=== PATIENT | male | born 1975 | race African-American/Black ===

== ENCOUNTER 2024-06-27 22:11 | Inpatient (IN) | payer BC, SELFPAY ==
[2024-06-27] VITALS (7 sets, daily range): BP systolic 120–149; BP diastolic 65–95; BMI 20.5
[2024-06-27 18:37] LABS: Hematocrit 29.4 % (39.0-52.0); Hemoglobin 10.2 g/dL (13.0-18.0); Mean Corp Hgb Conc. 34.7 g/dL (33.0-37.0); Mean Corpuscular Hgb 29.5 pg (27.0-31.0); Mean Platelet Volume 9.2 fL (7.4-10.4); Platelet Count 135 10^3/uL (130-400); Red Blood Cell Count 3.46 10^6/uL (4.70-6.10); Red Cell Dist. Width 15.1 % (11.5-14.5)
[2024-06-27 18:40] LABS: ALT (SGPT) 27 U/L (0-50); AST (SGOT) 38 U/L (17-59); Albumin 4.1 g/dl (3.5-5.0); Alkaline Phosphatase 80 U/L (38-126); Blood Urea Nitrogen 58 mg/dl (9-20); Calcium 12.5 mg/dl (8.4-10.2); Carbon Dioxide 20 mmol/L (22-30); Chloride 107 mmol/L (98-107); Glucose 118 mg/dl (70-99); Lipase 56 U/L (23-300); Potassium 4.4 mmol/L (3.5-5.1); Sodium 137 mmol/L (135-145); Total Bilirubin 0.8 mg/dl (0.2-1.3); Total Protein 6.6 g/dl (6.3-8.2)
[2024-06-27 18:44] LABS: Troponin I 0.017 ng/ml
[2024-06-27 19:02] LABS: % Basophils 1.1 % (0-2); % Eosinophils 2.7 % (0-6); % Lymphocytes 25.9 % (20.5-51.1); % Monocytes 14.2 % (1.7-9.3); % Neutrophils 47.1 % (42.2-75.2); Absolute Basophils 0.2 10^3/uL (0-0.2); Absolute Eosinophils 0.6 10^3/uL (0-0.7); Absolute Immature Granulocytes 1.9 10^3/uL (0-0.05); Absolute Lymphocytes 5.3 10^3/uL (1.2-3.4); Absolute Monocytes 2.9 10^3/uL (0.1-0.6); Absolute Neutrophils 9.6 10^3/uL (1.4-6.5); Nucleated Red Blood Cells % 0 % (-)
--- NOTE | 2024-06-27 19:08 | ED.GENMED ---
History of Present Illness
General
Chief Complaint: Abdominal Pain
Time Seen by Provider: 06/27/24 18:52
History of Present Illness
History of Present Illness:
49-year-old male with past medical history of opiate use disorder on Suboxone presents to the emergency department for evaluation of right-sided chest discomfort and difficulty breathing, he also notes general fatigue and poor appetite. He was seen
at [facility] 17 days ago and had labs at which time his white blood cell count was noted to be 13,000 and his serum creatinine was slightly elevated at 1.3, he had a negative troponin and unremarkable chest x-ray and was thus
discharged. He states he has been taking naproxen as well as aspirin for pain relief since that time. Denies any night sweats but he reportedly has been noted to be dyspneic while sleeping. No weight loss or leg swelling. Denies any
[id number] supplement use. He does admit to nicotine vaping, states that over the past week use of nicotine patches has made him profoundly nauseated and lethargic
Review of Systems
Review of Systems
Allergies reviewed?: Yes
All Other Systems: ROS reviewed and negative except as documented in HPI and ROS
Phy Exam
Physical Exam
Physical Exam:
GEN: Well appearing, NAD, WDWN
HEENT: Oral mucosa moist, no scleral icterus
Cardiac: Regular rate and rhythm, no murmur
Lung: No respiratory distress, no tachypnea, diminished right breath sounds otherwise lungs clear
MSK: No gross deformity or injuries, no lower extremity edema
Skin: Good color, no pallor or jaundice, no rashes
Neuro: AO x3, moves all extremities freely
Psych: Calm, cooperative
Course
Orders/Labs/Results
Orders:
Orders
06/27/24 18:10
EKG [Electrocardiogram (*1)] Urgent
Reason for Study: Chest Pain
EKG- Treatment ONCE
06/27/24 18:12
Acetaminophen Urgent
Comment: ADD ON
Alcohol Urgent
Complete Blood Count/With Diff Urgent
Comprehensive Metabolic Panel Urgent
Creatine Phosphokinase Urgent
Comment: ADD ON
Lipase Urgent
Magnesium Urgent
Comment: ADD ON
Phosphorus Urgent
Comment: ADD ON
Salicylate Urgent
Comment: ADD ON
Troponin I Urgent
06/27/24 19:06
Add On- LAB Urgent
Tests Added?: salicylate, acetaminophen, alcohol, CPK, magnesium, phosphorus
06/27/24 19:07
Lactated Ringers [Lr] 1,000 ml IV BOLUS
06/27/24 19:08
CT Chest/abd/pel Wo Iv Cont Urgent
Comment:
Reason For Exam: chest pain, leukocytosis, renal failure
Bladder Scan- Treatment ONCE
06/27/24 19:21
Lactic Acid Q4H
Comment: CANCEL 2nd LACTIC ACID IF 1st LACTIC ACID IS LESS THAN 2
Venous Blood Gas Urgent
%Oxygen/Room Air: 100
Blood Culture Q30M
OCTAVIO Source: Blood/Venous
Specimen Description:
06/27/24 19:31
Blood Culture Q30M
OCTAVIO Source: Blood/Venous
Specimen Description:
06/27/24 20:55
Cefepime HCl [Maxipime] 2,000 mg IV NOW STA
06/27/24 21:27
Admit/Transfer Patient As Directed
Co-Sign Provider:
Level of Care: Inpatient admission
Assign to:: Telemetry
Physician / Group: Alejandro
Diagnosis: FRANCA, Pleural Effusion
Reason for Telemetry: Arrhythmia
Date to Stop Telemetry: 06/30/24
Time to Stop Telemetry: 11:00
Reason for Hospitalization: FRANCA, Pleural Effusion
Expected length of stay greater than two midnights?: Yes
ELOS- Estimated Length of Stay in days: 3
I certify the patient meets the requirements for IP care: Yes
PRN Pain Medication Management As Directed
May give lesser potent ordered pain med per pt: Yes
preference::
Protocol:: Medication orders for pain may be administered in a
manner that supports deferring to patient preference
when the pt is:
- Requesting an ordered lesser potent pain medication.
Least to most potent pain medications are defined
as: acetaminophen < NSAID < tramadol < opioids
(morphine, oxycodone, hydromorphone).
- Requesting a lesser dose of the same medication IF
ORDERED.
- Requesting a less intrusive route of administration
if both routes are prescribed by the provider (PO <
IV).
06/27/24 21:29
Code Status As Directed
Resuscitation Status: Full Code
06/27/24 21:30
Urinalysis Reflex To Culture Urgent
Date Specimen was Collected: 06/27/24
Time Specimen was Collected: 21:36
06/27/24 21:35
Eosinophils- Body Fluid (Inc. Urine) [Body Fluid for Eosinophils] Routine
Fluid Source: Urine
Date Specimen was Collected: 06/27/24
Time Specimen was Collected: 21:36
Urine Drug Abuse Screen Urgent
Date Specimen was Collected: 06/27/24
Time Specimen was Collected: 21:36
Urine Protein/Creat Ratio (Random) [Protein/Creat Ratio (Random)] Urgent
Date Specimen was Collected: 06/27/24
Time Specimen was Collected: 21:36
06/27/24 21:36
COVID-19 Antigen Urgent
Source: Nasal Swab
Influenza A+B Rapid Molecular Urgent
OCTAVIO Source: Nasal Swab
Specimen Description:
06/30/24 11:00
DC Protocol for Telemetry ONCE
Abnormal Lab Results
06/27/24 06/27/24
18:12 19:21
WBC 20.5 H 10^3/uL
(4.8-10.8)
RBC 3.46 L 10^6/uL
(4.70-6.10)
Hgb 10.2 L g/dL
(13.0-18.0)
Hct 29.4 L %
(39.0-52.0)
RDW 15.1 H %
(11.5-14.5)
Abs Immat Gran (auto) 1.9 H 10^3/uL
(0-0.05)
Absolute Neuts (auto) 9.6 H 10^3/uL
(1.4-6.5)
Absolute Lymphs (auto) 5.3 H 10^3/uL
(1.2-3.4)
Absolute Monos (auto) 2.9 H 10^3/uL
(0.1-0.6)
Immature Gran % 9.0 H %
(0-0.5)
Monocytes % 14.2 H %
(1.7-9.3)
VBG pCO2 34 L mmHg
(35-48)
VBG HCO3 19.2 L mmol/L
(22-27)
Carbon Dioxide 20 L mmol/L
(22-30)
BUN 58 H mg/dl
(9-20)
Creatinine 8.9 H* mg/dL
(0.7-1.3)
Glucose 118 H mg/dl
(70-99)
Calcium 12.5 H mg/dl
(8.4-10.2)
Phosphorus 6.7 H mg/dl
(2.5-4.5)
Creatine Kinase 564 H U/L
(55-170)
Salicylates < 1.0 L mg/dl
(2.0-20.0)
Acetaminophen < 10 L ug/ml
(10-30)
06/27/24 18:12
06/27/24 18:12
Vital Signs
Initial and Last Documented VS:
Initial Vital Signs
Temp Pulse Resp BP Pulse Ox
98.6 F 75 18 131/95 100
06/27/24 18:06 06/27/24 18:06 06/27/24 18:06 06/27/24 18:06 06/27/24 18:06
Last Documented Vital Signs
Temp Pulse Resp BP Pulse Ox
98.6 F 77 19 141/75 99
06/27/24 18:06 06/27/24 21:00 06/27/24 20:30 06/27/24 21:00 06/27/24 21:00
MDM/Problems Addressed
MDM/Problems Addressed:
At this time the patient's cause of renal failure is not immediately clear however I would suspect a combination of poor p.o. intake coupled with excess NSAID use. He began using NSAIDs shortly after developing the right-sided chest pain, which is
most likely due to the developing right pleural effusion. Etiology of the effusion is not clear at this time either. Started on crystalloid fluid infusion and will admit to the hospitalist service, given severe leukocytosis although no obvious
source of infection is identified and the patient has no fever, broad-spectrum IV antibiotics initiated in the emergency department. He has a normal venous pH and normal potassium thus there is no urgent need for dialysis
*Critical Care Note
Total Time (30-74mins, 75-104mins- exclusive of procedures): 45 minutes
comment:
Critical care time: 45-minute
Critical care time was exclusive of: Separately billable procedures, treating other patients, and teaching time
Critical care was necessary to treat or prevent imminent or life-threatening deterioration of the following conditions: Acute renal failure
Critical care time spent personally by me on the following activities:
[x] Review of old charts
[x] Obtaining history from patient or surrogate
[x] Ordering and review of the laboratory studies
[x] Ordering and review of radiographic studies
[x] Ordering and performing treatments and interventions
[x] Patient patient's response to treatment
[x] Development of treatment plan with patient or surrogate
ED Attending Note
-
Portions of this chart may have been created with voice recognition software.� Occasional wrong word or��sound alike� substitutions may have occurred due to the inherent limitations of voice recognition software.
Discharge Plan
Departure
Patient Disposition: Admit
Date of Disposition: 06/27/24
Time of Disposition: 20:59
Admit to: IMU
Presentation/result/management discussed w/ accepting MD/DO: Hospitalist
Discharge Problem:
Acute renal failure, Pleural effusion on right
Prescriptions:
No Action
naproxen sodium [Aleve] 220 mg Tablet
440 mg PO BIDPRN PRN (Reason: mild pain)
buprenorphine-naloxone 8-2 mg Film
1 film BUCCAL TID
Referrals:
NONE,* [Family Provider] -
Interventions
Interventions:
*Risk Screen - Suicide Last Done: 06/27/24 18:06
*General Assessment Last Done: 06/27/24 18:06
*Neglect/Abuse Screening Last Done: 06/27/24 18:06
*ED- Fall Risk Assessment Last Done: 06/27/24 18:06
*ED COVID-19 Vaccine History Last Done: 06/27/24 18:06
Discharge Date and Time
Print Language: SETSWANA
[2024-06-27 19:20] LABS: Acetaminophen < 10 ug/ml (10-30); Alcohol None Detected; Creatine Phosphokinase 564 U/L (55-170); Phosphorus 6.7 mg/dl (2.5-4.5); Salicylate < 1.0 mg/dl (2.0-20.0)
[2024-06-27 19:26] LABS: Venous Blood Gas B.E. -5.5 mmol/L (-4 to +4); Venous Blood Gas HCO3 19.2 mmol/L (22-27); Venous Blood Gas O2 Sat % 78.2 %; Venous Blood Gas pCO2 34 mmHg (35-48); Venous Blood Gas pH 7.36 (7.32-7.43); Venous Blood Gas pO2 49 mmHg (30-50)
[2024-06-27] MEDS: LR 1000 IV (19:26)
[2024-06-27 19:43] LABS: White Blood Cell Count 20.5 10^3/uL (4.8-10.8)
--- NOTE | 2024-06-27 21:36 | HPS.HSE ---
Family Physician
-
Family Physician: * NONE
Chief Complaint
-
N/V, Chest Pain
History of Present Illness
Patient is a 49y M with PMH significant for prior opioid use disorder who presents to ED complaining of right-sided chest pain, cough, dyspnea, abdominal pain and N/V. Patient states that his symptoms started about one month ago with hacking,
non-productive cough. He developed pain in the R chest that was associated with cough and worse with deep breathing, coughing, laughing, etc. Patient notes that he has had dry mouth, loss of voice and poor appetite. He presented to [place] ED
two weeks ago with similar complaints. Evaluation there revealed R effusion, normal troponin, etc and patient was discharged. He states that his symptoms have worsened since that time.
Patient presents to the ED this evening for further evaluation. He is having N/V of bilious, non-bloody emesis here in the ED.
Patient denies any black or bloody stools. No gross evidence of blood loss.
No personal or family history of hemoglobinopathies, sickle, etc.
Patient states that he has been taking Aleve / Advil for his chest discomfort - but tells me he has only taken 'a couple of doses a week'.
Patient states that he has been urinating normally with no change in frequency, volume, color, etc.
No recent travel. No known sick contacts. No regular medications other than Suboxone.
Medical History
Past Medical History
Past Medical History: Reports Other
Additional Past Medical History:
Opioid Use Disorder
Past Surgical History: Reports Other
Additional Past Surgical History:
Sinus Surgery
Social History
Tobacco: Vaping (Current every day vape use.)
Alcohol: None
Drug: Other (Prior history of Percocet / Xanax use - last use 3 years ago. No h/o IVDA. Has medical marijuana card.)
Family History
Family History: Not pertinent
Allergies / Home Medications
Allergies reflects when Allergies were last updated in [facility].
Home Medications with original date entered in [facility]
Allergy/Medication List:
Allergies
Allergy/AdvReac Type Severity Reaction Status Date / Time
No Known Allergies Allergy Verified 06/27/24 19:10
Home Medications
buprenorphine 8 mg-naloxone 2 mg sublingual film 1 film buccal TID 06/27/24
naproxen sodium 220 mg tablet (Aleve) 440 mg PO BIDPRN PRN mild pain 06/27/24
Review of Systems
-
History Source: Patient
A 12 point ROS was completed and negative except as noted: Yes
Constitutional: Reports Fatigue; Denies Fever or Chills
EENT: Reports Sore Throat and Other (Weak voice.)
Respiratory: Reports Cough and Trouble Breathing; Denies Hemoptysis
Cardiac: Reports Chest Pain; Denies Diaphoresis, Palpitations or Syncope
Abdomen/GI: Reports Abdominal Pain, Nausea, Vomiting and Anorexia; Denies Diarrhea, Constipated, Bloody Stools or Black Stools
: Reports Flank Pain; Denies Dysuria or Frequency
Musculoskeletal: Denies Joint Pain or Edema
Neurological: Denies Dizzy or Headache
Psych: Denies Depression or Anxiety
Physical Exam
Vital Signs
Vital Signs
Temp Pulse Resp BP Pulse Ox
98.6 F 77 19 141/75 99
06/27/24 18:06 06/27/24 21:00 06/27/24 20:30 06/27/24 21:00 06/27/24 21:00
Physical Exam
General: Other (Thin 49y M in mild distress due to pain / nausea.)
HEENT: Other (Dry MM. Neck supple.)
Respiratory: Other (Decreased BS at the R base. Diminished effort due to pain. No W/R/R.)
Cardiac: S1/S2 and Regular Rhythm; No Murmur
GI: Soft, Non Distended, Normal Bowel Sounds and Other (Pos diffuse, mild tenderness.)
Musculoskeletal: No Clubbing, No Cyanosis and No Edema
Neuro: AO x 3
Laboratory Results
-
06/27/24 18:12
06/27/24 18:12
Laboratory Results
Lactic Acid 1.0 mmol/L (0.7-2.0) 06/27/24 19:21
Total Bilirubin 0.8 mg/dl (0.2-1.3) 06/27/24 18:12
AST 38 U/L (17-59) 06/27/24 18:12
ALT 27 U/L (0-50) 06/27/24 18:12
Alkaline Phosphatase 80 U/L (38-126) 06/27/24 18:12
Troponin I 0.017 ng/ml 06/27/24 18:12
Lipase 56 U/L (23-300) 06/27/24 18:12
Impression/Plan
-
A/P: Patient is a 49y M with PMH significant for opioid use disorder who presents to ED complaining of chest pain, abdominal pain and N/V.
FRANCA
- Admit for further evaluation and treatment.
- Patient with SCr = 8.9 and reportedly 1.3 at [facility] 2 weeks ago.
- Patient denies any issues with urinary retention, decreased urination, etc.
- Cough that started one month ago with associated pleuritic pain / effusion (see below).
- Recent decrease in PO intake accompanied by N/V, NSAID use, etc.
- IVF resuscitation overnight.
- Bladder scan protocol and straight cath / Rae if needed.
- Nephrology evaluation for additional recommendations.
- Follow for improvement in labs / lytes and adjust IVFs as needed.
- Avoid further NSAIDs or other nephrotoxic agents.
Pleuritic Pain
Right Pleural Effusion
Cough x 1 Month
- CT chest with moderate R pleural effusion.
- No noted infiltrate / pneumonia.
- IR eval for diagnostic / therapeutic thoracentesis in the AM.
- Supportive care / pain control.
- Avoid NSAIDs given renal injury.
- Patient declining COVID / flu testing - not likely to be contagious with either given duration of cough / symptoms.
Normocytic Anemia
- Unknown acuity. Obtain prior records from [place] for review / comparison.
- No obvious / noted blood loss.
- Heme test stools. Check iron studies, etc.
- Follow H&H for any changes and monitor for any obvious blood loss.
Hypercalcemia
- Ca = 12.5 with normal albumin.
- Suspect significant component of hypovolemia.
- Follow for improvement with IVFs overnight.
- Consider dose of Pamidronate, etc if persistent hypercalcemia despite fluids.
- Check iPTH, etc.
Leukocytosis
- Likely stress response due to acute illness, anemia, etc.
- Afebrile and without evidence of focal infection at this time.
- Observe off of further abx for now.
- Follow for improvement with IVFs, etc. Follow-up culture data.
Opioid Use Disorder
- Stable. Last use 3 years ago per patient. Maintained on Suboxone.
- No history of IVDA.
- Unable to use NSAIDs for acute pain control due to FRANCA, etc.
- Cautious use of opioids for pain.
DVT Prophylaxis: SCDs
Code Status: Full
[2024-06-27 21:50] LABS: Urine Albumin 3+ (Neg - Trace); Urine Bilirubin Negative (Negative); Urine Character Clear (Clear); Urine Color Yellow; Urine Glucose Negative (Negative); Urine Ketone Negative (Negative); Urine Leukocyte 1+ (Negative); Urine Nitrite Negative (Negative); Urine Occult Blood 4+ (Negative); Urine Urobilinogen Negative (Neg - 1+)
--- NOTE | 2024-06-27 21:56 | EDRN ---
the pt is adamantly refusing flu and covid swab ordered by admitting. admitting hospitalist Dr Allen was notified of above. Per ER Dr Allen, the pt can not be placed in a semi-private room until both flu and covid are ruled out. ER board certified music therapist was
notified of above. Per ER board certified music therapist, the pt will likely be held in ER overnight due to no inpatient private rooms available.
[2024-06-27 21:59] LABS: Amphetamines Negative (Negative); Barbiturates Negative (Negative); Benzodiazepines Negative (Negative); Buprenorphine Negative (Negative); Cocaine Negative (Negative); Marijuana Positive (Negative); Methadone Negative (Negative); Methamphetamines Negative (Negative); Opiates Negative (Negative); Phencyclidine Negative (Negative); Tricyclic Antidepressants Negative (Negative)
[2024-06-27 22:09] LABS: Protein/creatinine Ratio 2.7; Urine Protein 193 mg/dl
[2024-06-27 22:14] LABS: Urine Bacteria Few (Negative)
[2024-06-27 22:31] LABS: Body Fluid for Eosinophils No Eosinophils seen
[2024-06-27] MEDS: MAXIPIME 2000 MG IV (22:37)
[2024-06-27] MEDS: ZOFRAN 4 MG IV (23:08)
[2024-06-28] VITALS (11 sets, daily range): BP systolic 64–158; BP diastolic 57–100; BMI 18.8
[2024-06-28 00:48] LABS: COVID-19 Antigen Negative (Negative)
[2024-06-28 00:49] LABS: Erythrocyte Sed Rate 37 mm/hour (0-20)
--- NOTE | 2024-06-28 01:00 | PTCARENOTE ---
pt aaox3, no c/o pain at this time. pt 97% on room air, lungs diminish R base > L. pt has poor effort. Pt is refused skin assessment. stating he is tired, and doesn't want to be bother. pt stated that he had no skin breakdown or open areas. pt
refused nsg to go over plan of care. stating the docs told him in the emergency. pt vapes daily and uses medical marijuana.
pt denies any pain or discomfort at this time. pt is oriented to room w/ call frank in reach.
[2024-06-28 01:01] LABS: Troponin I 0.032 ng/ml
[2024-06-28] MEDS: NSS 1000 IV ×4 (01:07→21:39)
[2024-06-28] MEDS: COMPAZINE 5 MG IV (03:38)
[2024-06-28] MEDS: DILAUDID 0.5 MG IV ×2 (03:40→14:30)
[2024-06-28 04:38] LABS: Folate 4.6 ng/ml (2.76-20); Vitamin B12 311 pg/ml (239-931)
[2024-06-28 05:45] LABS: Hematocrit 29.3 % (39.0-52.0); Hemoglobin 10.1 g/dL (13.0-18.0); Mean Corp Hgb Conc. 34.5 g/dL (33.0-37.0); Mean Corpuscular Hgb 29.3 pg (27.0-31.0); Mean Corpuscular Volume 84.9 fL (80.0-94.0); Mean Platelet Volume 10.1 fL (7.4-10.4); Platelet Count 148 10^3/uL (130-400); Red Blood Cell Count 3.45 10^6/uL (4.70-6.10); Red Cell Dist. Width 15.2 % (11.5-14.5)
[2024-06-28 06:00] LABS: Troponin I 0.026 ng/ml
[2024-06-28 06:25] LABS: Blood Urea Nitrogen 59 mg/dl (9-20); Calcium 12.3 mg/dl (8.4-10.2); Carbon Dioxide 21 mmol/L (22-30); Chloride 109 mmol/L (98-107); Estimated Creatinine Clearance 10 ml/min; Glucose 103 mg/dl (70-99); Potassium 4.8 mmol/L (3.5-5.1); Sodium 140 mmol/L (135-145)
--- NOTE | 2024-06-28 07:44 | PTCARENOTE ---
Assumed care of patient, went into patients room to assess and administer Subutex. Patient refused Subutex, states Subutex and nicotine patches make his 'stomach upset and cause him to dry heave'. Pt is calm, oriented, laying in bed comfortably
ordering clear liquid breakfast, per order. He is toileting himself with IVF to the bathroom. He denies pain, nausea/vomiting at this time. Awaiting IRAD and nephro consults.
[2024-06-28 07:48] LABS: Calcium 12.5 mg/dl (8.4-10.2); Iron 115 ug/dl (49-181); LDH 877 U/L (120-246); Total Protein 5.9 g/dl (6.3-8.2)
[2024-06-28 07:57] LABS: Percent Saturation 44 % (20-50); Total Iron Binding Capacity 257 ug/dl (261-462)
[2024-06-28 10:58] LABS: Troponin I 0.022 ng/ml
[2024-06-28 11:28] LABS: Body Fluid pH 7.36
[2024-06-28 11:34] LABS: TSH Reflex To Free T4 1.38 uIU/ml (0.47-4.68)
[2024-06-28 11:34] LABS: Body Fluid Mononuclear 76.4 %; Body Fluid Polymorphonuclear 23.6 %; Body Fluid WBC 2385 /CUMM
[2024-06-28 11:45] LABS: Body Fluid LDH 981 U/L; Body Fluid Protein 4.7 g/dl; Body Fluid Second Tech BP
[2024-06-28 11:51] LABS: Anti Streptolysin Negative (Negative)
[2024-06-28 12:10] LABS: Urine Calcium 7.1 mg/dl
[2024-06-28 12:12] LABS: Protein/creatinine Ratio 2.5; Urine Protein 190 mg/dl
[2024-06-28] MEDS: CALCIMAR/CALCITONIN 400 UNITS/ 2 ML 290 UNITS IM ×2 (12:28→21:44)
--- NOTE | 2024-06-28 12:43 | W.PN.HOSP.TC ---
Today's Communication/Plan
-
IVF, Calcitonin
Renal consulted
SPEP
F/u Pleural Fluid, Lights Criteria, Cyto
Assessment / Plan
Assessment / Plan
Physical Exam
General: Other (Thin 49y M in mild distress due to pain / nausea.)
HEENT: Other (Dry MM. Neck supple.)
Respiratory: Other (Decreased BS at the R base. Diminished effort due to pain. No W/R/R.)
Cardiac: S1/S2 and Regular Rhythm; No Murmur
GI: Soft, Non Distended, Normal Bowel Sounds and Other (Pos diffuse, mild tenderness.)
Musculoskeletal: No Clubbing, No Cyanosis and No Edema
Neuro: AO x 3
A/P: Patient is a 49y M with PMH significant for opioid use disorder who presents to ED complaining of chest pain, abdominal pain and N/V.
FRANCA
- Patient with SCr = 8.9 and reportedly 1.3 at [facility] 2 weeks ago.
- possibly 2/2 to dec PO intake and NSAID use although risk remains of MM
- IVF
-SPEP, Urine Pr/creatine
- Renal consulted
- Avoid further NSAIDs or other nephrotoxic agents.
Pleuritic Pain
Right Pleural Effusion
Cough x 1 Month
- CT chest with moderate R pleural effusion.
- No noted infiltrate / pneumonia.
- IR eval for diagnostic / therapeutic thoracentesis 1050 bloody effusion
- F/u Lights Criteria, Cyto
- Supportive care / pain control.
- Avoid NSAIDs given renal injury.
- Patient declining COVID / flu testing - not likely to be contagious with either given duration of cough / symptoms.
Normocytic Anemia
- Unknown acuity. Obtain prior records from [place] for review / comparison.
- No obvious / noted blood loss.
- Elev Ferritin, LDH
- Follow H&H for any changes and monitor for any obvious blood loss.
Hypercalcemia
- Ca = 12.5 with normal albumin.
- Suspect significant component of hypovolemia
- IVF, Calcitonin
-iPTH low
Leukocytosis
- Likely stress response due to acute illness, anemia, etc.
- Afebrile and without evidence of focal infection at this time.
- Observe off of further abx for now.
- Follow for improvement with IVFs, etc. Follow-up culture data.
Opioid Use Disorder
- Stable. Last use 3 years ago per patient. Maintained on Suboxone.
- No history of IVDA.
- Unable to use NSAIDs for acute pain control due to FRANCA, etc.
- Cautious use of opioids for pain.
DVT Prophylaxis: HSQ
Code Status: Full
Total time spent on today's encounter was 50 minutes which included time spent in counseling the patient/family regarding diagnosis and treatment plan as listed above, goals of care, and symptom management. Case was discussed with nursing staff,
specialists, and care coordinators/case management. All labs and imaging personally reviewed by me. Remainder the time spent in detailed review of previous records, lab data, imaging, and other medical provider documentation.
Anticipated Discharge: > 48 hours
Subjective/Interval History
-
Date of Service: June 28, 2024
no acute events overnight
Objective Data
-
Labs:
Laboratory Results
06/28/24 06/28/24
00:15 05:25
WBC 18.0 H
Hgb 10.1 L
Hct 29.3 L
Plt Count 148
Sodium 140
Potassium 4.8
Chloride 109 H
Carbon Dioxide 21 L
BUN 59 H
Creatinine 8.9 H*
Glucose 103 H
Calcium 12.5 H 12.3 H
Vital Signs:
Vital Signs
Temp Pulse Resp BP Pulse Ox
98.7 F 63 17 141/69 99
06/28/24 10:40 06/28/24 11:15 06/28/24 11:15 06/28/24 11:15 06/28/24 10:40
I&O
06/27/24 06/28/24 06/29/24
06:59 06:59 06:59
Intake Total 900 / 900
Output Total 400 / 400 500 / 500
Balance 500 / 500 -500 / -500
Review of Systems
-
History Source: Patient
All other systems: Not reviewed unless documented
Data Reviewed
-
Diagnostic Radiology: Report Reviewed by me
CT Scan: Report Reviewed by me
Labs: Labs Reviewed by me
--- NOTE | 2024-06-28 13:40 | W.CON.NEPH ---
Consultation
-
Date/Time Consultation Requested: June 27, 2024 at 11 PM
Date/Time Consultation Performed: June 28, 2024 at 1 PM
Requesting Provider: Dr. Mccartney
Performing Provider: Dr. Toro
Reason for Consultation: Acute kidney injury
Medical History
-
Chief Complaint: Acute kidney injury
History of Present Illness:
49y M with PMH significant for prior opioid use disorder who presents to ED complaining of right-sided chest pain, cough, dyspnea, abdominal pain and N/V. Patient states that his symptoms started about one month ago with hacking, non-productive
cough. He developed pain in the R chest that was associated with cough and worse with deep breathing, coughing, laughing, etc.
He presented to [place] ED two weeks ago with similar complaints. Evaluation there revealed R effusion, normal troponin, etc and patient was discharged. He states that his symptoms have worsened since that time.
Patient presents to the ED this evening for further evaluation.
Patient states that he has been taking Aleve / Advil for his chest discomfort -only a few times per week.
It was difficult to get history from the patient is very upset and was putting the covers over his head.
Since admission he had a thoracentesis with drained 1 L of bloody fluid.
He has no difficulty with urinating and no hematuria
Past Medical History
Chronic pain
Social History
Marijuana and vapes
Family History
No renal disease
Allergies / Home Medications
Allergy/AdvReac Type Severity Reaction Status Date / Time
No Known Allergies Allergy Verified 06/27/24 19:10
�Medication �Instructions �Recorded �Confirmed �Type
buprenorphine 8 mg-naloxone 2 mg 1 film buccal TID MAINTENANCE 06/27/24 06/27/24 History
sublingual film
naproxen sodium 220 mg tablet 440 mg PO BIDPRN PRN mild pain 06/27/24 06/27/24 History
(Aleve)
Review of Systems
-
weakness and fatigue
All other systems: Negative unless noted
Physical Exam
Vital Signs
Vital Signs
Temp Pulse Resp BP Pulse Ox
98.7 F 63 17 141/69 99
06/28/24 10:40 06/28/24 11:15 06/28/24 11:15 06/28/24 11:15 06/28/24 10:40
Lab Results
WBC 18.0 10^3/uL (4.8-10.8) H 06/28/24 05:25
RBC 3.45 10^6/uL (4.70-6.10) L 06/28/24 05:25
Hgb 10.1 g/dL (13.0-18.0) L 06/28/24 05:25
Hct 29.3 % (39.0-52.0) L 06/28/24 05:25
Plt Count 148 10^3/uL (130-400) 06/28/24 05:25
Sodium 140 mmol/L (135-145) 06/28/24 05:25
Potassium 4.8 mmol/L (3.5-5.1) 06/28/24 05:25
Chloride 109 mmol/L (98-107) H 06/28/24 05:25
Carbon Dioxide 21 mmol/L (22-30) L 06/28/24 05:25
BUN 59 mg/dl (9-20) H 06/28/24 05:25
Creatinine 8.9 mg/dL (0.7-1.3) H* 06/28/24 05:25
eGFR 6.70 06/28/24 05:25
Glucose 103 mg/dl (70-99) H 06/28/24 05:25
Calcium 12.3 mg/dl (8.4-10.2) H 06/28/24 05:25
Phosphorus 6.7 mg/dl (2.5-4.5) H 06/27/24 18:12
Albumin 4.1 g/dl (3.5-5.0) 06/27/24 18:12
Physical Exam
General no acute distress
HEENT no cephalic atraumatic extraocular muscle intact no scleral icterus no JVD neck supple
lungs clear to auscultation bilateral
heart regular S1-S2 positive
abdomen soft nontender positive bowel sounds
extremities no edema pulses present bilateral
Neurologically nonfocal alert and oriented x 3
Skin no lesions no abrasions no petechiae
Psych normal affect no bizarre behavior
Data Reviewed
-
Radiology: Image Personally Visualized and interpreted
Labs: Labs Reviewed by me, Discussed with Nurse and Discussed with Patient
Assessment/Plan
-
Impression.
Acute kidney injury. Creatinine 6.9 on admission. 1.3 two weeks ago
Pleural effusion status post thoracentesis 1 L.
Prior opiate use disorder on Suboxone.
Anemia.
Hypercalcemia.
Plan.
Rule out GN with hematuria and proteinuria with a protein creatinine ratio of 2.5.
Urinalysis 4+ blood with 3-6 RBC/HPF, 11-15 RBC, 3+ albumin.
Hypercalcemia need to rule out paraproteinemia such as multiple myeloma though rare at this age.
No obstructive renal pathology on CAT scan.
Serological workup ordered.
Pulse dosed steroids 1 g daily x 3
Continue IV fluids.
No acute need for dialysis from a volume or electrolyte standpoint at this time.
Will likely need a kidney biopsy.
Total Time Spent with Patient (in minutes): 32
--- NOTE | 2024-06-28 14:10 | PTCARENOTE ---
Called report to receiving [facility] RN. Pt still denies pain and shortness of breath. He is voiding in the bathroom. Urine samples sent to lab per order. Pt went down for thoracentesis earlier, per [id number] report, 1050ml of bloody fluid was
drained from lung. Pt also saw nephrology. See MAR/flowsheets for further care details.
--- NOTE | 2024-06-28 14:11 | W.PN.NEPH.PH ---
Today's Communication / Plan
-
Renal biopsy Tuesday
Assessment/Plan
-
Impression.
Acute kidney injury. Creatinine 6.9 on admission. 1.3 two weeks ago
Pleural effusion status post thoracentesis 1 L.
Prior opiate use disorder on Suboxone.
Anemia.
Hypercalcemia.
Plan.
Rule out GN with hematuria and proteinuria with a protein creatinine ratio of 2.5.
Urinalysis 4+ blood with 3-6 RBC/HPF, 11-15 RBC, 3+ albumin.
No obstructive renal pathology on CAT scan.
Negative serological workup
SPEP monoclonal spike/pending ratio TAMELA
Oncology consult
Will likely proceed with a kidney biopsy on Tuesday as discussed with the patient
-
-
Date of Service: June 28, 2024
CC / HPI / ROS
-
Chief Complaint:
Shortness of breath
History of Present Illness:
Presents with shortness of breath pleural effusion status postthoracentesis with acute kidney injury creatinine greater than 7
Review of Systems:.
No chest pain or shortness of breath
Labs
-
Labs:
WBC 18.0 10^3/uL (4.8-10.8) H 06/28/24 05:25
RBC 3.45 10^6/uL (4.70-6.10) L 06/28/24 05:25
Hgb 10.1 g/dL (13.0-18.0) L 06/28/24 05:25
Hct 29.3 % (39.0-52.0) L 06/28/24 05:25
Plt Count 148 10^3/uL (130-400) 06/28/24 05:25
Sodium 140 mmol/L (135-145) 06/28/24 05:25
Potassium 4.8 mmol/L (3.5-5.1) 06/28/24 05:25
Chloride 109 mmol/L (98-107) H 06/28/24 05:25
Carbon Dioxide 21 mmol/L (22-30) L 06/28/24 05:25
BUN 59 mg/dl (9-20) H 06/28/24 05:25
Creatinine 8.9 mg/dL (0.7-1.3) H* 06/28/24 05:25
eGFR 6.70 06/28/24 05:25
Glucose 103 mg/dl (70-99) H 06/28/24 05:25
Calcium 12.3 mg/dl (8.4-10.2) H 06/28/24 05:25
Phosphorus 6.7 mg/dl (2.5-4.5) H 06/27/24 18:12
Albumin 4.1 g/dl (3.5-5.0) 06/27/24 18:12
Physical Exam
-
Vital Signs:
Vital Signs
Temp Pulse Resp BP Pulse Ox
98.7 F 63 17 141/69 99
06/28/24 10:40 06/28/24 11:15 06/28/24 11:15 06/28/24 11:15 06/28/24 10:40
Cardiovascular:: Regular rate and rhythm
Respiratory:: Bilateral: CTA
Lung Excursion:: Normal
Abdomen:: Nontender and Soft
Bowel Sounds:: Normal
Extremity Edema:: None: Bilateral:
Rae Catheter: No
[2024-06-28] MEDS: SOLU-MEDROL 258 MG IV (14:26)
[2024-06-28] MEDS: ZOFRAN 4 MG IV (14:33)
[2024-06-28 14:42] LABS: Complement C3 128 mg/dl (88-165)
[2024-06-28] MEDS: HEPARIN SC (17:11)
--- NOTE | 2024-06-28 17:11 | PTCARENOTE ---
Pt received from [facility]. [facility]ed to bed from [facility] into [facility]. VSS, BP elevated. Pt denies pain or nausea but given emesis bag incase of nausea at his request. Pt resting in bed and appears frustrated at staff, stating 'do I even have a choice?'
when asked about medications/assessment. This RN informed pt they can have autonomy in their care. Pt allowed an assessment, but refusing scheduled medications: subutex and heparin. made aware. Will continue to monitor.
[2024-06-28] MEDS: SINEQUAN 50 MG PO (21:38)
[2024-06-28] MEDS: MELATONIN 5 MG PO (21:38)
[2024-06-29] MEDS: HEPARIN SC ×3 (01:20→23:49)
[2024-06-29] MEDS: ZOFRAN 4 MG IV ×2 (02:25→12:11)
[2024-06-29] MEDS: NSS 1000 IV ×2 (02:26→16:57)
[2024-06-29 03:19] VITALS: BP 140/79
[2024-06-29] MEDS: COMPAZINE 5 MG IV (06:27)
[2024-06-29 07:04] LABS: Hematocrit 29.6 % (39.0-52.0); Hemoglobin 10.5 g/dL (13.0-18.0); Mean Corp Hgb Conc. 35.5 g/dL (33.0-37.0); Mean Corpuscular Hgb 29.3 pg (27.0-31.0); Mean Corpuscular Volume 82.7 fL (80.0-94.0); Mean Platelet Volume 9.8 fL (7.4-10.4); Platelet Count 145 10^3/uL (130-400); Red Blood Cell Count 3.58 10^6/uL (4.70-6.10); Red Cell Dist. Width 14.6 % (11.5-14.5); White Blood Cell Count 20.9 10^3/uL (4.8-10.8)
[2024-06-29 07:26] VITALS: BP 139/65
[2024-06-29] MEDS: CALCIMAR/CALCITONIN 400 UNITS/ 2 ML 290 UNITS IM (09:50)
[2024-06-29] MEDS: HEPARIN 5000 UNITS SC (09:52)
[2024-06-29 10:07] LABS: ALT (SGPT) 23 U/L (0-50); AST (SGOT) 35 U/L (17-59); Albumin 3.7 g/dl (3.5-5.0); Alkaline Phosphatase 64 U/L (38-126); Blood Urea Nitrogen 63 mg/dl (9-20); Calcium 10.8 mg/dl (8.4-10.2); Carbon Dioxide 15 mmol/L (22-30); Chloride 111 mmol/L (98-107); Estimated Creatinine Clearance 11 ml/min; Glucose 122 mg/dl (70-99); Potassium 4.8 mmol/L (3.5-5.1); Sodium 142 mmol/L (135-145); Total Bilirubin 0.6 mg/dl (0.2-1.3); Total Protein 5.8 g/dl (6.3-8.2); eGFR 7.08
[2024-06-29 11:01] VITALS: BP 123/63
--- NOTE | 2024-06-29 11:23 | W.PN.NEPH.PH ---
Today's Communication / Plan
-
Patient will undergo renal biopsy on Tuesday
No acute dialysis requirement at this time
Follow labs over weekend
Obtain INR
Assessment/Plan
-
Impression.
Acute kidney injury. Creatinine 6.9 on admission. 1.3 two weeks ago
Pleural effusion status post thoracentesis 1 L.
Prior opiate use disorder on Suboxone.
Anemia.
Hypercalcemia.
Plan.
creatinine unchanged at 8.5 but remains nonoliguric
no acute HD, will have renal biopsy on Tuesday
check INR/PT in am
follow bmp
Rule out GN with hematuria and proteinuria with a protein creatinine ratio of 2.5.
Urinalysis 4+ blood with 3-6 RBC/HPF, 11-15 RBC, 3+ albumin.
Hypercalcemia need to rule out paraproteinemia such as multiple myeloma though rare at this age.
No obstructive renal pathology on CAT scan.
Serological workup ordered.
Pulse dosed steroids 1 g daily x 3
No acute need for dialysis from a volume or electrolyte standpoint at this time.
-
-
Date of Service: June 29, 2024
CC / HPI / ROS
-
Chief Complaint:
Acute kidney
History of Present Illness:
Creatinine unchanged today 8.5
Hemodynamically stable
Currently on pulse steroid
Review of Systems:
Nonoliguric
No reported chest pain or shortness of breath
Labs
-
Labs:
WBC 20.9 10^3/uL (4.8-10.8) H 06/29/24 06:56
RBC 3.58 10^6/uL (4.70-6.10) L 06/29/24 06:56
Hgb 10.5 g/dL (13.0-18.0) L 06/29/24 06:56
Hct 29.6 % (39.0-52.0) L 06/29/24 06:56
Plt Count 145 10^3/uL (130-400) 06/29/24 06:56
Sodium 142 mmol/L (135-145) 06/29/24 09:25
Potassium 4.8 mmol/L (3.5-5.1) 06/29/24 09:25
Chloride 111 mmol/L (98-107) H 06/29/24 09:25
Carbon Dioxide 15 mmol/L (22-30) L 06/29/24 09:25
BUN 63 mg/dl (9-20) H 06/29/24 09:25
Creatinine 8.5 mg/dL (0.7-1.3) H* 06/29/24 09:25
eGFR 7.08 06/29/24 09:25
Glucose 122 mg/dl (70-99) H 06/29/24 09:25
Calcium 10.8 mg/dl (8.4-10.2) H 06/29/24 09:25
Phosphorus 6.7 mg/dl (2.5-4.5) H 06/27/24 18:12
Albumin 3.7 g/dl (3.5-5.0) 06/29/24 09:25
Physical Exam
-
Vital Signs:
Vital Signs
Temp Pulse Resp BP Pulse Ox
98.2 F 84 17 123/63 99
06/29/24 11:01 06/29/24 11:01 06/29/24 11:01 06/29/24 11:01 06/29/24 11:01
Cardiovascular:: Regular rate and rhythm
Respiratory:: Bilateral: CTA
Lung Excursion:: Normal
Abdomen:: Nontender and Soft
Bowel Sounds:: Normal
Extremity Edema:: None: Bilateral:
Rae Catheter: No
--- NOTE | 2024-06-29 13:03 | W.PN.HOSP.TC ---
Today's Communication/Plan
-
iv steroids
hiv, hep panel
ivf, monitor urine outpt
f/u renal consult
Renal bx tuesday
Assessment / Plan
Assessment / Plan
Physical Exam
General: Other (Thin 49y M in mild distress due to pain / nausea.)
HEENT: Other (Dry MM. Neck supple.)
Respiratory: Other (Decreased BS at the R base. Diminished effort due to pain. No W/R/R.)
Cardiac: S1/S2 and Regular Rhythm; No Murmur
GI: Soft, Non Distended, Normal Bowel Sounds and Other (Pos diffuse, mild tenderness.)
Musculoskeletal: No Clubbing, No Cyanosis and No Edema
Neuro: AO x 3
A/P: Patient is a 49y M with PMH significant for opioid use disorder who presents to ED complaining of chest pain, abdominal pain and N/V.
FRANCA
- Patient with SCr = 8.9 and reportedly 1.3 at [facility] 2 weeks ago.
- possibly 2/2 to dec PO intake and NSAID use although risk remains of MM
- IVF
-SPEP, Urine Pr/creatine
- Renal consulted
- Avoid further NSAIDs or other nephrotoxic agents.
-Will need renal Bx
-F/u HIV, Hep panel
-IV steroids
Pleuritic Pain
Right Pleural Effusion
Cough x 1 Month
- CT chest with moderate R pleural effusion.
- No noted infiltrate / pneumonia.
- IR eval for diagnostic / therapeutic thoracentesis 1050 bloody effusion
- Pleural fluid - exudative
- F/u Cultures, Cyto
- Supportive care / pain control.
- Avoid NSAIDs given renal injury.
- Patient declining COVID / flu testing - not likely to be contagious with either given duration of cough / symptoms.
Normocytic Anemia
- Unknown acuity. Obtain prior records from [place] for review / comparison.
- No obvious / noted blood loss.
- Elev Ferritin, LDH
- Follow H&H for any changes and monitor for any obvious blood loss.
Hypercalcemia
- Ca = 12.5 with normal albumin.
- Suspect significant component of hypovolemia
- IVF, Calcitonin
-iPTH low
Leukocytosis
- Likely stress response due to acute illness, anemia, etc.
- Afebrile and without evidence of focal infection at this time.
- Observe off of further abx for now.
- Follow for improvement with IVFs, etc. Follow-up culture data.
Opioid Use Disorder
- Stable. Last use 3 years ago per patient. Maintained on Suboxone.
- No history of IVDA.
- Unable to use NSAIDs for acute pain control due to FRANCA, etc.
- Cautious use of opioids for pain.
DVT Prophylaxis: HSQ
Code Status: Full
Total time spent on today's encounter was 51 minutes which included time spent in counseling the patient/family regarding diagnosis and treatment plan as listed above, goals of care, and symptom management. Case was discussed with nursing staff,
specialists, and care coordinators/case management. All labs and imaging personally reviewed by me. Remainder the time spent in detailed review of previous records, lab data, imaging, and other medical provider documentation.
Anticipated Discharge: > 48 hours
Subjective/Interval History
-
Date of Service: June 29, 2024
no acute events, urinating well
Objective Data
-
Labs:
Laboratory Results
06/29/24 06/29/24
06:56 09:25
WBC 20.9 H
Hgb 10.5 L
Hct 29.6 L
Plt Count 145
Sodium Cancelled 142
Potassium Cancelled 4.8
Chloride Cancelled 111 H
Carbon Dioxide Cancelled 15 L
BUN Cancelled 63 H
Creatinine Cancelled 8.5 H*
Glucose Cancelled 122 H
Calcium Cancelled 10.8 H
Total Bilirubin Cancelled 0.6
AST Cancelled 35
ALT Cancelled 23
Alkaline Phosphatase Cancelled 64
Vital Signs:
Vital Signs
Temp Pulse Resp BP Pulse Ox
98.2 F 84 17 123/63 99
06/29/24 11:01 06/29/24 11:01 06/29/24 11:01 06/29/24 11:01 06/29/24 11:01
I&O
06/28/24 06/29/24 06/30/24
06:59 06:59 06:59
Intake Total 900 / 900 1290 / 1290
Output Total 400 / 400 1900 / 1900
Balance 500 / 500 -610 / -610
Review of Systems
-
History Source: Patient
All other systems: Not reviewed unless documented
Data Reviewed
-
Diagnostic Radiology: Report Reviewed by me
CT Scan: Report Reviewed by me
Labs: Labs Reviewed by me
--- NOTE | 2024-06-29 13:34 | PN.CDI ---
CDI
- -
CDI:
Physician Documentation Request
Admit Date: 06/27/24 22:11
Dear Doctor Briana,
Please review the following and provide your response in the progress notes.
Clinical Indicators:
Height: 6 ft 5 in
Weight: 158 lb 3.2oz
BMI: 18.5
If possible, please provide an associated diagnosis related to the abnormal BMI, such as:
BMI < or = to 19
Underweight
Cachectic
- Other
Use of terms such as suspected, likely, concern for, or probable (associated with a specific diagnosis that is being evaluated, monitored, or treated as if it exists) are acceptable and can be coded in the inpatient setting, when documented at the
time of discharge.
Thank you,
Dolly Cabral RN
CDI Specialist
[facility] [employer]
Please use your independent medical judgment in providing your response.
[2024-06-29] MEDS: SOLU-MEDROL 258 MG IV (13:40)
[2024-06-29 14:57] VITALS: BP 131/67
--- NOTE | 2024-06-29 15:28 | CM ---
Patient was on phone and could not talk so call was placed to patient's aunt Olinda. She stated that patient lives with his mother in a single multi story home with two steps. He has been independent with all ADLs, personal care, dressing and
bathing. 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 Patient has no DME. He has not had VN. He has never been to a SNF.
Patient has a prescription plan and uses, [facility] [id number] [id number] in [place] for his medications.
He does not have a PCP listed.
Plan: Case management will continue to follow and assist with discharge planning. Home when stable.
[2024-06-29 15:39] LABS: Hepatitis B Surface Antigen Negative (Negative)
[2024-06-29 15:56] LABS: Hepatitis A Antibody, Total Positive (Negative); Hepatitis B Surface Antibody Negative; Hepatitis C Antibody Negative (Negative)
[2024-06-29] MEDS: NSS IV (16:57)
[2024-06-29 18:34] LABS: HIV Combo Negative (Negative)
[2024-06-29 19:39] VITALS: BP 129/69
[2024-06-29] MEDS: MELATONIN 5 MG PO (21:19)
[2024-06-29] MEDS: SINEQUAN 50 MG PO (21:19)
[2024-06-29 22:53] LABS: Vitamin D 1,25 Dihydroxy <5.0 pg/mL (19.9-79.3)
[2024-06-29 23:19] VITALS: BP 136/72
[2024-06-30] MEDS: NSS 1000 IV (02:51)
[2024-06-30 03:35] VITALS: BP 137/63
[2024-06-30 06:00] VITALS: BMI 19.1
[2024-06-30 06:31] LABS: Hematocrit 26.3 % (39.0-52.0); Hemoglobin 9.6 g/dL (13.0-18.0); Mean Corp Hgb Conc. 36.5 g/dL (33.0-37.0); Mean Corpuscular Hgb 30.8 pg (27.0-31.0); Mean Corpuscular Volume 84.3 fL (80.0-94.0); Mean Platelet Volume 11.4 fL (7.4-10.4); Platelet Count 154 10^3/uL (130-400); Red Blood Cell Count 3.12 10^6/uL (4.70-6.10); Red Cell Dist. Width 14.6 % (11.5-14.5); White Blood Cell Count 16.8 10^3/uL (4.8-10.8)
[2024-06-30 06:47] LABS: INR 1.28; PT 16.3 Sec (11.4-14.6)
[2024-06-30 07:05] VITALS: BP 118/60
[2024-06-30 07:20] LABS: ALT (SGPT) 21 U/L (0-50); AST (SGOT) 35 U/L (17-59); Albumin 3.3 g/dl (3.5-5.0); Alkaline Phosphatase 61 U/L (38-126); Blood Urea Nitrogen 80 mg/dl (9-20); Calcium 9.6 mg/dl (8.4-10.2); Carbon Dioxide 13 mmol/L (22-30); Chloride 110 mmol/L (98-107); Estimated Creatinine Clearance 12 ml/min; Glucose 134 mg/dl (70-99); Potassium 4.8 mmol/L (3.5-5.1); Sodium 138 mmol/L (135-145); Total Bilirubin 0.5 mg/dl (0.2-1.3); Total Protein 5.4 g/dl (6.3-8.2); eGFR 8.09
[2024-06-30] MEDS: HEPARIN 5000 UNITS SC (08:30)
--- NOTE | 2024-06-30 10:26 | W.PN.NEPH.PH ---
Today's Communication / Plan
-
Changed IV fluids to alkaline
Follow BMP
Assessment/Plan
-
Impression.
Acute kidney injury. Creatinine 6.9 on admission. 1.3 two weeks ago
Pleural effusion status post thoracentesis 1 L.
Prior opiate use disorder on Suboxone.
Anemia.
Hypercalcemia.
Plan.
creatinine unchanged at 7.6but remains nonoliguric
no acute HD, will have renal biopsy on Tuesday, unless creatinine continues to rapidly improve
Metabolic acidosis and azotemia continue to exacerbate
Metabolic acidosis may also be a function of isotonic saline administration in addition to CKD
follow bmp
Rule out GN with hematuria and proteinuria with a protein creatinine ratio of 2.5.
Urinalysis 4+ blood with 3-6 RBC/HPF, 11-15 RBC, 3+ albumin.
Hypercalcemia need to rule out paraproteinemia such as multiple myeloma though rare at this age., Calcium levels now corrected
No obstructive renal pathology on CAT scan.
Serological workup ordered.
Hepatitis and antistreptolysin antibodies negative HIV negative
Pulse dosed steroids 1 g daily x 3 were given
No acute need for dialysis from a volume or electrolyte standpoint at this time.
Patiently remains a clinically high risk with persistent renal failure with worsening metabolic acidosis requiring alkaline IV fluids
-
-
Date of Service: June 30, 2024
CC / HPI / ROS
-
Chief Complaint:
Acute kidney
History of Present Illness:
Creatinine improved to 7.6 (may be dilutional from IVFs)
Metabolic acidosis exacerbated
Azotemia worsening
Hemodynamically stable
Status post pulse steroids
Review of Systems:
Nonoliguric
No reported chest pain or shortness of breath
Labs
-
Labs:
WBC 16.8 10^3/uL (4.8-10.8) H 06/30/24 06:03
RBC 3.12 10^6/uL (4.70-6.10) L 06/30/24 06:03
Hgb 9.6 g/dL (13.0-18.0) L 06/30/24 06:03
Hct 26.3 % (39.0-52.0) L 06/30/24 06:03
Plt Count 154 10^3/uL (130-400) 06/30/24 06:03
Sodium 138 mmol/L (135-145) 06/30/24 06:03
Potassium 4.8 mmol/L (3.5-5.1) 06/30/24 06:03
Chloride 110 mmol/L (98-107) H 06/30/24 06:03
Carbon Dioxide 13 mmol/L (22-30) L* 06/30/24 06:03
BUN 80 mg/dl (9-20) H 06/30/24 06:03
Creatinine 7.6 mg/dL (0.7-1.3) H* 06/30/24 06:03
eGFR 8.09 06/30/24 06:03
Glucose 134 mg/dl (70-99) H 06/30/24 06:03
Calcium 9.6 mg/dl (8.4-10.2) 06/30/24 06:03
Phosphorus 6.7 mg/dl (2.5-4.5) H 06/27/24 18:12
Albumin 3.3 g/dl (3.5-5.0) L 06/30/24 06:03
Physical Exam
-
Vital Signs:
Vital Signs
Temp Pulse Resp BP Pulse Ox
98.9 F 65 18 118/60 98
06/30/24 07:05 06/30/24 07:05 06/30/24 07:05 06/30/24 07:05 06/30/24 07:05
Cardiovascular:: Regular rate and rhythm
Respiratory:: Bilateral: CTA
Lung Excursion:: Normal
Abdomen:: Nontender and Soft
Bowel Sounds:: Normal
Extremity Edema:: None: Bilateral:
Rae Catheter: No
[2024-06-30] MEDS: SODIUM BICARBONATE 1150 MEQ IV ×2 (11:00→21:48)
[2024-06-30 11:01] VITALS: BP 115/64
--- NOTE | 2024-06-30 12:03 | W.PN.HOSP.TC ---
Today's Communication/Plan
-
bicarb solution
monitor urine outpt
follow scr/bun
renal bx tentatively Tuesday
Assessment / Plan
Assessment / Plan
Physical Exam
General: Other (Thin 49y M in mild distress due to pain / nausea.)
HEENT: Other (Dry MM. Neck supple.)
Respiratory: Other (Decreased BS at the R base. Diminished effort due to pain. No W/R/R.)
Cardiac: S1/S2 and Regular Rhythm; No Murmur
GI: Soft, Non Distended, Normal Bowel Sounds and Other (Pos diffuse, mild tenderness.)
Musculoskeletal: No Clubbing, No Cyanosis and No Edema
Neuro: AO x 3
A/P: Patient is a 49y M with PMH significant for opioid use disorder who presents to ED complaining of chest pain, abdominal pain and N/V.
FRANCA
- Patient with SCr = 8.9 and reportedly 1.3 at [facility] 2 weeks ago.
- possibly 2/2 to dec PO intake and NSAID use although risk remains of MM
- IVF
-SPEP, Urine Pr/creatine
- Renal consulted
- Avoid further NSAIDs or other nephrotoxic agents.
-Will need renal Bx
-F/u HIV, Hep panel
-IV steroids
#Anion Gap Metabolic Acodisis
-possibly 2/2 to franca/ckd
-bicarb solution
Pleuritic Pain
Right Pleural Effusion
Cough x 1 Month
- CT chest with moderate R pleural effusion.
- No noted infiltrate / pneumonia.
- IR eval for diagnostic / therapeutic thoracentesis 1050 bloody effusion
- Pleural fluid - exudative
- F/u Cultures, Cyto
- Supportive care / pain control.
- Avoid NSAIDs given renal injury.
- Patient declining COVID / flu testing - not likely to be contagious with either given duration of cough / symptoms.
Normocytic Anemia
- Unknown acuity. Obtain prior records from [place] for review / comparison.
- No obvious / noted blood loss.
- Elev Ferritin, LDH
- Follow H&H for any changes and monitor for any obvious blood loss.
Hypercalcemia
- Ca = 12.5 with normal albumin.
- Suspect significant component of hypovolemia
- IVF, s/p Calcitonin
-iPTH low
Leukocytosis
- Likely stress response due to acute illness, anemia, etc.
- Afebrile and without evidence of focal infection at this time.
- Observe off of further abx for now.
- Follow for improvement with IVFs, etc. Follow-up culture data.
Opioid Use Disorder
- Stable. Last use 3 years ago per patient. Maintained on Suboxone.
- No history of IVDA.
- Unable to use NSAIDs for acute pain control due to FRANCA, etc.
- Cautious use of opioids for pain.
DVT Prophylaxis: HSQ
Code Status: Full
Total time spent on today's encounter was 513 minutes which included time spent in counseling the patient/family regarding diagnosis and treatment plan as listed above, goals of care, and symptom management. Case was discussed with nursing staff,
specialists, and care coordinators/case management. All labs and imaging personally reviewed by me. Remainder the time spent in detailed review of previous records, lab data, imaging, and other medical provider documentation.
Anticipated Discharge: > 48 hours
Subjective/Interval History
-
Date of Service: June 30, 2024
no acute events
Objective Data
-
Labs:
Laboratory Results
06/30/24
06:03
WBC 16.8 H
Hgb 9.6 L
Hct 26.3 L
Plt Count 154
PT 16.3 H
INR 1.28
Sodium 138
Potassium 4.8
Chloride 110 H
Carbon Dioxide 13 L*
BUN 80 H
Creatinine 7.6 H*
Glucose 134 H
Calcium 9.6
Total Bilirubin 0.5
AST 35
ALT 21
Alkaline Phosphatase 61
Vital Signs:
Vital Signs
Temp Pulse Resp BP Pulse Ox
98.7 F 63 18 115/64 99
06/30/24 11:01 06/30/24 11:01 06/30/24 11:01 06/30/24 11:01 06/30/24 11:01
I&O
06/29/24 06/30/24 07/01/24
06:59 06:59 06:59
Intake Total 1290 / 1290 2770 / 2770
Output Total 1900 / 1900 1600 / 1600
Balance -610 / -610 1170 / 1170
Review of Systems
-
History Source: Patient
All other systems: Not reviewed unless documented
Data Reviewed
-
Diagnostic Radiology: Report Reviewed by me
CT Scan: Report Reviewed by me
Labs: Labs Reviewed by me
[2024-06-30 15:05] VITALS: BP 124/56
[2024-06-30] MEDS: HEPARIN SC ×2 (17:40→23:45)
[2024-06-30] MEDS: NSS IV (19:02)
[2024-06-30 19:09] VITALS: BP 137/74
[2024-06-30] MEDS: MELATONIN 5 MG PO (21:46)
[2024-06-30] MEDS: SINEQUAN 50 MG PO (21:47)
[2024-06-30 23:35] VITALS: BP 120/55
[2024-07-01 01:32] LABS: Glomerular Base Membrane Ab 1 AU/mL (0-19); Myeloperoxidase Antibody 0 AU/mL (0-19); Serine Protease-3, IgG 3 AU/mL (0-19)
[2024-07-01 02:52] LABS: ANA, IgG Reflex to HEp-2 None Detected (None Detected)
[2024-07-01 06:00] VITALS: BMI 18.9
[2024-07-01 07:00] VITALS: BP 120/60
[2024-07-01] MEDS: HEPARIN SC ×2 (08:03→16:27)
[2024-07-01 08:29] LABS: Hematocrit 25.4 % (39.0-52.0); Hemoglobin 9.1 g/dL (13.0-18.0); Mean Corp Hgb Conc. 35.8 g/dL (33.0-37.0); Mean Corpuscular Hgb 29.6 pg (27.0-31.0); Mean Corpuscular Volume 82.7 fL (80.0-94.0); Mean Platelet Volume 9.9 fL (7.4-10.4); Platelet Count 129 10^3/uL (130-400); Red Blood Cell Count 3.07 10^6/uL (4.70-6.10); Red Cell Dist. Width 14.4 % (11.5-14.5); White Blood Cell Count 10.3 10^3/uL (4.8-10.8)
[2024-07-01 08:39] LABS: ALT (SGPT) 26 U/L (0-50); AST (SGOT) 31 U/L (17-59); Alkaline Phosphatase 57 U/L (38-126); Blood Urea Nitrogen 87 mg/dl (9-20); Calcium 9.1 mg/dl (8.4-10.2); Carbon Dioxide 22 mmol/L (22-30); Chloride 108 mmol/L (98-107); Estimated Creatinine Clearance 13 ml/min; Glucose 94 mg/dl (70-99); Sodium 138 mmol/L (135-145); Total Bilirubin 0.5 mg/dl (0.2-1.3); eGFR 9.09
[2024-07-01] MEDS: SODIUM BICARBONATE 1150 MEQ IV (10:13)
--- NOTE | 2024-07-01 10:22 | W.PN.NEPH.PH ---
Today's Communication / Plan
-
Holding off renal biopsy
Continue to follow BMP and repeat urine studies
Follow-up anemia workup (spep and upep pending)
Can discontinue IV fluids once current bag completed
Assessment/Plan
-
Impression.
Acute kidney injury. Creatinine 6.9 on admission. 1.3 two weeks ago
Right Pleural effusion status post thoracentesis 1 L.
Prior opiate use disorder on Suboxone.
Anemia.
Hypercalcemia.
Plan.
creatinine unchanged now improving to 6.9 and remains grossly nonoliguric
no acute HD, I will also hold off on renal biopsy tomorrow as his kidney function numbers continue to improve
I will recheck a BMP and urine studies tomorrow
Of note patient was taking anti-inflammatories for pleural chest pain prior to admission
Metabolic acidosis may also be a function of isotonic saline administration in addition to CKD, 1 more bag of IV fluids then DC
Differential of acute kidney injury could include postinfectious ATN or NSAID induced injury
follow bmp
Anemia: Noted for no evidence of hemolytic pattern, but exacerbated, would heme check stool, iron studies are without deficiency
Patient still with significant anorexia and has not moved bowels in over a week
Will out GN with hematuria and proteinuria with a protein creatinine ratio of 2.5.
Urinalysis 4+ blood with 3-6 RBC/HPF, 11-15 RBC, 3+ albumin.
Hypercalcemia need to rule out paraproteinemia such as multiple myeloma though rare at this age., Calcium levels now corrected
No obstructive renal pathology on CAT scan.
Serological workup ordered and negative
Hepatitis and antistreptolysin antibodies negative HIV negative
Pulse dosed steroids 1 g daily x 3 were given: Which may explain azotemia
No acute need for dialysis from a volume or electrolyte standpoint at this time.
Patiently remains a clinically high risk with persistent renal failure with worsening metabolic acidosis requiring alkaline IV fluids
-
-
Date of Service: July 01, 2024
CC / HPI / ROS
-
Chief Complaint:
Acute kidney
History of Present Illness:
Creatinine improved to 6.9(may be dilutional from IVFs)
Metabolic acidosis exacerbated
Azotemia worsening
Hemodynamically stable
Status post pulse steroids
Review of Systems:
Nonoliguric
No reported chest pain or shortness of breath
Significant anorexia and has not moved bowels since early last week
Labs
-
Labs:
WBC 10.3 10^3/uL (4.8-10.8) 07/01/24 08:09
RBC 3.07 10^6/uL (4.70-6.10) L 07/01/24 08:09
Hgb 9.1 g/dL (13.0-18.0) L 07/01/24 08:09
Hct 25.4 % (39.0-52.0) L 07/01/24 08:09
Plt Count 129 10^3/uL (130-400) L 07/01/24 08:09
Sodium 138 mmol/L (135-145) 07/01/24 08:09
Potassium 4.0 mmol/L (3.5-5.1) 07/01/24 08:09
Chloride 108 mmol/L (98-107) H 07/01/24 08:09
Carbon Dioxide 22 mmol/L (22-30) 07/01/24 08:09
BUN 87 mg/dl (9-20) H 07/01/24 08:09
Creatinine 6.9 mg/dL (0.7-1.3) H* 07/01/24 08:09
eGFR 9.09 07/01/24 08:09
Glucose 94 mg/dl (70-99) 07/01/24 08:09
Calcium 9.1 mg/dl (8.4-10.2) 07/01/24 08:09
Phosphorus 6.7 mg/dl (2.5-4.5) H 06/27/24 18:12
Albumin 3.0 g/dl (3.5-5.0) L 07/01/24 08:09
Physical Exam
-
Vital Signs:
Vital Signs
Temp Pulse Resp BP Pulse Ox
98.7 F 66 17 120/60 99
07/01/24 07:00 07/01/24 07:00 07/01/24 07:00 07/01/24 07:00 07/01/24 07:00
Cardiovascular:: Regular rate and rhythm
Respiratory:: Bilateral: CTA
Lung Excursion:: Normal
Abdomen:: Nontender and Soft
Bowel Sounds:: Normal
Extremity Edema:: None: Bilateral:
Rae Catheter: No
[2024-07-01 10:52] LABS: Urine Albumin 2+ (Neg - Trace); Urine Bilirubin Negative (Negative); Urine Character Clear (Clear); Urine Color Yellow; Urine Glucose Negative (Negative); Urine Ketone Negative (Negative); Urine Leukocyte 1+ (Negative); Urine Nitrite Negative (Negative); Urine Occult Blood 2+ (Negative); Urine Specific Gravity 1.005 (<1.030); Urine Urobilinogen Negative (Neg - 1+)
--- NOTE | 2024-07-01 12:24 | W.PN.HOSP.TC ---
Addendum entered and electronically signed by Jaret Warren MD 07/01/24 14:50:
Underweight
Original Note:
Today's Communication/Plan
-
complete fluid bolus
monitor bmp
held renal bx
Assessment / Plan
Assessment / Plan
Physical Exam
General: Other (Thin 49y M in mild distress due to pain / nausea.)
HEENT: Other (Dry MM. Neck supple.)
Respiratory: Other (Decreased BS at the R base. Diminished effort due to pain. No W/R/R.)
Cardiac: S1/S2 and Regular Rhythm; No Murmur
GI: Soft, Non Distended, Normal Bowel Sounds and Other (Pos diffuse, mild tenderness.)
Musculoskeletal: No Clubbing, No Cyanosis and No Edema
Neuro: AO x 3
A/P: Patient is a 49y M with PMH significant for opioid use disorder who presents to ED complaining of chest pain, abdominal pain and N/V.
FRANCA
- Patient with SCr = 8.9 and reportedly 1.3 at [facility] 2 weeks ago.
- possibly 2/2 to dec PO intake and NSAID use although risk remains of MM/paraproteinemia disease
� Nonoliguric
- IVF
-SPEP, UPEP follow-up
- Renal consulted
- Avoid further NSAIDs or other nephrotoxic agents.
-Will hold on renal biopsy as improving
-F/u HIV negative; hepatitis A antibody positive, follow-up IgM
-IV steroids
#Anion Gap Metabolic Acidosis
-possibly 2/2 to franca/ckd along with isotonic saline
-bicarb solution, can discontinue after order/bag and
Pleuritic Pain
Right Pleural Effusion
Cough x 1 Month
- CT chest with moderate R pleural effusion.
- No noted infiltrate / pneumonia.
- IR eval for diagnostic / therapeutic thoracentesis 1050 bloody effusion
- Pleural fluid - exudative
- F/u Cultures, Cyto
- Supportive care / pain control.
- Avoid NSAIDs given renal injury.
- Patient declining COVID / flu testing - not likely to be contagious with either given duration of cough / symptoms.
Normocytic Anemia
- Unknown acuity. Obtain prior records from [place] for review / comparison.
- No obvious / noted blood loss.
- Elev Ferritin, LDH
- Follow H&H for any changes and monitor for any obvious blood loss.
Hypercalcemia, resolved
- Ca = 12.5 with normal albumin.
- Suspect significant component of hypovolemia
- IVF, s/p Calcitonin
-iPTH low
Leukocytosis
- Likely stress response due to acute illness, anemia, etc.
- Afebrile and without evidence of focal infection at this time.
- Observe off of further abx for now.
- Follow for improvement with IVFs, etc. Follow-up culture data.
Opioid Use Disorder
- Stable. Last use 3 years ago per patient. Maintained on Suboxone.
- No history of IVDA.
- Unable to use NSAIDs for acute pain control due to FRANCA, etc.
- Cautious use of opioids for pain.
DVT Prophylaxis: HSQ
Code Status: Full
Total time spent on today's encounter was 52 minutes which included time spent in counseling the patient/family regarding diagnosis and treatment plan as listed above, goals of care, and symptom management. Case was discussed with nursing staff,
specialists, and care coordinators/case management. All labs and imaging personally reviewed by me. Remainder the time spent in detailed review of previous records, lab data, imaging, and other medical provider documentation.
Anticipated Discharge: > 48 hours
Subjective/Interval History
-
Date of Service: July 01, 2024
No acute events overnight
Objective Data
-
Labs:
Laboratory Results
07/01/24
08:09
WBC 10.3
Hgb 9.1 L
Hct 25.4 L
Plt Count 129 L
Sodium 138
Potassium 4.0
Chloride 108 H
Carbon Dioxide 22
BUN 87 H
Creatinine 6.9 H*
Glucose 94
Calcium 9.1
Total Bilirubin 0.5
AST 31
ALT 26
Alkaline Phosphatase 57
Vital Signs:
Vital Signs
Temp Pulse Resp BP Pulse Ox
98.7 F 66 17 120/60 99
07/01/24 07:00 07/01/24 07:00 07/01/24 07:00 07/01/24 07:00 07/01/24 07:00
I&O
06/30/24 07/01/24 07/02/24
06:59 06:59 06:59
Intake Total 2770 / 2770 1560 / 1560 480 / 480
Output Total 1600 / 1600 600 / 600 2200 / 2200
Balance 1170 / 1170 960 / 960 -1720 / -1720
Review of Systems
-
History Source: Patient
All other systems: Not reviewed unless documented
Data Reviewed
-
Diagnostic Radiology: Report Reviewed by me
CT Scan: Report Reviewed by me
Labs: Labs Reviewed by me
[2024-07-01 12:44] LABS: Urine Bacteria Few (Negative); Urine Red Blood Cell 0-2 /HPF (0-2)
[2024-07-01 15:00] VITALS: BP 143/66
[2024-07-01] MEDS: MELATONIN 5 MG PO (21:30)
[2024-07-01 23:05] VITALS: BP 126/61
[2024-07-02] MEDS: HEPARIN SC ×4 (00:01→23:00)
[2024-07-02 06:00] VITALS: BMI 18.7
[2024-07-02 07:20] VITALS: BP 121/62
[2024-07-02 08:55] LABS: Hematocrit 28.5 % (39.0-52.0); Hemoglobin 10.1 g/dL (13.0-18.0); Mean Corp Hgb Conc. 35.4 g/dL (33.0-37.0); Mean Corpuscular Hgb 29.8 pg (27.0-31.0); Mean Corpuscular Volume 84.1 fL (80.0-94.0); Mean Platelet Volume 9.6 fL (7.4-10.4); Platelet Count 135 10^3/uL (130-400); Red Blood Cell Count 3.39 10^6/uL (4.70-6.10); Red Cell Dist. Width 14.1 % (11.5-14.5); White Blood Cell Count 10.3 10^3/uL (4.8-10.8)
[2024-07-02 09:27] LABS: ALT (SGPT) 29 U/L (0-50); AST (SGOT) 30 U/L (17-59); Albumin 3.4 g/dl (3.5-5.0); Alkaline Phosphatase 59 U/L (38-126); Blood Urea Nitrogen 79 mg/dl (9-20); Calcium 9.2 mg/dl (8.4-10.2); Carbon Dioxide 25 mmol/L (22-30); Chloride 104 mmol/L (98-107); Estimated Creatinine Clearance 14 ml/min; Glucose 172 mg/dl (70-99); Potassium 3.5 mmol/L (3.5-5.1); Sodium 138 mmol/L (135-145); Total Bilirubin 0.6 mg/dl (0.2-1.3); Total Protein 5.4 g/dl (6.3-8.2); eGFR 9.95
[2024-07-02] MEDS: D5/0.45%NACL 1000 IV ×2 (10:30→21:35)
[2024-07-02 10:31] VITALS: BMI 18.7
--- NOTE | 2024-07-02 11:08 | W.PN.HOSP.TC ---
Today's Communication/Plan
-
continue IVF
follow renal fxn
will request pulm input regarding the pleural effusion
Assessment / Plan
Assessment / Plan
A/P: Patient is a 49y M with PMH significant for opioid use disorder who presents to ED complaining of chest pain, abdominal pain and N/V.
FRANCA
- Patient with SCr = 8.9-->7.6-->6.9-->6.4 and reportedly 1.3 at [facility] 2 weeks ago.
- possibly 2/2 to dec PO intake and NSAID use although risk remains of MM/paraproteinemia disease
� Nonoliguric
- continue IVF, though with normalization of CO2, will stop supplemental bicarb
-SPEP, UPEP follow-up
- Renal consulted
- Avoid further NSAIDs or other nephrotoxic agents.
-Will hold on renal biopsy as improving
-F/u HIV negative; hepatitis A antibody positive, follow-up IgM
MethylPrednisolone given and since stopped
WBC 20.5-->18.0-->20.9-->16.8-->10.3-->10.3k
#Anion Gap Metabolic Acidosis
-possibly 2/2 to franca/ckd along with isotonic saline
Pleuritic Pain
Right Pleural Effusion
Cough x 1 Month
- CT chest: 1. Moderate right pleural effusion with associated compressive atelectasis. No other significant abnormality identified in the chest, abdomen or pelvis, within the limits of unenhanced CT, as described above.
- No noted infiltrate / pneumonia.
- IR eval for diagnostic / therapeutic thoracentesis 1050 bloody effusion
- Pleural fluid - exudative
- F/u Cultures, Cyto: Few mesothelial cells with mixed inflammation
- Supportive care / pain control.
- Avoid NSAIDs given renal injury.
- Patient declining COVID / flu testing - not likely to be contagious with either given duration of cough / symptoms.
will request Pulm input, order incentive spirometry
Normocytic Anemia
- Unknown acuity. Obtain prior records from [place] for review / comparison.
- No obvious / noted blood loss.
- Elev Ferritin, LDH
- Follow H&H for any changes and monitor for any obvious blood loss.
Hypercalcemia, resolved
- Ca = 12.5-->9.2
- Suspect significant component of hypovolemia
- IVF, s/p Calcitonin
-iPTH low
Leukocytosis
- Likely stress response due to acute illness, anemia, etc.
- Afebrile and without evidence of focal infection at this time.
- Observe off of further abx for now.
- Follow for improvement with IVFs, etc. Follow-up culture data.
Opioid Use Disorder
- Stable. Last use 3 years ago per patient. Maintained on Suboxone.
- No history of IVDA.
- Unable to use NSAIDs for acute pain control due to FRANCA, etc.
- Cautious use of opioids for pain.
DVT Prophylaxis: HSQ
Code Status: Full
Anticipated Discharge: 24 - 48 hours
Subjective/Interval History
-
Date of Service: July 02, 2024
Awake, alert, still with cough
Objective Data
-
Labs:
Laboratory Results
07/02/24
08:41
WBC 10.3
Hgb 10.1 L
Hct 28.5 L
Plt Count 135
Sodium 138
Potassium 3.5
Chloride 104
Carbon Dioxide 25
BUN 79 H
Creatinine 6.4 H*
Glucose 172 H
Calcium 9.2
Total Bilirubin 0.6
AST 30
ALT 29
Alkaline Phosphatase 59
Vital Signs:
Vital Signs
Temp Pulse Resp BP Pulse Ox
99.2 F 67 16 121/62 98
07/02/24 07:20 07/02/24 07:20 07/02/24 07:20 07/02/24 07:20 07/02/24 07:20
I&O
07/01/24 07/02/24 07/03/24
06:59 06:59 06:59
Intake Total 1560 / 1560 2100 / 2100
Output Total 600 / 600 4900 / 4900
Balance 960 / 960 -2800 / -2800
Review of Systems
-
History Source: Patient and Coordinated Provider
Constitutional: Denies Fever
EENT: Reports No Symptoms Reported
Respiratory: Reports Cough
Cardiac: Reports No Symptoms
Abdomen/GI: Reports No Symptoms
Genitourinary: Reports No Symptoms
Musculoskeletal: Reports No Symptoms
Physical Exam
-
General: Well Developed, Well Nourished, No Apparent Distress and Other (thin)
HEENT: Normocephalic, Atraumatic and Moist Mucous Membranes
Respiratory: Rhonchi (wet rhonchi Rt base)
Cardiac: Regular Rhythm and S1/S2
GI: Soft, Nontender and Nondistended
Musculoskeletal: No Clubbing, No Cyanosis and No Edema
Neuro: Awake, Alert and Oriented
--- NOTE | 2024-07-02 12:40 | CON.PUL ---
Consultation
Consultation Request
Date/Time Consultation Requested: 07/02/2024
Date/Time Consultation Performed: 07/02/2024
Requesting Provider: Otf Bernal
Performing Provider: Sandra Osorio
Reason for Consultation: Pleural effusion
Medical History
-
Chief Complaint: Chest pain, shortness of breath
History of Present Illness:
Patient is a 49y M with PMH significant for prior opioid use disorder who presented to ED complaining of right-sided chest pain, cough, dyspnea, abdominal pain and N/V. Patient reportedly developed symptoms about a month ago. He was seen in
[place] emergency room and was noted to have pleural effusion, records not available for my review currently. Patient's symptoms continued to get worse and presented to [place] emergency room. Her workup included chest x-ray which showed
right-sided pleural effusion along with acute kidney injury.
Acute kidney injury was of unclear etiology and patient has received 3 days of 1 g IV Solu-Medrol in view of proteinuria, hematuria and concern for immune mediated renal injury. Patient's renal failure is nonoliguric and is currently followed by
nephrology service.
Patient had an IR guided right-sided thoracentesis performed and the fluid is noted to be exudative. Pulmonary consultation was requested for further recommendations.
Past Medical History
Past Medical History: Reports Other
Opioid Use Disorder
Past Surgical History: Reports Other
Additional Past Surgical History:
Sinus Surgery
Social History
Tobacco: Vaping (Current every day vape use.), Patient vague about duration of smoking etc,
Alcohol: None
Drug: Other (Prior history of Percocet / Xanax use - last use 3 years ago. No h/o IVDA. Has medical marijuana card.)
Family History
Family History: Not pertinent
Allergies / Home Medications
Allergies
Allergy/AdvReac Type Severity Reaction Status Date / Time
No Known Allergies Allergy Verified 06/27/24 19:10
Home Medications
�Medication �Instructions �Recorded �Confirmed �Last Taken �Type
buprenorphine 8 mg-naloxone 2 mg 1 film buccal TID MAINTENANCE 06/27/24 06/27/24 Unknown History
sublingual film
naproxen sodium 220 mg tablet 440 mg PO BIDPRN PRN mild pain 06/27/24 06/27/24 Unknown History
(Aleve)
doxepin 50 mg PO HS sleep 06/28/24 06/28/24 Unknown History
Review of Systems
-
Hematologic/Lymphatic: Other (All 14 systems reviewed and negative except as stated above in the history of present illness.)
Vitals / Labs / Diagnostic Testing
Vital Signs
Temp Pulse Resp BP Pulse Ox
99.2 F 67 16 121/62 98
07/02/24 07:20 07/02/24 07:20 07/02/24 07:20 07/02/24 07:20 07/02/24 07:20
Lab Data
07/02/24 08:41
07/02/24 08:41
Microbiology
06/27/24 19:31 Blood/Venous Blood Culture - Preliminary
No Growth in 4 days- Final report to follow
06/27/24 19:21 Blood/Venous Blood Culture - Preliminary
No Growth in 4 days- Final report to follow
06/28/24 11:01 Pleural Fluid Body Fluid Culture - Final
No Growth After 72 Hours
06/28/24 11:01 Pleural Fluid Gram Stain - Final
06/27/24 21:41 Urine Urine Culture - Final
No Significant Growth
Diagnostic Testing:
Physical Exam
-
HEENT: Normocephalic
Cardiovascular: Regular Rhythm
Respiratory: Clear and Non-Labored Respirations
GI: Soft and Non Distended
Skin: Warm and Dry
General: Comfortable
Assessment
-
#1. Right sided pleural effusion, exudative. ?Etiology. CT Chest negative for any parenchymal abnormality. Pleural fluid exudative with some eosinophils noted. Connective tissue disease work up negative so far. No growth on cultures, cytology
negative for malignancy. MYRNA, Anti GBM Ab negative, ANCA negative. No reported h/o trauma or chest procedures prior to thoracentesis.
-Considering recent respiratory symptoms and cough with dyspnea, this could be para-pneumonic effusion. No obvious pneumonia currently noted on imaging
-Check Rheumatoid factor
-Follow-up chest x-ray two-view today to see if patient is developing any recombination
-If reaccumulation noted, patient will need thoracentesis again with cytology and also check triglycerides as well as cholesterol level in the pleural fluid
-Exudative pleural effusion with eosinophils, primary differential diagnosis include infection, malignancy and drug-induced effusions. Asbestos exposure and Paragonimiasis are other rare etiologies.
-If workup stays negative and patient develops reaccumulation, will need medical thoracoscopy with pleural biopsy
Pulmonary service will continue to follow.
Data:
Pleural fluid cytology: Negative for malignancy. few mesothelial cells, mixed inflammation with eosinophils noted
Blood, pleural fluid cultures negative. Influenza screen negative
MYRNA, ANCA, GBM Ab, negative. Compliment level normal.
Pleural fluid LDH 981, Protein 4.7, WBC 2385 with 76% Mononuclear cells. pH 7.36.
VBG 7.36, 34
INR 1.28
WBC count on admission 20.5 with 47% Neutrophils, 25% Lymphocytes, 14% Monocytes and 2.7% Eosinophils
CT Chest/Abdomen/Pelvis: 1. Moderate right pleural effusion with associated compressive atelectasis. No other significant abnormality identified in the chest, abdomen or pelvis, within the limits of unenhanced CT, as described above.
ECHO 06/2024: Normal LV size and function without regional wall motion abnormalities.
LVEF is 60-65% by visual estimation.
No LVH. Normal diastolic function.
Normal right ventricular size and function.
No significant valvular disease.
Insufficient TR for estimation of PASP.
No prior study available for comparison.
Total time spent on this consultation/encounter _60___ minutes which includes review of history, physical exam, medications, laboratory data, personal review of imaging, extensive review of outpatient records, discussion with care team and
respiratory therapy.
--- NOTE | 2024-07-02 13:48 | CM ---
Patient seen at bedside
pulm consult
continues with IVF
PLAN: Home, no anticipated needs.
family to transport
[2024-07-02 14:50] VITALS: BP 132/63
--- NOTE | 2024-07-02 17:12 | W.PN.NEPH.PH ---
Today's Communication / Plan
-
follow labs
wean off IVF
Assessment/Plan
-
Impression.
Acute kidney injury. Creatinine 6.9 on admission. 1.3 two weeks ago
Right Pleural effusion status post thoracentesis 1 L.
Prior opiate use disorder on Suboxone.
Anemia.
Hypercalcemia.
Plan.
creatinine improving to 6.4 and remains grossly nonoliguric
hard to r/o GN with hematuria and proteinuria with a protein creatinine ratio of 2.5.
Urinalysis 4+ blood with 3-6 RBC/HPF, 11-15 RBC, 3+ albumin.
Hypercalcemia need to rule out paraproteinemia such as multiple myeloma though rare at this age., Calcium levels now corrected
No obstructive renal pathology on CAT scan.
Serological workup ordered and negative
Hepatitis and antistreptolysin antibodies negative HIV negative
Pulse dosed steroids 1 g daily x 3 were given: Which may explain azotemia-improving now
no acute HD, hold off on renal biopsy for now, repeat UA 2+alb, mild microhematuria
Of note patient was taking anti-inflammatories for pleural chest pain prior to admission
improving met acidosis
Differential of acute kidney injury could include postinfectious ATN or NSAID induced injury
h/h improving, iron studies are without deficiency
Patient still with significant anorexia and has not moved bowels in over a week
pending paraprotein w/u
Bp stable
labs in am
-
-
Date of Service: July 02, 2024
CC / HPI / ROS
-
Chief Complaint:
Acute kidney
History of Present Illness:
Creatinine improved to 6.4
Metabolic acidosis improved
Azotemia better
Hemodynamically stable
Status post pulse steroids
Review of Systems:
Nonoliguric
No reported chest pain or shortness of breath
Significant anorexia and constipation
Labs
-
Labs:
WBC 10.3 10^3/uL (4.8-10.8) 07/02/24 08:41
RBC 3.39 10^6/uL (4.70-6.10) L 07/02/24 08:41
Hgb 10.1 g/dL (13.0-18.0) L 07/02/24 08:41
Hct 28.5 % (39.0-52.0) L 07/02/24 08:41
Plt Count 135 10^3/uL (130-400) 07/02/24 08:41
Sodium 138 mmol/L (135-145) 07/02/24 08:41
Potassium 3.5 mmol/L (3.5-5.1) 07/02/24 08:41
Chloride 104 mmol/L (98-107) 07/02/24 08:41
Carbon Dioxide 25 mmol/L (22-30) 07/02/24 08:41
BUN 79 mg/dl (9-20) H 07/02/24 08:41
Creatinine 6.4 mg/dL (0.7-1.3) H* 07/02/24 08:41
eGFR 9.95 07/02/24 08:41
Glucose 172 mg/dl (70-99) H 07/02/24 08:41
Calcium 9.2 mg/dl (8.4-10.2) 07/02/24 08:41
Phosphorus 6.7 mg/dl (2.5-4.5) H 06/27/24 18:12
Albumin 3.4 g/dl (3.5-5.0) L 07/02/24 08:41
Physical Exam
-
Vital Signs:
Vital Signs
Temp Pulse Resp BP Pulse Ox
98.8 F 66 16 132/63 98
07/02/24 14:50 07/02/24 14:50 07/02/24 14:50 07/02/24 14:50 07/02/24 14:50
Cardiovascular:: Regular rate and rhythm
Respiratory:: Bilateral: CTA
Lung Excursion:: Normal
Abdomen:: Nontender and Soft
Bowel Sounds:: Normal
Extremity Edema:: None: Bilateral:
Rae Catheter: No
[2024-07-02] MEDS: MELATONIN PO (20:56)
--- NOTE | 2024-07-02 21:00 | PTCARENOTE ---
Patient refusing Melatonin, states he had nightmares last night from medication. Patient requesting Doxepin 50mg, states he takes at home PRN. MIGUEL Cortés notified of request. Per MIGUEL Doxepin can be nephro toxic and shpuld be avoided. Explained
this to patient who verbalized a good understanding. Will continue to monitor.
[2024-07-02 23:23] VITALS: BP 126/65
[2024-07-03 06:00] VITALS: BMI 18.8
[2024-07-03 07:30] VITALS: BP 144/75
--- NOTE | 2024-07-03 08:31 | W.PN.PUL3 ---
Today's Communication / Plan
-
-f/u CXR in AM to evaluate if enlarging pleural effusion
Assessment
-
Patient is a 49y M with PMH significant for prior opioid use disorder who presented to ED complaining of right-sided chest pain, cough, dyspnea, abdominal pain and N/V. Patient reportedly developed symptoms about a month ago. He was seen in
[place] emergency room and was noted to have pleural effusion, records not available for my review currently. Patient's symptoms continued to get worse and presented to [place] emergency room. Her workup included chest x-ray which showed
right-sided pleural effusion along with acute kidney injury.
Acute kidney injury was of unclear etiology and patient has received 3 days of 1 g IV Solu-Medrol in view of proteinuria, hematuria and concern for immune mediated renal injury. Patient's renal failure is nonoliguric and is currently followed by
nephrology service.
Patient had an IR guided right-sided thoracentesis performed and the fluid is noted to be exudative. Pulmonary consultation was requested for further recommendations.
#1. Right sided pleural effusion, exudative. ?Etiology. CT Chest negative for any parenchymal abnormality. Pleural fluid exudative with some eosinophils noted. Connective tissue disease work up negative so far. No growth on cultures, cytology
negative for malignancy. MYRNA, Anti GBM Ab negative, ANCA negative and RA factor negative. No reported h/o trauma or chest procedures prior to thoracentesis.
-Considering recent respiratory symptoms and cough with dyspnea, this could be para-pneumonic effusion. No obvious pneumonia currently noted on imaging
-Follow-up chest x-ray shows small effusion, increased from last imaging
-If continued re-accumulation noted, patient will need repeat thoracentesis with cytology, along with Triglycerides and Cholesterol. Will also get CT chest after thoracentesis to evaluate for any parenchymal or pleural based lesion.
-Exudative pleural effusion with eosinophils, primary differential diagnosis include infection, malignancy and drug-induced effusions. Asbestos exposure and Paragonimiasis are other rare etiologies.
-If workup stays negative and patient develops reaccumulation, will need medical thoracoscopy with pleural biopsy
Pulmonary service will continue to follow.
Data:
Pleural fluid cytology: Negative for malignancy. few mesothelial cells, mixed inflammation with eosinophils noted
Blood, pleural fluid cultures negative. Influenza screen negative
MYRNA, ANCA, GBM Ab, negative. Compliment level normal.
Pleural fluid LDH 981, Protein 4.7, WBC 2385 with 76% Mononuclear cells. pH 7.36.
VBG 7.36, 34
INR 1.28
WBC count on admission 20.5 with 47% Neutrophils, 25% Lymphocytes, 14% Monocytes and 2.7% Eosinophils
CT Chest/Abdomen/Pelvis: 1. Moderate right pleural effusion with associated compressive atelectasis. No other significant abnormality identified in the chest, abdomen or pelvis, within the limits of unenhanced CT, as described above.
ECHO 06/2024: Normal LV size and function without regional wall motion abnormalities.
LVEF is 60-65% by visual estimation.
No LVH. Normal diastolic function.
Normal right ventricular size and function.
No significant valvular disease.
Insufficient TR for estimation of PASP.
No prior study available for comparison.
Total time spent on this consultation/encounter _38___ minutes which includes review of history, physical exam, medications, laboratory data, personal review of imaging, extensive review of outpatient records, discussion with care team and
respiratory therapy.
Subjective Data
-
Date of Service:
Date of Service: July 03, 2024
Subjective:
Comfortably sitting in bed, in no acute distress.
Review of Systems
Genitourinary: Other (All 14 systems reviewed and negative except as stated above in the history of present illness.)
Objective Data
Data Reviewed
Vital Signs / I&O / Oxygen:
Vital Signs
Temp Pulse Resp BP Pulse Ox
97.8 F 64 16 144/75 99
07/02/24 23:23 07/03/24 07:30 07/03/24 07:30 07/03/24 07:30 07/03/24 07:30
Intake and Output
03/31/25 04/01/25 04/02/25
06:59 06:59 06:59
Intake Total 2099 / 2099 1680 / 1680
Output Total 4900 / 4900 500 / 500
Balance -2800 / -2800 1180 / 1180
SaO2 99
Physical Exam
General: Comfortable
HEENT: Normocephalic
Cardiovascular: S1-S2 and Regular Rhythm
Respiratory: Clear and Non-Labored Respirations
GI: Soft and Non Distended
Neurology: Awake and Alert
Skin: Warm
Labs/Micro/Reports
Microbiology
06/27/24 19:31 Blood/Venous Blood Culture - Final
No Growth - Final Report
06/27/24 19:21 Blood/Venous Blood Culture - Final
No Growth - Final Report
06/28/24 11:01 Pleural Fluid Body Fluid Culture - Final
No Growth After 72 Hours
06/28/24 11:01 Pleural Fluid Gram Stain - Final
[2024-07-03 08:58] LABS: Hematocrit 26.9 % (39.0-52.0); Hemoglobin 9.3 g/dL (13.0-18.0); Mean Corp Hgb Conc. 34.6 g/dL (33.0-37.0); Mean Corpuscular Hgb 29.3 pg (27.0-31.0); Mean Corpuscular Volume 84.9 fL (80.0-94.0); Mean Platelet Volume 10.7 fL (7.4-10.4); Platelet Count 146 10^3/uL (130-400); Red Blood Cell Count 3.17 10^6/uL (4.70-6.10); Red Cell Dist. Width 14.1 % (11.5-14.5); White Blood Cell Count 10.5 10^3/uL (4.8-10.8)
[2024-07-03 09:09] LABS: NT-proBNP 968 pg/ml
[2024-07-03 09:17] LABS: Protein/creatinine Ratio 1.6; Urine Protein 100 mg/dl
[2024-07-03 09:55] LABS: ALT (SGPT) 26 U/L (0-50); AST (SGOT) 25 U/L (17-59); Albumin 3.7 g/dl (3.5-5.0); Alkaline Phosphatase 57 U/L (38-126); Blood Urea Nitrogen 63 mg/dl (9-20); Carbon Dioxide 21 mmol/L (22-30); Chloride 104 mmol/L (98-107); Estimated Creatinine Clearance 15 ml/min; Glucose 157 mg/dl (70-99); Potassium 3.1 mmol/L (3.5-5.1); Sodium 137 mmol/L (135-145); Total Bilirubin 0.6 mg/dl (0.2-1.3); Total Protein 5.6 g/dl (6.3-8.2); eGFR 10.97
[2024-07-03] MEDS: HEPARIN SC ×3 (10:29→22:01)
[2024-07-03 11:54] LABS: Rheumatoid Agglutinin Less Than 10 IU (<10 IU)
[2024-07-03] MEDS: D5/0.45%NACL 1000 IV (12:16)
--- NOTE | 2024-07-03 12:32 | W.PN.HOSP.TC ---
Today's Communication/Plan
-
continue IVF
K supplement
Assessment / Plan
Assessment / Plan
A/P: Patient is a 49y M with PMH significant for opioid use disorder who presents to ED complaining of chest pain, abdominal pain and N/V.
FRANCA
- Patient with SCr = 8.9-->7.6-->6.9-->6.4-->5.9 and reportedly 1.3 at [facility] 2 weeks ago.
- possibly 2/2 to dec PO intake and NSAID use although risk remains of MM/paraproteinemia disease
� Nonoliguric
- continue IVF, though with normalization of CO2, will stop supplemental bicarb
-SPEP, UPEP follow-up
Rheum factor neg
- Renal consulted
- Avoid further NSAIDs or other nephrotoxic agents.
-Will hold on renal biopsy as improving
-F/u HIV negative; hepatitis A antibody positive, follow-up IgM
MethylPrednisolone given and since stopped
WBC 20.5-->18.0-->20.9-->16.8-->10.3-->10.3--10.5k
#Anion Gap Metabolic Acidosis
-possibly 2/2 to franca/ckd along with isotonic saline
Pleuritic Pain
Right Pleural Effusion
Cough x 1 Month
- CT chest: 1. Moderate right pleural effusion with associated compressive atelectasis. No other significant abnormality identified in the chest, abdomen or pelvis, within the limits of unenhanced CT, as described above.
- No noted infiltrate / pneumonia.
- IR eval for diagnostic / therapeutic thoracentesis 1050 bloody effusion
- Pleural fluid - exudative
- F/u Cultures, Cyto: Few mesothelial cells with mixed inflammation
- Supportive care / pain control.
- Avoid NSAIDs given renal injury.
- Patient declining COVID / flu testing - not likely to be contagious with either given duration of cough / symptoms.
appreciate Pulm input, ordered incentive spirometry. Certainly improved today.
Pulm raises the consideration that pleural effusion related to NSAID's
Normocytic Anemia
- Unknown acuity. Obtain prior records from [place] for review / comparison.
- No obvious / noted blood loss.
- Elev Ferritin, LDH
- Follow H&H for any changes and monitor for any obvious blood loss.
Hypercalcemia, resolved
- Ca = 12.5-->9.2
- Suspect significant component of hypovolemia
- IVF, s/p Calcitonin
-iPTH low
Hypokalemia
most likely due to improving renal fxn, will supplement
Leukocytosis
- Likely stress response due to acute illness, anemia, etc. improved
- Afebrile and without evidence of focal infection at this time.
- Observe off of further abx for now.
- Follow for improvement with IVFs, etc. Follow-up culture data.
Opioid Use Disorder
- Stable. Last use 3 years ago per patient. Maintained on Suboxone.
- No history of IVDA.
- Unable to use NSAIDs for acute pain control due to FRANCA, etc.
- Cautious use of opioids for pain.
DVT Prophylaxis: HSQ
Code Status: Full
Anticipated Discharge: > 48 hours
Subjective/Interval History
-
Date of Service: July 03, 2024
believes he is breathing better
Objective Data
-
Labs:
Laboratory Results
07/03/24
08:32
WBC 10.5
Hgb 9.3 L
Hct 26.9 L
Plt Count 146
Sodium 137
Potassium 3.1 L
Chloride 104
Carbon Dioxide 21 L
BUN 63 H
Creatinine 5.9 H*
Glucose 157 H
Calcium 9.0
Total Bilirubin 0.6
AST 25
ALT 26
Alkaline Phosphatase 57
Vital Signs:
Vital Signs
Temp Pulse Resp BP Pulse Ox
97.8 F 64 16 144/75 99
07/02/24 23:23 07/03/24 07:30 07/03/24 07:30 07/03/24 07:30 07/03/24 07:30
I&O
07/02/24 07/03/24 07/04/24
06:59 06:59 06:59
Intake Total 2100 / 2100 1680 / 1680
Output Total 4900 / 4900 500 / 500
Balance -2800 / -2800 1180 / 1180
Review of Systems
-
History Source: Patient and Coordinated Provider
Constitutional: Denies Fever
EENT: Reports No Symptoms Reported
Respiratory: Reports Cough (has decreased)
Cardiac: Reports No Symptoms
Abdomen/GI: Reports No Symptoms
Genitourinary: Reports No Symptoms
Musculoskeletal: Reports No Symptoms
Physical Exam
-
General: Well Developed, Well Nourished, No Apparent Distress and Other (thin)
HEENT: Normocephalic, Atraumatic and Moist Mucous Membranes
Respiratory: Rhonchi (wet rhonchi Rt base markedly diminished, overall clearer today)
Cardiac: Regular Rhythm and S1/S2
GI: Soft, Nontender and Nondistended
Musculoskeletal: No Clubbing, No Cyanosis and No Edema
Neuro: Awake, Alert and Oriented
[2024-07-03] MEDS: KCL 20 MEQ PO ×2 (13:26→20:27)
[2024-07-03] MEDS: D5/0.45%NSS with KCL 20 MEQ 1000 IV (13:27)
[2024-07-03 15:18] LABS: Hepatitis B Core Ab, Total Negative (Negative)
--- NOTE | 2024-07-03 15:30 | CM ---
Patient seen at bedside.
CXR ordered for tomorrow
PLAN: Home, no needs anticipated
[2024-07-03 16:00] VITALS: BP 124/65
--- NOTE | 2024-07-03 16:18 | W.PN.NEPH.PH ---
Today's Communication / Plan
-
cont IVF, replace k
labs in am
Assessment/Plan
-
Impression.
Acute kidney injury. Creatinine 6.9 on admission. 1.3 two weeks ago
Right Pleural effusion status post thoracentesis 1 L.
Prior opiate use disorder on Suboxone.
Anemia.
Hypercalcemia.
Plan.
creatinine improving to 5.9 and remains grossly nonoliguric
hard to r/o GN with hematuria and proteinuria with a protein creatinine ratio of 2.5.
Urinalysis 4+ blood with 3-6 RBC/HPF, 11-15 RBC, 3+ albumin.
Hypercalcemia need to rule out paraproteinemia such as multiple myeloma though rare at this age., Calcium levels now corrected
No obstructive renal pathology on CAT scan.
Serological workup negative, pending paraprotein w/u
Hepatitis and antistreptolysin antibodies negative HIV negative
Pulse dosed steroids 1 g daily x 3 were given: Which may explain azotemia-improving now
no acute HD, hold off on renal biopsy for now, repeat UA 2+alb, mild microhematuria
Of note patient was taking anti-inflammatories for pleural chest pain prior to admission
monitor met acidosis
replace k, cont IVF still
Differential of acute kidney injury could include postinfectious ATN or NSAID induced injury
h/h improving, iron studies are without deficiency
Bp stable
labs in am
-
-
Date of Service: July 03, 2024
CC / HPI / ROS
-
Chief Complaint:
Acute kidney
History of Present Illness:
Creatinine improved to 5.9
Metabolic acidosis bicarb at 21
Azotemia better
Hemodynamically stable
Status post pulse steroids
Review of Systems:
Nonoliguric
No reported chest pain or shortness of breath
had BM, appetite is good
Labs
-
Labs:
WBC 10.5 10^3/uL (4.8-10.8) 07/03/24 08:32
RBC 3.17 10^6/uL (4.70-6.10) L 07/03/24 08:32
Hgb 9.3 g/dL (13.0-18.0) L 07/03/24 08:32
Hct 26.9 % (39.0-52.0) L 07/03/24 08:32
Plt Count 146 10^3/uL (130-400) 07/03/24 08:32
Sodium 137 mmol/L (135-145) 07/03/24 08:32
Potassium 3.1 mmol/L (3.5-5.1) L 07/03/24 08:32
Chloride 104 mmol/L (98-107) 07/03/24 08:32
Carbon Dioxide 21 mmol/L (22-30) L 07/03/24 08:32
BUN 63 mg/dl (9-20) H 07/03/24 08:32
Creatinine 5.9 mg/dL (0.7-1.3) H* 07/03/24 08:32
eGFR 10.97 07/03/24 08:32
Glucose 157 mg/dl (70-99) H 07/03/24 08:32
Calcium 9.0 mg/dl (8.4-10.2) 07/03/24 08:32
Phosphorus 6.7 mg/dl (2.5-4.5) H 06/27/24 18:12
Pva-X-Golsvkuqxdk Pept 968 pg/ml 07/03/24 08:32
Albumin 3.7 g/dl (3.5-5.0) 07/03/24 08:32
Physical Exam
-
Vital Signs:
Vital Signs
Temp Pulse Resp BP Pulse Ox
97.8 F 64 16 144/75 99
07/02/24 23:23 07/03/24 07:30 07/03/24 07:30 07/03/24 07:30 07/03/24 07:30
Cardiovascular:: Regular rate and rhythm
Respiratory:: Bilateral: CTA
Lung Excursion:: Normal
Abdomen:: Nontender and Soft
Bowel Sounds:: Normal
Extremity Edema:: None: Bilateral:
Rae Catheter: No
[2024-07-03 18:13] LABS: Hepatitis A IgM Antibody Negative (Negative)
[2024-07-03] MEDS: MELATONIN PO (20:06)
[2024-07-03 23:09] LABS: Albumin 3.38 g/dL (3.75-5.01); Alpha 1 Globulin 0.39 g/dL (0.19-0.46); Alpha 2 Globulin 0.97 g/dL (0.48-1.05); Monoclonal Protein 0.25 g/dL (<=0.00); SPEP IFE Reflex IFE Done
[2024-07-03 23:17] VITALS: BP 123/60
[2024-07-04] MEDS: D5/0.45%NSS with KCL 20 MEQ 1000 IV ×2 (01:47→16:56)
[2024-07-04 06:00] VITALS: BMI 18.8
[2024-07-04 06:58] LABS: IgA 33 mg/dL (68-408); IgG 435 mg/dL (768-1632); IgM <10 mg/dL (35-263)
[2024-07-04 08:32] VITALS: BP 128/68
[2024-07-04] MEDS: KCL 20 MEQ PO (08:32)
[2024-07-04 08:35] LABS: Hematocrit 26.3 % (39.0-52.0); Hemoglobin 9.2 g/dL (13.0-18.0); Mean Corpuscular Hgb 29.4 pg (27.0-31.0); Mean Platelet Volume 9.7 fL (7.4-10.4); Platelet Count 137 10^3/uL (130-400); Red Blood Cell Count 3.13 10^6/uL (4.70-6.10); White Blood Cell Count 12.5 10^3/uL (4.8-10.8)
[2024-07-04] MEDS: HEPARIN SC ×3 (08:36→20:27)
[2024-07-04 09:26] LABS: Blood Urea Nitrogen 58 mg/dl (9-20); Calcium 9.6 mg/dl (8.4-10.2); Carbon Dioxide 23 mmol/L (22-30); Chloride 108 mmol/L (98-107); Estimated Creatinine Clearance 16 ml/min; Glucose 96 mg/dl (70-99); Potassium 4.4 mmol/L (3.5-5.1); Sodium 141 mmol/L (135-145); eGFR 11.43
--- NOTE | 2024-07-04 11:06 | W.PN.NEPH.PH ---
Today's Communication / Plan
-
Obtain urine kappa lambda ratio
bmp
Assessment/Plan
-
Impression.
Acute kidney injury. Creatinine 6.9 on admission. 1.3 two weeks ago
Right Pleural effusion status post thoracentesis 1 L.
Prior opiate use disorder on Suboxone.
Anemia.
Hypercalcemia.
Plan.
creatinine slowly improving to 5.7 and remains grossly nonoliguric
hard to r/o GN with hematuria and proteinuria with a protein creatinine ratio of 2.5., repeat now 1.6
Urinalysis 4+ blood with 3-6 RBC/HPF, 11-15 RBC, 3+ albumin.
Hypercalcemia need to rule out paraproteinemia such as multiple myeloma though rare at this age., Calcium levels now corrected
No obstructive renal pathology on CAT scan.
Serological workup negative, but paraprotein w/u: notes monoclonal spike in gamma region: will obtain urine kappa lambda ratio,
Hepatitis and antistreptolysin antibodies negative HIV negative
Pulse dosed steroids 1 g daily x 3 were given
no acute HD, hold off on renal biopsy for now, repeat UA 2+alb, mild microhematuria
Of note patient was taking anti-inflammatories for pleural chest pain prior to admission
monitor met acidosis
Differential of acute kidney injury could include postinfectious ATN or NSAID induced injury....
h/h improving, iron studies are without deficiency
Bp stable
labs in am
-
-
Date of Service: July 04, 2024
CC / HPI / ROS
-
Chief Complaint:
Acute kidney
History of Present Illness:
Creatinine improved to 5.7
Metabolic acidosis bicarb at 23
Azotemia better
anemia persists
Hemodynamically stable
Status post pulse steroids
Review of Systems:
Nonoliguric
No reported chest pain or shortness of breath
had BM, appetite is good
Labs
-
Labs:
WBC 12.5 10^3/uL (4.8-10.8) H 07/04/24 07:58
RBC 3.13 10^6/uL (4.70-6.10) L 07/04/24 07:58
Hgb 9.2 g/dL (13.0-18.0) L 07/04/24 07:58
Hct 26.3 % (39.0-52.0) L 07/04/24 07:58
Plt Count 137 10^3/uL (130-400) 07/04/24 07:58
Sodium 141 mmol/L (135-145) 07/04/24 07:58
Potassium 4.4 mmol/L (3.5-5.1) D 07/04/24 07:58
Chloride 108 mmol/L (98-107) H 07/04/24 07:58
Carbon Dioxide 23 mmol/L (22-30) 07/04/24 07:58
BUN 58 mg/dl (9-20) H 07/04/24 07:58
Creatinine 5.7 mg/dL (0.7-1.3) H* 07/04/24 07:58
eGFR 11.43 07/04/24 07:58
Glucose 96 mg/dl (70-99) 07/04/24 07:58
Calcium 9.6 mg/dl (8.4-10.2) 07/04/24 07:58
Phosphorus 6.7 mg/dl (2.5-4.5) H 06/27/24 18:12
Uhf-M-Lhzbyvuafas Pept 968 pg/ml 07/03/24 08:32
Albumin 3.7 g/dl (3.5-5.0) 07/03/24 08:32
Physical Exam
-
Vital Signs:
Vital Signs
Temp Pulse Resp BP Pulse Ox
98.7 F 71 20 128/68 98
07/04/24 08:32 07/04/24 08:32 07/04/24 08:32 07/04/24 08:32 07/04/24 08:32
Cardiovascular:: Regular rate and rhythm
Respiratory:: Bilateral: CTA
Lung Excursion:: Normal
Abdomen:: Nontender and Soft
Bowel Sounds:: Normal
Extremity Edema:: None: Bilateral:
Rae Catheter: No
--- NOTE | 2024-07-04 11:49 | CM ---
Patient seen at bedside.
CXR today
PLAN: Home, no needs anticipated
[2024-07-04 12:03] LABS: Absolute Neutrophils -Man Diff 6.7 10^3/uL (1.4-6.5); Atypical Lymphocytes 1 %; Band Neutrophils 4 % (0-3); Eosinophils 3 % (0-6); Lymphocytes 24 % (20-51); Monocytes 12 % (2-9); Segmented Neutrophils 50 % (42-75)
[2024-07-04 12:04] LABS: Metamyelocytes 5 % (-); Myelocytes 1 % (-); Platelets Checked Yes
[2024-07-04 12:05] LABS: Normal RBC Morphology Yes; Total Cells Counted 100
--- NOTE | 2024-07-04 12:08 | W.PN.HOSP.TC ---
Today's Communication/Plan
-
will continue IVF for now
await further input from renal and pulm
follow labs
Assessment / Plan
Assessment / Plan
A/P: Patient is a 49y M with PMH significant for opioid use disorder who presents to ED complaining of chest pain, abdominal pain and N/V.
FRANCA
- Patient with SCr = 8.9-->7.6-->6.9-->6.4-->5.9-->5.7 and reportedly 1.3 at [facility] 2 weeks ago.
- possibly 2/2 to dec PO intake and NSAID use although risk remains of MM/paraproteinemia disease
Quant Aragon, Lambda pending
� Nonoliguric
- continue IVF, though with normalization of CO2, will stop supplemental bicarb
-SPEP, UPEP follow-up
Rheum factor neg
- Renal consulted
- Avoid further NSAIDs or other nephrotoxic agents.
-Will hold on renal biopsy as improving
-F/u HIV negative; hepatitis A antibody positive, follow-up IgM
MethylPrednisolone given and since stopped
WBC 20.5-->18.0-->20.9-->16.8-->10.3-->10.3--10.5-->12.5k
#Anion Gap Metabolic Acidosis
-resolved
Pleuritic Pain
Right Pleural Effusion
Cough x 1 Month
- CT chest: 1. Moderate right pleural effusion with associated compressive atelectasis. No other significant abnormality identified in the chest, abdomen or pelvis, within the limits of unenhanced CT, as described above.
- No noted infiltrate / pneumonia.
- IR eval for diagnostic / therapeutic thoracentesis 1050 bloody effusion
- Pleural fluid - exudative
- F/u Cultures, Cyto: Few mesothelial cells with mixed inflammation
- Supportive care / pain control.
- Avoid NSAIDs given renal injury.
- Patient declining COVID / flu testing - not likely to be contagious with either given duration of cough / symptoms.
appreciate Pulm input, ordered incentive spirometry. Certainly improved today.
Pulm raises the consideration that pleural effusion related to NSAID's
CXR done today by my reading appears that Rt sided effusion demonstrating some increase compared to prior, await formal reading
Will discuss with pulm
Normocytic Anemia
- Unknown acuity. Obtain prior records from [place] for review / comparison.
- No obvious / noted blood loss.
- Elev Ferritin, LDH
- Follow H&H for any changes and monitor for any obvious blood loss.
Hypercalcemia, resolved
- Ca = 12.5-->9.2
- Suspect significant component of hypovolemia
- IVF, s/p Calcitonin
-iPTH low
Hypokalemia
most likely due to improving renal fxn, will supplement
Better 3.1-->4.4
Leukocytosis
- Likely stress response due to acute illness, anemia, etc. improved
- Afebrile and without evidence of focal infection at this time.
- Observe off of further abx for now.
- Follow for improvement with IVFs, etc. Follow-up culture data.
Opioid Use Disorder
- Stable. Last use 3 years ago per patient. Maintained on Suboxone.
- No history of IVDA.
- Unable to use NSAIDs for acute pain control due to FRANCA, etc.
- Cautious use of opioids for pain.
DVT Prophylaxis: HSQ
Code Status: Full
Anticipated Discharge: > 48 hours
Subjective/Interval History
-
Date of Service: July 04, 2024
Does have some pleuritic chest pain
Objective Data
-
Labs:
Laboratory Results
07/04/24
07:58
WBC 12.5 H
Hgb 9.2 L
Hct 26.3 L
Plt Count 137
Sodium 141
Potassium 4.4 D
Chloride 108 H
Carbon Dioxide 23
BUN 58 H
Creatinine 5.7 H*
Glucose 96
Calcium 9.6
Vital Signs:
Vital Signs
Temp Pulse Resp BP Pulse Ox
98.7 F 71 20 128/68 98
07/04/24 08:32 07/04/24 08:32 07/04/24 08:32 07/04/24 08:32 07/04/24 08:32
I&O
07/03/24 07/04/24 07/05/24
06:59 06:59 06:59
Intake Total 1680 / 1680 900 / 900
Output Total 500 / 500 2200 / 2200
Balance 1180 / 1180 -1300 / -1300
Review of Systems
-
History Source: Patient and Coordinated Provider
Constitutional: Denies Fever
EENT: Reports No Symptoms Reported
Respiratory: Reports Cough (has decreased)
Cardiac: Reports No Symptoms
Abdomen/GI: Reports No Symptoms
Genitourinary: Reports No Symptoms
Musculoskeletal: Reports No Symptoms
Physical Exam
-
General: Well Developed, Well Nourished, No Apparent Distress and Other (thin)
HEENT: Normocephalic, Atraumatic and Moist Mucous Membranes
Respiratory: Rhonchi (wet rhonchi Rt base markedly diminished, overall clearer today)
Cardiac: Regular Rhythm and S1/S2
GI: Soft, Nontender and Nondistended
Musculoskeletal: No Clubbing, No Cyanosis and No Edema
Neuro: Awake, Alert and Oriented
--- NOTE | 2024-07-04 14:08 | W.PN.PUL3 ---
Today's Communication / Plan
-
-F/u CXR in 48-72 hrs
-Pulmonary service will follow after next CXR
-Outpatient follow up with Pulmonary service. Patient wants to follow up in [facility], with [facility] or [facility].
Assessment
-
Patient is a 49y M with PMH significant for prior opioid use disorder who presented to ED complaining of right-sided chest pain, cough, dyspnea, abdominal pain and N/V. Patient reportedly developed symptoms about a month ago. He was seen in
[place] emergency room and was noted to have pleural effusion, records not available for my review currently. Patient's symptoms continued to get worse and presented to [place] emergency room. Her workup included chest x-ray which showed
right-sided pleural effusion along with acute kidney injury.
Acute kidney injury was of unclear etiology and patient has received 3 days of 1 g IV Solu-Medrol in view of proteinuria, hematuria and concern for immune mediated renal injury. Patient's renal failure is nonoliguric and is currently followed by
nephrology service.
Patient had an IR guided right-sided thoracentesis performed and the fluid is noted to be exudative. Pulmonary consultation was requested for further recommendations.
#1. Right sided pleural effusion, exudative. ?Etiology. CT Chest negative for any parenchymal abnormality. Pleural fluid exudative with some eosinophils noted. Connective tissue disease work up negative so far. No growth on cultures, cytology
negative for malignancy. MYRNA, Anti GBM Ab negative, ANCA negative and RA factor negative. No reported h/o trauma or chest procedures prior to thoracentesis.
-Considering recent respiratory symptoms and cough with dyspnea, this could be para-pneumonic effusion. No obvious pneumonia currently noted on imaging
-Follow-up chest x-ray 07/02 showed small effusion which is unchanged on CXR 07/04. Continues to be asymptomatic
-f/u CXR in 48-72 hrs, or earlier if any respiratory symptoms
-Exudative pleural effusion with eosinophils, primary differential diagnosis include infection, malignancy and drug-induced effusions. Asbestos exposure and Paragonimiasis are other rare etiologies.
-If workup stays negative and patient develops reaccumulation, will need medical thoracoscopy with pleural biopsy
Pulmonary service will follow in 48-72 hrs after next CXR.
Data:
Pleural fluid cytology: Negative for malignancy. few mesothelial cells, mixed inflammation with eosinophils noted
Blood, pleural fluid cultures negative. Influenza screen negative
MYRNA, ANCA, GBM Ab, negative. Compliment level normal.
Pleural fluid LDH 981, Protein 4.7, WBC 2385 with 76% Mononuclear cells. pH 7.36.
VBG 7.36, 34
INR 1.28
WBC count on admission 20.5 with 47% Neutrophils, 25% Lymphocytes, 14% Monocytes and 2.7% Eosinophils
CT Chest/Abdomen/Pelvis: 1. Moderate right pleural effusion with associated compressive atelectasis. No other significant abnormality identified in the chest, abdomen or pelvis, within the limits of unenhanced CT, as described above.
ECHO 06/2024: Normal LV size and function without regional wall motion abnormalities.
LVEF is 60-65% by visual estimation.
No LVH. Normal diastolic function.
Normal right ventricular size and function.
No significant valvular disease.
Insufficient TR for estimation of PASP.
No prior study available for comparison.
Total time spent on this consultation/encounter _32___ minutes which includes review of history, physical exam, medications, laboratory data, personal review of imaging, extensive review of outpatient records, discussion with care team and
respiratory therapy.
Subjective Data
-
Date of Service:
Date of Service: July 04, 2024
Subjective:
No new respiratory symptoms. Comfortably breathing on room air
Review of Systems
Genitourinary: Other (No new symptoms reported )
Objective Data
Data Reviewed
Vital Signs / I&O / Oxygen:
Vital Signs
Temp Pulse Resp BP Pulse Ox
98.7 F 71 20 128/68 98
07/04/24 08:32 07/04/24 08:32 07/04/24 08:32 07/04/24 08:32 07/04/24 08:32
Intake and Output
07/03/24 07/04/24 07/05/24
06:59 06:59 06:59
Intake Total 1680 / 1680 900 / 900
Output Total 500 / 500 2200 / 2200
Balance 1180 / 1180 -1300 / -1300
SaO2 98
Physical Exam
General: Comfortable
HEENT: Normocephalic
Cardiovascular: S1-S2 and Regular Rhythm
Respiratory: Clear and Non-Labored Respirations
GI: Soft and Non Distended
Neurology: Awake and Alert
Skin: Warm
Labs/Micro/Reports
Lab Data
07/04/24 07:58
07/04/24 07:58
Microbiology
06/27/24 19:31 Blood/Venous Blood Culture - Final
No Growth - Final Report
06/27/24 19:21 Blood/Venous Blood Culture - Final
No Growth - Final Report
[2024-07-04 14:52] VITALS: BP 127/61
[2024-07-04] MEDS: MELATONIN PO (19:58)
[2024-07-04 23:00] VITALS: BP 103/55
[2024-07-05] MEDS: D5/0.45%NSS with KCL 20 MEQ 1000 IV ×2 (01:48→16:02)
[2024-07-05 05:59] VITALS: BMI 18.8
--- NOTE | 2024-07-05 07:01 | PTCARENOTE ---
Patient reported that they did not void urine or have any bowels fro 7pm tp 7am because they were sleeping.
[2024-07-05 07:15] LABS: Blood Urea Nitrogen 50 mg/dl (9-20); Calcium 9.8 mg/dl (8.4-10.2); Carbon Dioxide 22 mmol/L (22-30); Chloride 109 mmol/L (98-107); Estimated Creatinine Clearance 16 ml/min; Glucose 100 mg/dl (70-99); Potassium 4.8 mmol/L (3.5-5.1); Sodium 140 mmol/L (135-145); eGFR 11.19
[2024-07-05 07:18] LABS: Hematocrit 26.8 % (39.0-52.0); Hemoglobin 9.2 g/dL (13.0-18.0); Mean Corp Hgb Conc. 34.3 g/dL (33.0-37.0); Mean Corpuscular Hgb 29.6 pg (27.0-31.0); Mean Corpuscular Volume 86.2 fL (80.0-94.0); Mean Platelet Volume 10.8 fL (7.4-10.4); Platelet Count 164 10^3/uL (130-400); Red Blood Cell Count 3.11 10^6/uL (4.70-6.10); Red Cell Dist. Width 14.4 % (11.5-14.5); White Blood Cell Count 16.9 10^3/uL (4.8-10.8)
[2024-07-05 07:25] VITALS: BP 135/60
[2024-07-05] MEDS: KCL 20 MEQ PO (07:25)
[2024-07-05] MEDS: HEPARIN SC ×3 (07:25→21:53)
[2024-07-05 07:48] VITALS: BP 135/60
--- NOTE | 2024-07-05 08:30 | W.PN.HOSP.TC ---
Today's Communication/Plan
-
Blood cx
follow labs
continue IVF
await input from nephro/pulm
Assessment / Plan
Assessment / Plan
A/P: Patient is a 49y M with PMH significant for opioid use disorder who presents to ED complaining of chest pain, abdominal pain and N/V.
FRANCA
- Patient with SCr = 8.9-->7.6-->6.9-->6.4-->5.9-->5.7-->5.8 and reportedly 1.3 at [facility] 2 weeks ago.
- possibly 2/2 to dec PO intake and NSAID use although risk remains of MM/paraproteinemia disease
Quant [place], Lambda pending
� Nonoliguric
- continue IVF, though with normalization of CO2, will stop supplemental bicarb
-SPEP, UPEP follow-up
Rheum factor neg
- Renal consulted
- Avoid further NSAIDs or other nephrotoxic agents.
-As per nephro, plan is to hold on renal biopsy
-F/u HIV negative; hepatitis A antibody positive, follow-up IgM
MethylPrednisolone given and since stopped
WBC 20.5-->18.0-->20.9-->16.8-->10.3-->10.3--10.5-->12.5-->16.9k
unclear etiology as to why WBC is rising. Call placed and discussed with larisa Car who will reevaluate. Will order blood cx now
Echo from 06/28: Normal LV size and function without regional wall motion abnormalities.
LVEF is 60-65% by visual estimation.
No LVH. Normal diastolic function.
Normal right ventricular size and function.
No significant valvular disease.
Insufficient TR for estimation of PASP.
No prior study available for comparison.
#Anion Gap Metabolic Acidosis
-resolved
Pleuritic Pain
Right Pleural Effusion
Cough x 1 Month
- CT chest: 1. Moderate right pleural effusion with associated compressive atelectasis. No other significant abnormality identified in the chest, abdomen or pelvis, within the limits of unenhanced CT, as described above.
- No noted infiltrate / pneumonia.
- IR eval for diagnostic / therapeutic thoracentesis 1050 bloody effusion
- Pleural fluid - exudative
- F/u Cultures, Cyto: Few mesothelial cells with mixed inflammation
- Supportive care / pain control.
- Avoid NSAIDs given renal injury.
- Patient declining COVID / flu testing - not likely to be contagious with either given duration of cough / symptoms.
appreciate Pulm input, ordered incentive spirometry. Certainly improved today.
Pulm raises the consideration that pleural effusion related to NSAID's
CXR done today by my reading appears that Rt sided effusion demonstrating some increase compared to prior, though formal reading says: Small right pleural effusion. Stable
Will discuss with pulm
Normocytic Anemia
- Unknown acuity. Obtain prior records from [place] for review / comparison.
- No obvious / noted blood loss.
- Elev Ferritin, LDH
- Follow H&H for any changes and monitor for any obvious blood loss.
Hypercalcemia, resolved
- Ca = 12.5-->9.2
- Suspect significant component of hypovolemia
- IVF, s/p Calcitonin
-iPTH low
Hypokalemia
most likely due to improving renal fxn, will dc supplement
Better 3.1-->4.4-->4.8
Leukocytosis
- Likely stress response due to acute illness, anemia, etc. improved
- Afebrile and without evidence of focal infection at this time.
- Observe off of further abx for now.
- Follow for improvement with IVFs, etc. Follow-up culture data Blood cx on admission were negative, with rising WBC, will repeat.
Opioid Use Disorder
- Stable. Last use 3 years ago per patient. Maintained on Suboxone.
- No history of IVDA.
- Unable to use NSAIDs for acute pain control due to FRANCA, etc.
- Cautious use of opioids for pain.
DVT Prophylaxis: HSQ
Code Status: Full
Anticipated Discharge: > 48 hours
Subjective/Interval History
-
Date of Service: July 05, 2024
c/o feeling cold
Objective Data
-
Labs:
Laboratory Results
07/05/24
06:17
WBC 16.9 H
Hgb 9.2 L
Hct 26.8 L
Plt Count 164
Sodium 140
Potassium 4.8
Chloride 109 H
Carbon Dioxide 22
BUN 50 H
Creatinine 5.8 H*
Glucose 100 H
Calcium 9.8
Vital Signs:
Vital Signs
Temp Pulse Resp BP Pulse Ox
98.7 F 70 16 135/60 99
07/05/24 07:25 07/05/24 07:25 07/05/24 07:25 07/05/24 07:25 07/05/24 07:25
I&O
07/04/24 07/05/24 07/06/24
06:59 06:59 06:59
Intake Total 900 / 900 2125 / 2125 240 / 240
Output Total 2200 / 2200 1500 / 1500
Balance -1300 / -1300 625 / 625 240 / 240
Review of Systems
-
History Source: Patient and Coordinated Provider
Constitutional: Denies Fever
EENT: Reports No Symptoms Reported
Respiratory: Reports Cough (has decreased)
Cardiac: Reports No Symptoms
Abdomen/GI: Reports No Symptoms
Genitourinary: Reports No Symptoms
Musculoskeletal: Reports No Symptoms
Physical Exam
-
General: Well Developed, Well Nourished, No Apparent Distress and Other (thin)
HEENT: Normocephalic, Atraumatic and Moist Mucous Membranes
Respiratory: Rales (right basilar rales)
Cardiac: Regular Rhythm and S1/S2; Negative Murmur or Rub
GI: Soft, Nontender and Nondistended
Musculoskeletal: No Clubbing, No Cyanosis and No Edema
[2024-07-05 09:43] LABS: Absolute Neutrophils -Man Diff 10.3 10^3/uL (1.4-6.5); Atypical Lymphocytes 1 %; Band Neutrophils 8 % (0-3); Eosinophils 2 % (0-6); Lymphocytes 22 % (20-51); Metamyelocytes 4 % (-); Monocytes 8 % (2-9); Myelocytes 2 % (-); Segmented Neutrophils 53 % (42-75)
[2024-07-05 09:44] LABS: Normal RBC Morphology No; Platelets Checked Yes
[2024-07-05 09:45] LABS: Hypochromasia Slight; Ovalocytes Slight; Total Cells Counted 100
--- NOTE | 2024-07-05 12:12 | W.PN.PUL3 ---
Today's Communication / Plan
-
-f/u CT Chest without contrast
-Consider renal biopsy
Assessment
-
Patient is a 49y M with PMH significant for prior opioid use disorder who presented to ED complaining of right-sided chest pain, cough, dyspnea, abdominal pain and N/V. Patient reportedly developed symptoms about a month ago. He was seen in
[place] emergency room and was noted to have pleural effusion, records not available for my review currently. Patient's symptoms continued to get worse and presented to [place] emergency room. Her workup included chest x-ray which showed
right-sided pleural effusion along with acute kidney injury.
Acute kidney injury was of unclear etiology and patient has received 3 days of 1 g IV Solu-Medrol in view of proteinuria, hematuria and concern for immune mediated renal injury. Patient's renal failure is nonoliguric and is currently followed by
nephrology service.
Patient had an IR guided right-sided thoracentesis performed and the fluid is noted to be exudative. Pulmonary consultation was requested for further recommendations.
#1. Right sided pleural effusion, exudative. ?Etiology. CT Chest negative for any parenchymal abnormality. Pleural fluid exudative with some eosinophils noted. Connective tissue disease work up negative so far. No growth on cultures, cytology
negative for malignancy. MYRNA, Anti GBM Ab negative, ANCA negative and RA factor negative. No reported h/o trauma or chest procedures prior to thoracentesis.
-Considering recent respiratory symptoms and cough with dyspnea, this could be para-pneumonic effusion. No obvious pneumonia currently noted on imaging
-Follow-up chest x-ray 07/02 showed small effusion which is unchanged on CXR 07/04. Continues to be asymptomatic
-WBC rising today. CT non contrast to evaluate further.
-Exudative pleural effusion with eosinophils, primary differential diagnosis include infection, malignancy and drug-induced effusions. Asbestos exposure and Paragonimiasis are other rare etiologies.
-If workup stays negative and patient develops reaccumulation, will need medical thoracoscopy with pleural biopsy. Will get flow cytometry too if repeat thoracentsis needed
-Currently being worked up for Myeloma
-Uremia persisting. Discussed with Nephrology team. Anticipate renal biopsy in case there is a unifying diagnosis explaining both FRANCA and Pleural effusion.
Data:
Pleural fluid cytology: Negative for malignancy. few mesothelial cells, mixed inflammation with eosinophils noted
Blood, pleural fluid cultures negative. Influenza screen negative
MYRNA, ANCA, GBM Ab, negative. Compliment level normal.
Pleural fluid LDH 981, Protein 4.7, WBC 2385 with 76% Mononuclear cells. pH 7.36.
VBG 7.36, 34
INR 1.28
WBC count on admission 20.5 with 47% Neutrophils, 25% Lymphocytes, 14% Monocytes and 2.7% Eosinophils
CT Chest/Abdomen/Pelvis: 1. Moderate right pleural effusion with associated compressive atelectasis. No other significant abnormality identified in the chest, abdomen or pelvis, within the limits of unenhanced CT, as described above.
ECHO 06/2024: Normal LV size and function without regional wall motion abnormalities.
LVEF is 60-65% by visual estimation.
No LVH. Normal diastolic function.
Normal right ventricular size and function.
No significant valvular disease.
Insufficient TR for estimation of PASP.
No prior study available for comparison.
Total time spent on this consultation/encounter _32___ minutes which includes review of history, physical exam, medications, laboratory data, personal review of imaging, extensive review of outpatient records, discussion with care team and
respiratory therapy.
Subjective Data
-
Date of Service:
Date of Service: July 05, 2024
Subjective:
Patient comfortably sitting in chair, no new symptoms.
Review of Systems
Genitourinary: Other (All 14 systems reviewed and negative except as stated above in the history of present illness.)
Objective Data
Data Reviewed
Vital Signs / I&O / Oxygen:
Vital Signs
Temp Pulse Resp BP Pulse Ox
98.7 F 70 16 135/60 99
07/05/24 07:25 07/05/24 07:25 07/05/24 07:25 07/05/24 07:25 07/05/24 07:25
Intake and Output
07/04/24 07/05/24 07/06/24
06:59 06:59 06:59
Intake Total 900 / 900 2125 / 2125 240 / 240
Output Total 2200 / 2200 1500 / 1500
Balance -1300 / -1300 625 / 625 240 / 240
SaO2 99
Physical Exam
General: Comfortable
HEENT: Normocephalic
Cardiovascular: S1-S2 and Regular Rhythm
Respiratory: Clear and Non-Labored Respirations
GI: Soft and Non Distended
Neurology: Awake and Alert
Skin: Warm
Labs/Micro/Reports
Lab Data
07/05/24 06:17
07/05/24 06:17
Microbiology
06/27/24 19:31 Blood/Venous Blood Culture - Final
No Growth - Final Report
06/27/24 19:21 Blood/Venous Blood Culture - Final
No Growth - Final Report
--- NOTE | 2024-07-05 13:22 | CM ---
Patient seen at bedside.
Requested information on Advanced Directives
Information explained & given to patient
PLAN: home, no needs anticipated
--- NOTE | 2024-07-05 13:49 | W.PN.NEPH.PH ---
Today's Communication / Plan
-
Follow BMP
No more IV fluid
Pending serum free light chains evaluation for dysproteinemia process
Would consult hematology tomorrow for assistance with abnormal protein electrophoresis
Assessment/Plan
-
Impression.
Acute kidney injury. Creatinine 6.9 on admission. 1.3 two weeks ago
Right Pleural effusion status post thoracentesis 1 L.
Prior opiate use disorder on Suboxone.
Anemia.
Hypercalcemia.
Plan.
creatinine unfortunately rising to 5.8 but remains grossly nonoliguric
hard to r/o GN with hematuria and proteinuria with a protein creatinine ratio of 2.5., repeat now 1.6
Urinalysis 4+ blood with 3-6 RBC/HPF, 11-15 RBC, 3+ albumin.
Hypercalcemia needed to rule out paraproteinemia such as multiple myeloma
Serological workup negative, but paraprotein w/u: notes monoclonal spike in gamma region: will obtain urine kappa lambda ratio, likely will need to consult hematology for assistance
Hepatitis and antistreptolysin antibodies negative HIV negative
Pulse dosed steroids 1 g daily x 3 were given
no acute HD, repeat UA 2+alb, mild microhematuria
Of note patient was taking anti-inflammatories for pleural chest pain prior to admission
monitor met acidosis
Differential of acute kidney injury could include postinfectious ATN or NSAID induced injury.... vs dysproteinemic process
h/h improving, iron studies are without deficiency
Bp stable
labs in am
We will likely have to pursue biopsy on Tuesday
Discussed case with patient's cousin Fatoumata as requested by patient today
-
-
Date of Service: July 05, 2024
CC / HPI / ROS
-
Chief Complaint:
Acute kidney
History of Present Illness:
Creatinine back up to 2.8
Azotemia better
anemia persists
Hemodynamically stable
Status post pulse steroids
Review of Systems:
Nonoliguric
No reported chest pain or shortness of breath
had BM, appetite is good
Labs
-
Labs:
WBC 16.9 10^3/uL (4.8-10.8) H 07/05/24 06:17
RBC 3.11 10^6/uL (4.70-6.10) L 07/05/24 06:17
Hgb 9.2 g/dL (13.0-18.0) L 07/05/24 06:17
Hct 26.8 % (39.0-52.0) L 07/05/24 06:17
Plt Count 164 10^3/uL (130-400) 07/05/24 06:17
Sodium 140 mmol/L (135-145) 07/05/24 06:17
Potassium 4.8 mmol/L (3.5-5.1) 07/05/24 06:17
Chloride 109 mmol/L (98-107) H 07/05/24 06:17
Carbon Dioxide 22 mmol/L (22-30) 07/05/24 06:17
BUN 50 mg/dl (9-20) H 07/05/24 06:17
Creatinine 5.8 mg/dL (0.7-1.3) H* 07/05/24 06:17
eGFR 11.19 07/05/24 06:17
Glucose 100 mg/dl (70-99) H 07/05/24 06:17
Calcium 9.8 mg/dl (8.4-10.2) 07/05/24 06:17
Phosphorus 6.7 mg/dl (2.5-4.5) H 06/27/24 18:12
Flb-T-Wcugkpzufnb Pept 968 pg/ml 07/03/24 08:32
Albumin 3.7 g/dl (3.5-5.0) 07/03/24 08:32
Physical Exam
-
Vital Signs:
Vital Signs
Temp Pulse Resp BP Pulse Ox
98.7 F 70 16 135/60 99
07/05/24 07:25 07/05/24 07:25 07/05/24 07:25 07/05/24 07:25 07/05/24 07:25
Cardiovascular:: Regular rate and rhythm
Respiratory:: Bilateral: CTA
Lung Excursion:: Normal
Abdomen:: Nontender and Soft
Bowel Sounds:: Normal
Extremity Edema:: None: Bilateral:
Rae Catheter: No
[2024-07-05 15:10] VITALS: BP 131/76
[2024-07-05 19:16] LABS: Urine Albumin 3+ (Neg - Trace); Urine Bilirubin Negative (Negative); Urine Character Clear (Clear); Urine Color Yellow; Urine Glucose Negative (Negative); Urine Ketone Negative (Negative); Urine Leukocyte 1+ (Negative); Urine Nitrite Negative (Negative); Urine Occult Blood 3+ (Negative); Urine Specific Gravity 1.005 (<1.030); Urine Urobilinogen Negative (Neg - 1+)
[2024-07-05 19:27] LABS: Urine Squamous Cell 0-2 /LPF (Few)
[2024-07-05 19:28] LABS: Urine Bacteria Few (Negative); Urine Red Blood Cell 0-2 /HPF (0-2); Urine White Cell 16-20 /HPF (0-5)
[2024-07-05] MEDS: MELATONIN PO (21:08)
[2024-07-05 23:19] VITALS: BP 145/61
[2024-07-06 06:26] LABS: Hematocrit 25.7 % (39.0-52.0); Hemoglobin 8.9 g/dL (13.0-18.0); Mean Corp Hgb Conc. 34.6 g/dL (33.0-37.0); Mean Corpuscular Hgb 30.1 pg (27.0-31.0); Mean Corpuscular Volume 86.8 fL (80.0-94.0); Mean Platelet Volume 10.1 fL (7.4-10.4); Platelet Count 146 10^3/uL (130-400); Red Blood Cell Count 2.96 10^6/uL (4.70-6.10); Red Cell Dist. Width 14.4 % (11.5-14.5); White Blood Cell Count 20.2 10^3/uL (4.8-10.8)
[2024-07-06 06:30] VITALS: BMI 18.9
[2024-07-06 06:41] LABS: ALT (SGPT) 23 U/L (0-50); AST (SGOT) 29 U/L (17-59); Albumin 3.5 g/dl (3.5-5.0); Alkaline Phosphatase 69 U/L (38-126); Blood Urea Nitrogen 48 mg/dl (9-20); Calcium 10.3 mg/dl (8.4-10.2); Carbon Dioxide 23 mmol/L (22-30); Chloride 109 mmol/L (98-107); Estimated Creatinine Clearance 15 ml/min; Glucose 92 mg/dl (70-99); Potassium 5.2 mmol/L (3.5-5.1); Sodium 140 mmol/L (135-145); Total Bilirubin 0.6 mg/dl (0.2-1.3); Total Protein 5.8 g/dl (6.3-8.2); eGFR 10.33
[2024-07-06 07:49] VITALS: BP 143/78
[2024-07-06 08:18] LABS: Erythrocyte Sed Rate 46 mm/hour (0-20)
[2024-07-06] MEDS: HEPARIN SC ×2 (08:39→16:05)
[2024-07-06] MEDS: KCL PO (08:39)
[2024-07-06 09:16] LABS: Absolute Neutrophils -Man Diff 11.5 10^3/uL (1.4-6.5); Anisocytosis 1+; Band Neutrophils 10 % (0-3); Eosinophils 5 % (0-6); Lymphocytes 14 % (20-51); Metamyelocytes 6 % (-); Monocytes 10 % (2-9); Myelocytes 1 % (-); Normal RBC Morphology No; Plasmacytoid Lymphocytes 7 %; Platelets Checked Yes; Segmented Neutrophils 47 % (42-75)
[2024-07-06 09:17] LABS: Acanthocytes FEW; Hypochromasia 1+; Ovalocytes 1+; Polychromasia Slight; Schistocytes RARE; Total Cells Counted 100
--- NOTE | 2024-07-06 14:02 | W.PN.HOSP.TC ---
Today's Communication/Plan
-
Heme consult
await further input from consultants
Assessment / Plan
Assessment / Plan
A/P: Patient is a 49y M with PMH significant for opioid use disorder who presents to ED complaining of chest pain, abdominal pain and N/V.
FRANCA
- Patient with SCr = 8.9-->7.6-->6.9-->6.4-->5.9-->5.7-->5.8-->6.2 and reportedly 1.3 at [facility] 2 weeks ago.
- possibly 2/2 to dec PO intake and NSAID use although risk remains of MM/paraproteinemia disease
SPEP with monoclonal spike in the gamma region
as per nephro, will consult Heme, call placed and discussed with Dr. Horton
Quant [place], Lambda pending
� Nonoliguric
- stopped IVF as per nephro
-SPEP, UPEP follow-up
Rheum factor neg
- Renal consulted
- Avoid further NSAIDs or other nephrotoxic agents.
-As per nephro, plan is to hold on renal biopsy
-F/u HIV negative; hepatitis A antibody positive, follow-up IgM
MethylPrednisolone given and since stopped
WBC 20.5-->18.0-->20.9-->16.8-->10.3-->10.3--10.5-->12.5-->16.9-->20.2k
unclear etiology as to why WBC is rising. Call placed and discussed with larisa Car who will reevaluate. ordered blood cx NGTD
Procalcitonin ordered, await input from Heme
Echo from 06/28: Normal LV size and function without regional wall motion abnormalities.
LVEF is 60-65% by visual estimation.
No LVH. Normal diastolic function.
Normal right ventricular size and function.
No significant valvular disease.
Insufficient TR for estimation of PASP.
No prior study available for comparison.
#Anion Gap Metabolic Acidosis
-resolved
Pleuritic Pain
Right Pleural Effusion
Cough x 1 Month
- CT chest: 1. Moderate right pleural effusion with associated compressive atelectasis. No other significant abnormality identified in the chest, abdomen or pelvis, within the limits of unenhanced CT, as described above.
- No noted infiltrate / pneumonia.
- IR eval for diagnostic / therapeutic thoracentesis 1050 bloody effusion
- Pleural fluid - exudative
- F/u Cultures, Cyto: Few mesothelial cells with mixed inflammation
- Supportive care / pain control.
- Avoid NSAIDs given renal injury.
- Patient declining COVID / flu testing - not likely to be contagious with either given duration of cough / symptoms.
appreciate Pulm input, ordered incentive spirometry. Certainly improved today.
Pulm raises the consideration that pleural effusion related to NSAID's
CXR Small right pleural effusion. Stable
Will discuss with pulm
Normocytic Anemia
- Unknown acuity. Obtain prior records from [place] for review / comparison.
- No obvious / noted blood loss.
- Elev Ferritin, LDH
- Follow H&H for any changes and monitor for any obvious blood loss.
Hypercalcemia, resolved
- Ca = 12.5-->9.2
- Suspect significant component of hypovolemia
- IVF, s/p Calcitonin
-iPTH low
Hypokalemia
Better 3.1-->4.4-->4.8-->5.2
KCL stopped
Leukocytosis
- Likely stress response due to acute illness, anemia, etc. improved
- Afebrile and without evidence of focal infection at this time.
- Observe off of further abx for now.
- Follow for improvement with IVFs, etc. Follow-up culture data Blood cx on admission were negative, with rising WBC, will repeat.
Opioid Use Disorder
- Stable. Last use 3 years ago per patient. Maintained on Suboxone.
- No history of IVDA.
- Unable to use NSAIDs for acute pain control due to FRANCA, etc.
- Cautious use of opioids for pain.
DVT Prophylaxis: HSQ
Code Status: Full
Anticipated Discharge: > 48 hours
Subjective/Interval History
-
Date of Service: July 06, 2024
remains weak
Objective Data
-
Labs:
Laboratory Results
07/06/24
06:03
WBC 20.2 H
Hgb 8.9 L
Hct 25.7 L
Plt Count 146
Sodium 140
Potassium 5.2 H
Chloride 109 H
Carbon Dioxide 23
BUN 48 H
Creatinine 6.2 H*
Glucose 92
Calcium 10.3 H
Total Bilirubin 0.6
AST 29
ALT 23
Alkaline Phosphatase 69
Vital Signs:
Vital Signs
Temp Pulse Resp BP Pulse Ox
99.0 F 69 17 143/78 100
07/06/24 07:49 07/06/24 07:49 07/06/24 07:49 07/06/24 07:49 07/06/24 07:49
I&O
07/05/24 07/06/24 07/07/24
06:59 06:59 06:59
Intake Total 2125 / 2125 960 / 960
Output Total 1500 / 1500 425 / 425
Balance 625 / 625 535 / 535
Review of Systems
-
History Source: Patient and Coordinated Provider
Constitutional: Denies Fever
EENT: Reports No Symptoms Reported
Respiratory: Reports Cough (has decreased)
Cardiac: Reports No Symptoms
Abdomen/GI: Reports No Symptoms
Genitourinary: Reports No Symptoms
Musculoskeletal: Reports No Symptoms
Physical Exam
-
General: Well Developed, Well Nourished, No Apparent Distress and Other (thin)
HEENT: Normocephalic, Atraumatic and Moist Mucous Membranes
Respiratory: Rales (right basilar rales ~same)
Cardiac: Regular Rhythm and S1/S2; Negative Murmur or Rub
GI: Soft, Nontender and Nondistended
Musculoskeletal: No Clubbing, No Cyanosis and No Edema
[2024-07-06 15:00] VITALS: BP 129/68
[2024-07-06 15:14] LABS: Procalcitonin 0.22 ng/ml (0.0-0.25)
--- NOTE | 2024-07-06 15:14 | W.PN.PUL3 ---
Today's Communication / Plan
-
-Check Procalcitonin
-Monitor off antibiotics for now
Assessment
-
Patient is a 49y M with PMH significant for prior opioid use disorder who presented to ED complaining of right-sided chest pain, cough, dyspnea, abdominal pain and N/V. Patient reportedly developed symptoms about a month ago. He was seen in
[place] emergency room and was noted to have pleural effusion, records not available for my review currently. Patient's symptoms continued to get worse and presented to [place] emergency room. Her workup included chest x-ray which showed
right-sided pleural effusion along with acute kidney injury.
Acute kidney injury was of unclear etiology and patient has received 3 days of 1 g IV Solu-Medrol in view of proteinuria, hematuria and concern for immune mediated renal injury. Patient's renal failure is nonoliguric and is currently followed by
nephrology service.
Patient had an IR guided right-sided thoracentesis performed and the fluid is noted to be exudative. Pulmonary consultation was requested for further recommendations.
#1. Right sided pleural effusion, exudative. ?Etiology. CT Chest negative for any parenchymal abnormality. Pleural fluid exudative with some eosinophils noted. Connective tissue disease work up negative so far. No growth on cultures, cytology
negative for malignancy. MYRNA, Anti GBM Ab negative, ANCA negative and RA factor negative. No reported h/o trauma or chest procedures prior to thoracentesis.
-Considering recent respiratory symptoms and cough with dyspnea, this could be para-pneumonic effusion. No obvious pneumonia currently noted on imaging
-Follow-up chest x-ray 07/02 showed small effusion which is unchanged on CXR 07/04. Continues to be asymptomatic
-CT Chest 07/06, small pleural effusion with compressive Atelectasis vs ?consolidation. No cough, fever or phlegm production. Check PCT.
-Exudative pleural effusion with eosinophils, primary differential diagnosis include infection, malignancy and drug-induced effusions. Asbestos exposure and Paragonimiasis are other rare etiologies.
-If workup stays negative and patient develops reaccumulation, will need medical thoracoscopy with pleural biopsy. Will get flow cytometry too if repeat thoracentesis needed
-Currently being worked up for Myeloma
-Uremia persisting. Discussed with Nephrology team on 07/05. Anticipate renal biopsy in case there is a unifying diagnosis explaining both FRANCA and Pleural effusion.
Data:
Pleural fluid cytology: Negative for malignancy. few mesothelial cells, mixed inflammation with eosinophils noted
Blood, pleural fluid cultures negative. Influenza screen negative
MYRNA, ANCA, GBM Ab, negative. Compliment level normal.
Pleural fluid LDH 981, Protein 4.7, WBC 2385 with 76% Mononuclear cells. pH 7.36.
VBG 7.36, 34
INR 1.28
WBC count on admission 20.5 with 47% Neutrophils, 25% Lymphocytes, 14% Monocytes and 2.7% Eosinophils
CT Chest/Abdomen/Pelvis: 1. Moderate right pleural effusion with associated compressive atelectasis. No other significant abnormality identified in the chest, abdomen or pelvis, within the limits of unenhanced CT, as described above.
ECHO 06/2024: Normal LV size and function without regional wall motion abnormalities.
LVEF is 60-65% by visual estimation.
No LVH. Normal diastolic function.
Normal right ventricular size and function.
No significant valvular disease.
Insufficient TR for estimation of PASP.
No prior study available for comparison.
Total time spent on this consultation/encounter _31__ minutes which includes review of history, physical exam, medications, laboratory data, personal review of imaging, extensive review of outpatient records, discussion with care team and
respiratory therapy.
Subjective Data
-
Date of Service:
Date of Service: July 06, 2024
Subjective:
Patient without any respiratory complaints.
Review of Systems
Genitourinary: Other (No new symptoms reported )
Objective Data
Data Reviewed
Vital Signs / I&O / Oxygen:
Vital Signs
Temp Pulse Resp BP Pulse Ox
98.7 F 80 16 129/68 96
07/06/24 15:00 07/06/24 15:00 07/06/24 15:00 07/06/24 15:00 07/06/24 15:00
Intake and Output
07/05/24 07/06/24 07/07/24
06:59 06:59 06:59
Intake Total 2125 / 2125 960 / 960
Output Total 1500 / 1500 425 / 425
Balance 625 / 625 535 / 535
SaO2 96
Physical Exam
General: Comfortable
HEENT: Normocephalic
Respiratory: Non-Labored Respirations
Neurology: Awake and Alert
Labs/Micro/Reports
Lab Data
07/06/24 06:03
07/06/24 06:03
Microbiology
07/05/24 10:40 Blood/Venous Blood Culture - Preliminary
No Growth in 24 hours- Final report to follow
07/05/24 09:06 Blood/Venous Blood Culture - Preliminary
No Growth in 24 hours- Final report to follow
[2024-07-06] MEDS: MELATONIN PO (21:14)
[2024-07-06 23:39] VITALS: BP 115/69
[2024-07-07] MEDS: HEPARIN SC ×4 (00:01→23:03)
[2024-07-07 00:11] LABS: Erythropoietin (EPO) 10 mU/mL (4-27)
[2024-07-07 05:30] LABS: Free Kappa Light Chains,Quant 8281.11 mg/L (3.30-19.40); Free Lambda Light Chains,Quant 6.36 mg/L (5.71-26.30); Kappa/Lambda Fr Light Ratio 1302.06 (0.26-1.65)
[2024-07-07 06:54] VITALS: BMI 18.4
[2024-07-07 07:42] VITALS: BP 155/78
[2024-07-07 08:41] LABS: % Basophils 0.8 % (0-2); % Eosinophils 1.4 % (0-6); % Immature Granulocytes 16.5 % (0-0.5); % Lymphocytes 24.2 % (20.5-51.1); % Monocytes 8.6 % (1.7-9.3); % Neutrophils 48.5 % (42.2-75.2); Absolute Basophils 0.2 10^3/uL (0-0.2); Absolute Eosinophils 0.3 10^3/uL (0-0.7); Absolute Immature Granulocytes 3.9 10^3/uL (0-0.05); Absolute Lymphocytes 5.7 10^3/uL (1.2-3.4); Absolute Neutrophils 11.3 10^3/uL (1.4-6.5); Hemoglobin 9.3 g/dL (13.0-18.0); Mean Corp Hgb Conc. 33.2 g/dL (33.0-37.0); Mean Corpuscular Hgb 29.2 pg (27.0-31.0); Mean Corpuscular Volume 88.1 fL (80.0-94.0); Mean Platelet Volume 10.6 fL (7.4-10.4); Nucleated Red Blood Cells % 0.1 % (-); Platelet Count 174 10^3/uL (130-400); Red Blood Cell Count 3.18 10^6/uL (4.70-6.10); Red Cell Dist. Width 14.7 % (11.5-14.5); White Blood Cell Count 23.4 10^3/uL (4.8-10.8)
[2024-07-07 08:55] LABS: Blood Urea Nitrogen 50 mg/dl (9-20); Calcium 10.9 mg/dl (8.4-10.2); Carbon Dioxide 24 mmol/L (22-30); Chloride 107 mmol/L (98-107); Estimated Creatinine Clearance 14 ml/min; Glucose 83 mg/dl (70-99); Potassium 4.9 mmol/L (3.5-5.1); Sodium 141 mmol/L (135-145); eGFR 9.76
[2024-07-07 10:07] LABS: Absolute Neutrophils -Man Diff 12.4 10^3/uL (1.4-6.5); Band Neutrophils 8 % (0-3); Eosinophils 1 % (0-6); Lymphocytes 18 % (20-51); Metamyelocytes 7 % (-); Monocytes 10 % (2-9); Myelocytes 5 % (-); Segmented Neutrophils 45 % (42-75)
[2024-07-07 10:08] LABS: Plasmacytoid Lymphocytes 5 %
[2024-07-07 10:09] LABS: Atypical Lymphocytes 1 %
[2024-07-07 10:16] LABS: Normal RBC Morphology No; Platelets Checked Yes
[2024-07-07 10:17] LABS: Anisocytosis 1+; Ovalocytes 1+
[2024-07-07 10:18] LABS: Microcytosis 1+; Total Cells Counted 100
--- NOTE | 2024-07-07 10:45 | W.PN.HOSP.TC ---
Today's Communication/Plan
-
Heme consult pending
continue to follow renal fxn
Assessment / Plan
Assessment / Plan
A/P: Patient is a 49y M with PMH significant for opioid use disorder who presents to ED complaining of chest pain, abdominal pain and N/V.
FRANCA
- Patient with SCr = 8.9-->7.6-->6.9-->6.4-->5.9-->5.7-->5.8-->6.2-->6.5 and reportedly 1.3 at [facility] 2 weeks ago.
- possibly 2/2 to dec PO intake and NSAID use although risk remains of MM/paraproteinemia disease
Free [place] LC Quant 8281.11 (3.3-19.4)
SPEP with monoclonal spike in the gamma region
as per nephro, will consult Heme, call placed and discussed with Dr. Horton 07/06. Await input
� Nonoliguric
- stopped IVF as per nephro
Rheum factor neg
- Renal consulted
- Avoid further NSAIDs or other nephrotoxic agents.
-As per nephro, plan is to hold on renal biopsy
-F/u HIV negative; hepatitis A antibody positive, follow-up IgM
MethylPrednisolone given and since stopped
WBC 20.5-->18.0-->20.9-->16.8-->10.3-->10.3--10.5-->12.5-->16.9-->20.2-->23.4k
unclear etiology as to why WBC is rising. Call placed and discussed with larisa Car who will reevaluate. ordered blood cx NGTD
Procalcitonin 0.22 (o.o-0.25)
Echo from 06/28: Normal LV size and function without regional wall motion abnormalities.
LVEF is 60-65% by visual estimation.
No LVH. Normal diastolic function.
Normal right ventricular size and function.
No significant valvular disease.
Insufficient TR for estimation of PASP.
No prior study available for comparison.
#Anion Gap Metabolic Acidosis
-resolved
Pleuritic Pain
Right Pleural Effusion
Cough x 1 Month
-07/06 CT chest: Small right pleural effusion with adjacent airspace consolidation within the posterior right lower lobe, presumably atelectasis. Pneumonia is also a consideration.
- No noted infiltrate / pneumonia.
- IR eval for diagnostic / therapeutic thoracentesis 1050 bloody effusion
- Pleural fluid - exudative
- F/u Cultures, Cyto: Few mesothelial cells with mixed inflammation. Neg for malig cells
- Supportive care / pain control.
- Avoid NSAIDs given renal injury.
- Patient declining COVID / flu testing - not likely to be contagious with either given duration of cough / symptoms.
appreciate Pulm input, ordered incentive spirometry. Certainly improved today.
Pulm raises the consideration that pleural effusion related to NSAID's
Normocytic Anemia
- Unknown acuity. Obtain prior records from [place] for review / comparison.
- No obvious / noted blood loss.
- Elev Ferritin, LDH
- Follow H&H for any changes and monitor for any obvious blood loss.
Hypercalcemia, resolved
- Ca = 12.5-->9.2
- Suspect significant component of hypovolemia
- IVF, s/p Calcitonin
-iPTH low
Hypokalemia
resolved 3.1-->4.4-->4.8-->5.2-->4.9
KCL stopped
Leukocytosis
- Likely stress response due to acute illness, anemia, etc. improved
- Afebrile and without evidence of focal infection at this time.
- Observe off of further abx for now.
- Follow for improvement with IVFs, etc. Follow-up culture data Blood cx on admission were negative, with rising WBC, will repeat.
Opioid Use Disorder
- Stable. Last use 3 years ago per patient. Maintained on Suboxone.
- No history of IVDA.
- Unable to use NSAIDs for acute pain control due to FRANCA, etc.
- Cautious use of opioids for pain.
DVT Prophylaxis: HSQ
Code Status: Full
Anticipated Discharge: > 48 hours
Subjective/Interval History
-
Date of Service: July 07, 2024
Awake, alert
Objective Data
-
Labs:
Laboratory Results
07/07/24
07:53
WBC 23.4 H
Hgb 9.3 L
Hct 28.0 L
Plt Count 174
Sodium 141
Potassium 4.9
Chloride 107
Carbon Dioxide 24
BUN 50 H
Creatinine 6.5 H*
Glucose 83
Calcium 10.9 H
Vital Signs:
Vital Signs
Temp Pulse Resp BP Pulse Ox
98.4 F 75 17 155/78 99
07/07/24 07:42 07/07/24 07:42 07/07/24 07:42 07/07/24 07:42 07/07/24 07:42
I&O
07/06/24 07/07/24 07/08/24
06:59 06:59 06:59
Intake Total 960 / 960 1800 / 1800
Output Total 425 / 425 1900 / 1900
Balance 535 / 535 -100 / -100
Review of Systems
-
History Source: Patient and Coordinated Provider
Constitutional: Denies Fever
EENT: Reports No Symptoms Reported
Respiratory: Reports Cough (has decreased)
Cardiac: Reports No Symptoms
Abdomen/GI: Reports No Symptoms
Genitourinary: Reports No Symptoms
Musculoskeletal: Reports No Symptoms
Physical Exam
-
General: Well Developed, Well Nourished, No Apparent Distress and Other (thin)
HEENT: Normocephalic, Atraumatic and Moist Mucous Membranes
Respiratory: Rales (right basilar rales ~same)
Cardiac: Regular Rhythm and S1/S2; Negative Murmur or Rub
GI: Soft, Nontender and Nondistended
Musculoskeletal: No Clubbing, No Cyanosis and No Edema
--- NOTE | 2024-07-07 11:24 | CON.ONC ---
Impression
Impression
M protein and abnormal K/L ratio
Renal failure likely multifactorial
Low-level hypercalcemia
Hemorrhagic pleural effusion without plasma cells
Hypogammaglobulinemia
Plan
Plan
Low level M protein and abnormal K/L ratio renal failure requires additional evaluation for myeloma
Perform inpatient skeletal survey
Agree with renal biopsy as scheduled
Will need outpatient bone marrow biopsy
Levels of kappa/lambda light chain ratio and M protein not at levels typically associated with AR from myeloma as a single cause
Peak levels of light chains are difficult to interpret with renal failure although kappa light chain of 8000 is quite elevated
Will follow
Patient History
History of Present Illness
49y M with PMH significant for prior opioid use disorder who presents to ED complaining of right-sided chest pain, cough, dyspnea, abdominal pain and N/V. Patient states that his symptoms started about one month ago with hacking, non-productive
cough. He developed pain in the R chest that was associated with cough and worse with deep breathing, coughing, laughing, etc. he had a right thoracentesis of hemorrhagic fluid during hospitalization. He has been treated for presumed pneumonia.
We have been consulted to evaluate the possibility of monoclonal protein and abnormal K/L light chain ratio concerning for plasma cell dyscrasia contributing to ongoing chronic renal failure.
Patient Medication
�Medication �Instructions �Recorded �Confirmed �Last Taken �Type
buprenorphine 8 mg-naloxone 2 mg 1 film buccal TID MAINTENANCE 06/27/24 06/27/24 Unknown History
sublingual film
naproxen sodium 220 mg tablet 440 mg PO BIDPRN PRN mild pain 06/27/24 06/27/24 Unknown History
(Aleve)
doxepin 50 mg PO HS sleep 06/28/24 06/28/24 Unknown History
Active Medications
Generic Name Dose Route Start Last Admin
Trade Name Freq PRN Reason Stop Dose Admin
Acetaminophen 650 mg 06/27/24 22:39
Acetaminophen 325 Mg Tablet PO 07/25/24 22:38
Q4HPRN PRN
Mild Pain / Temp > 101
Heparin Sodium 5,000 units 06/28/24 16:00 07/07/24 10:02
Heparin 5,000 Units/Ml 1 Ml Vial SC 07/26/24 15:59 Not Given
Q8 DAGMAR
Hydromorphone HCl 0.5 mg 06/27/24 22:39 06/28/24 14:30
Hydromorphone 0.5 Mg/0.5 Ml Syringe IV 07/11/24 22:38 0.5 mg
Q4HPRN PRN Administration
Severe Pain
Melatonin 5 mg 06/28/24 22:00 07/06/24 21:14
Melatonin 5 Mg Tablet PO 07/26/24 21:59 Not Given
HS DAGMAR
Ondansetron HCl 4 mg 06/27/24 22:39 06/29/24 12:11
Ondansetron 4 Mg/2 Ml Vial IV 07/25/24 22:38 4 mg
Q6HPRN PRN Administration
nausea and vomiting
Prochlorperazine Edisylate 5 mg 06/28/24 01:11 06/29/24 06:27
Prochlorperazine 10 Mg/2 Ml Vial IV 07/26/24 01:10 5 mg
Q6HPRN PRN Administration
Nausea
Sodium Chloride 0 flush 06/27/24 23:00
Sodium Chloride 0.9% (Flush) Syringe IV 07/25/24 22:59
PER PROTOCOL DAGMAR
Review of Systems
-
12 point review of systems fails elicit other complaints.
Physical Exam
-
Physical Exam
General: Comfortable
HEENT: Normocephalic
Respiratory: Non-Labored Respirations
Neurology: Awake and Alert
Labs
Lab Results
WBC 23.4 10^3/uL (4.8-10.8) H 07/07/24 07:53
RBC 3.18 10^6/uL (4.70-6.10) L 07/07/24 07:53
Hgb 9.3 g/dL (13.0-18.0) L 07/07/24 07:53
Hct 28.0 % (39.0-52.0) L 07/07/24 07:53
MCV 88.1 fL (80.0-94.0) 07/07/24 07:53
MCH 29.2 pg (27.0-31.0) 07/07/24 07:53
MCHC 33.2 g/dL (33.0-37.0) 07/07/24 07:53
RDW 14.7 % (11.5-14.5) H 07/07/24 07:53
Plt Count 174 10^3/uL (130-400) 07/07/24 07:53
MPV 10.6 fL (7.4-10.4) H 07/07/24 07:53
Abs Immat Gran (auto) 3.9 10^3/uL (0-0.05) H 07/07/24 07:53
Absolute Neuts (auto) 11.3 10^3/uL (1.4-6.5) H 07/07/24 07:53
Absolute Lymphs (auto) 5.7 10^3/uL (1.2-3.4) H 07/07/24 07:53
Absolute Monos (auto) 2.0 10^3/uL (0.1-0.6) H 07/07/24 07:53
Absolute Eos (auto) 0.3 10^3/uL (0-0.7) 07/07/24 07:53
Absolute Basos (auto) 0.2 10^3/uL (0-0.2) 07/07/24 07:53
Immature Gran % 16.5 % (0-0.5) H 07/07/24 07:53
Neutrophils % 48.5 % (42.2-75.2) 07/07/24 07:53
Lymphocytes % 24.2 % (20.5-51.1) 07/07/24 07:53
Monocytes % 8.6 % (1.7-9.3) 07/07/24 07:53
Eosinophils % 1.4 % (0-6) 07/07/24 07:53
Basophils % 0.8 % (0-2) 07/07/24 07:53
Creatinine 6.5 mg/dL (0.7-1.3) H* 07/07/24 07:53
Vital Signs
Vital Signs
Temp Pulse Resp BP Pulse Ox
98.4 F 75 17 155/78 99
07/07/24 07:42 07/07/24 07:42 07/07/24 07:42 07/07/24 07:42 07/07/24 07:42
--- NOTE | 2024-07-07 13:49 | W.PN.NEPH.PH ---
Today's Communication / Plan
-
Biopsy Tuesday
Assessment/Plan
-
Impression.
Acute kidney injury. Creatinine 6.9 on admission. 1.3 two weeks ago
Pleural effusion status post thoracentesis 1 L.
Prior opiate use disorder on Suboxone.
Anemia.
Hypercalcemia.
Plan.
Rule out GN with hematuria and proteinuria with a protein creatinine ratio of 2.5.
Urinalysis 4+ blood with 3-6 RBC/HPF, 11-15 RBC, 3+ albumin.
No obstructive renal pathology on CAT scan.
Negative serological workup
SPEP monoclonal spike/pending ratio TAMELA
Oncology consult noted
Biopsy Tuesday
I had a long discussion with the patient and his aunt about the plan.
Question is whether he will be stable enough for discharge without dialysis.
Continue to monitor
-
-
Date of Service: July 07, 2024
CC / HPI / ROS
-
Chief Complaint:
Shortness of breath
History of Present Illness:
Presents with shortness of breath pleural effusion status postthoracentesis with acute kidney injury creatinine greater than 7
Review of Systems:.
No chest pain or shortness of breath
Labs
-
Labs:
WBC 23.4 10^3/uL (4.8-10.8) H 07/07/24 07:53
RBC 3.18 10^6/uL (4.70-6.10) L 07/07/24 07:53
Hgb 9.3 g/dL (13.0-18.0) L 07/07/24 07:53
Hct 28.0 % (39.0-52.0) L 07/07/24 07:53
Plt Count 174 10^3/uL (130-400) 07/07/24 07:53
Sodium 141 mmol/L (135-145) 07/07/24 07:53
Potassium 4.9 mmol/L (3.5-5.1) 07/07/24 07:53
Chloride 107 mmol/L (98-107) 07/07/24 07:53
Carbon Dioxide 24 mmol/L (22-30) 07/07/24 07:53
BUN 50 mg/dl (9-20) H 07/07/24 07:53
Creatinine 6.5 mg/dL (0.7-1.3) H* 07/07/24 07:53
eGFR 9.76 07/07/24 07:53
Glucose 83 mg/dl (70-99) 07/07/24 07:53
Calcium 10.9 mg/dl (8.4-10.2) H 07/07/24 07:53
Phosphorus 6.7 mg/dl (2.5-4.5) H 06/27/24 18:12
Hlc-N-Jcxxgcmtwkm Pept 968 pg/ml 07/03/24 08:32
Albumin 3.5 g/dl (3.5-5.0) 07/06/24 06:03
Physical Exam
-
Vital Signs:
Vital Signs
Temp Pulse Resp BP Pulse Ox
98.4 F 75 17 155/78 99
07/07/24 07:42 07/07/24 07:42 07/07/24 07:42 07/07/24 07:42 07/07/24 07:42
Cardiovascular:: Regular rate and rhythm
Respiratory:: Bilateral: CTA
Lung Excursion:: Normal
Abdomen:: Nontender and Soft
Bowel Sounds:: Normal
Extremity Edema:: None: Bilateral:
Rae Catheter: No
[2024-07-07 15:25] VITALS: BP 139/70
[2024-07-07] MEDS: MELATONIN PO (21:44)
[2024-07-08] MEDS: HEPARIN SC ×3 (07:25→23:33)
[2024-07-08 07:40] VITALS: BP 137/75
[2024-07-08 08:23] LABS: Hematocrit 25.8 % (39.0-52.0); Hemoglobin 8.7 g/dL (13.0-18.0); Mean Corp Hgb Conc. 33.7 g/dL (33.0-37.0); Mean Corpuscular Hgb 29.4 pg (27.0-31.0); Mean Corpuscular Volume 87.2 fL (80.0-94.0); Mean Platelet Volume 9.5 fL (7.4-10.4); Platelet Count 153 10^3/uL (130-400); Red Blood Cell Count 2.96 10^6/uL (4.70-6.10); Red Cell Dist. Width 14.7 % (11.5-14.5); White Blood Cell Count 22.5 10^3/uL (4.8-10.8)
[2024-07-08 08:29] LABS: Blood Urea Nitrogen 51 mg/dl (9-20); Calcium 11.1 mg/dl (8.4-10.2); Carbon Dioxide 23 mmol/L (22-30); Chloride 108 mmol/L (98-107); Estimated Creatinine Clearance 13 ml/min; Glucose 94 mg/dl (70-99); Potassium 5.3 mmol/L (3.5-5.1); Sodium 141 mmol/L (135-145); eGFR 9.09
[2024-07-08 09:51] VITALS: BMI 18.1
--- NOTE | 2024-07-08 12:02 | W.PN.NEPH.PH ---
Today's Communication / Plan
-
Renal biopsy Tuesday
Assessment/Plan
-
Impression.
Acute kidney injury. Creatinine 6.9 on admission. 1.3 two weeks ago
Pleural effusion status post thoracentesis 1 L.
Prior opiate use disorder on Suboxone.
Anemia.
Hypercalcemia.
Plan.
Rule out GN with hematuria and proteinuria with a protein creatinine ratio of 2.5.
Urinalysis 4+ blood with 3-6 RBC/HPF, 11-15 RBC, 3+ albumin.
No obstructive renal pathology on CAT scan.
Negative serological workup
SPEP monoclonal spike/pending ratio TAMELA
Oncology consult noted
Biopsy Tuesday
I had a long discussion with the patient and his aunt about the plan.
Question is whether he will be stable enough for discharge without dialysis.
At this time there is no need for dialysis from an electrolyte, volume or uremic standpoint.
IR consult placed for biopsy
Skeletal survey
Bone marrow biopsy planned for outpatient per oncology note
-
-
Date of Service: July 08, 2024
CC / HPI / ROS
-
Chief Complaint:
Shortness of breath
History of Present Illness:
Presents with shortness of breath pleural effusion status postthoracentesis with acute kidney injury creatinine greater than 7
Review of Systems:.
No chest pain or shortness of breath
Labs
-
Labs:
WBC 22.5 10^3/uL (4.8-10.8) H 07/08/24 07:50
RBC 2.96 10^6/uL (4.70-6.10) L 07/08/24 07:50
Hgb 8.7 g/dL (13.0-18.0) L 07/08/24 07:50
Hct 25.8 % (39.0-52.0) L 07/08/24 07:50
Plt Count 153 10^3/uL (130-400) 07/08/24 07:50
Sodium 141 mmol/L (135-145) 07/08/24 07:50
Potassium 5.3 mmol/L (3.5-5.1) H 07/08/24 07:50
Chloride 108 mmol/L (98-107) H 07/08/24 07:50
Carbon Dioxide 23 mmol/L (22-30) 07/08/24 07:50
BUN 51 mg/dl (9-20) H 07/08/24 07:50
Creatinine 6.9 mg/dL (0.7-1.3) H* 07/08/24 07:50
eGFR 9.09 07/08/24 07:50
Glucose 94 mg/dl (70-99) 07/08/24 07:50
Calcium 11.1 mg/dl (8.4-10.2) H 07/08/24 07:50
Phosphorus 6.7 mg/dl (2.5-4.5) H 06/27/24 18:12
Hum-O-Ibwkrxjwmhm Pept 968 pg/ml 07/03/24 08:32
Albumin 3.5 g/dl (3.5-5.0) 07/06/24 06:03
Physical Exam
-
Vital Signs:
Vital Signs
Temp Pulse Resp BP Pulse Ox
98.5 F 73 14 137/75 100
07/08/24 07:40 07/08/24 07:40 07/08/24 07:40 07/08/24 07:40 07/08/24 07:40
Cardiovascular:: Regular rate and rhythm
Respiratory:: Bilateral: CTA
Lung Excursion:: Normal
Abdomen:: Nontender and Soft
Bowel Sounds:: Normal
Extremity Edema:: None: Bilateral:
Rae Catheter: No
--- NOTE | 2024-07-08 13:17 | W.PN.HOSP.TC ---
Today's Communication/Plan
-
further hematologic work up as per Dr. Jackson group
ID consult regarding resistant bacteria
Assessment / Plan
Assessment / Plan
A/P: Patient is a 49y M with PMH significant for opioid use disorder who presents to ED complaining of chest pain, abdominal pain and N/V.
FRANCA
- Patient with SCr = 8.9-->7.6-->6.9-->6.4-->5.9-->5.7-->5.8-->6.2-->6.5-->6.9 and reportedly 1.3 at [facility] 2 weeks ago.
- possibly 2/2 to dec PO intake and NSAID use although risk remains of MM/paraproteinemia disease
Free [place] LC Quant 8281.11 (3.3-19.4)
SPEP with monoclonal spike in the gamma region
as per nephro, will consult Heme, call placed and discussed with Dr. Jackson 07/08.
� Nonoliguric
- stopped IVF as per nephro
Rheum factor neg
- Renal consulted
- Avoid further NSAIDs or other nephrotoxic agents.
-As per nephro, plan is to hold on renal biopsy
-F/u HIV negative; hepatitis A antibody positive, follow-up IgM
MethylPrednisolone given and since stopped
WBC 20.5-->18.0-->20.9-->16.8-->10.3-->10.3--10.5-->12.5-->16.9-->20.2-->23.4-->22.5k
unclear etiology as to why WBC is rising. ordered blood cx NGTD
UA cx Staph heamolyticus
multiple drug resistances. Will consult ID
Procalcitonin 0.22 (o.o-0.25)
Echo from 06/28: Normal LV size and function without regional wall motion abnormalities.
LVEF is 60-65% by visual estimation.
No LVH. Normal diastolic function.
Normal right ventricular size and function.
No significant valvular disease.
Insufficient TR for estimation of PASP.
No prior study available for comparison.
#Anion Gap Metabolic Acidosis
-resolved
Pleuritic Pain
Right Pleural Effusion
Cough x 1 Month
-07/06 CT chest: Small right pleural effusion with adjacent airspace consolidation within the posterior right lower lobe, presumably atelectasis. Pneumonia is also a consideration.
- No noted infiltrate / pneumonia.
- IR eval for diagnostic / therapeutic thoracentesis 1050 bloody effusion
- Pleural fluid - exudative
- F/u Cultures, Cyto: Few mesothelial cells with mixed inflammation. Neg for malig cells
- Supportive care / pain control.
- Avoid NSAIDs given renal injury.
- Patient declining COVID / flu testing - not likely to be contagious with either given duration of cough / symptoms.
appreciate Pulm input, ordered incentive spirometry. Certainly improved today.
Pulm raises the consideration that pleural effusion related to NSAID's
Normocytic Anemia
- Unknown acuity. Obtain prior records from [facility] for review / comparison.
- No obvious / noted blood loss.
- Elev Ferritin, LDH
- Follow H&H for any changes and monitor for any obvious blood loss.
Hypercalcemia, resolved
- Ca = 12.5-->9.2
- Suspect significant component of hypovolemia
- IVF, s/p Calcitonin
-iPTH low
Hypokalemia
resolved 3.1-->4.4-->4.8-->5.2-->4.9
KCL stopped
Leukocytosis
- Likely stress response due to acute illness, anemia, etc. improved
- Afebrile and without evidence of focal infection at this time.
- Observe off of further abx for now.
- Follow for improvement with IVFs, etc. Follow-up culture data Blood cx on admission were negative, with rising WBC, will repeat.
Opioid Use Disorder
- Stable. Last use 3 years ago per patient. Maintained on Suboxone.
- No history of IVDA.
- Unable to use NSAIDs for acute pain control due to FRANCA, etc.
- Cautious use of opioids for pain.
DVT Prophylaxis: HSQ
Code Status: Full
Anticipated Discharge: > 48 hours
Subjective/Interval History
-
Date of Service: July 08, 2024
no new complaints
Objective Data
-
Labs:
Laboratory Results
07/08/24
07:50
WBC 22.5 H
Hgb 8.7 L
Hct 25.8 L
Plt Count 153
Sodium 141
Potassium 5.3 H
Chloride 108 H
Carbon Dioxide 23
BUN 51 H
Creatinine 6.9 H*
Glucose 94
Calcium 11.1 H
Vital Signs:
Vital Signs
Temp Pulse Resp BP Pulse Ox
98.5 F 73 14 137/75 100
07/08/24 07:40 07/08/24 07:40 07/08/24 07:40 07/08/24 07:40 07/08/24 07:40
I&O
07/07/24 07/08/24 07/09/24
06:59 06:59 06:59
Intake Total 1800 / 1800 1200 / 1200
Output Total 1900 / 1900 1300 / 1300
Balance -100 / -100 -100 / -100
Review of Systems
-
History Source: Patient and Coordinated Provider
Constitutional: Denies Fever
EENT: Reports No Symptoms Reported
Respiratory: Reports Cough (has decreased)
Cardiac: Reports No Symptoms
Abdomen/GI: Reports No Symptoms
Genitourinary: Reports No Symptoms
Musculoskeletal: Reports No Symptoms
Physical Exam
-
General: Well Developed, Well Nourished, No Apparent Distress and Other (thin)
HEENT: Normocephalic, Atraumatic and Moist Mucous Membranes
Respiratory: Rales (right basilar rales ~same)
Cardiac: Regular Rhythm and S1/S2; Negative Murmur or Rub
GI: Soft, Nontender and Nondistended
Musculoskeletal: No Clubbing, No Cyanosis and No Edema
[2024-07-08 16:01] VITALS: BP 141/75
[2024-07-08] MEDS: SINEQUAN 10 MG PO (21:53)
[2024-07-08 23:00] VITALS: BP 132/78
[2024-07-09] VITALS (14 sets, daily range): BP systolic 76–157; BP diastolic 61–79; BMI 18.0
[2024-07-09] MEDS: HEPARIN SC ×3 (07:31→23:09)
--- NOTE | 2024-07-09 09:58 | W.PN.PUL3 ---
Today's Communication / Plan
-
-Pulmonary team will sign off, please call as needed
-Continue work up for Myeloma
Assessment
-
Patient is a 49y M with PMH significant for prior opioid use disorder who presented to ED complaining of right-sided chest pain, cough, dyspnea, abdominal pain and N/V. Patient reportedly developed symptoms about a month ago. He was seen in
[place] emergency room and was noted to have pleural effusion, records not available for my review currently. Patient's symptoms continued to get worse and presented to [place] emergency room. Her workup included chest x-ray which showed
right-sided pleural effusion along with acute kidney injury.
Acute kidney injury was of unclear etiology and patient has received 3 days of 1 g IV Solu-Medrol in view of proteinuria, hematuria and concern for immune mediated renal injury. Patient's renal failure is nonoliguric and is currently followed by
nephrology service.
Patient had an IR guided right-sided thoracentesis performed and the fluid is noted to be exudative. Pulmonary consultation was requested for further recommendations.
#1. Right sided pleural effusion, exudative. ?Etiology. CT Chest negative for any parenchymal abnormality. Pleural fluid exudative with some eosinophils noted. Connective tissue disease work up negative so far. No growth on cultures, cytology
negative for malignancy. MYRNA, Anti GBM Ab negative, ANCA negative and RA factor negative. No reported h/o trauma or chest procedures prior to thoracentesis.
-Considering recent respiratory symptoms and cough with dyspnea, this could be para-pneumonic effusion. No obvious pneumonia currently noted on imaging
-Follow-up chest x-ray 07/02 showed small effusion which is unchanged on CXR 07/04. Continues to be asymptomatic. Skeletal survey images reviewed from 07/08, no effusion noted.
-Exudative pleural effusion with eosinophils, primary differential diagnosis include infection, malignancy and drug-induced effusions. Asbestos exposure and Paragonimiasis are other rare etiologies.
-If workup stays negative and patient develops reaccumulation, will need medical thoracoscopy with pleural biopsy. Will get flow cytometry too if repeat thoracentesis needed
-Currently being worked up for Myeloma. Myeloma related effusions are rare but certainly possible
--Schedule for Renal biopsy
Data:
Pleural fluid cytology: Negative for malignancy. few mesothelial cells, mixed inflammation with eosinophils noted
Blood, pleural fluid cultures negative. Influenza screen negative
MYRNA, ANCA, GBM Ab, negative. Compliment level normal.
Pleural fluid LDH 981, Protein 4.7, WBC 2385 with 76% Mononuclear cells. pH 7.36.
VBG 7.36, 34
INR 1.28
WBC count on admission 20.5 with 47% Neutrophils, 25% Lymphocytes, 14% Monocytes and 2.7% Eosinophils
CT Chest/Abdomen/Pelvis: 1. Moderate right pleural effusion with associated compressive atelectasis. No other significant abnormality identified in the chest, abdomen or pelvis, within the limits of unenhanced CT, as described above.
ECHO 06/2024: Normal LV size and function without regional wall motion abnormalities.
LVEF is 60-65% by visual estimation.
No LVH. Normal diastolic function.
Normal right ventricular size and function.
No significant valvular disease.
Insufficient TR for estimation of PASP.
No prior study available for comparison.
Total time spent on this consultation/encounter _31__ minutes which includes review of history, physical exam, medications, laboratory data, personal review of imaging, extensive review of outpatient records, discussion with care team and
respiratory therapy.
Subjective Data
-
Date of Service:
Date of Service: July 09, 2024
Subjective:
Lying flat in bed, no orthopnea, on room air.
Review of Systems
Genitourinary: Other (No new symptoms. )
Objective Data
Data Reviewed
Vital Signs / I&O / Oxygen:
Vital Signs
Temp Pulse Resp BP Pulse Ox
98.7 F 78 17 152/71 100
07/09/24 07:46 07/09/24 07:46 07/09/24 07:46 07/09/24 07:46 07/09/24 07:46
Intake and Output
07/08/24 07/09/24 07/10/24
06:59 06:59 06:59
Intake Total 1200 / 1200 1440 / 1440
Output Total 1300 / 1300 800 / 800
Balance -100 / -100 640 / 640
SaO2 100
Physical Exam
General: Comfortable
HEENT: Normocephalic
Cardiovascular: S1-S2 and Regular Rhythm
Respiratory: Clear and Non-Labored Respirations
GI: Soft and Non Distended
Neurology: Awake and Alert
Skin: Warm
Labs/Micro/Reports
Microbiology
07/05/24 09:06 Blood/Venous Blood Culture - Preliminary
No Growth in 4 days- Final report to follow
07/05/24 19:09 Urine Urine Culture - Final
Staphylococcus haemolyticus
07/05/24 10:40 Blood/Venous Blood Culture - Preliminary
No Growth in 72 hours- Final report to follow
--- NOTE | 2024-07-09 11:17 | CON.ID ---
Consultation
-
Date/Time Consultation Requested: 07/08/24 13:26
Date/Time Consultation Performed: 07/08/24 11:18
Requesting Provider: Dr Mendez
Performing Provider: Dr Lee
Reason for Consultation: UA cx Staph heamolyticus multiple drug resistances. Will consult ID
Chief Complaint / Past History
Chief Complaint
N/V, Chest Pain
History of Present Illness
Mr Martin is a 49 year old male with prior history of opioid use disorder nw on suboxone who presented here 06/27 (13 days ago) for right-sided chest pain, cough, dyspnea, abdominal pain and nausea wtih vomiting. Symptoms first began about 1 month
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 Prior evaluation at [facility] showed R effusion, he was discharged He progressed to vomiting bilious, nonbloody emesis. No black or tarry stools. Taking a few doses of week of aleve/advil.
Since arrival here he has been afebrile, bp stable, WBC on arrival 20.5 normalized HD 5, relapsed starting 07/04 in the setting of steroid use and has trended up to 22.5, hgb 8.7, plt 153, when assessed he has had a L shift, cr on arrival 8.9 today
6.9, 07/06 procalcitonin 0.22 normal, LFTs generally WNL, 07/05 UA 16-20 wbc, few squamous cells, 06/27 UDS wnl, free kappa LC 8000, 07/08 skeletal survey: tiny lytic lesions throughout the bilateral humeri, suspicious for tiny foci of multiple myeloma,
07/06 CT chest w/o IV contrast: Small right pleural effusion with adjacent airspace consolidation within the posterior right lower lobe, presumably atelectasis. Pneumonia is also a consideration. urine culture with just 25 K s haemolyticus, blood
cultures x2 no growth at 4 days, 06/28 pleural fluid NG at 72 hours, 1 L of bloody fluid with some eosinphils was drainage , effusion was exudative, path without malignant cells. Patient had a dose of cefepime 06/27 it was not continued.
Methylprednisolone given 06/28-06/30. Patient is for renal biopsy tuesday. HIV screen negative. Bone marrow biopsy planned for outpatient. Currently reports no fevers, chills, headache, sinus tenderness, sore throat, nausea, vomiting, diarrhea,
dysuria, new rashes, new joint pains, ulcers/drips of the penis. Prior nausea/vomiting have resolved.
Past History
Additional Past Medical History:
as per hpi
Additional Past Surgical History:
Sinus Surgery
Allergy History:
No Known Allergies Allergy (Verified 06/27/24 19:10)
Medications Reviewed: Yes
Social History
Tobacco: Vaping
Alcohol: None
Drug: Other (Prior history of Percocet / Xanax use - last use 3 years ago. No h/o IVDA. Has medical marijuana card.)
Family History
Family History: Not Pertinent
Review of Systems
Review of Systems
General: Negative Fever or Chills
All systems: All other systems were reviewed and were negative
Vital Signs
Temp Pulse Resp BP Pulse Ox
98.7 F 78 17 152/71 100
07/09/24 07:46 07/09/24 07:46 07/09/24 07:46 07/09/24 07:46 07/09/24 07:46
Physical Exam
Physical Exam
Constitutional: No Acute Distress and Cachetic
Cardiovascular: Regular Rate and S1/S2; Negative Murmur or Rub
Pulmonary: Clear and Symmetric; Negative Wheezes, Rales or Rhonchi
Gastrointestinal: Soft, Non Tender, Non Distended and Normal Bowel Sounds
Skin: Warm and Dry; Negative Rash or Jaundice
Lab / Diagnostic Study Results
Abs Immat Gran (auto) 3.9 10^3/uL (0-0.05) H 07/07/24 07:53
Absolute Neuts (auto) 11.3 10^3/uL (1.4-6.5) H 07/07/24 07:53
Absolute Lymphs (auto) 5.7 10^3/uL (1.2-3.4) H 07/07/24 07:53
Absolute Monos (auto) 2.0 10^3/uL (0.1-0.6) H 07/07/24 07:53
Absolute Basos (auto) 0.2 10^3/uL (0-0.2) 07/07/24 07:53
Total Counted 100 07/07/24 07:53
Immature Gran % 16.5 % (0-0.5) H 07/07/24 07:53
Neutrophils % 48.5 % (42.2-75.2) 07/07/24 07:53
Lymphocytes % 24.2 % (20.5-51.1) 07/07/24 07:53
Monocytes % 8.6 % (1.7-9.3) 07/07/24 07:53
Eosinophils % 1.4 % (0-6) 07/07/24 07:53
Basophils % 0.8 % (0-2) 07/07/24 07:53
Abs Neuts (Manual) 12.4 10^3/uL (1.4-6.5) H 07/07/24 07:53
Segmented Neutrophils 45 % (42-75) 07/07/24 07:53
Band Neutrophils 8 % (0-3) H 07/07/24 07:53
Lymphocytes (Manual) 18 % (20-51) L 07/07/24 07:53
Eosinophils (Manual) 1 % (0-6) 07/07/24 07:53
ESR 46 mm/hour (0-20) H 07/06/24 06:03
PT 16.3 Sec (11.4-14.6) H 06/30/24 06:03
INR 1.28 06/30/24 06:03
Lactic Acid Cancelled 06/27/24 23:15
C-Reactive Protein 6.10 mg/L (0.0-10.00) 07/06/24 06:03
Procalcitonin 0.22 ng/ml (0.0-0.25) 07/06/24 13:54
Urine WBC 11-15 /HPF (0-5) A 07/01/24 10:44
Ur Squamous Epith Cells 0-2 /LPF (Few) 07/05/24 19:09
Laboratory Tests
06/27/24 06/28/24
21:41 11:01
Fluid pH 7.36
Fluid WBC 2385
Fluid Eosinophils No eosinophils seen
Fluid Mononuclear Cell 76.4
Fl Polymorphonucl Cell 23.6
Fluid Total Protein 4.7
Fluid LDH 981
Microbiology Results
Micro:
07/05/24 10:40 Blood Culture - Preliminary
Blood/Venous No Growth in 4 days- Final report to follow
07/05/24 09:06 Blood Culture - Preliminary
Blood/Venous No Growth in 4 days- Final report to follow
07/05/24 19:09 Urine Culture - Final
Urine Staphylococcus haemolyticus
06/27/24 19:31 Blood Culture - Final
Blood/Venous No Growth - Final Report
06/27/24 19:21 Blood Culture - Final
Blood/Venous No Growth - Final Report
06/28/24 11:01 Body Fluid Culture - Final
Pleural Fluid No Growth After 72 Hours
Gram Stain - Final
06/27/24 21:41 Urine Culture - Final
Urine No Significant Growth
06/27/24 23:14 Influenza Types A & B (ALEK) - Final
Nasal Swab Negative for Influenza A & B, NAAT
Negative results must be combined with clinical observations
and patient history.
Nucleic Acid Amplification test (NAAT)performed on the
[employer] platform.
Assessment / Plan
Leukocytosis
Multiple Myeloma
FRANCA - ongoing
Cachexia
H/o opioid use disorder in remission
- steroids stopped 06/30 - pattern of leukocytosis suggests chronic leukocytosis that was actually improved with the steroids and then relapsed
- differential reviewed, not suggestive of infection at this time
- urine culture with just 25 K s haemolyticus; not consistent with a UTI - no antibiotics indicated
- blood cultures x2 no growth to date
- kidney biopsy and bone marrow biopsy are planned
- ID ROS nonrevealing
- no indication for empiric antibiotics or further ID workup at this time
- follow up with oncology
--- NOTE | 2024-07-09 11:48 | W.PN.NEPH.PH ---
Today's Communication / Plan
-
renal bx
Assessment/Plan
-
Impression.
Acute kidney injury. Creatinine 6.9 on admission. 1.3 two weeks ago
Pleural effusion status post thoracentesis 1 L.
Prior opiate use disorder on Suboxone.
Anemia.
Hypercalcemia.
humeral lytic lesions
Plan.
most likely LC MM
OP BMBx
he lives close to [facility]
follow BMP
renal Bx today
dc planning based on Cr trend and whether he will need HD
d/w patient at length
follow Calcium. no Aredia needed currently
high risk situation
-
-
Date of Service: July 09, 2024
CC / HPI / ROS
-
Chief Complaint:
Shortness of breath
History of Present Illness:
Presents with shortness of breath pleural effusion status postthoracentesis with acute kidney injury creatinine greater than 7
Hgb lower 8.7
FRANCA/Cr up to 6.9 but overall stable
K 5.3
BP stable
Review of Systems:.
No chest pain or shortness of breath
thirtsy and hungry
Labs
-
Labs:
eGFR 9.09 07/08/24 07:50
Phosphorus 6.7 mg/dl (2.5-4.5) H 06/27/24 18:12
Skf-Z-Tygniuhbdzv Pept 968 pg/ml 07/03/24 08:32
Albumin 3.5 g/dl (3.5-5.0) 07/06/24 06:03
Physical Exam
-
Vital Signs:
Vital Signs
Temp Pulse Resp BP Pulse Ox
98.7 F 78 17 152/71 100
07/09/24 07:46 07/09/24 07:46 07/09/24 07:46 07/09/24 07:46 07/09/24 07:46
Cardiovascular:: Regular rate and rhythm
Respiratory:: Bilateral: CTA
Lung Excursion:: Normal
Abdomen:: Nontender and Soft
Bowel Sounds:: Normal
Extremity Edema:: None: Bilateral:
--- NOTE | 2024-07-09 12:04 | W.PN.ONC ---
Today's Communication / Plan
-
He tells me that after his kidney biopsy today, he will be undergoing a bone marrow biopsy tomorrow. If so, that we will complete his workup. We will see if we can get him seen at the [facility] within the next 1 week. He might
even benefit from inpatient chemotherapy once the bone marrow is done. It is essential that systemic therapy begins as quickly as possible in an attempt to preserve renal function.
Impression
Impression
M protein and abnormal K/L ratio; high index of suspicion for multiple myeloma
Renal failure likely multifactorial
Low-level hypercalcemia
Hemorrhagic pleural effusion without plasma cells
Hypogammaglobulinemia
Plan
Plan
Low level M protein and abnormal K/L ratio renal failure requires additional evaluation for myeloma
Perform inpatient skeletal survey
Agree with renal biopsy as scheduled
Will need outpatient bone marrow biopsy
Levels of kappa/lambda light chain ratio and M protein not at levels typically associated with AR from myeloma as a single cause
Peak levels of light chains are difficult to interpret with renal failure although kappa light chain of 8000 is quite elevated
Will follow
Subjective/Objective
Subjective/Objective
He says he is feeling reasonably well. He denies any pain. He seems to be upset with most questions I asked, as well as most explanations that I try to give.
Vital Signs:
Vital Signs
Temp Pulse Resp BP Pulse Ox
98.7 F 78 17 152/71 100
07/09/24 07:46 07/09/24 07:46 07/09/24 07:46 07/09/24 07:46 07/09/24 07:46
Lab Results:
Laboratory Data
WBC 22.5 10^3/uL (4.8-10.8) H 07/08/24 07:50
Hgb 8.7 g/dL (13.0-18.0) L 07/08/24 07:50
Plt Count 153 10^3/uL (130-400) 07/08/24 07:50
PT 16.3 Sec (11.4-14.6) H 06/30/24 06:03
INR 1.28 06/30/24 06:03
eGFR 9.09 07/08/24 07:50
--- NOTE | 2024-07-09 12:24 | CM ---
Patient seen at bedside
states awaiting renal biopsy today
PLAN: home when medically stable, no needs anticipated
[2024-07-09 12:34] LABS: Hemoglobin 8.9 g/dL (13.0-18.0); Mean Corp Hgb Conc. 34.2 g/dL (33.0-37.0); Mean Corpuscular Hgb 29.5 pg (27.0-31.0); Mean Corpuscular Volume 86.1 fL (80.0-94.0); Mean Platelet Volume 9.1 fL (7.4-10.4); Platelet Count 150 10^3/uL (130-400); Red Blood Cell Count 3.02 10^6/uL (4.70-6.10); Red Cell Dist. Width 14.7 % (11.5-14.5); White Blood Cell Count 18.5 10^3/uL (4.8-10.8)
[2024-07-09 13:16] LABS: Blood Urea Nitrogen 49 mg/dl (9-20); Calcium 11.9 mg/dl (8.4-10.2); Carbon Dioxide 20 mmol/L (22-30); Chloride 108 mmol/L (98-107); Estimated Creatinine Clearance 12 ml/min; Glucose 97 mg/dl (70-99); Potassium 4.9 mmol/L (3.5-5.1); Sodium 140 mmol/L (135-145); eGFR 8.78
[2024-07-09 13:27] LABS: Absolute Neutrophils -Man Diff 12.8 10^3/uL (1.4-6.5); Band Neutrophils 14 % (0-3); Segmented Neutrophils 43 % (42-75)
[2024-07-09 13:28] LABS: Atypical Lymphocytes 9 %; Lymphocytes 17 % (20-51); Metamyelocytes 5 % (-); Monocytes 8 % (2-9); Myelocytes 4 % (-); Nucleated Red Blood Cells 10 (-); Platelets Checked Yes
[2024-07-09 13:30] LABS: Normal RBC Morphology Yes; Total Cells Counted 100
--- NOTE | 2024-07-09 14:06 | W.PN.HOSP.TC ---
Today's Communication/Plan
-
renal bx
renal and onc recs
Assessment / Plan
Assessment / Plan
A/P: Patient is a 49y M with PMH significant for opioid use disorder who presents to ED complaining of chest pain, abdominal pain and N/V.
FRANCA
- reportedly 1.3 at [facility] 2 weeks ago.
- possibly 2/2 to dec PO intake and NSAID use although risk remains of MM/paraproteinemia disease
- Free Hodges LC Quant 8281.11 (3.3-19.4)
-SPEP with monoclonal spike in the gamma region
-Heme and Renal involved
-Renal bx today
-Bone marrow bx as per onc
� Nonoliguric
- stopped IVF as per nephro
-S/p pulse dosed steroids
#Leukocytosis
- chronic leukocytosis that was actually improved with the steroids and then relapsed
-monitor
-Bone marrow bx
-Blood cultures neg
#UA cx Staph haemolyticus
-asymptomatic bacteruria
- 25k CDU - not an infection
#Anion Gap Metabolic Acidosis
-resolved
Pleuritic Pain
Right Pleural Effusion
Cough x 1 Month
-4/4 CT chest: Small right pleural effusion with adjacent airspace consolidation within the posterior right lower lobe, presumably atelectasis. Pneumonia is also a consideration.
- No noted infiltrate / pneumonia.
- IR eval for diagnostic / therapeutic thoracentesis 1050 bloody effusion
- Pleural fluid - exudative
- suspect 2/2 to systemic issue going on, neg for malignant cells
Normocytic Anemia
- Unknown acuity. Obtain prior records from [place] for review / comparison.
- No obvious / noted blood loss.
- Elev Ferritin, LDH
- Follow H&H for any changes and monitor for any obvious blood loss.
-bone marrow bx
Hypercalcemia, resolved
- Ca = 12.5-->9.2
- Suspect significant component of hypovolemia
- IVF, s/p Calcitonin
-iPTH low
Hypokalemia
-monitor and replete
Opioid Use Disorder
- Stable. Last use 3 years ago per patient. Maintained on Suboxone.
- No history of IVDA.
- Unable to use NSAIDs for acute pain control due to FRANCA, etc.
- Cautious use of opioids for pain.
DVT Prophylaxis: HSQ
Code Status: Full
Total time spent on today's encounter was 50 minutes which included time spent in counseling the patient/family regarding diagnosis and treatment plan as listed above, goals of care, and symptom management. Case was discussed with nursing staff,
specialists, and care coordinators/case management. All labs and imaging personally reviewed by me. Remainder the time spent in detailed review of previous records, lab data, imaging, and other medical provider documentation.
Anticipated Discharge: > 48 hours
Subjective/Interval History
-
Date of Service: July 09, 2024
Objective Data
-
Labs:
Laboratory Results
07/09/24
12:11
WBC 18.5 H
Hgb 8.9 L
Hct 26.0 L
Plt Count 150
Sodium 140
Potassium 4.9
Chloride 108 H
Carbon Dioxide 20 L
BUN 49 H
Creatinine 7.1 H*
Glucose 97
Calcium 11.9 H
Vital Signs:
Vital Signs
Temp Pulse Resp BP Pulse Ox
98.3 F 76 16 146/67 100
07/09/24 12:41 07/09/24 13:03 07/09/24 13:03 07/09/24 13:03 07/09/24 13:03
I&O
07/08/24 07/09/24 07/10/24
06:59 06:59 06:59
Intake Total 1200 / 1200 1440 / 1440
Output Total 1300 / 1300 800 / 800
Balance -100 / -100 640 / 640
Review of Systems
-
History Source: Patient and Coordinated Provider
Constitutional: Denies Fever
EENT: Reports No Symptoms Reported
Respiratory: Reports Cough (has decreased)
Cardiac: Reports No Symptoms
Abdomen/GI: Reports No Symptoms
Genitourinary: Reports No Symptoms
Musculoskeletal: Reports No Symptoms
Data Reviewed
-
Diagnostic Radiology: Report Reviewed by me
CT Scan: Report Reviewed by me
Labs: Labs Reviewed by me
--- NOTE | 2024-07-09 18:01 | PTCARENOTE ---
patient underwent renal biopsy. Status post biopsy, patient returned to floor. All site checks with vital signs done, VSS, no hematoma or bleeding at puncture site. No complaints of pain. HOB kept below 30 degrees. H&H obtained at 1800.
[2024-07-09 18:16] LABS: Hematocrit 26.1 % (39.0-52.0); Hemoglobin 8.8 g/dL (13.0-18.0)
--- NOTE | 2024-07-09 18:29 | PTCARENOTE ---
H&H drawn at 1800 resulted and results reported to Dr. Drew as ordered.
[2024-07-09] MEDS: SINEQUAN 10 MG PO (22:18)
--- NOTE | 2024-07-09 22:54 | PTCARENOTE ---
PCT notified this RN that a vape was found on the patient's bedside table. This RN talked to patient about hospital being a nicotine-free campus. Patient verbalized understanding and gave this RN the vaping device to be kept in a locked drawer.
Device is in a bag with a patient label on it in the 'Patient locked narcotic drawer.' Care ongoing.
--- NOTE | 2024-07-10 03:24 | PTCARENOTE ---
Patient refusing 3 am vital signs check stating, 'I just want to be left alone right now. I don't need to be woken up for this. You can do it later.' Plan of care ongoing.
[2024-07-10] MEDS: HEPARIN SC ×3 (06:49→23:02)
[2024-07-10 07:26] VITALS: BP 136/73
[2024-07-10 08:47] LABS: Hematocrit 25.8 % (39.0-52.0); Hemoglobin 8.7 g/dL (13.0-18.0); Mean Corp Hgb Conc. 33.7 g/dL (33.0-37.0); Mean Corpuscular Hgb 28.8 pg (27.0-31.0); Mean Corpuscular Volume 85.4 fL (80.0-94.0); Mean Platelet Volume 9.5 fL (7.4-10.4); Platelet Count 155 10^3/uL (130-400); Red Blood Cell Count 3.02 10^6/uL (4.70-6.10); Red Cell Dist. Width 14.7 % (11.5-14.5); White Blood Cell Count 17.4 10^3/uL (4.8-10.8)
[2024-07-10 08:59] LABS: Blood Urea Nitrogen 50 mg/dl (9-20); Calcium 11.7 mg/dl (8.4-10.2); Carbon Dioxide 20 mmol/L (22-30); Chloride 107 mmol/L (98-107); Estimated Creatinine Clearance 11 ml/min; Glucose 92 mg/dl (70-99); Potassium 5.2 mmol/L (3.5-5.1); Sodium 137 mmol/L (135-145); Uric Acid 12.4 mg/dl (3.5-8.5); eGFR 7.97
--- NOTE | 2024-07-10 09:13 | W.PN.ONC ---
Today's Communication / Plan
-
Discussed suspected myeloma
Agreeable to bone marrow biopsy, prefers to wait until tomorrow. IR order entered, okay'd by [employer]AG WILLOW OPERATOR
IgE and IgD pending, though suspect pure light chain myeloma
Will start pulse dexamethasone in light of worsening renal function
Monitor CMP, mag, phos, uric acid
Will need to start systemic myeloma therapy expeditiously. He lives near [facility], will work on f/u when nearing d/c
Impression
Impression
M protein and abnormal K/L ratio; high index of suspicion for light chain multiple myeloma
Renal failure likely multifactorial
Low-level hypercalcemia, hyperuricemia
Bone lesions on skel survey
Hemorrhagic pleural effusion without plasma cells
Hypogammaglobulinemia
Plan
Plan
Discussed suspected myeloma
Agreeable to bone marrow biopsy, prefers to wait until tomorrow. IR order entered, okay'd by RAG WILLOW OPERATOR
IgE and IgD pending, though suspect pure light chain myeloma
Will start pulse dexamethasone in light of worsening renal function
Monitor CMP, mag, phos, uric acid
Will need to start systemic myeloma therapy expeditiously. He lives near [facility], will work on f/u when nearing d/c
Subjective/Objective
Subjective/Objective
no complaints, kidney biopsy yesterday went okay
Vital Signs:
Vital Signs
Temp Pulse Resp BP Pulse Ox
99.9 F 84 16 136/73 99
07/10/24 07:26 07/10/24 07:26 07/10/24 07:26 07/10/24 07:26 07/10/24 07:26
Lab Results:
Laboratory Data
WBC 17.4 10^3/uL (4.8-10.8) H 07/10/24 07:58
Hgb 8.7 g/dL (13.0-18.0) L 07/10/24 07:58
Plt Count 155 10^3/uL (130-400) 07/10/24 07:58
PT 16.3 Sec (11.4-14.6) H 06/30/24 06:03
INR 1.28 06/30/24 06:03
eGFR 7.97 07/10/24 07:58
Orders
Orders
Orders From Last 24 Hours
07/10/24 07:44
Add On- LAB Routine
07/10/24 09:11
Consult Interventional Radiology [IRAD CONSULT] Urgent
07/10/24 10:00
Dexamethasone [Decadron] 40 mg PO DAILY
--- NOTE | 2024-07-10 10:03 | W.PN.NEPH.PH ---
Today's Communication / Plan
-
follow BMP
Assessment/Plan
-
Impression.
Acute kidney injury. Creatinine 6.9 on admission. 1.3 two weeks ago
Pleural effusion status post thoracentesis 1 L.
Prior opiate use disorder on Suboxone.
Anemia.
Hypercalcemia.
humeral lytic lesions
Plan.
most likely LC MM
for BMBx
he lives close to [facility]
follow BMP
await renal bx
to start chemotx inpatient
will likely need dialysis. however, there is some hope that with treatment he could recover enough function to avoid dialysis
allopurinol
high risk situation
-
-
Date of Service: July 10, 2024
CC / HPI / ROS
-
Chief Complaint:
Shortness of breath
History of Present Illness:
Presents with shortness of breath pleural effusion status postthoracentesis with acute kidney injury creatinine greater than 7
Hgb stable 8.7
FRANCA/Cr up to 7.7
K 5.2 stable
BP stable
uric acid 12.4
Review of Systems:.
No chest pain or shortness of breath
thirsty and hungry
Labs
-
Labs:
WBC 17.4 10^3/uL (4.8-10.8) H 07/10/24 07:58
RBC 3.02 10^6/uL (4.70-6.10) L 07/10/24 07:58
Hgb 8.7 g/dL (13.0-18.0) L 07/10/24 07:58
Hct 25.8 % (39.0-52.0) L 07/10/24 07:58
Plt Count 155 10^3/uL (130-400) 07/10/24 07:58
Sodium 137 mmol/L (135-145) 07/10/24 07:58
Potassium 5.2 mmol/L (3.5-5.1) H 07/10/24 07:58
Chloride 107 mmol/L (98-107) 07/10/24 07:58
Carbon Dioxide 20 mmol/L (22-30) L 07/10/24 07:58
BUN 50 mg/dl (9-20) H 07/10/24 07:58
Creatinine 7.7 mg/dL (0.7-1.3) H* 07/10/24 07:58
eGFR 7.97 07/10/24 07:58
Glucose 92 mg/dl (70-99) 07/10/24 07:58
Calcium 11.7 mg/dl (8.4-10.2) H 07/10/24 07:58
Phosphorus 6.7 mg/dl (2.5-4.5) H 06/27/24 18:12
Fus-P-Iiuyhnczkbp Pept 968 pg/ml 07/03/24 08:32
Albumin 3.5 g/dl (3.5-5.0) 07/06/24 06:03
Physical Exam
-
Vital Signs:
Vital Signs
Temp Pulse Resp BP Pulse Ox
99.9 F 84 16 136/73 99
07/10/24 07:26 07/10/24 07:26 07/10/24 07:26 07/10/24 07:26 07/10/24 07:26
Cardiovascular:: Regular rate and rhythm
Respiratory:: Bilateral: CTA
Lung Excursion:: Normal
Abdomen:: Nontender and Soft
Bowel Sounds:: Normal
Extremity Edema:: None: Bilateral:
[2024-07-10] MEDS: DECADRON 40 MG PO (10:38)
[2024-07-10] MEDS: ZYLOPRIM 100 MG PO (10:38)
[2024-07-10] MEDS: NSS 1000 IV ×2 (10:39→21:19)
[2024-07-10 10:54] VITALS: BP 126/72
--- NOTE | 2024-07-10 11:33 | W.PN.ID1 ---
Date of Service
Date of Service: July 10, 2024
Today's Communication
- ID service will no longer actively follow this patient please recall for further questions, follow up with oncology
Assessment / Plan
Leukocytosis
Multiple Myeloma
FRANCA - ongoing
Cachexia
H/o opioid use disorder in remission
- steroids stopped 06/30 - pattern of leukocytosis suggests chronic leukocytosis that was actually improved with the steroids and then relapsed
- differential reviewed, not suggestive of infection at this time
- urine culture with just 25 K s haemolyticus; not consistent with a UTI - no antibiotics indicated
- blood cultures x2 no growth to date
- on steroids per oncology
- kidney biopsy and bone marrow biopsy are planned
- ID ROS nonrevealing
- no indication for empiric antibiotics or further ID workup at this time
- ID service will no longer actively follow this patient please recall for further questions, follow up with oncology
Chief Complaint
-: Leukocytosis
Subjective / Review of Systems
remains afebrile
bp stable
improving leukocytosis
Vital Signs / Physical Exam
Vital Signs
Vital Signs
Temp Pulse Resp BP Pulse Ox
99.6 F 84 16 126/72 100
07/10/24 10:54 07/10/24 10:54 07/10/24 10:54 07/10/24 10:54 07/10/24 10:54
Physical Exam
Constitutional: No Acute Distress
Cardiovascular: Regular Rate
Pulmonary: Symmetric and Non Labored
Gastrointestinal: Non Distended
Skin: Dry; Negative Rash or Jaundice
Neurological: Negative Awake
Objective Data
Lab Data
Lab Results
07/10/24 07:58
07/10/24 07:58
ESR 46 mm/hour (0-20) H 07/06/24 06:03
PT 16.3 Sec (11.4-14.6) H 06/30/24 06:03
INR 1.28 06/30/24 06:03
Estimated Creat Clear 11 ml/min 07/10/24 07:58
Lactic Acid Cancelled 06/27/24 23:15
Total Bilirubin 0.6 mg/dl (0.2-1.3) 07/06/24 06:03
AST 29 U/L (17-59) 07/06/24 06:03
ALT 23 U/L (0-50) 07/06/24 06:03
Alkaline Phosphatase 69 U/L (38-126) 07/06/24 06:03
C-Reactive Protein 6.10 mg/L (0.0-10.00) 07/06/24 06:03
Most recent labs reviewed.
Micro Results:
07/05/24 10:40 Blood Culture - Final
Blood/Venous No Growth - Final Report
07/05/24 09:06 Blood Culture - Final
Blood/Venous No Growth - Final Report
07/05/24 19:09 Urine Culture - Final
Urine Staphylococcus haemolyticus
06/27/24 19:31 Blood Culture - Final
Blood/Venous No Growth - Final Report
06/27/24 19:21 Blood Culture - Final
Blood/Venous No Growth - Final Report
06/28/24 11:01 Body Fluid Culture - Final
Pleural Fluid No Growth After 72 Hours
Gram Stain - Final
06/27/24 21:41 Urine Culture - Final
Urine No Significant Growth
06/27/24 23:14 Influenza Types A & B (ALEK) - Final
Nasal Swab Negative for Influenza A & B, NAAT
Negative results must be combined with clinical observations
and patient history.
Nucleic Acid Amplification test (NAAT)performed on the
[employer] platform.
--- NOTE | 2024-07-10 12:52 | CM ---
Patient seen at bedside
--- NOTE | 2024-07-10 12:54 | CM ---
Patient seen at bedside
per onc note -pt agreeable bone marrow bx
PLAN: home, no currrent needs
--- NOTE | 2024-07-10 13:07 | W.PN.HOSP.TC ---
Today's Communication/Plan
-
Bone marrow bx tomorrow
pulse dose steroids
f/u renal bx results
will need judicious initiation of chemotherapy for probable MM
Assessment / Plan
Assessment / Plan
A/P: Patient is a 49y M with PMH significant for opioid use disorder who presents to ED complaining of chest pain, abdominal pain and N/V.
FRANCA
- reportedly 1.3 at [facility] 2 weeks ago.
- possibly 2/2 to dec PO intake and NSAID use although risk remains of MM/paraproteinemia disease
-Skeletal survey with lytic lesions
- Free [place] LC Quant 8281.11 (3.3-19.4)
-SPEP with monoclonal spike in the gamma region
-Heme and Renal involved
-Renal bx / - f/u path
-Bone marrow bx - tentatively Tomorrow
� Nonoliguric
- stopped IVF as per nephro
-S/p pulse dosed steroids; restart pulse dose steroids again due to rising Scr
#Leukocytosis
- chronic leukocytosis that was actually improved with the steroids and then relapsed
-monitor
-Bone marrow bx f/u
-Blood cultures neg
#UA cx Staph haemolyticus
-asymptomatic bacteruria
- 25k CDU - not an infection
#Anion Gap Metabolic Acidosis
-resolved
Pleuritic Pain
Right Pleural Effusion, Hemorrhagic pleural effusion without plasma cells
Cough x 1 Month
-/ CT chest: Small right pleural effusion with adjacent airspace consolidation within the posterior right lower lobe, presumably atelectasis. Pneumonia is also a consideration.
- No noted infiltrate / pneumonia.
- IR eval for diagnostic / therapeutic thoracentesis 1050 bloody effusion
- Pleural fluid - exudative
- suspect 2/2 to systemic issue going on, neg for malignant cells
Normocytic Anemia
- Unknown acuity.
-prob due to above
- No obvious / noted blood loss.
- Elev Ferritin, LDH
- Follow H&H for any changes and monitor for any obvious blood loss.
-bone marrow bx
Hypercalcemia, resolved
-probable to due probable MM
- Ca = 12.5-->9.2
- Suspect significant component of hypovolemia
- IVF, s/p Calcitonin
-iPTH low
Hypokalemia
-monitor and replete
Opioid Use Disorder
- Stable. Last use 3 years ago per patient. Maintained on Suboxone.
- No history of IVDA.
- Unable to use NSAIDs for acute pain control due to FRANCA, etc.
- Cautious use of opioids for pain.
DVT Prophylaxis: HSQ
Code Status: Full
Total time spent on today's encounter was 51 minutes which included time spent in counseling the patient/family regarding diagnosis and treatment plan as listed above, goals of care, and symptom management. Case was discussed with nursing staff,
specialists, and care coordinators/case management. All labs and imaging personally reviewed by me. Remainder the time spent in detailed review of previous records, lab data, imaging, and other medical provider documentation.
Anticipated Discharge: Within 24 hours
Subjective/Interval History
-
Date of Service: July 10, 2024
Renal biopsy yesterday, patient cleared for bone marrow biopsy, pending for tomorrow
Objective Data
-
Labs:
Laboratory Results
07/10/24
07:58
WBC 17.4 H
Hgb 8.7 L
Hct 25.8 L
Plt Count 155
Sodium 137
Potassium 5.2 H
Chloride 107
Carbon Dioxide 20 L
BUN 50 H
Creatinine 7.7 H*
Glucose 92
Calcium 11.7 H
Vital Signs:
Vital Signs
Temp Pulse Resp BP Pulse Ox
99.6 F 84 16 126/72 100
07/10/24 10:54 07/10/24 10:54 07/10/24 10:54 07/10/24 10:54 07/10/24 10:54
I&O
07/09/24 07/10/24 07/11/24
06:59 06:59 06:59
Intake Total 1440 / 1440 730 / 730
Output Total 800 / 800 400 / 400
Balance 640 / 640 330 / 330
Review of Systems
-
History Source: Patient
All other systems: Not reviewed unless documented
Physical Exam
-
General: Well Developed, Well Nourished, No Apparent Distress and Other (thin)
HEENT: Normocephalic, Atraumatic and Moist Mucous Membranes
Cardiac: Regular Rhythm and S1/S2; Negative Murmur or Rub
GI: Soft, Nontender and Nondistended
Musculoskeletal: No Clubbing, No Cyanosis and No Edema
Data Reviewed
-
Diagnostic Radiology: Report Reviewed by me
CT Scan: Report Reviewed by me
Labs: Labs Reviewed by me
[2024-07-10 15:16] VITALS: BP 112/57
[2024-07-10] MEDS: SINEQUAN 10 MG PO (21:18)
[2024-07-10 23:24] VITALS: BP 126/60
[2024-07-11 06:00] VITALS: BMI 18.5
[2024-07-11 07:05] VITALS: BP 155/73
--- NOTE | 2024-07-11 08:35 | W.PN.ONC2 ---
Today's Communication / Plan
-
BMBx today.
Pulse Dex started. Tx typically 40 mg x 4 days
Impression
Impression
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
Renal failure likely multifactorial
Low-level hypercalcemia, hyperuricemia
Bone lesions on skel survey
Hemorrhagic pleural effusion without plasma cells
Hypogammaglobulinemia
Plan
Plan
Non-secretory Multiple myeloma based on high kappa SFL chain.
FOR bmbx today. Approved by [employer].
IgE and IgD pending, though suspect pure light chain myeloma
Pulse dexamethasone started 07/10 in light of worsening renal function
Monitor CMP, mag, phos, uric acid
Will need to start systemic myeloma therapy expeditiously. He lives near [facility], will work on f/u when nearing d/c
Subjective/Objective
Chief Complaint
ACS Heme Onc F/U
Subjective
No c/o. For BMBx later today
Vital Signs:
Vital Signs
Temp Pulse Resp BP Pulse Ox
99.2 F 73 18 155/73 98
07/11/24 07:05 07/11/24 07:05 07/11/24 07:05 07/11/24 07:05 07/11/24 07:30
Lab Results:
Laboratory Data
WBC 17.4 10^3/uL (4.8-10.8) H 07/10/24 07:58
Hgb 8.7 g/dL (13.0-18.0) L 07/10/24 07:58
Plt Count 155 10^3/uL (130-400) 07/10/24 07:58
PT 16.3 Sec (11.4-14.6) H 06/30/24 06:03
INR 1.28 06/30/24 06:03
eGFR 7.97 07/10/24 07:58
Physical Exam
HEENT: Other (right ocular strabismus)
Cardiology: S1 and S2
Pulmonary: Clear
[2024-07-11] MEDS: DECADRON 40 MG PO (08:38)
[2024-07-11] MEDS: NSS 1000 IV (08:38)
[2024-07-11] MEDS: ZYLOPRIM 100 MG PO (08:40)
[2024-07-11] MEDS: HEPARIN SC ×2 (08:40→15:00)
[2024-07-11 09:47] LABS: ALT (SGPT) 20 U/L (0-50); AST (SGOT) 28 U/L (17-59); Albumin 3.6 g/dl (3.5-5.0); Alkaline Phosphatase 74 U/L (38-126); Blood Urea Nitrogen 56 mg/dl (9-20); Calcium 10.8 mg/dl (8.4-10.2); Carbon Dioxide 16 mmol/L (22-30); Chloride 109 mmol/L (98-107); Estimated Creatinine Clearance 11 ml/min; Glucose 171 mg/dl (70-99); Magnesium 1.6 mg/dl (1.6-2.3); Phosphorus 4.9 mg/dl (2.5-4.5); Potassium 4.7 mmol/L (3.5-5.1); Sodium 138 mmol/L (135-145); Total Bilirubin 0.7 mg/dl (0.2-1.3); Total Protein 5.7 g/dl (6.3-8.2)
[2024-07-11 09:50] LABS: Hematocrit 22.8 % (39.0-52.0); Hemoglobin 7.8 g/dL (13.0-18.0); Mean Corp Hgb Conc. 34.2 g/dL (33.0-37.0); Mean Corpuscular Hgb 29.2 pg (27.0-31.0); Mean Corpuscular Volume 85.4 fL (80.0-94.0); Mean Platelet Volume 10.8 fL (7.4-10.4); Platelet Count 135 10^3/uL (130-400); Red Blood Cell Count 2.67 10^6/uL (4.70-6.10); Red Cell Dist. Width 15.1 % (11.5-14.5); White Blood Cell Count 13.7 10^3/uL (4.8-10.8)
[2024-07-11 11:07] LABS: % Basophils 0.3 % (0-2); % Eosinophils 0.4 % (0-6); % Lymphocytes 25.2 % (20.5-51.1); % Monocytes 6.6 % (1.7-9.3); % Neutrophils 60.5 % (42.2-75.2); Absolute Eosinophils 0.1 10^3/uL (0-0.7); Absolute Lymphocytes 3.4 10^3/uL (1.2-3.4); Absolute Monocytes 0.9 10^3/uL (0.1-0.6); Absolute Neutrophils 8.3 10^3/uL (1.4-6.5); Nucleated Red Blood Cells % 0.1 % (-)
--- NOTE | 2024-07-11 11:16 | CM ---
Patient seen at bedside.
Bone Marrow bx today
requested medial release form - given to patient
patient states will be following up with [facility]
PLAN: home, no needs anticipated, when medically stable
[2024-07-11 11:34] VITALS: BP 143/81; BP_SYST 71
[2024-07-11] MEDS: ATIVAN 0.5 MG IV (11:52)
[2024-07-11] MEDS: NSS (PRESERVATIVE FREE) 0.25 ML IV (11:52)
[2024-07-11 12:44] VITALS: BP 131/75
--- NOTE | 2024-07-11 12:52 | W.PN.HOSP.TC ---
Today's Communication/Plan
-
steroids
bone marrow bx
f/u renal bx
monitor hgb
Assessment / Plan
Assessment / Plan
A/P: Patient is a 49y M with PMH significant for opioid use disorder who presents to ED complaining of chest pain, abdominal pain and N/V.
FRANCA
- reportedly 1.3 at [facility] 2 weeks ago.
- possibly 2/2 to dec PO intake and NSAID use although risk remains of MM/paraproteinemia disease
-Skeletal survey with lytic lesions
- Free [place] LC Quant 8281.11 (3.3-19.4)
-SPEP with monoclonal spike in the gamma region
-Heme and Renal involved
-Renal bx 07/09 - f/u path
-Bone marrow bx - today
� Nonoliguric
- stopped IVF as per nephro
-S/p pulse dosed steroids; restart pulse dose steroids again 07/10 due to rising Scr
Mild Febrile Episode
-defervesced on his own
-monitor fever curve, wbc
-only 100.4 - not true fever
-probable 2/2 to bx
#Leukocytosis
- chronic leukocytosis that was actually improved with the steroids and then relapsed
-monitor - back on steroids
-Bone marrow bx f/u
-Blood cultures neg
#UA cx Staph haemolyticus
-asymptomatic bacteruria
- 25k CFU - not an infection
#Anion Gap Metabolic Acidosis
-resolved
Pleuritic Pain
Right Pleural Effusion, Hemorrhagic pleural effusion without plasma cells
Cough x 1 Month
-07/06 CT chest: Small right pleural effusion with adjacent airspace consolidation within the posterior right lower lobe, presumably atelectasis. Pneumonia is also a consideration.
- No noted infiltrate / pneumonia.
- IR eval for diagnostic / therapeutic thoracentesis 1050 bloody effusion
- Pleural fluid - exudative
- suspect 2/2 to systemic issue going on, neg for malignant cells
Normocytic Anemia
- Unknown acuity.
-prob due to above
- No obvious / noted blood loss.
- Elev Ferritin, LDH
- Follow H&H for any changes and monitor for any obvious blood loss.
-bone marrow bx
Hypercalcemia, resolved
-probable to due probable MM
- Ca = 12.5-->9.2
- Suspect significant component of hypovolemia
- IVF, s/p Calcitonin
-iPTH low
Hypokalemia
-monitor and replete
Opioid Use Disorder
- Stable. Last use 3 years ago per patient. Maintained on Suboxone.
- No history of IVDA.
- Unable to use NSAIDs for acute pain control due to FRANCA, etc.
- Cautious use of opioids for pain.
DVT Prophylaxis: HSQ
Code Status: Full
Total time spent on today's encounter was 52 minutes which included time spent in counseling the patient/family regarding diagnosis and treatment plan as listed above, goals of care, and symptom management. Case was discussed with nursing staff,
specialists, and care coordinators/case management. All labs and imaging personally reviewed by me. Remainder the time spent in detailed review of previous records, lab data, imaging, and other medical provider documentation.
Anticipated Discharge: > 48 hours
Subjective/Interval History
-
Date of Service: July 11, 2024
no acute events
Objective Data
-
Labs:
Laboratory Results
07/11/24
09:13
WBC 13.7 H
Hgb 7.8 L
Hct 22.8 L
Plt Count 135
Sodium 138
Potassium 4.7
Chloride 109 H
Carbon Dioxide 16 L
BUN 56 H
Creatinine 8.1 H*
Glucose 171 H
Calcium 10.8 H
Total Bilirubin 0.7
AST 28
ALT 20
Alkaline Phosphatase 74
Vital Signs:
Vital Signs
Temp Pulse Resp BP Pulse Ox
99.1 F 67 18 131/75 100
07/11/24 11:34 07/11/24 12:44 07/11/24 12:44 07/11/24 12:44 07/11/24 11:34
I&O
07/10/24 07/11/24 07/12/24
06:59 06:59 06:59
Intake Total 730 / 730 750 / 750
Output Total 400 / 400 3225 / 3225
Balance 330 / 330 -2475 / -2475
Review of Systems
-
History Source: Patient
All other systems: Not reviewed unless documented
Physical Exam
-
General: Well Developed, Well Nourished, No Apparent Distress and Other (thin)
HEENT: Normocephalic, Atraumatic and Moist Mucous Membranes
Cardiac: Regular Rhythm and S1/S2; Negative Murmur or Rub
GI: Soft, Nontender and Nondistended
Musculoskeletal: No Clubbing, No Cyanosis and No Edema
Data Reviewed
-
Diagnostic Radiology: Report Reviewed by me
CT Scan: Report Reviewed by me
Labs: Labs Reviewed by me
[2024-07-11 15:07] VITALS: BP 138/101
--- NOTE | 2024-07-11 15:18 | W.PN.NEPH.PH ---
Today's Communication / Plan
-
see plan
Assessment/Plan
-
Impression.
Acute kidney injury. Creatinine 6.9 on admission. 1.3 two weeks ago
Pleural effusion status post thoracentesis 1 L.
Prior opiate use disorder on Suboxone.
Anemia.
Hypercalcemia.
humeral lytic lesions
Plan.
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
s/p BMBx today
he lives close to [facility]
cr cont to rise although he is grossly non oliguric
worsening met acidosis with NS-change to bicarb IVF
kong improving slowly
on steroids per heme and likely start chemo soon in next 1-2days
will likely need dialysis if cr cont to rise, however there is some hope that with treatment he could recover enough function to avoid dialysis
Tried to talk with pt however he dismissed having any conversation today since he is not ready to take bad news
allopurinol for hyperuricemia
high risk situation
d/w primary and Onc
d/w nursing
-
-
Date of Service: July 11, 2024
CC / HPI / ROS
-
Chief Complaint:
Shortness of breath
History of Present Illness:
Presents with shortness of breath pleural effusion status postthoracentesis with acute kidney injury creatinine greater than 7
Hgb low at 7.8
FRANCA/Cr up to 8.1
K improved
BP stable
uric acid 12.4 on 07/10
Review of Systems:.
does not want to talk today
sleeping post BM biopsy
no fever, non oliguric with out paula
per nursing poor appetite
Labs
-
Labs:
WBC 13.7 10^3/uL (4.8-10.8) H 07/11/24 09:13
RBC 2.67 10^6/uL (4.70-6.10) L 07/11/24 09:13
Hgb 7.8 g/dL (13.0-18.0) L 07/11/24 09:13
Hct 22.8 % (39.0-52.0) L 07/11/24 09:13
Plt Count 135 10^3/uL (130-400) 07/11/24 09:13
Sodium 138 mmol/L (135-145) 07/11/24 09:13
Potassium 4.7 mmol/L (3.5-5.1) 07/11/24 09:13
Chloride 109 mmol/L (98-107) H 07/11/24 09:13
Carbon Dioxide 16 mmol/L (22-30) L 07/11/24 09:13
BUN 56 mg/dl (9-20) H 07/11/24 09:13
Creatinine 8.1 mg/dL (0.7-1.3) H* 07/11/24 09:13
eGFR 7.50 07/11/24 09:13
Glucose 171 mg/dl (70-99) H 07/11/24 09:13
Calcium 10.8 mg/dl (8.4-10.2) H 07/11/24 09:13
Phosphorus 4.9 mg/dl (2.5-4.5) H 07/11/24 09:13
Lrx-E-Zuipvcubcqe Pept 968 pg/ml 07/03/24 08:32
Albumin 3.6 g/dl (3.5-5.0) 07/11/24 09:13
Physical Exam
-
Vital Signs:
Vital Signs
Temp Pulse Resp BP Pulse Ox
98.5 F 68 16 138/101 99
07/11/24 15:07 07/11/24 15:07 07/11/24 15:07 07/11/24 15:07 07/11/24 15:07
Extremity Edema:: None: Left:
Paula Catheter: No
Other Findings::
no distress
EOMI, no icterus
neck -supple , no JVD
speech clear
[2024-07-11] MEDS: SODIUM BICARBONATE 1075 MEQ IV (15:53)
[2024-07-11 17:25] LABS: Immunoglobulin D <1.3 mg/dL (<=15.3)
[2024-07-11 19:07] LABS: IgE 14 kU/L (<=214)
[2024-07-11] MEDS: SINEQUAN 10 MG PO (21:24)
[2024-07-11 23:03] VITALS: BP 143/75
[2024-07-12] MEDS: HEPARIN SC ×4 (00:11→23:00)
[2024-07-12] MEDS: SODIUM BICARBONATE 1075 MEQ IV (04:40)
[2024-07-12 06:00] VITALS: BMI 19.3
[2024-07-12 08:00] VITALS: BP 142/84
--- NOTE | 2024-07-12 08:42 | W.PN.ONC2 ---
Today's Communication / Plan
-
.
Impression
Impression
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
Renal failure likely multifactorial
Low-level hypercalcemia, hyperuricemia
Bone lesions on skel survey
Hemorrhagic pleural effusion without plasma cells
Hypogammaglobulinemia
Plan
Plan
Non-secretory Multiple myeloma based on high kappa SFL chain.
f/u BMBx results 07/11
IgE and IgD pending, though suspect pure light chain myeloma
Pulse dexamethasone started 07/10 in light of worsening renal function, will start CyBorD Cytoxan 300mg/m2, velcade 1.3mg/m2 inpatient tomorrow once drug in stock -treatment regimen reviewed with pt, consent signed and placed on chart
Monitor CMP, mag, phos, uric acid, LDH
He lives near [facility], so can pursue subsequent cycles with [facility] myeloma specialists.
Subjective/Objective
Subjective
no new complaints
Vital Signs:
Vital Signs
Temp Pulse Resp BP Pulse Ox
98.4 F 72 16 142/84 98
07/12/24 08:00 07/12/24 08:00 07/12/24 08:00 07/12/24 08:00 07/12/24 08:00
Lab Results:
Laboratory Data
WBC 13.7 10^3/uL (4.8-10.8) H 07/11/24 09:13
Hgb 7.8 g/dL (13.0-18.0) L 07/11/24 09:13
Plt Count 135 10^3/uL (130-400) 07/11/24 09:13
PT 16.3 Sec (11.4-14.6) H 06/30/24 06:03
INR 1.28 06/30/24 06:03
eGFR 7.50 07/11/24 09:13
[2024-07-12] MEDS: DECADRON 40 MG PO (08:56)
[2024-07-12] MEDS: ZYLOPRIM 100 MG PO (08:57)
[2024-07-12 09:40] LABS: Hematocrit 21.9 % (39.0-52.0); Hemoglobin 7.5 g/dL (13.0-18.0); Mean Corp Hgb Conc. 34.2 g/dL (33.0-37.0); Mean Corpuscular Hgb 29.6 pg (27.0-31.0); Mean Corpuscular Volume 86.6 fL (80.0-94.0); Mean Platelet Volume 10.2 fL (7.4-10.4); Platelet Count 126 10^3/uL (130-400); Red Blood Cell Count 2.53 10^6/uL (4.70-6.10); Red Cell Dist. Width 15.4 % (11.5-14.5); White Blood Cell Count 13.2 10^3/uL (4.8-10.8)
[2024-07-12 10:38] LABS: Blood Urea Nitrogen 72 mg/dl (9-20); Calcium 9.7 mg/dl (8.4-10.2); Carbon Dioxide 15 mmol/L (22-30); Chloride 108 mmol/L (98-107); Estimated Creatinine Clearance 13 ml/min; Glucose 144 mg/dl (70-99); Potassium 4.1 mmol/L (3.5-5.1); Sodium 140 mmol/L (135-145); eGFR 8.49
--- NOTE | 2024-07-12 13:00 | W.PN.NEPH.PH ---
Today's Communication / Plan
-
bicarb IVF
follow labs
Assessment/Plan
-
Impression.
Acute kidney injury. Creatinine 6.9 on admission. 1.3 two weeks ago
Pleural effusion status post thoracentesis 1 L.
Prior opiate use disorder on Suboxone.
Anemia.
Hypercalcemia.
humeral lytic lesions
Plan.
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
s/p BMBx 07/11, plan CyBorD per Onc
cr improving today to 7.3, he is grossly non oliguric
no emergent need of [facility] [employer]
worsening met acidosis change to bicarb IVF with D5, start po bicarb too
kong improving
Reviewed high risk of HD if renal function worsens, hopefully he can escape
allopurinol for hyperuricemia
d/w pt
-
-
Date of Service: July 12, 2024
CC / HPI / ROS
-
Chief Complaint:
Shortness of breath
History of Present Illness:
Presents with shortness of breath pleural effusion status postthoracentesis with acute kidney injury creatinine greater than 7
Hgb low at 7.5, plt low 126
FRANCA/Cr down to 7.3
K improved
BP stable
uric acid 12.4 on 07/10
Review of Systems:.
no fever, non oliguric with out paula
no cp or sob
no n/v
Labs
-
Labs:
WBC 13.2 10^3/uL (4.8-10.8) H 07/12/24 09:27
RBC 2.53 10^6/uL (4.70-6.10) L 07/12/24 09:27
Hgb 7.5 g/dL (13.0-18.0) L 07/12/24 09:27
Hct 21.9 % (39.0-52.0) L 07/12/24 09:27
Plt Count 126 10^3/uL (130-400) L 07/12/24 09:27
Sodium 140 mmol/L (135-145) 07/12/24 09:27
Potassium 4.1 mmol/L (3.5-5.1) 07/12/24 09:
Chloride 108 mmol/L (98-107) H 07/12/24 09:27
Carbon Dioxide 15 mmol/L (22-30) L 07/12/24:
BUN 72 mg/dl (9-20) H 07/12/24 09:
Creatinine 7.3 mg/dL (0.7-1.3) H* 07/12/24 09:
eGFR 8.49 07/12/24 09:27
Glucose 144 mg/dl (70-99) H 07/12/24 09:27
Calcium 9.7 mg/dl (8.4-10.2) 07/12/24 09:27
Phosphorus 4.9 mg/dl (2.5-4.5) H 07/11/24 09:13
Lxo-T-Qlrcotsbmka Pept 968 pg/ml 07/03/24 08:32
Albumin 3.6 g/dl (3.5-5.0) 07/11/24 09:13
Physical Exam
-
Vital Signs:
Vital Signs
Temp Pulse Resp BP Pulse Ox
98.4 F 72 16 142/84 98
07/12/24 08:00 07/12/24 08:00 07/12/24 08:00 07/12/24 08:00 07/12/24 08:00
Cardiovascular:: Regular rate and rhythm
Respiratory:: Bilateral: CTA
Lung Excursion:: Normal
Abdomen:: Nontender and Soft
Extremity Edema:: None: Bilateral:
Paula Catheter: No
--- NOTE | 2024-07-12 13:12 | W.PN.HOSP.TC ---
Today's Communication/Plan
-
Pulse dose steroids
bicarb solution
CyBorD Cytoxan tomorrow
Assessment / Plan
Assessment / Plan
A/P: Patient is a 49y M with PMH significant for opioid use disorder who presents to ED complaining of chest pain, abdominal pain and N/V.
FRANCA
- reportedly 1.3 at [facility] 2 weeks ago.
- possibly 2/2 to dec PO intake and NSAID use although risk remains of MM/paraproteinemia disease
-Skeletal survey with lytic lesions
- Free [place] LC Quant 8281.11 (3.3-19.4)
-SPEP with monoclonal spike in the gamma region
-Heme and Renal involved
-Renal bx 07/09 - f/u path
-Bone marrow bx - 07/11
� Nonoliguric
- stopped IVF as per nephro
-S/p pulse dosed steroids; restart pulse dose steroids again 07/10 due to rising Scr
-Plan to start CyBorD Cytoxan tomorrow
� Left monitor CMP, magnesium, phosphorus, uric acid, LDH
Mild Febrile Episode
-defervesced on his own
-monitor fever curve, wbc
-only 100.4 - not true fever
-probable 2/2 to bx
#Leukocytosis
- chronic leukocytosis that was actually improved with the steroids and then relapsed
-monitor - back on steroids
-Bone marrow bx f/u
-Blood cultures neg
#UA cx Staph haemolyticus
-asymptomatic bacteruria
- 25k CFU - not an infection
#Anion Gap Metabolic Acidosis
-bicarb solution, tabs started
Pleuritic Pain
Right Pleural Effusion, Hemorrhagic pleural effusion without plasma cells
Cough x 1 Month
-07/06 CT chest: Small right pleural effusion with adjacent airspace consolidation within the posterior right lower lobe, presumably atelectasis. Pneumonia is also a consideration.
- No noted infiltrate / pneumonia.
- IR eval for diagnostic / therapeutic thoracentesis 1050 bloody effusion
- Pleural fluid - exudative
- suspect 2/2 to systemic issue going on, neg for malignant cells
Normocytic Anemia
- Unknown acuity.
-prob due to above
- No obvious / noted blood loss.
- Elev Ferritin, LDH
- Follow H&H for any changes and monitor for any obvious blood loss.
-bone marrow bx
Hypercalcemia, resolved
-probable to due probable MM
- Ca = 12.5-->9.2
- Suspect significant component of hypovolemia
- IVF, s/p Calcitonin
-iPTH low
Hypokalemia
-monitor and replete
Opioid Use Disorder
- Stable. Last use 3 years ago per patient. Maintained on Suboxone.
- No history of IVDA.
- Unable to use NSAIDs for acute pain control due to FRANCA, etc.
- Cautious use of opioids for pain.
DVT Prophylaxis: HSQ
Code Status: Full
Total time spent on today's encounter was 53 minutes which included time spent in counseling the patient/family regarding diagnosis and treatment plan as listed above, goals of care, and symptom management. Case was discussed with nursing staff,
specialists, and care coordinators/case management. All labs and imaging personally reviewed by me. Remainder the time spent in detailed review of previous records, lab data, imaging, and other medical provider documentation.
Anticipated Discharge: > 48 hours
Subjective/Interval History
-
Date of Service: July 12, 2024
No acute events overnight
Objective Data
-
Labs:
Laboratory Results
07/12/24
09:27
WBC 13.2 H
Hgb 7.5 L
Hct 21.9 L
Plt Count 126 L
Sodium 140
Potassium 4.1
Chloride 108 H
Carbon Dioxide 15 L
BUN 72 H
Creatinine 7.3 H*
Glucose 144 H
Calcium 9.7
Vital Signs:
Vital Signs
Temp Pulse Resp BP Pulse Ox
98.4 F 72 16 142/84 98
07/12/24 08:00 07/12/24 08:00 07/12/24 08:00 07/12/24 08:00 07/12/24 08:00
I&O
07/11/24 07/12/24 07/13/24
06:59 06:59 06:59
Intake Total 750 / 750 2480 / 2480
Output Total 3225 / 3225 800 / 800
Balance -2475 / -2475 1680 / 1680
Review of Systems
-
History Source: Patient
All other systems: Not reviewed unless documented
Physical Exam
-
General: Well Developed, Well Nourished, No Apparent Distress and Other (thin)
HEENT: Normocephalic, Atraumatic and Moist Mucous Membranes
Cardiac: Regular Rhythm and S1/S2; Negative Murmur or Rub
GI: Soft, Nontender and Nondistended
Musculoskeletal: No Clubbing, No Cyanosis and No Edema
Data Reviewed
-
Diagnostic Radiology: Report Reviewed by me
CT Scan: Report Reviewed by me
Labs: Labs Reviewed by me
[2024-07-12] MEDS: TYLENOL 650 MG PO (15:43)
[2024-07-12] MEDS: SODIUM BICARBONATE 1150 MEQ IV (15:44)
[2024-07-12 15:52] VITALS: BP 139/78
[2024-07-12] MEDS: SODIUM BICARBONATE 650 MG PO (21:22)
[2024-07-12] MEDS: SINEQUAN 10 MG PO (21:22)
[2024-07-12 23:12] VITALS: BP 150/82
[2024-07-13] VITALS (7 sets, daily range): BP systolic 131–167; BP diastolic 70–82; BMI 19.8
[2024-07-13] MEDS: SODIUM BICARBONATE 1150 MEQ IV (05:44)
[2024-07-13] MEDS: DECADRON 40 MG PO (08:51)
[2024-07-13] MEDS: HEPARIN SC ×3 (08:52→23:39)
[2024-07-13] MEDS: SODIUM BICARBONATE 650 MG PO (08:52)
[2024-07-13] MEDS: ZYLOPRIM 100 MG PO (08:52)
[2024-07-13 09:36] LABS: Hematocrit 23.4 % (39.0-52.0); Hemoglobin 8.1 g/dL (13.0-18.0); Mean Corp Hgb Conc. 34.6 g/dL (33.0-37.0); Mean Corpuscular Hgb 29.8 pg (27.0-31.0); Mean Platelet Volume 10.1 fL (7.4-10.4); Platelet Count 130 10^3/uL (130-400); Red Blood Cell Count 2.72 10^6/uL (4.70-6.10); Red Cell Dist. Width 15.2 % (11.5-14.5); White Blood Cell Count 11.6 10^3/uL (4.8-10.8)
--- NOTE | 2024-07-13 09:48 | W.PN.ONC2 ---
Today's Communication / Plan
-
.
Impression
Impression
review of bone marrow biopsy slide with pathologist, Dr. Zaragoza, who reports that the slide is full of cells that morphologic appearance is most likely plasma cell -marrow flow anticipated this afternoon
FLC kappa 8281.11, ratio 1302
kidney bx with light cast nephropathy, kappa-type, severe, with acute tubular injury and mild interstitial inflammation. Tubular atrophy and interstitial fibrosis
FRANCA -creatinine 6.8
lytic lesion
hypercalcemia
hyperuremia
pleural effusion -negative for malignancy
Plan
Plan
f/u BMBx results 07/11
Pulse dexamethasone started 07/10-07/13
CyBorD Cytoxan 300mg/m2, Velcade 1.5mg/m2 inpatient 07/13 and continue weekly
acyclovir ppx, renal dose
on renal dose allopurinol
Monitor CMP, mag, phos, uric acid, LDH
antiemetics prn
He lives near [facility], so can pursue subsequent cycles with [facility] myeloma specialists.
Subjective/Objective
Subjective
no new complaints
Vital Signs:
Vital Signs
Temp Pulse Resp BP Pulse Ox
99.3 F 67 18 167/79 99
07/13/24 07:05 07/13/24 07:05 07/13/24 07:05 07/13/24 07:05 07/13/24 07:05
Lab Results:
Laboratory Data
WBC 11.6 10^3/uL (4.8-10.8) H 07/13/24 09:27
Hgb 8.1 g/dL (13.0-18.0) L 07/13/24 09:27
Plt Count 130 10^3/uL (130-400) 07/13/24 09:27
PT 16.3 Sec (11.4-14.6) H 06/30/24 06:03
INR 1.28 06/30/24 06:03
eGFR 8.49 07/12/24 09:27
[2024-07-13 10:13] LABS: Blood Urea Nitrogen 74 mg/dl (9-20); Calcium 9.7 mg/dl (8.4-10.2); Carbon Dioxide 22 mmol/L (22-30); Chloride 104 mmol/L (98-107); Estimated Creatinine Clearance 14 ml/min; Glucose 117 mg/dl (70-99); LDH 818 U/L (120-246); Potassium 3.4 mmol/L (3.5-5.1); Sodium 140 mmol/L (135-145); Uric Acid 10.5 mg/dl (3.5-8.5); eGFR 9.25
--- NOTE | 2024-07-13 10:48 | W.PN.NEPH.PH ---
Today's Communication / Plan
-
K
Assessment/Plan
-
Impression.
Acute kidney injury. Creatinine 6.9 on admission. 1.3 two weeks ago
Pleural effusion status post thoracentesis 1 L.
Prior opiate use disorder on Suboxone.
Anemia.
Hypercalcemia.
humeral lytic lesions
Plan.
replete K
follow BMP
follow phos
continue allopurinol
start CyBorD today
change to IVF NSS
no emergent HD needs
high risk situation
-
-
Date of Service: July 13, 2024
CC / HPI / ROS
-
Chief Complaint:
Shortness of breath
History of Present Illness:
Presents with shortness of breath pleural effusion status postthoracentesis with acute kidney injury creatinine greater than 7
K lwo 3.4
FRANCA/Cr down to 6.8
calcium now normal
BP stable
acidosis improved with IVF
Review of Systems:.
no fever, non oliguric with out paula
no cp or sob
no n/v
Labs
-
Labs:
WBC 11.6 10^3/uL (4.8-10.8) H 07/13/24 09:27
RBC 2.72 10^6/uL (4.70-6.10) L 07/13/24 09:27
Hgb 8.1 g/dL (13.0-18.0) L 07/13/24 09:27
Hct 23.4 % (39.0-52.0) L 07/13/24 09:27
Plt Count 130 10^3/uL (130-400) 07/13/24 09:27
Sodium 140 mmol/L (135-145) 07/13/24 09:27
Potassium 3.4 mmol/L (3.5-5.1) L 07/13/24 09:27
Chloride 104 mmol/L (98-107) 07/13/24 09:27
Carbon Dioxide 22 mmol/L (22-30) 07/13/24 09:27
BUN 74 mg/dl (9-20) H 07/13/24 09:27
Creatinine 6.8 mg/dL (0.7-1.3) H* 07/13/24 09:27
eGFR 9.25 07/13/24 09:27
Glucose 117 mg/dl (70-99) H 07/13/24 09:27
Calcium 9.7 mg/dl (8.4-10.2) 07/13/24 09:27
Phosphorus 4.9 mg/dl (2.5-4.5) H 07/11/24 09:13
Bhn-A-Lcdyilegxjb Pept 968 pg/ml 07/03/24 08:32
Albumin 3.6 g/dl (3.5-5.0) 07/11/24 09:13
Physical Exam
-
Vital Signs:
Vital Signs
Temp Pulse Resp BP Pulse Ox
99.3 F 67 18 167/79 99
07/13/24 07:05 07/13/24 07:05 07/13/24 07:05 07/13/24 07:05 07/13/24 07:05
Cardiovascular:: Regular rate and rhythm
Respiratory:: Bilateral: CTA
Lung Excursion:: Normal
Abdomen:: Nontender and Soft
Bowel Sounds:: Normal
Extremity Edema:: None: Bilateral:
[2024-07-13] MEDS: KCL 40 MEQ PO (10:59)
[2024-07-13] MEDS: ALOXI 5 MG IV (12:27)
[2024-07-13] MEDS: NSS 1000 IV (12:27)
[2024-07-13] MEDS: CYCLOPHOSPHAMIDE 253.015 MG IV (13:36)
--- NOTE | 2024-07-13 15:22 | W.PN.HOSP.TC ---
Today's Communication/Plan
-
initation of chemo
complete steroids
electrolyte repletion
NSS
monitor CMP, CBC, Mag, Phos, Uric acid
Assessment / Plan
Assessment / Plan
A/P: Patient is a 49y M with PMH significant for opioid use disorder who presents to ED complaining of chest pain, abdominal pain and N/V.
FRANCA
- reportedly 1.3 at [facility] 2 weeks ago.
- possibly 2/2 to dec PO intake and NSAID use although risk remains of MM/paraproteinemia disease
-Skeletal survey with lytic lesions
- Free [place] LC Quant 8281.11 (3.3-19.4)
-SPEP with monoclonal spike in the gamma region
-Heme and Renal involved
-Renal bx 07/09 - f/u path
-Bone marrow bx - 07/11
� Nonoliguric
- stopped IVF as per nephro
-S/p pulse dosed steroids; restart pulse dose steroids again 07/10 -07/13 due to rising Scr
-Plan to start CyBorD Cytoxan today
� monitor CMP, magnesium, phosphorus, uric acid, LDH
-NSS
Mild Febrile Episode
-defervesced on his own
-monitor fever curve, wbc
-only 100.4 - not true fever
-probable 2/2 to bx
#Leukocytosis
- chronic leukocytosis that was actually improved with the steroids and then relapsed
-monitor - back on steroids
-Bone marrow bx f/u
-Blood cultures neg
#UA cx Staph haemolyticus
-asymptomatic bacteruria
- 25k CFU - not an infection
#Hypokalemia
-monitor and replete
#Anion Gap Metabolic Acidosis
-s/p bicarb solution, tabs started
-NSS
Pleuritic Pain
Right Pleural Effusion, Hemorrhagic pleural effusion without plasma cells
Cough x 1 Month
-07/06 CT chest: Small right pleural effusion with adjacent airspace consolidation within the posterior right lower lobe, presumably atelectasis. Pneumonia is also a consideration.
- No noted infiltrate / pneumonia.
- IR eval for diagnostic / therapeutic thoracentesis 1050 bloody effusion
- Pleural fluid - exudative
- suspect 2/2 to systemic issue going on, neg for malignant cells
Normocytic Anemia
- Unknown acuity.
-prob due to above
- No obvious / noted blood loss.
- Elev Ferritin, LDH
- Follow H&H for any changes and monitor for any obvious blood loss.
-bone marrow bx
Hypercalcemia, resolved
-probable to due probable MM
- Ca = 12.5-->9.2
- Suspect significant component of hypovolemia
- IVF, s/p Calcitonin
-iPTH low
Hypokalemia
-monitor and replete
Opioid Use Disorder
- Stable. Last use 3 years ago per patient. Maintained on Suboxone.
- No history of IVDA.
- Unable to use NSAIDs for acute pain control due to FRANCA, etc.
- Cautious use of opioids for pain.
DVT Prophylaxis: HSQ
Code Status: Full
Total time spent on today's encounter was 52 minutes which included time spent in counseling the patient/family regarding diagnosis and treatment plan as listed above, goals of care, and symptom management. Case was discussed with nursing staff,
specialists, and care coordinators/case management. All labs and imaging personally reviewed by me. Remainder the time spent in detailed review of previous records, lab data, imaging, and other medical provider documentation.
Anticipated Discharge: 24 - 48 hours
Subjective/Interval History
-
Date of Service: July 13, 2024
No acute events overnight
Objective Data
-
Labs:
Laboratory Results
07/13/24
09:27
WBC 11.6 H
Hgb 8.1 L
Hct 23.4 L
Plt Count 130
Sodium 140
Potassium 3.4 L
Chloride 104
Carbon Dioxide 22
BUN 74 H
Creatinine 6.8 H*
Glucose 117 H
Calcium 9.7
Vital Signs:
Vital Signs
Temp Pulse Resp BP Pulse Ox
98.8 F 73 16 137/80 98
07/13/24 15:07 07/13/24 15:07 07/13/24 15:07 07/13/24 15:07 07/13/24 15:07
I&O
07/12/24 07/13/24 07/14/24
06:59 06:59 06:59
Intake Total 2480 / 2480 2340 / 2340
Output Total 800 / 800
Balance 1680 / 1680 2340 / 2340
Review of Systems
-
History Source: Patient
All other systems: Not reviewed unless documented
Data Reviewed
-
Diagnostic Radiology: Report Reviewed by me
CT Scan: Report Reviewed by me
Labs: Labs Reviewed by me
--- NOTE | 2024-07-13 16:28 | CM ---
Patient chart reviewed
CM went to see patient and was on a call
started CyBorD Cytoxan today
PLAN: home, CM to continue to monitor for needs
[2024-07-13] MEDS: VELCADE 1.04 MG SC (16:40)
[2024-07-13] MEDS: ZOVIRAX 200 MG PO (20:59)
[2024-07-13] MEDS: SINEQUAN 10 MG PO (21:00)
[2024-07-13 22:45] LABS: Beta-2-Microglobulin 40.8 mg/L (0.8-2.4)
[2024-07-14] MEDS: NSS 1000 IV ×2 (03:34→13:24)
[2024-07-14 03:40] VITALS: BP 139/72
--- NOTE | 2024-07-14 06:36 | W.PN.ONC2 ---
Today's Communication / Plan
-
.
Impression
Impression
BMBx peripheral flow reported by pathology shows a clonal plasma cell population 15.1%
FLC kappa 8281.11, ratio 1302
kidney bx with light cast nephropathy, kappa-type, severe, with acute tubular injury and mild interstitial inflammation. Tubular atrophy and interstitial fibrosis
FRANCA -creatinine 6.8
lytic lesion
hypercalcemia
hyperuremia
pleural effusion -negative for malignancy
Plan
Plan
f/u BMBx results 07/11
Pulse dexamethasone started 07/10-07/13
s/p CyBorD Cytoxan 300mg/m2, Velcade 1.3 mg/m2 inpatient 07/13 and continue weekly
acyclovir ppx, renal dose
on renal dose allopurinol
Monitor CMP, mag, phos, uric acid, LDH
antiemetics prn
He lives near [facility], so can pursue subsequent cycles with [facility] myeloma specialists.
Subjective/Objective
Subjective
no new complaints
Vital Signs:
Vital Signs
Temp Pulse Resp BP Pulse Ox
99.1 F 84 16 139/72 97
07/14/24 03:40 07/14/24 03:40 07/14/24 03:40 07/14/24 03:40 07/14/24 03:40
Lab Results:
Laboratory Data
WBC 11.6 10^3/uL (4.8-10.8) H 07/13/24 09:27
Hgb 8.1 g/dL (13.0-18.0) L 07/13/24 09:27
Plt Count 130 10^3/uL (130-400) 07/13/24 09:27
PT 16.3 Sec (11.4-14.6) H 06/30/24 06:03
INR 1.28 06/30/24 06:03
eGFR 9.25 07/13/24 09:27
Orders
Orders
Orders From Last 24 Hours
07/13/24 09:49
Add On- LAB Routine
07/13/24 12:45
Ondansetron Injectable [Zofran] 8 mg IV Q8HPRN PRN
Prochlorperazine [Compazine] 10 mg PO Q6HPRN PRN
07/13/24 20:00
Acyclovir [Zovirax] 200 mg PO BID
07/14/24 06:00
LDH IN AM
Uric Acid IN AM
07/15/24 06:00
LDH IN AM
Uric Acid IN AM
07/16/24 06:00
LDH IN AM
Uric Acid IN AM
07/17/24 06:00
LDH IN AM
Uric Acid IN AM
[2024-07-14 08:03] VITALS: BP 122/58
[2024-07-14] MEDS: ZOVIRAX 200 MG PO ×2 (09:12→19:46)
[2024-07-14] MEDS: ZYLOPRIM 100 MG PO (09:12)
[2024-07-14] MEDS: HEPARIN SC ×3 (09:12→23:06)
[2024-07-14 09:21] LABS: Hematocrit 21.3 % (39.0-52.0); Hemoglobin 7.1 g/dL (13.0-18.0); Mean Corp Hgb Conc. 33.3 g/dL (33.0-37.0); Mean Corpuscular Volume 86.9 fL (80.0-94.0); Mean Platelet Volume 10.8 fL (7.4-10.4); Platelet Count 128 10^3/uL (130-400); Red Blood Cell Count 2.45 10^6/uL (4.70-6.10); Red Cell Dist. Width 15.3 % (11.5-14.5); White Blood Cell Count 8.9 10^3/uL (4.8-10.8)
[2024-07-14 09:54] LABS: ALT (SGPT) 21 U/L (0-50); AST (SGOT) 24 U/L (17-59); Albumin 3.7 g/dl (3.5-5.0); Alkaline Phosphatase 66 U/L (38-126); Blood Urea Nitrogen 71 mg/dl (9-20); Calcium 9.1 mg/dl (8.4-10.2); Carbon Dioxide 21 mmol/L (22-30); Chloride 106 mmol/L (98-107); Estimated Creatinine Clearance 16 ml/min; Glucose 84 mg/dl (70-99); LDH 745 U/L (120-246); Magnesium 1.5 mg/dl (1.6-2.3); Phosphorus 4.8 mg/dl (2.5-4.5); Potassium 4.6 mmol/L (3.5-5.1); Sodium 140 mmol/L (135-145); Total Bilirubin 0.4 mg/dl (0.2-1.3); Total Protein 5.9 g/dl (6.3-8.2); Uric Acid 9.5 mg/dl (3.5-8.5); eGFR 10.97
--- NOTE | 2024-07-14 10:00 | W.PN.NEPH.PH ---
Today's Communication / Plan
-
follow BMP
Assessment/Plan
-
Impression.
Acute kidney injury. Creatinine 6.9 on admission. 1.3 two weeks ago
Pleural effusion status post thoracentesis 1 L.
Prior opiate use disorder on Suboxone.
Anemia.
Hypercalcemia.
humeral lytic lesions
Plan.
replete K prn
follow BMP
follow phos
continue allopurinol
onc managing CyBorD
cap IVF
no HD required
-
-
Date of Service: July 14, 2024
CC / HPI / ROS
-
Chief Complaint:
Shortness of breath
History of Present Illness:
toelrated chemo
K 4.6
FRANCA/Cr down to 5.9
calcium now normal
BP stable
acidosis 21
Review of Systems:.
no fever, non oliguric with out paula
no cp or sob
no n/v
Labs
-
Labs:
WBC 8.9 10^3/uL (4.8-10.8) 07/14/24 08:46
RBC 2.45 10^6/uL (4.70-6.10) L 07/14/24 08:46
Hgb 7.1 g/dL (13.0-18.0) L 07/14/24 08:46
Hct 21.3 % (39.0-52.0) L 07/14/24 08:46
Plt Count 128 10^3/uL (130-400) L 07/14/24 08:46
Sodium 140 mmol/L (135-145) 07/14/24 08:46
Potassium 4.6 mmol/L (3.5-5.1) D 07/14/24 08:46
Chloride 106 mmol/L (98-107) 07/14/24 08:46
Carbon Dioxide 21 mmol/L (22-30) L 07/14/24 08:46
BUN 71 mg/dl (9-20) H 07/14/24 08:46
Creatinine 5.9 mg/dL (0.7-1.3) H* 04 08:46
eGFR 10.97 07/14/24 08:46
Glucose 84 mg/dl (70-99) 07/14/24 08:46
Calcium 9.1 mg/dl (8.4-10.2) 04 08:46
Phosphorus 4.8 mg/dl (2.5-4.5) H 07/14/24 08:46
Uev-U-Pbahfjzkquw Pept 968 pg/ml 07/03/24 08:32
Albumin 3.7 g/dl (3.5-5.0) 07/14/24 08:46
Physical Exam
-
Vital Signs:
Vital Signs
Temp Pulse Resp BP Pulse Ox
98.7 F 81 22 122/58 100
07/14/24 08:03 07/14/24 08:03 07/14/24 08:03 07/14/24 08:03 07/14/24 08:03
Cardiovascular:: Regular rate and rhythm
Respiratory:: Bilateral: CTA
Lung Excursion:: Normal
Abdomen:: Nontender and Soft
Bowel Sounds:: Normal
Extremity Edema:: None: Bilateral:
[2024-07-14] MEDS: ATARAX 10 MG PO ×2 (10:37→20:59)
[2024-07-14 12:29] VITALS: BP 139/76
[2024-07-14] MEDS: LIDOCAINE 4% PATCH 1 PATCH TOPICAL ×2 (13:24→21:20)
--- NOTE | 2024-07-14 13:54 | W.PN.HOSP.TC ---
Today's Communication/Plan
-
monitor electrolytes, hgb, renal function
electrolyte repletion
Assessment / Plan
Assessment / Plan
A/P: Patient is a 49y M with PMH significant for opioid use disorder who presents to ED complaining of chest pain, abdominal pain and N/V.
FRANCA
- reportedly 1.3 at [facility] 2 weeks ago.
- possibly 2/2 to dec PO intake and NSAID use although risk remains of MM/paraproteinemia disease
-Skeletal survey with lytic lesions
- Free [place] LC Quant 8281.11 (3.3-19.4)
-SPEP with monoclonal spike in the gamma region
-Heme and Renal involved
-Renal bx 07/09 - f/u path
-Bone marrow bx - 07/11
� Nonoliguric
- stopped IVF as per nephro
-S/p pulse dosed steroids; restart pulse dose steroids again 07/10 -07/13 due to rising Scr
-Plan to start CyBorD Cytoxan 07/13
� monitor CMP, magnesium, phosphorus, uric acid, LDH
-NSS
Mild Febrile Episode
-defervesced on his own
-monitor fever curve, wbc
-only 100.4 - not true fever
-probable 2/2 to bx
#Leukocytosis
- chronic leukocytosis that was actually improved with the steroids and then relapsed
-monitor - back on steroids
-Bone marrow bx f/u
-Blood cultures neg
#UA cx Staph haemolyticus
-asymptomatic bacteruria
- 25k CFU - not an infection
#Hypokalemia
#Hypomagnesemia
-monitor and replete
#Anion Gap Metabolic Acidosis
-s/p bicarb solution, tabs
-NSS
Pleuritic Pain
Right Pleural Effusion, Hemorrhagic pleural effusion without plasma cells
Cough x 1 Month
-07/06 CT chest: Small right pleural effusion with adjacent airspace consolidation within the posterior right lower lobe, presumably atelectasis. Pneumonia is also a consideration.
- No noted infiltrate / pneumonia.
- IR eval for diagnostic / therapeutic thoracentesis 1050 bloody effusion
- Pleural fluid - exudative
- suspect 2/2 to systemic issue going on, neg for malignant cells
Normocytic Anemia
- Unknown acuity.
-prob due to above
- No obvious / noted blood loss.
- Elev Ferritin, LDH
- Follow H&H for any changes and monitor for any obvious blood loss.
-bone marrow bx
Hypercalcemia, resolved
-probable to due probable MM
- Ca = 12.5-->9.2
- Suspect significant component of hypovolemia
- IVF, s/p Calcitonin
-iPTH low
Hypokalemia
-monitor and replete
Opioid Use Disorder
- Stable. Last use 3 years ago per patient. Maintained on Suboxone.
- No history of IVDA.
- Unable to use NSAIDs for acute pain control due to FRANCA, etc.
- Cautious use of opioids for pain.
DVT Prophylaxis: HSQ
Code Status: Full
Anticipated Discharge: Within 24 hours
Subjective/Interval History
-
Date of Service: July 14, 2024
No acute events, as of right shoulder pain level scapula
Objective Data
-
Labs:
Laboratory Results
07/14/24
08:46
WBC 8.9
Hgb 7.1 L
Hct 21.3 L
Plt Count 128 L
Sodium 140
Potassium 4.6 D
Chloride 106
Carbon Dioxide 21 L
BUN 71 H
Creatinine 5.9 H*
Glucose 84
Calcium 9.1
Total Bilirubin 0.4
AST 24
ALT 21
Alkaline Phosphatase 66
Vital Signs:
Vital Signs
Temp Pulse Resp BP Pulse Ox
99 F 101 20 139/76 99
07/14/24 12:29 07/14/24 12:29 07/14/24 12:29 07/14/24 12:29 07/14/24 12:29
I&O
07/13/24 07/14/24 07/15/24
06:59 06:59 06:59
Intake Total 2340 / 2340 2640 / 2640
Balance 2340 / 2340 2640 / 2640
Review of Systems
-
History Source: Patient
All other systems: Not reviewed unless documented
Physical Exam
-
General: Well Developed, Well Nourished, No Apparent Distress and Other (thin)
HEENT: Normocephalic, Atraumatic and Moist Mucous Membranes
Cardiac: Regular Rhythm and S1/S2; Negative Murmur or Rub
GI: Soft, Nontender and Nondistended
Musculoskeletal: No Clubbing, No Cyanosis and No Edema
Data Reviewed
-
Diagnostic Radiology: Report Reviewed by me
CT Scan: Report Reviewed by me
Labs: Labs Reviewed by me
[2024-07-14] MEDS: MAGNESIUM SULFATE 100 IV (15:04)
[2024-07-14 15:56] VITALS: BP 135/71
--- NOTE | 2024-07-14 16:04 | PTCARENOTE ---
Pt refused sq heparin in am and 1600 dose. I sat with patient and reviewed his WBC, RBC, Hg, plt,creatinine and mag with him. I spent over 30 minutes of education on multiple myeloma and how it effects WBC, RBC, Hg PLT, on SE of chemo effects on
WBC RBC hg PLT. I also taught him about juve for WBC PLT. He understood that his WBC and PLT dropped and in seven days they could be lower . he verbalized back to me that in one week he needs to be monitoring for bleeding and immunocompromised
stated. I also educated him extensively on coagulopathy in cancer patients and that the doctors ordered heparin to reduce that risk. He did refuse his heparin both times for me; however, he stated I am walking around, i am active. I told him his
risks and he verbalized an understanding. He agreed that if he would take it if he did not walk more.
[2024-07-14 19:00] VITALS: BP 137/68
[2024-07-14] MEDS: TYLENOL 650 MG PO (19:45)
[2024-07-14] MEDS: SINEQUAN 10 MG PO (20:59)
[2024-07-14] MEDS: ATIVAN 1 MG IV (21:40)
[2024-07-14] MEDS: NSS (PRESERVATIVE FREE) 0.5 ML IV (21:41)
[2024-07-14 21:45] VITALS: BP 180/85
[2024-07-14] MEDS: OFIRMEV 100 IV (22:29)
--- NOTE | 2024-07-14 22:36 | PTCARENOTE ---
Addendum entered by Sonia Lentz RN 07/15/24 00:14:
Pt still c/o 8/10 back pain. Not able to get comfortable, pt laid on floor to 'try to get some relief'. SEPTIC TANK SETTER notified, dilaudid 0.5mg IV ordered and given. SEPTIC TANK SETTER up to floor to see pt.
Original Note:
Pt c/o R lower back pain. tylenol given at 1945. Pt still c/o pain after tylenol, SE[employer]IC T[employer] SETTER notified and lidocaine patch ordered.
Pt pacing around room, visibly anxious, temp 100.9, BP 180/85, pt sniffling and tremulous. When suboxone was brought up to pt, pt became agitated and stated 'forget about that shit' and 'I havent taken it since June'. SE[employer] TANK SETTER notified about symptoms
and ativan ordered (see JUN). Pt stated he does not want 2300 vitals taken. RN stated that he has tylenol available again at 2345 for pain and fever. Pt said 'do not bother me. I do not want to be woken up'. Two ice packs given to pt and room temp
lowered.
Pt rang again c/o 8/10 back pain. RN informed pt that we are limited on what we can give d/t his kidney fx and substance abuse hx. SEPTIC TANK SETTER notified, IV tylenol ordered. Given at 2249. Call frank within reach and plan of care ongoing.
[2024-07-15] VITALS (23 sets, daily range): BP systolic 95–186; BP diastolic 49–102; BMI 20.3
[2024-07-15] MEDS: DILAUDID 0.5 MG IV (00:09)
[2024-07-15] MEDS: LASIX 40 MG IV (01:28)
--- NOTE | 2024-07-15 02:07 | PTCARENOTE ---
Tele monitor alarming pt's HR in 140s, RN went into pt's rm. Pt c/o SOB and pacing. RN instructed pt to sit down. Lungs coarse throughout, 90% on RA. BP 162/98, HR 146, temp 98.4. SLEEP TECH notified, Stat portable CXR, EKG, and IV lasix ordered (see
MAR). Pt placed on 4L, pt 94%. IMU tx order placed. SLEEP TECH and RT on floor. RT placed pt on 12L midflow. Sinus tach on EKG. Report given to Bertin. Tech, RT, and this RN brought pt and belongings over to 3344. While on the way to IMU, pt coughed up
blood-tinged sputum. Receiving RN notified.
[2024-07-15] MEDS: MORPHINE SULFATE 2 MG IV (02:25)
[2024-07-15] MEDS: NSS (PRESERVATIVE FREE) 0.25 ML IV (02:30)
[2024-07-15] MEDS: ATIVAN 0.5 MG IV (02:30)
--- NOTE | 2024-07-15 02:57 | W.PN.UPDATE ---
Addendum entered and electronically signed by MIGUEL Kramer 07/15/24 06:26:
D dimer 7.47. VQ scan added since creatinine elevated,
Addendum entered and electronically signed by MIGUEL Kramer 07/15/24 05:26:
BNP 3680 (July 03 was 968) Creatinine this am is 6. Defer to nephrology. VS improved to 121/81 with HR 90-100 (increases with anxiety) 98% on 12L MF. with some labored breathing and mild tachypnea but much improved/comfortable.
Original Note:
Update Note
Progress Note Update
Patient noted with increased lower back pain with agitation and pacing room at 2100. Tylenol, Ofirmiv, Ativan, lidocaine patch not effective. He had been refusing buprenorphine SL while here saying he preferred the film which he receives at the
clinic daily. Which he did add he hasn't used it since June then became more agitated. Pain appears to be lower back above biopsy site. Gave dilaudid 0.5 mg IV x1 at midnight. At 0120 his lung sounds were coarse and he c/o SOB. HR tachy in 140s,
IVF stopped. RA 90% oxygen applied PCXR taken and Lasix 40 mg IV given. Will transfer to IMU due to complexity of care. EKG show Sinus tachycardia with ST depressions. Will add troponin. Suctioned for bright red blood mixed with saliva. Sent for
analysis. UA sent for drug screen since he purportedly left floor unsupervised yesterday for a time. He continues with anxiety since transfer and is slightly tachypneic so Ativan IV x1 and Morphine 2 mg IV given. D dimer and BNP added also to am
labs.
[2024-07-15 03:07] LABS: Amphetamines Negative (Negative); Barbiturates Negative (Negative); Benzodiazepines Negative (Negative); Buprenorphine Negative (Negative); Cocaine Negative (Negative); Marijuana Negative (Negative); Methadone Negative (Negative); Methamphetamines Negative (Negative); Opiates Negative (Negative); Phencyclidine Negative (Negative); Tricyclic Antidepressants Negative (Negative)
--- NOTE | 2024-07-15 03:14 | PTCARENOTE ---
Received pt from [facility] via WC. Pt visibly anxious and tachypneic. on 12L MF. lungs are coarse throughout with audible crackles. Productive cough with pink frothy sputum. Notified PRIVATE BANKER. PRIVATE BANKER at bedside to assess pt. Sputum sample ordered and
sent to lab. Labs ordered. Ativan and Morphine ordered and administered for anxiety and dyspnea (see MAR). Suction readily available for pt to use PRN. Call frank within reach.
[2024-07-15] MEDS: LOPRESSOR 5 MG IV (03:44)
[2024-07-15 04:40] LABS: Venous Blood Gas B.E. -9.7 mmol/L (-4 to +4); Venous Blood Gas HCO3 16.6 mmol/L (22-27); Venous Blood Gas pCO2 37 mmHg (35-48); Venous Blood Gas pH 7.26 (7.32-7.43); Venous Blood Gas pO2 174 mmHg (30-50)
[2024-07-15 05:01] LABS: Hematocrit 23.3 % (39.0-52.0); Hemoglobin 7.9 g/dL (13.0-18.0); Mean Corp Hgb Conc. 33.9 g/dL (33.0-37.0); Mean Corpuscular Hgb 29.4 pg (27.0-31.0); Mean Corpuscular Volume 86.6 fL (80.0-94.0); Mean Platelet Volume 10.9 fL (7.4-10.4); Platelet Count 154 10^3/uL (130-400); Red Blood Cell Count 2.69 10^6/uL (4.70-6.10); Red Cell Dist. Width 15.3 % (11.5-14.5); White Blood Cell Count 5.5 10^3/uL (4.8-10.8)
[2024-07-15 05:05] LABS: ALT (SGPT) 29 U/L (0-50); AST (SGOT) 32 U/L (17-59); Albumin 3.7 g/dl (3.5-5.0); Alkaline Phosphatase 69 U/L (38-126); Blood Urea Nitrogen 76 mg/dl (9-20); Calcium 8.7 mg/dl (8.4-10.2); Carbon Dioxide 19 mmol/L (22-30); Chloride 109 mmol/L (98-107); Estimated Creatinine Clearance 16 ml/min; Glucose 114 mg/dl (70-99); LDH 806 U/L (120-246); Magnesium 2.2 mg/dl (1.6-2.3); Potassium 4.9 mmol/L (3.5-5.1); Sodium 140 mmol/L (135-145); Total Bilirubin 0.5 mg/dl (0.2-1.3); Total Protein 5.9 g/dl (6.3-8.2); Uric Acid 9.4 mg/dl (3.5-8.5); eGFR 10.75
[2024-07-15 05:13] LABS: NT-proBNP 3680 pg/ml
[2024-07-15 05:45] LABS: D-Dimer 7.47 ug/mlFEU (0.00-0.50)
[2024-07-15] MEDS: HEPARIN SC ×5 (07:03→23:53)
--- NOTE | 2024-07-15 07:40 | PTCARENOTE ---
Rec'd pt at change of shift, extreme anxiety, taking off O2, hospital gown and monitor wires. Pt responds to calm ton of voice and allowed RN to replace O2 and wires. O2 increasd to 15L MF with PRN NRB mask. Updated MD via TT.
--- NOTE | 2024-07-15 07:47 | PTCARENOTE ---
Pt remains tachypnic, tachycardic, anxious. on 15L MF, Sats 89-92%. Updated Dr Reyes and Dr. Warren via TT. Respiratory at bedside.
[2024-07-15] MEDS: ZOVIRAX 200 MG PO ×2 (08:02→19:52)
[2024-07-15] MEDS: ATARAX 10 MG PO ×3 (08:02→23:52)
[2024-07-15] MEDS: ZYLOPRIM PO (08:27)
[2024-07-15] MEDS: LIDOCAINE 4% PATCH 1 PATCH TOPICAL (08:28)
[2024-07-15 08:35] LABS: B.E. -6.6 mmol/L; HCO3 17.6 mmol/L (21-28); O2 Saturation % 99.6 % (94-98); PCO2 29 mmHg (35-48); PO2 124 mmHg (83-108); pH 7.39 (7.35-7.45)
--- NOTE | 2024-07-15 08:40 | PTCARENOTE ---
Dr. Bell at bedside. Transfer ordered to ICU. labs sent. Pt remains on HF
--- NOTE | 2024-07-15 08:48 | W.PN.UPDATE ---
Update Note
Progress Note Update
Coverage for cross cover.
Called to evaluate patient short of breath and hypoxic. Patient feels short of breath. No chest pain. He is tachycardic, tachypneic, hypoxic.
Heart regular rate and rhythm S1-S2 tachycardic
Lungs decreased breath sounds bilateral, few rhonchi, no wheezes.
Alert and oriented x 3 no neurological deficits, very anxious.
A/P:
Acute hypoxic respiratory failure--> stat chest x-ray, stat arterial blood gas, repeat labs CBC, CMP, BMP, Trop. Twelve-lead EKG. High flow oxygen. I was going to try BiPAP but patient states that he could not tolerate. [employer] consulted.
Transferred to ICU. Updated primary attending who will see the patient later today.
--- NOTE | 2024-07-15 09:03 | W.PN.INTV ---
Addendum entered and electronically signed by Maryse Reyes, DO 07/15/24 10:56:
Flu B positive, given hypoxemia will add Tamiflu (renally dosed)
Original Note:
Today's Communication / Plan
Recommendations
Transferred for hypoxemia and anxiety, having active panic attacks
Change atarax to scheduled, add ativan PRN--he has not slept well either
Good response with lasix, would maintain daily dose if indicated
Hypoxemia improving with less anxiety noted, weaning down off HFNC
CT chest today, but can wait, CXR showing more congestion from my reading
Psych eval
Observation
Assessment
-
Patient is a 49y M with PMH significant for prior opioid use disorder who presented to ED complaining of right-sided chest pain, cough, dyspnea, abdominal pain and N/V. Patient reportedly developed symptoms about a month ago. He was seen in
[facility] emergency room and was noted to have pleural effusion. At , chest x-ray showed right-sided pleural effusion along with acute kidney injury. Received 3 days of 1 g IV Solu-Medrol in view of proteinuria, hematuria and concern for immune
mediated renal injury. Patient had an IR guided right-sided thoracentesis performed and the fluid is noted to be exudative. Pulmonary signed off 07/09/24.
Overnight 07/15 developed increased SOB/WOB, anxiety/agitation, placed on NRB then to HFNC. He received lasix 40mg IV and Atarax and transferred to ICU due to hypoxemia. Weight Recorder consulted for eval 07/15.
Acute hypoxic respiratory failure
Acute heart failure exacerbation, preserved EF
FRANCA
Right sided pleural effusion, s/p thora with exudative pleural effusion
UA cx Staph haemolyticus
Panic attacks, anxiety-not well controlled
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
Non-secretory Multiple Myeloma (awaiting IgD & IgE) with M protein and abnormal K/L ratio; high index of suspicion for light chain multiple myeloma
Hypercalcemia, hyperuricemia
Bone lesions on skel survey
Hypogammaglobulinemia
Opioid Use Disorder--Last use 3 years ago per patient. Maintained on Suboxone.
Plan
Re-eval placed for ICU service, transferred to ICU 07/15/24 for acute resp distress/hypoxemia/panic attack
Currently being treated for anxiety with atarax PRN but had not been taking
We will schedule his dose and add PRN ativan
He notes that he has seen psych in past but not recently, was agreeable to consult
Pain/sedation: tylenol PRN, no further opiates
RASS goal: 0
Hemodynamically stable, not on pressors
Tachycardic but this is likely related to anxiety
Has Lopressor as needed to give
Prior echo was obtained and normal function noted
He does appear volume overloaded on his chest x-ray
Diuresis per team, good output this a.m. following 40 mg dose
Continue to monitor on telemetry
He has new hypoxemia, placed on high flow nasal cannula
When oxygen is titrated down, sats are maintained--had another panic attack while in ICU with sats diminishing with tachypnea
Could be multifactorial related to volume overload and anxiety
Had very good output with diuresis, would maintain daily diuresis
Had previous effusion that was tapped, repeat chest x-ray does not demonstrate new effusion
Prior CT chest was reviewed, no parenchymal abnormalities.
Pleural fluid exudative with some eosinophils noted. Connective tissue disease work up negative so far.
No growth on cultures, cytology negative for malignancy.
MYRNA, Anti GBM Ab negative, ANCA negative and RA factor negative.
No reported h/o trauma or chest procedures prior to thoracentesis.
Considering recent respiratory symptoms and cough with dyspnea, this could be para-pneumonic effusion. No obvious pneumonia currently noted on imaging
Follow-up chest x-ray 07/02 showed small effusion which is unchanged on CXR 07/04. Continues to be asymptomatic. Skeletal survey images reviewed from 07/08, no effusion noted.
Exudative pleural effusion with eosinophils, primary differential diagnosis include infection, malignancy and drug-induced effusions. Asbestos exposure and Paragonimiasis are other rare etiologies.
Diet advanced, tolerating
Aspiration precautions
PPI not indicated
FRANCA, unknown etiology
Renal following
Currently being worked up for Myeloma. Myeloma related effusions are rare but certainly possible
Schedule for Renal biopsy
Unclear if he has active infectious process underway
Cultures thus far have been negative, he has a UA positive for staph hemolyticus (R) but no symptoms (low colony count)
He is placed on empiric antibiotics
Can stop abx if cultures are thus far otherwise negative
Hematology oncology following as well for myeloma history
He is not currently on IV steroids
No prior history of thyroid or diabetes
Monitor with occasional Accu-Cheks as needed
We will follow
Data:
CXR 07/15/24- Predominantly new marked bilateral parenchymal opacification, left greater than right comparison to study earlier in same day. Most likely differential diagnostic possibilities would be pneumonia or less likely atypical acute pulmonary
edema.
Pleural fluid cytology: Negative for malignancy. few mesothelial cells, mixed inflammation with eosinophils noted
Blood, pleural fluid cultures negative. Influenza screen negative
MYRNA, ANCA, GBM Ab, negative. Compliment level normal.
Pleural fluid LDH 981, Protein 4.7, WBC 2385 with 76% Mononuclear cells. pH 7.36.
VBG 7.36, 34
CT Chest 07/06/24- 1. Small right pleural effusion with adjacent airspace consolidation within the posterior right lower lobe, presumably atelectasis. Pneumonia is also a consideration.
2. Poor delineation of the subcutaneous and mediastinal fat suggestive of anasarca/low protein state.
CT Chest/Abdomen/Pelvis 06/27/24: 1. Moderate right pleural effusion with associated compressive atelectasis. No other significant abnormality identified in the chest, abdomen or pelvis, within the limits of unenhanced CT, as described above.
ECHO 06/2024: Normal LV size and function without regional wall motion abnormalities. LVEF is 60-65% by visual estimation. No LVH. Normal diastolic function. Normal right ventricular size and function. No significant valvular disease. Insufficient
TR for estimation of PASP. No prior study available for comparison.
Critical Care time 76 mins -- The patient is admitted for acute critical illness for the treatment of vital organ failure and/or prevention of further life-threatening conditions. Total care includes time spent in review of history, physical exam,
medications, hemodynamic/ventilator parameters, laboratory data, imaging and discussion with house staff, pharmacy, respiratory therapy, senior field service engineer, and nursing.
Subjective Dataa
Subjective Data
Date of Service:
Date of Service: July 15, 2024
Chief Complaint: Weight Recorder Follow Up
Subjective:
Transfer to ICU for hypoxia, anxiety, SOB
Sats low, placed on NRB which patient could not tolerate, now on HF
Notes that he feels claustrophobic, SOB, having panic attack
Was given lasix 40mg and urinated >2L, also given atarax PO
HFNC weaned down to 50%
Objective Data
Data Reviewed
Vital Signs / I&O / Oxygen:
Vital Signs
Temp Pulse Resp BP Pulse Ox
98.2 F 119 45 149/91 99
07/15/24 08:00 07/15/24 08:00 07/15/24 08:00 07/15/24 08:00 07/15/24 08:52
Intake and Output
07/14/24 07/15/24 07/16/24
06:59 06:59 06:59
Intake Total 2640 / 2640 840 / 840
Output Total 2074
Balance 2640 / 2640 -1235 / -1235
SaO2 99
Nasal Cannula flow liters per 60
minute
Physical Exam
General: Other (agitated, panic, tachypneic, but able to respond)
HEENT: Normocephalic, Anicteric and Moist Mucous Membranes
Cardiovascular: S1-S2 and Regular Rhythm
Respiratory: Rhonchi (mostly in throat) and Non-Labored Respirations (but tachypneic, rapid/shallow)
GI: Soft, Non Distended and Non Tender
Neurology: Awake, Alert, No Motor Deficits, Tremors and Other (anxious/agitated)
Skin: Warm, Dry and Good Color
Labs/Micro/Reports
Laboratory Results
07/15/24
08:26
pH 7.39
pCO2 29 L
pO2 124 H
HCO3 17.6 L
O2 Delivery Level Not Reportable
[2024-07-15 09:14] LABS: ALT (SGPT) 25 U/L (0-50); AST (SGOT) 28 U/L (17-59); Albumin 3.5 g/dl (3.5-5.0); Alkaline Phosphatase 66 U/L (38-126); Blood Urea Nitrogen 80 mg/dl (9-20); Calcium 8.5 mg/dl (8.4-10.2); Carbon Dioxide 20 mmol/L (22-30); Chloride 107 mmol/L (98-107); Estimated Creatinine Clearance 15 ml/min; Glucose 96 mg/dl (70-99); Potassium 4.8 mmol/L (3.5-5.1); Sodium 137 mmol/L (135-145); Total Bilirubin 0.4 mg/dl (0.2-1.3); Total Protein 5.3 g/dl (6.3-8.2); eGFR 10.53
[2024-07-15 09:15] LABS: Hematocrit 23.8 % (39.0-52.0); Hemoglobin 7.9 g/dL (13.0-18.0); Mean Corp Hgb Conc. 33.2 g/dL (33.0-37.0); Mean Corpuscular Hgb 29.2 pg (27.0-31.0); Mean Corpuscular Volume 87.8 fL (80.0-94.0); Red Blood Cell Count 2.71 10^6/uL (4.70-6.10); Red Cell Dist. Width 15.6 % (11.5-14.5); White Blood Cell Count 3.4 10^3/uL (4.8-10.8)
[2024-07-15 09:17] LABS: Troponin I 0.503 ng/ml
[2024-07-15] MEDS: FLUSH (NSS) 1 FLUSH IV ×3 (09:34→19:32)
[2024-07-15] MEDS: ATIVAN 2 MG IV ×2 (09:35→14:02)
[2024-07-15] MEDS: NSS (PRESERVATIVE FREE) 1 ML IV ×2 (09:35→14:03)
--- NOTE | 2024-07-15 09:56 | W.PN.NEPH.PH ---
Today's Communication / Plan
-
follow BMP
Assessment/Plan
-
Impression.
Acute kidney injury. Creatinine 6.9 on admission. 1.3 two weeks ago
Pleural effusion status post thoracentesis 1 L.
Prior opiate use disorder on Suboxone.
Anemia.
Hypercalcemia.
humeral lytic lesions
CXR with new bilateral infiltrates
Plan.
follow BMP
follow phos
continue allopurinol
onc managing CyBorD
cap IVF
no HD required today
abx per primary team
critical care time 31 minutes
-
-
Date of Service: July 15, 2024
CC / HPI / ROS
-
Chief Complaint:
Shortness of breath
History of Present Illness:
tolerated chemo
K 4.8
FRANCA/Cr stable at 6.1
calcium normal
BP stable
uric acid down to 9.4
acidosis 20
critically ill in ICU
Review of Systems:.
no fever, non oliguric with out paula
no cp
no n/v
SOB/anxiety overnight, now requiring high flow O2
no back pain
Labs
-
Labs:
WBC 3.4 10^3/uL (4.8-10.8) L 07/15/24 08:34
RBC 2.71 10^6/uL (4.70-6.10) L 07/15/24 08:34
Hgb 7.9 g/dL (13.0-18.0) L 07/15/24 08:34
Hct 23.8 % (39.0-52.0) L 07/15/24 08:34
Sodium 137 mmol/L (135-145) 07/15/24 08:34
Potassium 4.8 mmol/L (3.5-5.1) 07/15/24 08:34
Chloride 107 mmol/L (98-107) 07/15/24 08:34
Carbon Dioxide 20 mmol/L (22-30) L 07/15/24 08:34
BUN 80 mg/dl (9-20) H 07/15/24 08:34
Creatinine 6.1 mg/dL (0.7-1.3) H* 07/15/24 08:34
eGFR 10.53 07/15/24 08:34
Glucose 96 mg/dl (70-99) 07/15/24 08:34
Calcium 8.5 mg/dl (8.4-10.2) 07/15/24 08:34
Phosphorus 4.8 mg/dl (2.5-4.5) H 07/14/24 08:46
Bar-F-Gdnvupgamui Pept 3680 pg/ml 07/15/24 04:34
Albumin 3.5 g/dl (3.5-5.0) 07/15/24 08:34
Physical Exam
-
Vital Signs:
Vital Signs
Temp Pulse Resp BP Pulse Ox
98.2 F 119 45 149/91 99
07/15/24 08:00 07/15/24 08:00 07/15/24 08:00 07/15/24 08:00 07/15/24 08:52
Cardiovascular:: Regular rate and rhythm
Respiratory:: Bilateral: Coarse and Bilateral: Rhonchi
Lung Excursion:: Normal
Abdomen:: Nontender and Soft
Bowel Sounds:: Normal
Extremity Edema:: None: Bilateral:
--- NOTE | 2024-07-15 10:05 | PTCARENOTE ---
MRSA, COVID and Influenza swabs sent. Pt resting otherwise.
--- NOTE | 2024-07-15 10:05 | PTCARENOTE ---
Rec'd pt at 0920 via bed from IMU. Rec'd pt awake alert and oriented but anxious. Was only in ICU a few minutes and ripped off the High flow and was restless in bed after this RN just tried to assess him. Did eventually calm but needs the least
stimulation as possible. Speech is clear. BOOTH. Skin is dk wm and dry. Respirs are shallow and tachypnic at baseline in the 28-32 range. Rec'd initally on High Flow 55L/100% with sats of 99%- On RA sats were 79% with High Flow off or just humidified
air. When back on High FLow sats back up to 98%- so placed on 60L/55% on the High flow for about 10 minutes then sats started to dip to 86% and pt wanting to sleep with a blanket over his head. At 1000 increased back to 55L/90% and sats currently
are 96%. Breath sounds are coarse ant and decreased at the bases post with few base crackles. No cough noted. With Dr. Serna at the bedside pt medicated with Ativan 2 mg IV and is currently more restful post Ativan. Monitor SR at rest. ST with
anxiety. + pulses. No edema. ABd is flat and soft with + BS. Voided on arrival yellow urine. Capped ints intact L arm and R wrist. Sites wnl. Pt able to reposition himself. Updated on plan of care. Call frank in reach.
[2024-07-15] MEDS: ZOSYN 50 IV ×3 (10:22→21:02)
[2024-07-15 10:25] LABS: COVID-19 Antigen Negative (Negative)
[2024-07-15 10:47] LABS: Mean Platelet Volume 9.4 fL (7.4-10.4); Nucleated Red Blood Cells % 1.5 % (-); Platelet Count 119 10^3/uL (130-400)
[2024-07-15 10:49] LABS: Absolute Neutrophils -Man Diff 1.4 10^3/uL (1.4-6.5); Atypical Lymphocytes 1 %; Band Neutrophils 6 % (0-3); Lymphocytes 41 % (20-51); Metamyelocytes 4 % (-); Monocytes 10 % (2-9); Myelocytes 1 % (-); Normal RBC Morphology No; Platelets Checked Yes; Segmented Neutrophils 37 % (42-75)
[2024-07-15 10:52] LABS: Acanthocytes Slight; Anisocytosis 1+; Hypochromasia 2+; Ovalocytes Slight; Total Cells Counted 100
--- NOTE | 2024-07-15 11:00 | PTCARENOTE ---
Dozing- overall calmer since Ativan. Influenza B swab was positive. Pt placed on Droplet precautions and Violet Serna and Jody updated. VS as documented. O2 sats remain 96% on High flow 55L/90%. No other changes.
[2024-07-15] MEDS: TAMIFLU 30 MG PO (11:22)
--- NOTE | 2024-07-15 11:32 | PTCARENOTE ---
Tamiflu given as ordered. Labs sent. Resting-no other changes
[2024-07-15 11:44] LABS: INR 1.13; PT 14.8 Sec (11.4-14.6)
[2024-07-15 11:45] LABS: APTT 31.7 Sec (23.4-35.0)
--- NOTE | 2024-07-15 12:45 | PTCARENOTE ---
Psych in to see pt. Mostly dozing- does get frustrated if asked to do things like put his O2 back in his nose. Coughing a non-prod cough. Was very restful then got instantly anxious and implusive when needing to urinate-pulled off High Flow, tried
to sit on the side of the bed then sat on his knees in the bed to urinate. HR up to the 130's and sats down to 82% within a minute of being off the O2. Very tachypnic with anxiety/exertion then calmed once O2 back on- sats up to 95%. Call frank in
reach. Bed alarm on bed. Voiding yellow urine
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
--- NOTE | 2024-07-15 13:48 | W.PN.ONC2 ---
Today's Communication / Plan
-
.
Impression
Impression
Multiple myeloma with hypercalcemia, lytic lesion, and FRANCA at presentation
-BMBx peripheral flow reported by pathology shows a clonal plasma cell population 15.1%, FLC kappa 8281.11, ratio 1302
-kidney bx with light cast nephropathy, kappa-type, severe, with acute tubular injury and mild interstitial inflammation. Tubular atrophy and interstitial fibrosis
-s/p Pulse dexamethasone07/10-07/13
-s/p CyBorD Cytoxan 300mg/m2, Velcade 1.3 mg/m2 inpatient 07/13
-on dvt ppx
acute respiratory failure 07/14
-pleural effusion -negative for malignancy
-started Zosyn 07/15
-Influenza A 07/14 -Tamiflu
-Fever 100.9F 07/14, not neutropenic
-f/u VQ (renal function preclude CTA)
panic attack
Plan
Plan
f/u BMBx results 07/11
s/p Pulse dexamethasone07/10-07/13
continue CyBorD Cytoxan 300mg/m2, Velcade 1.3 mg/m2 weekly, next dose due 07/20
acyclovir ppx, renal dose
on renal dose allopurinol
Monitor CMP, mag, phos, uric acid, LDH
antiemetics prn
He lives near [facility], so can pursue subsequent cycles with [facility] myeloma specialists.
Subjective/Objective
Subjective
events overnight reviewed
Tmax 100.9F
on high flow supplemental o2
Vital Signs:
Vital Signs
Temp Pulse Resp BP Pulse Ox
98.2 F 119 45 149/91 94
07/15/24 08:00 07/15/24 08:00 07/15/24 08:00 07/15/24 08:00 07/15/24 10:02
Lab Results:
Laboratory Data
WBC 3.4 10^3/uL (4.8-10.8) L 07/15/24 08:34
Hgb 7.9 g/dL (13.0-18.0) L 07/15/24 08:34
Plt Count 119 10^3/uL (130-400) L D 07/15/24 08:34
PT 14.8 Sec (11.4-14.6) H 07/15/24 11:21
INR 1.13 07/15/24 11:21
APTT 31.7 Sec (23.4-35.0) 07/15/24 11:21
eGFR 10.53 07/15/24 08:34
Physical Exam
drowsy
HEENT: No Jaundice
Cardiology: Normal Sinus Rhythm
Pulmonary: Clear
GI: Soft
Extremities: Pulses Present; No Edema
Neuro: Non Focal
Orders
Orders
Orders From Last 24 Hours
07/15/24 03:57
LDH IN AM
Uric Acid IN AM
07/16/24 06:00
LDH IN AM
Uric Acid IN AM
07/17/24 06:00
LDH IN AM
Uric Acid IN AM
--- NOTE | 2024-07-15 14:45 | PTCARENOTE ---
Pt has been restful- for the most part wants to be left alone and not be touched but will recluctanly allow some care. Ativan 2 mg IV given at [address] of the Chest- pt then taken via bed on 100% NRB for CT. Sats on 100% NRB 92%. CT completed and
pt placed back on High FLow 55L/90% with sats of 96%. Call frank in reach.
--- NOTE | 2024-07-15 15:08 | W.PN.HOSP.TC ---
Today's Communication/Plan
-
IV abx
may initiate steroids
wean o2 as tolerated
Incentive spirometer, Acapella
Self proning if possible
Follow-up electrolytes, labs
Trend troponins
Start aspirin
Cardiology consulted
Assessment / Plan
Assessment / Plan
A/P: Patient is a 49y M with PMH significant for opioid use disorder who presents to ED complaining of chest pain, abdominal pain and N/V.
# Acute hypoxic respiratory failure
#Pneumonia, hospital-acquired
#Influenza B
� Monitor P/F ratios
� Currently on high flow nasal cannula
� Possibly secondary to superimposed bacterial pneumonia is being influenza be positive
�Empiric antibiotics, MRSA PCR swab negative
� Engaged with oncology for possible initiation of IV steroids
� Incentive spirometer, Acapella, self proning if possible
-ICU is aware
�Tamiflu
#Elevated troponin
� Most likely nonischemic myocardial injury
� Echo on 06/28 with no obvious wall motion abnormality
� Started on aspirin
� Cardiology consulted
� Await cardiology recommendations for heparin drip
FRANCA
- reportedly 1.3 at [facility] 2 weeks ago.
- possibly 2/2 to dec PO intake and NSAID use although risk remains of MM/paraproteinemia disease
-Skeletal survey with lytic lesions
- Free [place] LC Quant 8281.11 (3.3-19.4)
-SPEP with monoclonal spike in the gamma region
-Heme and Renal involved
-Renal bx 07/09 - f/u path
-Bone marrow bx - 07/11
� Nonoliguric
- stopped IVF as per nephro
-S/p pulse dosed steroids; restart pulse dose steroids again 07/10 -07/13 due to rising Scr
-Plan to start CyBorD Cytoxan 07/13
� monitor CMP, magnesium, phosphorus, uric acid, LDH
Mild Febrile Episode
-defervesced on his own
-monitor fever curve, wbc
-only 100.4 - not true fever
-probable 2/2 to bx
#Leukocytosis
- chronic leukocytosis that was actually improved with the steroids and then relapsed
-monitor - back on steroids
-Bone marrow bx f/u
-Blood cultures neg
#UA cx Staph haemolyticus
-asymptomatic bacteruria
- 25k CFU - not an infection
#Hypokalemia
#Hypomagnesemia
-monitor and replete
#Anion Gap Metabolic Acidosis
-s/p bicarb solution, tabs
-NSS
Pleuritic Pain
Right Pleural Effusion, Hemorrhagic pleural effusion without plasma cells
Cough x 1 Month
-07/06 CT chest: Small right pleural effusion with adjacent airspace consolidation within the posterior right lower lobe, presumably atelectasis. Pneumonia is also a consideration.
- No noted infiltrate / pneumonia.
- IR eval for diagnostic / therapeutic thoracentesis 1050 bloody effusion
- Pleural fluid - exudative
- suspect 2/2 to systemic issue going on, neg for malignant cells
Normocytic Anemia
- Unknown acuity.
-prob due to above
- No obvious / noted blood loss.
- Elev Ferritin, LDH
- Follow H&H for any changes and monitor for any obvious blood loss.
-bone marrow bx
Hypercalcemia, resolved
-probable to due probable MM
- Ca = 12.5-->9.2
- Suspect significant component of hypovolemia
- IVF, s/p Calcitonin
-iPTH low
Hypokalemia
-monitor and replete
Opioid Use Disorder
- Stable. Last use 3 years ago per patient. Maintained on Suboxone.
- No history of IVDA.
- Unable to use NSAIDs for acute pain control due to FRANCA, etc.
- Cautious use of opioids for pain.
DVT Prophylaxis: HSQ
Code Status: Full
Total time spent on today's encounter was 55 minutes which included time spent in counseling the patient/family regarding diagnosis and treatment plan as listed above, goals of care, and symptom management. Case was discussed with nursing staff,
specialists, and care coordinators/case management. All labs and imaging personally reviewed by me. Remainder the time spent in detailed review of previous records, lab data, imaging, and other medical provider documentation.
Anticipated Discharge: Today
Subjective/Interval History
-
Date of Service: July 15, 2024
Hypoxic, tachypneic overnight, was given IV Lasix with good output. Rapid response this morning, transferred to ICU on hyponasal cannula.
Objective Data
-
Labs:
Laboratory Results
07/15/24 07/15/24 07/15/24
03:57 04:34 08:26
WBC 5.5
Hgb 7.9 L
Hct 23.3 L
Plt Count 154 D
PT
INR
APTT
HCO3 17.6 L
Sodium 140
Potassium 4.9
Chloride 109 H
Carbon Dioxide 19 L
BUN 76 H
Creatinine 6.0 H*
Glucose 114 H
Calcium 8.7
Total Bilirubin 0.5
AST 32
ALT 29
Alkaline Phosphatase 69
07/15/24 07/15/24
08:34 11:21
WBC 3.4 L
Hgb 7.9 L
Hct 23.8 L
Plt Count 119 L D
PT 14.8 H
INR 1.13
APTT 31.7
HCO3
Sodium 137
Potassium 4.8
Chloride 107
Carbon Dioxide 20 L
BUN 80 H
Creatinine 6.1 H*
Glucose 96
Calcium 8.5
Total Bilirubin 0.4
AST 28
ALT 25
Alkaline Phosphatase 66
Vital Signs:
Vital Signs
Temp Pulse Resp BP Pulse Ox
98.2 F 119 45 149/91 94
07/15/24 08:00 07/15/24 08:00 07/15/24 08:00 07/15/24 08:00 07/15/24 10:02
I&O
07/14/24 07/15/24 07/16/24
06:59 06:59 06:59
Intake Total 2640 / 2640 840 / 840 50 / 50
Output Total 2074 / 2074 500 / 500
Balance 2640 / 2640 -1235 / -1235 -450 / -450
Review of Systems
-
History Source: Patient
All other systems: Not reviewed unless documented
Physical Exam
-
General: Well Developed, Well Nourished, No Apparent Distress and Other (thin)
HEENT: Normocephalic, Atraumatic and Moist Mucous Membranes
Cardiac: Regular Rhythm and S1/S2; Negative Murmur or Rub
GI: Soft, Nontender and Nondistended
Musculoskeletal: No Clubbing, No Cyanosis and No Edema
Data Reviewed
-
Diagnostic Radiology: Report Reviewed by me
CT Scan: Report Reviewed by me
Labs: Labs Reviewed by me
--- NOTE | 2024-07-15 15:30 | PTCARENOTE ---
Dr. Vera aware of CT results and updated on elevated troponins. Resp therapy in and decreased High Flow to 50L/80% and sats currently 96%
--- NOTE | 2024-07-15 15:56 | CON.CAR ---
Consultation
Consultation Request
Date/Time Consultation Requested: 07/15/24
Date/Time Consultation Performed: 07/15/24
Requesting Provider: Dr Tomlin
Performing Provider: Dr Rowe
Reason for Consultation: abnormal troponin
Medical History
-
Chief Complaint: sob
History of Present Illness:
49y M with PMH significant for prior opioid use disorder who presented to ED 06/27/24 complaining of right-sided chest pain, cough, dyspnea, abdominal pain and N/V. He was noted to have FRANCA(Cr 8.5), pleural effusion found to be exudative with
eosinophils still of unknown etiology, meanwhile has been treated with IV solumedrol and hemeonc plans for chemo.
This am, he developed acuter sob, increase wob and agitation. He required HFNC and NRB. His ECG showed st with diffuse st depression at 133bpm. He was sent to ICU and workforce development vice president consulted. We are asked to comment on trop elevation. OF note he was
found to have Ifluenza B.
He is currently calm and lethargic in bed. He denies any cp and thinks his sob is improved.
Past Medical History
Past Medical History: Other (as above)
Past Surgical History: Other
Family History
Family History: Unable to Obtain
Allergies / Home Medications
Allergy/AdvReac Type Severity Reaction Status Date / Time
No Known Allergies Allergy Verified 06/27/24 19:10
�Medication �Instructions �Recorded �Confirmed �Type
buprenorphine 8 mg-naloxone 2 mg 1 film buccal TID opioid use 06/27/24 06/27/24 History
sublingual film disorder
naproxen sodium 220 mg tablet 440 mg PO BIDPRN PRN mild pain 06/27/24 06/27/24 History
(Aleve)
doxepin 50 mg PO HS sleep 06/28/24 06/28/24 History
hydroxyzine HCl 10 mg tablet 10 mg PO PRN PRN Reduction Of 07/14/24 07/14/24 History
Transepidermal Water Loss
Review of Systems
-
Unable to obtain full review of systems at this time due to: Other (lethargic)
Physical Exam
Vital Signs
Temp Pulse Resp BP Pulse Ox
98.8 F 89 29 133/63 97
07/15/24 13:00 07/15/24 15:30 07/15/24 15:30 07/15/24 15:00 07/15/24 15:30
Lab Results
07/15/24 08:34
07/15/24 08:34
Troponin I 1.170 ng/ml H* D 07/15/24 14:01
Nzo-S-Wiyubievzrm Pept 3680 pg/ml 07/15/24 04:34
Physical Exam
General: Other (appears cachectic)
HEENT: Normocephalic
Respiratory: Rhonchi (diffusely b/l) and Other (high flow in place)
Cardiac: S1/S2 and Regular Rhythm; Negative Murmur, Rub, Peripheral Edema or JVD
Neuro: Other (lathargic did move to the side so i could auscultated his lungs)
Impression / Plan
-
Abnormal trop
-suspect nonischemic myocardial injury vs TYPE II WI in the setting of Acute pulm process and hypoxia (flu positive) and FRANCA (Cr is 6.2), with treatment for MM with anemia. .
-would treat underlying cause
-no role for heparin/asa
-can update echo, normal this admission on 06/28/24
Acute hypoxic respiratory failure:
-acutely decompensated this am, now requiring 50% HF
-Flu B positive
-Pulm findings on CT seem less likely due to HF, suspect infection vs pulm hemorrhage in differential
-would defer to workforce development vice president
-would not recommend aggressive diuresis in light of infectious process and FRANCA
FRANCA: in the setting of MM with skeletal lesions as well
-nephrology following
MM:
-skeletal lesions
-await renal bx
-heme/onc and nephrology following
OVerall condition is gaurded, acute respiratory failure with FRANCA and MM is a threat to life.
CCT 41 minutes
-
TTE 06/2724 Normal LV size and function without regional wall motion abnormalities.
LVEF is 60-65% by visual estimation.
No LVH. Normal diastolic function.
Normal right ventricular size and function.
No significant valvular disease.
Insufficient TR for estimation of PASP.
No prior study available for comparison.
CT Chest 07/15/24 There is extensive consolidation with surrounding groundglass opacities involving the left upper and lower lobes and to a lesser extent involving the right upper, middle and lower lobes. Findings may represent severe multifocal
pneumonia, asymmetric pulmonary edema or possible pulmonary hemorrhage.
Data Reviewed
-
EKG: Tracing Personally Visualized and interpreted (Sinus tachycardia at 104 Improved from 1 at 1:30 AM which showed diffuse ST depressions with a rate of 133 and sinus tachycardia) and Discussed with Patient
CT Scan: Image Personally Visualized and interpreted (Diffuse patchy dense pulmonary infiltrates left greater than right) and Report Reviewed by me
Medical Tests (Nuc Med, Echo etc): Discussed with Physician (Dr Lopes, not role for heparin, ?pulmonary hemorrhage but he points out no hemoptysis. Doesn't appear volume overloaded to me)
Labs: Labs Reviewed by me (cr 6.1 co 20 trop 0.503 to 1.170 )
--- NOTE | 2024-07-15 16:11 | W.PN.UPDATE ---
Update Note
Progress Note Update
Update
Reviewed CT Chest obtained this PM, with new findings compared to CXR this AM, bilateral PNA L>R
Will add IV steroids
Flu B positive but could have superimposed bacterial findings
Lasix given with 2.5L output, could consider additional doses
Will repeat labs, lactate, procal
Consider ID re-eval, cards eval for trop elevation--discussed with care team
Chest PT placed/sport bed
Sputum culture negative earlier today
HIV negative on admission
Repeat CXR in AM
Reviewed with team
--- NOTE | 2024-07-15 16:45 | PTCARENOTE ---
Pts mother and aunt in to see him and updates given. Pt sleepy but arousable. Again- prefers not to be touched or disturbed but is cooperative just easily frustrated. Temp 100.9- Tylenol 650 mg po given. Respirs remain mostly in the 20's- shallow
but not labored at rest. Order given to try to prone pt- pt mostly lays on his side so pt positioned on his side with pillows. VS as documented. Tolerating High FLow 50/80% with sats of 97%. Dr. Rowe in to see pt and updated. ASA held per
order. Labs sent as ordered. Call frank in reach.
[2024-07-15] MEDS: TYLENOL 650 MG PO (16:49)
[2024-07-15 17:03] LABS: ALT (SGPT) 24 U/L (0-50); AST (SGOT) 29 U/L (17-59); Albumin 3.2 g/dl (3.5-5.0); Alkaline Phosphatase 60 U/L (38-126); Blood Urea Nitrogen 83 mg/dl (9-20); Calcium 8.8 mg/dl (8.4-10.2); Carbon Dioxide 17 mmol/L (22-30); Chloride 107 mmol/L (98-107); Estimated Creatinine Clearance 14 ml/min; Glucose 77 mg/dl (70-99); Sodium 135 mmol/L (135-145); Total Bilirubin 0.7 mg/dl (0.2-1.3); Total Protein 5.2 g/dl (6.3-8.2); eGFR 9.25
[2024-07-15 17:06] LABS: % Eosinophils 0.3 % (0-6); % Immature Granulocytes 6.5 % (0-0.5); % Lymphocytes 33.1 % (20.5-51.1); % Monocytes 11.4 % (1.7-9.3); % Neutrophils 48.7 % (42.2-75.2); Absolute Immature Granulocytes 0.2 10^3/uL (0-0.05); Absolute Monocytes 0.4 10^3/uL (0.1-0.6); Absolute Neutrophils 1.5 10^3/uL (1.4-6.5); Absolute Neutrophils -Man Diff 1.5 10^3/uL (1.4-6.5); Band Neutrophils 12 % (0-3); Hematocrit 22.2 % (39.0-52.0); Hemoglobin 7.6 g/dL (13.0-18.0); Lymphocytes 35 % (20-51); Mean Corp Hgb Conc. 34.2 g/dL (33.0-37.0); Mean Corpuscular Hgb 29.2 pg (27.0-31.0); Mean Corpuscular Volume 85.4 fL (80.0-94.0); Mean Platelet Volume 9.4 fL (7.4-10.4); Platelet Count 111 10^3/uL (130-400); Red Cell Dist. Width 15.5 % (11.5-14.5); Segmented Neutrophils 38 % (42-75); White Blood Cell Count 3.1 10^3/uL (4.8-10.8)
[2024-07-15 17:07] LABS: Metamyelocytes 5 % (-); Monocytes 9 % (2-9); Normal RBC Morphology No; Platelets Checked Yes
[2024-07-15 17:08] LABS: Hypochromasia 2+; Microcytosis 1+; Total Cells Counted 100
[2024-07-15] MEDS: DEXTROSE 50% SYRINGE 25 GRAMS IV (17:34)
[2024-07-15] MEDS: NOVOLIN R 10 UNITS IV (17:34)
[2024-07-15] MEDS: SOLU-MEDROL PF 60 MG IV ×2 (17:38→23:52)
[2024-07-15] MEDS: LOKELMA 10 GRAM PO (17:39)
--- NOTE | 2024-07-15 17:50 | PTCARENOTE ---
Dr. Drew updated on 1600 labs. Orders obtained and at 1735 25 gms Dextrose given, Regular Insulin 10 units given. and at 1740 Lokelma 10 gms given per MD order. Pt did swallow the Lokelma but needed much instruction to stay awake then got frustrated
that he was being bothered. Pt diaphoretic after earlier Tylenol. Temp down to 99.7. Pt currently placed on Sport bed, linens changed. Call frank in reach. Denies need to void currently
[2024-07-15 18:20] LABS: Procalcitonin 114.29 ng/ml (0.0-0.25)
[2024-07-15 19:26] LABS: Glucose - Point of Care 64 mg/dl (70-99)
[2024-07-15] MEDS: DEXTROSE 50% SYRINGE 12.5 GRAMS IV (19:31)
--- NOTE | 2024-07-15 19:35 | PTCARENOTE ---
Post hyperkalemia treatment glucose 64- Per hypoglycemia protocol 12.5 gms D50 given. Will recheck glucose in 15 min. Resp therapy in and High FLow decreased to 50L/60%. No other changes in assessment. Pt groggy but awakens with stimuli-
[2024-07-15 19:56] LABS: Glucose - Point of Care 104 mg/dl (70-99)
--- NOTE | 2024-07-15 20:00 | PTCARENOTE ---
Rec'd pt asleep, easily arousable, becomes agitated and restless w/ any stimulation, pt does not want any care done,procedures explained to pt, oriented, SR, bp stable, + pulses, skin warm/dry, Hi flow decr to 50 liters/ 60% o2, sat 99,lungs coarse,
decr in bases, tubular in bases, NPC, + WILKS, refuses to be proned but is ap lying, percussion done, + bowel sounds, no bm, abd soft, no n/v, sadaf h20 w/ meds, uses urinal
[2024-07-15] MEDS: SINEQUAN 10 MG PO (21:02)
[2024-07-15 21:43] LABS: Blood Urea Nitrogen 86 mg/dl (9-20); Calcium 8.6 mg/dl (8.4-10.2); Carbon Dioxide 17 mmol/L (22-30); Chloride 108 mmol/L (98-107); Estimated Creatinine Clearance 14 ml/min; Glucose 82 mg/dl (70-99); Potassium 5.3 mmol/L (3.5-5.1); Sodium 136 mmol/L (135-145); eGFR 9.41
[2024-07-15 21:56] LABS: Glucose - Point of Care 98 mg/dl (70-99)
--- NOTE | 2024-07-15 22:05 | PTCARENOTE ---
Addendum entered by Shira Hayward RN 07/15/24 22:43:
hi flow decr to 50%/ 50 liters by resp therapist
Original Note:
Dr Drew notified of bmp results, no new orders
[2024-07-15 23:52] LABS: Glucose - Point of Care 92 mg/dl (70-99)
[2024-07-16] VITALS (22 sets, daily range): BP systolic 104–140; BP diastolic 53–99; BMI 19.5
--- NOTE | 2024-07-16 | PTCARENOTE ---
sys reviewed, was unable to use urinal & saturated the bed, pt wanted to get oob to change his shorts, instructed pt that he was not able to get oob due to high o2 at this time,tring to real estate transaction coordinator the bed to change his shorts, informed pt that he
cannot stand on the bed, assisted w/ changing of shorts, says 'I want to go Home', informed pt that he was on high o2 and his labs were abnormal,wants to talk with a in the am about his plan of care, chg bath done, percussion done
[2024-07-16 02:11] LABS: Hematocrit 21.1 % (39.0-52.0); Hemoglobin 7.2 g/dL (13.0-18.0); Mean Corpuscular Hgb 29.5 pg (27.0-31.0); Mean Corpuscular Volume 84.4 fL (80.0-94.0); Mean Platelet Volume 10.2 fL (7.4-10.4); Platelet Count 108 10^3/uL (130-400); Red Blood Cell Count 2.44 10^6/uL (4.70-6.10); Red Cell Dist. Width 15.4 % (11.5-14.5); White Blood Cell Count 6.6 10^3/uL (4.8-10.8)
--- NOTE | 2024-07-16 02:12 | PTCARENOTE ---
decr to 30 liters/ 40% o2 by resp therapist
[2024-07-16 02:30] LABS: ALT (SGPT) 23 U/L (0-50); AST (SGOT) 29 U/L (17-59); Albumin 2.9 g/dl (3.5-5.0); Alkaline Phosphatase 52 U/L (38-126); Blood Urea Nitrogen 87 mg/dl (9-20); Calcium 8.7 mg/dl (8.4-10.2); Carbon Dioxide 19 mmol/L (22-30); Chloride 109 mmol/L (98-107); Estimated Creatinine Clearance 14 ml/min; Glucose 99 mg/dl (70-99); Magnesium 2.1 mg/dl (1.6-2.3); Potassium 5.8 mmol/L (3.5-5.1); Sodium 138 mmol/L (135-145); Total Bilirubin 0.8 mg/dl (0.2-1.3); Total Protein 4.8 g/dl (6.3-8.2); Uric Acid 9.3 mg/dl (3.5-8.5); eGFR 9.41
[2024-07-16 02:38] LABS: Troponin I 0.685 ng/ml
[2024-07-16 02:39] LABS: LDH 656 U/L (120-246)
[2024-07-16] MEDS: ZOSYN 50 IV ×4 (03:04→22:05)
[2024-07-16 03:15] LABS: Glucose - Point of Care 109 mg/dl (70-99)
[2024-07-16] MEDS: DEXTROSE 50% SYRINGE 25 GRAMS IV (03:15)
[2024-07-16] MEDS: SODIUM BICARBONATE 50 MEQ IV (03:16)
[2024-07-16] MEDS: NOVOLIN R 5 UNITS IV (03:18)
--- NOTE | 2024-07-16 03:20 | PTCARENOTE ---
sys reviewed, K-6.8, 5 units reg insulin IV, 1 amp d50 IV & 1 ap sod bicarb iv given as ordered, percussion done
[2024-07-16 04:22] LABS: Glucose - Point of Care 144 mg/dl (70-99)
[2024-07-16 05:19] LABS: Glucose - Point of Care 115 mg/dl (70-99)
[2024-07-16] MEDS: LOKELMA 10 GRAM PO ×3 (05:52→18:15)
[2024-07-16] MEDS: SOLU-MEDROL PF 60 MG IV ×4 (05:54→23:06)
[2024-07-16 07:23] LABS: Glucose - Point of Care 122 mg/dl (70-99)
--- NOTE | 2024-07-16 07:49 | W.PN.INTV ---
Today's Communication / Plan
Recommendations
Tamiflu
Broad-spectrum antibiotics
Droplet precautions
Systemic steroids
Start seroquel given his agitation/panic attacks with anxiety (careful while using hydroxyzine as Seroquel can enhance INSPECTOR REPAIRER depressant effect)
Follow-up official pathology reports of renal + bone marrow biopsies
In my opinion, no need for VQ scan as his CT chest is clearly enough to explain his hypoxia, plus echo today showed normal RV size and function with only 40 mmHg estimated PASP (doubt he has a PE)
If oxygen requirements continue to improve then I will consider downgrading to either telemetry vs IMU. Pulmonary service will continue to follow along.
Assessment
-
Patient is a 49y M with PMH significant for prior opioid use disorder who presented to ED complaining of right-sided chest pain, cough, dyspnea, abdominal pain and N/V. Patient reportedly developed symptoms about a month ago. He was seen in
[place] emergency room and was noted to have pleural effusion. At , chest x-ray showed right-sided pleural effusion along with acute kidney injury. Received 3 days of 1 g IV Solu-Medrol in view of proteinuria, hematuria and concern for immune
mediated renal injury. Patient had an IR guided right-sided thoracentesis performed and the fluid is noted to be exudative. Pulmonary signed off 07/09/24.
Overnight 07/15 developed increased SOB/WOB, anxiety/agitation, placed on NRB then to NC. He received lasix 40mg IV and Atarax and transferred to ICU due to hypoxemia. Biochemistry Teacher consulted for eval 07/15.
Acute hypoxic respiratory failure due to influenza B pneumonia
Acute heart failure exacerbation, preserved EF
FRANCA
Right sided pleural effusion, s/p thora with exudative pleural effusion
UA cx Staph haemolyticus
Panic attacks, anxiety-not well controlled
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
Hypercalcemia, hyperuricemia
Bone lesions on skel survey
Hypogammaglobulinemia
Opioid Use Disorder--Last use 3 years ago per patient. Maintained on Suboxone.
Plan
Patient was transferred to the ICU on 07/15/2024 due to acute respiratory distress with a severe panic attack
On 07/15, when his oxygen was titrated down, sats are maintained--had another panic attack while in ICU with sats diminishing with tachypnea
His hypoxia is already improved; he has been refusing multiple aspects of his care including encounters with the respiratory therapist + nurse
He did not like the high flow nasal cannula this morning, and is now on mid flow nasal cannula, now down to 12 L/min
He is not in respiratory distress
Remains on high dose steroids with Solumedrol 60mg IV q6hr; previously on Decadron 40 mg daily from 07/10 - 07/13/2024 due to hypercalcemia
Currently on Atarax 10mg PO q8hr for agitation
Believe he needs additional agents given continued agitation/aggression--> will consider starting Seroquel 50 mg BID and increase as tolerated
Psych consulted but he refused to speak with them (on 07/15)
- He notes that he has seen psych in past but not recently, and was initially agreeable to consult
Pain control
Hemodynamically stable, not on pressors
Tachycardic but this is likely related to anxiety
Has Lopressor as needed to give
Prior echo won 06/28/2024 as obtained and normal function noted --> echo repeated today and showed PASP 40mmHg, otherwise no other changes compared to prior echo
On 07/15 in the early AM hours, there was more concern for volume overload prior to CT chest being obtained. He was given 40 mg IV Lasix at that time
CT chest on 07/15/2024 showed extensive consolidation with surrounding groundglass opacities due to multifocal pneumonia, less likely asymmetric pulmonary edema; pulmonary hemorrhage also on differential as he was having bloody phlegm
Hb is 7.2 this AM ---> if patient agreeable, would consider giving him a unit of PRBC
Continue trending H/H for now, keeping Hb>7, plt>50k
Continue to monitor on telemetry
Had previous R-sided effusion that was tapped on 06/28/2024 removing 1050cc of bloody fluid; CT chest on 07/15/2024 shows small bilateral pleural effusions
It is possible that this pleural effusion is myeloma related, which happens in more advanced cases (pleural fluid cytopathology was negative on 06/28/2024, though this could be falsely negative)
Prior CT chest on 07/06/2024 was reviewed, no parenchymal abnormalities --> large change now on most recent CT Chest on 07/15 with multifocal pneumonia with extensive GGO/consolidation
Pleural fluid exudative with some eosinophils noted. Connective tissue disease work up negative so far.
No growth on cultures, cytology negative for malignancy.
MYRNA, Anti GBM Ab negative, ANCA negative and RA factor negative.
No reported h/o trauma or chest procedures prior to thoracentesis.
Follow-up chest x-ray 07/02 showed small effusion which is unchanged on CXR 07/04. Continues to be asymptomatic. Skeletal survey images reviewed from 07/08, no effusion noted.
Exudative pleural effusion with eosinophils, primary differential diagnosis include infection, malignancy and drug-induced effusions. Asbestos exposure and Paragonimiasis are other rare etiologies.
Continue low sodium duet
Aspiration precautions
PPI not indicated
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
Renal following - recs appreciated
Bone marrow biopsy peripheral flow showed a clonal plasma cell population 15.1% with FLC kappa 8281.11, ratio 1302
He is s/p Cytoxan + Velcade on 07/13/2024
Heme/onc continuing to follow along - recs appreciated
Continue trending sCr and UOP
May need HD if FRANCA continues to worsen --> trend [K] and treat with temporizing agents if needed
For his Flu B, continue Tamiflu
Continue with broad-spectrum biotics given that there could be a bacterial superinfection; no need for vancomycin as MRSA swab was negative on 07/15
ID on board --> recs appreciated
Although his urine culture was weakly positive on 07/05/2024, he is asymptomatic
Maintain BG >100 and <180
Given his agitation, not safe to add accuchecks at this time; plus his BG have been at goal without insulin
Check a1c tomorrow
If oxygen requirements continue to improve then we will consider downgrading patient to either telemetry versus IMU. Pulmonary service will continue to follow along.
Data:
CXR 07/15/24- Predominantly new marked bilateral parenchymal opacification, left greater than right comparison to study earlier in same day. Most likely differential diagnostic possibilities would be pneumonia or less likely atypical acute pulmonary
edema.
Pleural fluid cytology: Negative for malignancy. few mesothelial cells, mixed inflammation with eosinophils noted
Blood, pleural fluid cultures negative. Influenza screen negative
MYRNA, ANCA, GBM Ab, negative. Compliment level normal.
Pleural fluid LDH 981, Protein 4.7, WBC 2385 with 76% Mononuclear cells. pH 7.36.
VBG 7.36, 34
CT Chest 07/06/24- 1. Small right pleural effusion with adjacent airspace consolidation within the posterior right lower lobe, presumably atelectasis. Pneumonia is also a consideration.
2. Poor delineation of the subcutaneous and mediastinal fat suggestive of anasarca/low protein state.
CT Chest/Abdomen/Pelvis 06/27/24: 1. Moderate right pleural effusion with associated compressive atelectasis. No other significant abnormality identified in the chest, abdomen or pelvis, within the limits of unenhanced CT, as described above.
ECHO 06/2024: Normal LV size and function without regional wall motion abnormalities. LVEF is 60-65% by visual estimation. No LVH. Normal diastolic function. Normal right ventricular size and function. No significant valvular disease. Insufficient
TR for estimation of PASP. No prior study available for comparison.
Total time spent today was 79 minutes for this encounter. Time includes reviewing laboratory test/imaging results, reviewing pertinent medical records, obtaining and reviewing medical history, performing an appropriate exam, ordering medications,
tests and procedures. Time also includes documentation of this encounter, coordinating patient care and communicating with other healthcare professionals. Total time does not include separately billed tests performed on this date of service.
Subjective Dataa
Subjective Data
Date of Service:
Date of Service: July 16, 2024
Chief Complaint: Biochemistry Teacher Follow Up
Subjective:
Pt seen and evaluated this AM. Rude this AM to the respiratory therapist saying 'get the fuck out of my face.' He says he feels better this AM. Saturating 100% on 15L/min. Hb 7.2 this AM but not bleeding. Remains on high dose solumedrol. Fever
yesterday afternoon to 100.9 �F. Currently denies chest pain, ROCHA, fevers or chills. He said he had bloody phlegm yesterday. This has mostly resolved.
Review of Systems
General: Other (Negative unless mentioned above)
Objective Data
Data Reviewed
Vital Signs / I&O / Oxygen:
Vital Signs
Temp Pulse Resp BP Pulse Ox
97.7 F 72 19 134/95 94
07/16/24 04:00 07/16/24 06:00 07/16/24 06:00 07/16/24 06:00 07/16/24 06:00
Intake and Output
07/15/24 07/16/24 07/17/24
06:59 06:59 06:59
Intake Total 840 / 840 500 / 500
Output Total 2074 / 2074 2250 / 2250
Balance -1235 / -1235 -1750 / -1750
SaO2 94
Nasal Cannula flow liters per 30
minute
Physical Exam
General: Respiratory Distress (negative), Comfortable, Chills (negative), Sweats (negative) and Other (anxious/agitated at times)
HEENT: Normocephalic, Anicteric and Moist Mucous Membranes
Cardiovascular: S1-S2, Rub (negative) and Peripheral Edema (negative)
Respiratory: Wheeze (negative), Crackles (Posterior left hemithorax mainly), Rhonchi (negative), Non-Labored Respirations (but tachypneic, rapid/shallow) and Stridor (negative)
GI: Soft, Non Distended, Non Tender and Normal Bowel Sounds
Neurology: AO x 3 and Tremors (negative)
Skin: Warm, Dry, Good Color and Cyanosis (negative)
Labs/Micro/Reports
Lab Data
07/16/24 01:59
Laboratory Results
07/15/24 07/15/24
08: 11:21
PT 14.8 H
INR 1.13
APTT 31.7
pH 7.39
pCO2 29 L
pO2 124 H
HCO3 17.6 L
O2 Delivery Level Not Reportable
Microbiology
07/15/24 10:04 Nose Nasal Screen MRSA (PCR) - Final
MRSA not detected - performed by PCR methodology.
07/15/24 02:26 Sputum Respiratory Culture - Final
07/15/24 02:26 Sputum Gram Stain - Final
07/15/24 10:04 Nasal Swab Influenza Types A & B (ALEK) - Final
Influenza B Positive, NAAT
--- NOTE | 2024-07-16 08:01 | W.PN.CD ---
Today's Communication / Plan
-
Limited Echo
Pending results we will sign off please call with questions/concerns.
Impression / Plan
-
Abnormal trop
-suspect nonischemic myocardial injury vs TYPE II [place] in the setting of Acute pulm process and hypoxia (flu positive) and FRANCA (Cr is 6.2), with treatment for MM with anemia. .
-would treat underlying cause
-no role for heparin/asa
-Limited echo for EF and wall motion , normal this admission on 06/28/24
Acute hypoxic respiratory failure:
-acutely decompensated this am, now requiring 50% HF
-Flu B positive
-Pulm findings on CT seem less likely due to HF, suspect infection vs pulm hemorrhage in differential
-would defer to foam rubber molder
-would not recommend aggressive diuresis in light of infectious process and FRANCA
FRANCA: in the setting of MM with skeletal lesions as well
-nephrology following
MM:
-skeletal lesions
-await renal bx
-heme/onc and nephrology following
Subjective: Frustrated about being here, otherwise no new CV complaints
OVerall condition is gaurded, acute respiratory failure with FRANCA and MM is a threat to life.
-
TTE 06/2724 Normal LV size and function without regional wall motion abnormalities.
LVEF is 60-65% by visual estimation.
No LVH. Normal diastolic function.
Normal right ventricular size and function.
No significant valvular disease.
Insufficient TR for estimation of PASP.
No prior study available for comparison.
CT Chest 07/15/24 There is extensive consolidation with surrounding groundglass opacities involving the left upper and lower lobes and to a lesser extent involving the right upper, middle and lower lobes. Findings may represent severe multifocal
pneumonia, asymmetric pulmonary edema or possible pulmonary hemorrhage.
Physical Exam
Vital Signs/Labs
Vital Signs
Temp Pulse Resp BP Pulse Ox
97.8 F 72 19 134/95 99
07/16/24 07:47 07/16/24 06:00 07/16/24 06:00 07/16/24 06:00 07/16/24 07:56
07/15/24 07/16/24 07/17/24
06:59 06:59 06:59
Actual Weight 162 lb 11.218 oz 156 lb 1.396 oz
07/16/24 01:59
PT 14.8 Sec (11.4-14.6) H 07/15/24 11:21
INR 1.13 07/15/24 11:21
APTT 31.7 Sec (23.4-35.0) 07/15/24 11:21
Magnesium 2.1 mg/dl (1.6-2.3) 07/16/24 01:59
07/03/24 07/15/24
08:32 04:34
Xsw-Y-Pfqvlwuoczy Pept 968 3680
LAB Results
07/15/24 07/15/24 07/15/24
06:41 08:34 14:01
Troponin I Cancelled 0.503 H* 1.170 H* D
07/15/24 07/15/24 07/15/24
15:30 21:01 21:30
Troponin I Cancelled 1.170 H* Cancelled
07/16/24
01:59
Troponin I 0.685 H* D
Physical Exam
Constitutional: No acute distress
EENT: Anicteric
Cardiovascular: Rhythm & rate is regular and Pedal edema is absent
Respiratory: Respiratory effort normal and Lungs clear to auscul.
GI: Soft
Neuro/Psych: Alert and Oriented
Data Reviewed
-
Date of Service: July 16, 2024
EKG: Tracing Personally Visualized and interpreted (sr)
Echo: Report Reviewed by me
Labs: Labs Reviewed by me
--- NOTE | 2024-07-16 08:18 | W.PN.HOSP.TC ---
Today's Communication/Plan
-
Monitor hemoglobin
Reconsult ID
Resume diet
Wean oxygen as able
Assessment / Plan
Assessment / Plan
Gen-AAOx3, NAD
HEENT-NC, AT, anicteric, clear oral mm
Neck-supple
CV-reg, no M, +S1/S2
Lungs-Rales bilaterally
Abd-soft, NT, ND
Ext-no edema
Musculoskeletal-no cyanosis, clubbing
Skin-warm and dry
Neuro-grossly non-focal
Psych-calm, cooperative
Acute hypoxic respiratory failure -suspect mostly due to pulmonary edema. Relatively rapid improvement in clinical status and radiographic findings on chest x-ray supports pulmonary edema rather than infection. I reviewed chest x-ray from this
morning myself, improvement in bilateral infiltrates noted. On current empiric IV Zosyn for possible pneumonia although clinically seems less likely. Reconsult ID. Continue Tamiflu for acute influenza B infection.
Last fever was July 15, 100.9 �F. WBC count 6.6 today.
Please stop checking procalcitonin as there is no value in checking in the setting of FRANCA.
Remains on 30 L high flow nasal cannula, transition to mid flow. Discussed with nursing. Patient states he feels better today compared to yesterday.
Elevated troponin
� Most likely nonischemic myocardial injury
� Echo on 06/28 with no obvious wall motion abnormality
FRANCA -suspect multifactorial etiology including NSAIDs, anorexia with decreased oral intake, multiple myeloma.
- reportedly 1.3 at [facility] 2 weeks ago.
New diagnosis multiple myeloma -oncology is following. Underwent bone marrow biopsy July 11. Pulsed dexamethasone from July 10 to . Given 1 dose of CyBorD July 13 and to continue weekly as per oncology. Acyclovir prophylaxis. Renal dose
allopurinol to prevent tumor lysis syndrome. Monitor uric acid and LDH, labs.
Pancytopenia -intermittent. WBC count recovered. Platelet count 108k today. Hemoglobin slowly trending down, monitor for now. Etiology of pancytopenia likely multifactorial including multiple myeloma and just received chemotherapy last week,
July 13.
Right Pleural Effusion - Hemorrhagic pleural effusion without plasma cells
Cough x 1 Month
-07/06 CT chest: Small right pleural effusion with adjacent airspace consolidation within the posterior right lower lobe, presumably atelectasis. Pneumonia is also a consideration.
- No noted infiltrate / pneumonia.
- IR eval for diagnostic / therapeutic thoracentesis 1050 bloody effusion, June 28. Fluid is exudative. No malignant cells noted.
Suspected acute on chronic anemia -presentation with hemoglobin of 10, down to 7.2 this morning. Patient consented for potential transfusion if hemoglobin continues to drop. No obvious bleeding clinically. Suspect etiology is due to multiple
myeloma and renal failure.
Hypercalcemia, resolved-probable to due MM
- Ca = 12.5-->9.2
- Suspect significant component of hypovolemia
- IVF, s/p Calcitonin
-iPTH low
Hyperkalemia -labs pending for today.
Opioid Use Disorder
- Stable. Last use 3 years ago per patient. Maintained on Suboxone.
- No history of IVDA.
- Unable to use NSAIDs for acute pain control due to FRANCA, etc.
- Cautious use of opioids for pain.
Full code
Reviewed in detail clinical course, treatment plan, and prognosis with patient. All questions answered satisfactorily.
Anticipated Discharge: > 48 hours
Subjective/Interval History
-
Date of Service: July 16, 2024
Patient seen and examined. Feeling better. No complaints.
Objective Data
-
Labs:
Laboratory Results
07/15/24 07/16/24 07/16/24
21:01 01:59 05:34
WBC 6.6
Hgb 7.2 L
Hct 21.1 L
Plt Count 108 L
Sodium 136 138
Potassium 5.3 H 5.8 H Cancelled
Chloride 108 H 109 H
Carbon Dioxide 17 L 19 L
BUN 86 H 87 H
Creatinine 6.7 H* 6.7 H*
Glucose 82 99
Calcium 8.6 8.7
Total Bilirubin 0.8
AST 29
ALT 23
Alkaline Phosphatase 52
07/16/24
08:00
WBC
Hgb
Hct
Plt Count
Sodium Pending
Potassium Pending
Chloride Pending
Carbon Dioxide Pending
BUN Pending
Creatinine Pending
Glucose Pending
Calcium Pending
Total Bilirubin
AST
ALT
Alkaline Phosphatase
Vital Signs:
Vital Signs
Temp Pulse Resp BP Pulse Ox
97.8 F 72 19 134/95 99
07/16/24 07:47 07/16/24 06:00 07/16/24 06:00 07/16/24 06:00 07/16/24 07:56
I&O
07/15/24 07/16/24 07/17/24
06:59 06:59 06:59
Intake Total 840 / 840 500 / 500
Output Total 2074 / 2074 2250 / 2250
Balance -1235 / -1235 -1750 / -1750
Review of Systems
-
History Source: Patient
All other systems: Reviewed and negative
[2024-07-16] MEDS: ATARAX 10 MG PO ×3 (08:31→23:05)
[2024-07-16] MEDS: TAMIFLU 30 MG PO (08:31)
[2024-07-16] MEDS: ZYLOPRIM 100 MG PO (08:31)
[2024-07-16] MEDS: ZOVIRAX 200 MG PO ×2 (08:31→20:21)
--- NOTE | 2024-07-16 08:37 | PTCARENOTE ---
Received pt awake and alert.Oriented x 3.Pt states 'You keep bothering me.I really don't trust the medical system'.Pt refusing SCD, Heparin administration and phlebotomy using hands only. Pt dressed himself in street attire,refusing further
assessment.Pt assisted oob to chair.Gait steady.Pt instructed to call when he needs to ambulate for fall prevention.Denies pain at this time.SR noted.O2 15 l mid flow O2.Decreased tubular breath sounds noted.+ WILKS.+ tachypnea.Occasional non
productive cough noted.POX 100%Appetite fair.No BM.Voided 900 ml urine via urinal.Plan of care discussed with pt.
[2024-07-16] MEDS: HEPARIN SC ×4 (08:42→23:09)
[2024-07-16] MEDS: LIDOCAINE 4% PATCH 1 PATCH TOPICAL (08:43)
[2024-07-16 09:19] LABS: Glucose - Point of Care 161 mg/dl (70-99)
--- NOTE | 2024-07-16 09:38 | W.PN.ONC2 ---
Documented by User: MIGUEL Gee 07/16/24 11:31
Today's Communication / Plan
-
.
Impression
Impression
Multiple myeloma with hypercalcemia, lytic lesion, and FRANCA at presentation
-BMBx peripheral flow reported by pathology shows a clonal plasma cell population 15.1%, FLC kappa 8281.11, ratio 1302
-kidney bx with light cast nephropathy, kappa-type, severe, with acute tubular injury and mild interstitial inflammation. Tubular atrophy and interstitial fibrosis
-s/p Pulse dexamethasone07/10-07/13
-s/p CyBorD Cytoxan 300mg/m2, Velcade 1.3 mg/m2 inpatient 07/13
-on dvt ppx
acute respiratory failure
-pleural effusion -negative for malignancy
-on IV abx
-Influenza B 07/14 -Tamiflu
-f/u VQ (renal function preclude CTA)
-on methylprednisone IV
-pulmonary following
panic attack -receiving lorazepam prn
Plan
Plan
f/u BMBx results 07/11
s/p Pulse dexamethasone 07/10-07/13
continue CyBorD Cytoxan 300mg/m2, Velcade 1.3 mg/m2 weekly, next dose due 07/20
acyclovir ppx, renal dose
on renal dose allopurinol
Monitor CMP, mag, phos, uric acid, LDH
antiemetics prn
He lives near [facility], so can pursue subsequent cycles with [facility] myeloma specialists.
Subjective/Objective
Subjective
improved respiratory symptoms and oxygen requirement
Vital Signs:
Vital Signs
Temp Pulse Resp BP Pulse Ox
97.8 F 74 28 127/74 100
07/16/24 07:47 07/16/24 09:00 07/16/24 09:00 07/16/24 09:00 07/16/24 08:00
Lab Results:
Laboratory Data
WBC 6.6 10^3/uL (4.8-10.8) 07/16/24 01:59
Hgb 7.2 g/dL (13.0-18.0) L 07/16/24 01:59
Plt Count 108 10^3/uL (130-400) L 07/16/24 01:59
PT 14.8 Sec (11.4-14.6) H 07/15/24 11:21
INR 1.13 07/15/24 11:21
APTT 31.7 Sec (23.4-35.0) 07/15/24 11:21
eGFR 9.41 07/16/24 01:59
Physical Exam
HEENT: Moist Mucous Membranes; No Jaundice
Cardiology: Normal Sinus Rhythm
Pulmonary: Other (decreased)
GI: Soft
Extremities: Pulses Present; No Edema
Orders
Orders
Orders From Last 24 Hours
07/16/24 01:59
LDH IN AM
Uric Acid IN AM
07/17/24 06:00
LDH IN AM
Uric Acid IN AM

Documented by User: Blanquita Guerra MD 07/16/24 19:25
Today's Communication / Plan
-
V-Q scan considered but not done as O2 requirement is improving.
Continue supportive care.
--- NOTE | 2024-07-16 09:49 | W.PN.ID1 ---
Date of Service
Date of Service: July 16, 2024
Today's Communication
resend sputum if productive
will continue zosyn at this time
repeat cxr tomorrow am
Assessment / Plan
Influenza B
Pneumonia
Multiple Myeloma - on inpatient chemotherapy CyBorD Cytoxan last dose 07/13
Immunosuppression
FRANCA - ongoing
Cachexia
H/o opioid use disorder in remission
- procalcitonin not useful in the setting of FRANCA/CKD; results are not meaningful
- Influenza B positive
- steroids per pulmonary
- resend sputum if productive, last sample contaminated
- MRSA screen negative
- droplet precautions; recommend reviewing with infection prevention if chemotherapy precautions are indicated
- previous leukocytosis has now resolved
- will continue zosyn at this time
- repeat CXR in the AM
Chief Complaint
-: Other (influneza B, pneumonia)
Subjective / Review of Systems
Yesterday AM patient developed acute shortness of breath, increased work of breathing and agitation initially requiring HFNC and NRB now on facemask at 15L per minute. Has been febrile to 100.9, not requiring pressors, wbc count now 6.6, hgb 7.2,
plt 108, no L shift yesterday, there was monocytosis and eosinophils were present. Na 138, Cr 6.7, LDH 656 improved from earlier this admission 877. Note IgE 14.
Patient now positive for influenza B, covid ag negative, resp culture contaminated and not tested, MRSA PCR negative, 07/15 CT chest w/o IV contrast: diffuse consolidations, multiofacl pneumonia, possible mucous plugging. 07/16 CXR:
'Improved/resolving bilateral opacification which could represent pulmonary edema or less likely pneumonia.' Patient is getting diuresis lasix with 2.5L of output yesterday. Currently on tamiflu and zosyn, lasix and methylprednisolone 60 mg IV
q6hrs. TTE limited planned not yet resulted. Bone marrow biopsy peripheral flow reported by pathology shows a clonal plasma cell population, kidney biopsy with light cast nephropathy. Was on pulse dexamethasone 07/10-07/13 and CyBorD Cytoxan
300mg/m2, Velcade 1.3 mg/m2 inpatient 07/13. Reports that cough was productive last night.
Vital Signs / Physical Exam
Vital Signs
Vital Signs
Temp Pulse Resp BP Pulse Ox
97.8 F 74 28 127/74 100
07/16/24 07:47 07/16/24 09:00 07/16/24 09:00 07/16/24 09:00 07/16/24 08:00
Physical Exam
Constitutional: No Acute Distress
Cardiovascular: Regular Rate and S1/S2; Negative Murmur or Rub
Pulmonary: Clear and Symmetric; Negative Wheezes or Rales
Gastrointestinal: Soft, Non Tender, Non Distended and Normal Bowel Sounds
Skin: Warm and Dry; Negative Rash or Jaundice
Objective Data
Lab Data
Lab Results
07/16/24 01:59
ESR 46 mm/hour (0-20) H 07/06/24 06:03
PT 14.8 Sec (11.4-14.6) H 07/15/24 11:21
INR 1.13 07/15/24 11:21
APTT 31.7 Sec (23.4-35.0) 07/15/24 11:21
Estimated Creat Clear 14 ml/min 07/16/24 01:59
Lactic Acid 1.0 mmol/L (0.7-2.0) 07/15/24 16:34
Total Bilirubin 0.8 mg/dl (0.2-1.3) 07/16/24 01:59
AST 29 U/L (17-59) 07/16/24 01:59
ALT 23 U/L (0-50) 07/16/24 01:59
Alkaline Phosphatase 52 U/L (38-126) 07/16/24 01:59
C-Reactive Protein 6.10 mg/L (0.0-10.00) 07/06/24 06:03
Most recent labs reviewed.
Micro Results:
07/15/24 10:04 Nasal Screen MRSA (PCR) - Final
Nose MRSA not detected - performed by PCR methodology.
07/15/24 02:26 Respiratory Culture - Final
Sputum Gram Stain - Final
07/15/24 10:04 Influenza Types A & B (ALEK) - Final
Nasal Swab Influenza B Positive, NAAT
07/05/24 10:40 Blood Culture - Final
Blood/Venous No Growth - Final Report
07/05/24 09:06 Blood Culture - Final
Blood/Venous No Growth - Final Report
07/05/24 19:09 Urine Culture - Final
Urine Staphylococcus haemolyticus
06/27/24 19:31 Blood Culture - Final
Blood/Venous No Growth - Final Report
06/27/24 19:21 Blood Culture - Final
Blood/Venous No Growth - Final Report
06/28/24 11:01 Body Fluid Culture - Final
Pleural Fluid No Growth After 72 Hours
Gram Stain - Final
06/27/24 21:41 Urine Culture - Final
Urine No Significant Growth
06/27/24 23:14 Influenza Types A & B (ALEK) - Final
Nasal Swab Negative for Influenza A & B, NAAT
Negative results must be combined with clinical observations
and patient history.
Nucleic Acid Amplification test (NAAT)performed on the
Retrophin platform.
--- NOTE | 2024-07-16 09:58 | W.PN.NEPH.PH ---
Today's Communication / Plan
-
No acute need for dialysis today. Pending potassium and level will treat medically if needed to temporize
Assessment/Plan
-
Impression.
Acute kidney injury. Creatinine 6.9 on admission. 1.3 two weeks ago
Pleural effusion status post thoracentesis 1 L.
Prior opiate use disorder on Suboxone.
Anemia.
Hypercalcemia.
humeral lytic lesions
CXR with new bilateral infiltrates
Plan.
follow BMP
follow phos
continue allopurinol
onc managing CyBorD
cap IVF
abx per primary team
Breathing has improved to status post respiratory distress.
Independently reviewed the chest x-ray improved bilateral interstitial edema
Mild improvement in potassium awaiting most recent blood work
No acute need for dialysis currently as I discussed with the patient we will continue to monitor closely repeat blood work this afternoon
critical care time 31 minutes
-
-
Date of Service: July 16, 2024
CC / HPI / ROS
-
Chief Complaint:
Shortness of breath
History of Present Illness:
tolerated chemo
K 4.8
FRANCA/Cr stable at 6.1
calcium normal
BP stable
uric acid down to 9.4
acidosis 20
critically ill in ICU
Review of Systems:.
no fever, non oliguric with out paula
no cp
no n/v
SOB/anxiety overnight, improved off high flow
no back pain
Labs
-
Labs:
WBC 6.6 10^3/uL (4.8-10.8) 07/16/24 01:59
RBC 2.44 10^6/uL (4.70-6.10) L 07/16/24 01:59
Hgb 7.2 g/dL (13.0-18.0) L 07/16/24 01:59
Hct 21.1 % (39.0-52.0) L 07/16/24 01:59
Plt Count 108 10^3/uL (130-400) L 07/16/24 01:59
eGFR 9.41 07/16/24 01:59
Phosphorus 4.8 mg/dl (2.5-4.5) H 07/14/24 08:46
Bss-O-Hvarjwzeurs Pept 3680 pg/ml 07/15/24 04:34
Albumin 2.9 g/dl (3.5-5.0) L 07/16/24 01:59
Physical Exam
-
Vital Signs:
Vital Signs
Temp Pulse Resp BP Pulse Ox
97.8 F 74 28 127/74 100
07/16/24 07:47 07/16/24 09:00 07/16/24 09:00 07/16/24 09:00 07/16/24 08:00
Cardiovascular:: Regular rate and rhythm
Respiratory:: Bilateral: Coarse and Bilateral: Rhonchi
Lung Excursion:: Normal
Abdomen:: Nontender and Soft
Bowel Sounds:: Normal
Extremity Edema:: None: Bilateral:
[2024-07-16 10:02] LABS: Troponin I 0.324 ng/ml
--- NOTE | 2024-07-16 10:49 | CM ---
Chart reviewed. Care ongoing at this time
Cont to wean O2 as able, monitor hgb
Per nephro, no acute need for dialysis today
Plan: CM will cont to follow for d/c planning
[2024-07-16 10:55] LABS: Blood Urea Nitrogen 91 mg/dl (9-20); Calcium 8.9 mg/dl (8.4-10.2); Carbon Dioxide 15 mmol/L (22-30); Chloride 106 mmol/L (98-107); Estimated Creatinine Clearance 13 ml/min; Glucose 131 mg/dl (70-99); Potassium 4.9 mmol/L (3.5-5.1); Sodium 140 mmol/L (135-145); eGFR 8.93
--- NOTE | 2024-07-16 12:00 | PTCARENOTE ---
Pt assessed.No change in assessment noted.
[2024-07-16] MEDS: SODIUM BICARBONATE 1150 MEQ IV (16:42)
--- NOTE | 2024-07-16 16:54 | PTCARENOTE ---
Pt assessed.No change in assessment noted.
[2024-07-16] MEDS: SINEQUAN 10 MG PO (22:05)
--- NOTE | 2024-07-16 22:14 | PTCARENOTE ---
Pt received start of shift, HR SR. AAOx4. Pt OOB in chair, ambulating in room by self. Pt intermittently taking 6L midflow NC on and off. POX 94-97% RA while NC off. Pt currently cooperative, but easily agitated. Refusing seroquel bc it has
'long-term effects'. Educated pt on medication, pt still refusing. Voiding in urinal and in bathroom.
[2024-07-17] VITALS (20 sets, daily range): BP systolic 93–141; BP diastolic 59–83
[2024-07-17] MEDS: SODIUM BICARBONATE 1150 MEQ IV (01:50)
[2024-07-17] MEDS: ZOSYN 50 IV ×4 (04:14→20:42)
--- NOTE | 2024-07-17 04:44 | PTCARENOTE ---
O2 weaned down to RA. POX 94-96%
[2024-07-17 04:52] LABS: Hematocrit 16.7 % (39.0-52.0); Hemoglobin 5.9 g/dL (13.0-18.0); Mean Corp Hgb Conc. 35.3 g/dL (33.0-37.0); Mean Corpuscular Hgb 29.6 pg (27.0-31.0); Mean Corpuscular Volume 83.9 fL (80.0-94.0); Mean Platelet Volume 9.9 fL (7.4-10.4); Platelet Count 104 10^3/uL (130-400); Red Blood Cell Count 1.99 10^6/uL (4.70-6.10); Red Cell Dist. Width 15.3 % (11.5-14.5); White Blood Cell Count 14.3 10^3/uL (4.8-10.8)
[2024-07-17 05:19] LABS: ALT (SGPT) 23 U/L (0-50); AST (SGOT) 21 U/L (17-59); Albumin 3.2 g/dl (3.5-5.0); Alkaline Phosphatase 63 U/L (38-126); Blood Urea Nitrogen 95 mg/dl (9-20); Carbon Dioxide 20 mmol/L (22-30); Chloride 101 mmol/L (98-107); Estimated Creatinine Clearance 14 ml/min; Glucose 166 mg/dl (70-99); Magnesium 2.1 mg/dl (1.6-2.3); Potassium 4.3 mmol/L (3.5-5.1); Sodium 136 mmol/L (135-145); Total Bilirubin 0.6 mg/dl (0.2-1.3); Total Protein 5.1 g/dl (6.3-8.2); Uric Acid 8.1 mg/dl (3.5-8.5); eGFR 9.76
[2024-07-17] MEDS: SOLU-MEDROL PF 60 MG IV (05:45)
[2024-07-17] MEDS: LOKELMA 10 GRAM PO ×2 (05:45→13:42)
--- NOTE | 2024-07-17 06:29 | W.PN.UPDATE ---
Update Note
Progress Note Update
~ 5 am�Critical value received: Hgb 5.9. Ordered 1 unit PRBC's to transfuse now. Consider ordering additional units as appropriate.
[2024-07-17 06:43] LABS: LDH 508 U/L (120-246)
[2024-07-17] MEDS: LIDOCAINE 4% PATCH 1 PATCH TOPICAL (07:40)
[2024-07-17] MEDS: ZOVIRAX 200 MG PO ×2 (07:41→20:42)
[2024-07-17] MEDS: ZYLOPRIM 100 MG PO (07:41)
[2024-07-17] MEDS: HEPARIN SC ×3 (07:42→23:15)
[2024-07-17] MEDS: TAMIFLU 30 MG PO (07:42)
[2024-07-17] MEDS: ATARAX 10 MG PO ×3 (07:42→23:15)
--- NOTE | 2024-07-17 08:26 | PTCARENOTE ---
Assumed care of pt at 0700. Sinus rhythm with frequent PVCs. 1 unit PRBC completed. Pt appears irritated about pump beeping and short with RN. Limited assessment performed due to pt attitude. Refusing seroquel and heparin SC. Refusing my placement
of lidocaine patch, stating he would apply it himself. No edema noted by observation. Pt OOB in chair, standing with ease, no WILKS noted but reported. IVF infusing as ordered. Meds given to patient but not visualized taking pills, stating he would
take with breakfast. Tray delivered with RN at bedside but pt did not take meds with RN present.
--- NOTE | 2024-07-17 08:29 | W.PN.PUL3 ---
Today's Communication / Plan
-
DC steroids given marked clinical improvement in his oxygen requirements, now on room air breathing comfortably
Trend UOP + serum creatinine as he may be heading towards HD
Nephrology on board
Would recommend at least 7 days of antibiotics - ID on board
Tamiflu for 10 days
Acyclovir prophylaxis, renally dosed
Transfuse PRBC today to reach Hb >7 (not bleeding clinically)
He should obtain a repeat CT chest in 4 to 6 weeks to follow-up his pneumonia to resolution
He lives near [facility], hence he should follow-up with a Train Crew Member in/near [place]
No additional recommendations at this time. Pulmonary service will now sign off. Please reconsult if there are any additional questions/concerns, or if patient's respiratory status deteriorates.
Assessment
-
Patient is a 49y M with PMH significant for prior opioid use disorder who presented to ED complaining of right-sided chest pain, cough, dyspnea, abdominal pain and N/V. Patient reportedly developed symptoms about a month ago. He was seen in
[place] emergency room and was noted to have pleural effusion. At , chest x-ray showed right-sided pleural effusion along with acute kidney injury. Received 3 days of 1 g IV Solu-Medrol in view of proteinuria, hematuria and concern for immune
mediated renal injury. Patient had an IR guided right-sided thoracentesis performed and the fluid is noted to be exudative. Pulmonary signed off 07/09/24.
Overnight 07/15 developed increased SOB/WOB, anxiety/agitation, placed on NRB then to HFNC. He received lasix 40mg IV and Atarax and transferred to ICU due to hypoxemia. Photolettering Machine Operator consulted for eval 07/15.
Acute hypoxic respiratory failure due to influenza B pneumonia
Acute heart failure exacerbation, preserved EF
FRANCA
Right sided pleural effusion, s/p thora on 06/28/2024 with exudative pleural effusion
UA with Cx growing Staph haemolyticus
Panic attacks, anxiety-not well controlled
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
Hypercalcemia, hyperuricemia
Bone lesions on skel survey
Hypogammaglobulinemia
Opioid Use Disorder--Last use 3 years ago per patient. Maintained on Suboxone.
Plan
Patient was transferred to the ICU on 07/15/2024 due to acute respiratory distress with a severe panic attack
On 07/15, when his oxygen was titrated down, sats were maintained--had another panic attack while in ICU with sats diminishing with tachypnea
His hypoxia is already improved; he has been refusing multiple aspects of his care including encounters with the respiratory therapist + nurse
He did not like the high flow nasal cannula yesterday morning, and was changed to midflow nasal cannula, down to 12 L/min on 07/16 --> he is now on room air and breathing comfortably
He is not in respiratory distress
Remains on high dose steroids with Solumedrol 60mg IV q6hr; previously on Decadron 40 mg daily from 07/10 - 07/13/2024 due to hypercalcemia --> can DC steroids now that he is clinically improved
Currently on Atarax 10mg PO q8hr for agitation
Believe he needs additional agents given continued agitation/aggression--> I tried to start seroquel 50 mg BID and increase as tolerated --> he has been refusing. Will DC now
Psych consulted but he refused to speak with them (on 07/15) --> he finally agreed to speak to them today
- He notes that he has seen psych in past but not recently, and was initially agreeable to consult
Pain control
Hemodynamically stable, not on pressors
Tachycardic but this is likely related to anxiety --> HR now normal as of 07/17
Has Lopressor as needed to give
Prior echo won 06/28/2024 as obtained and normal function noted --> echo repeated today and showed PASP 40mmHg, otherwise no other changes compared to prior echo
On 07/15 in the early AM hours, there was more concern for volume overload prior to CT chest being obtained. He was given 40 mg IV Lasix at that time
CT chest on 07/15/2024 showed extensive consolidation with surrounding groundglass opacities due to multifocal pneumonia, less likely asymmetric pulmonary edema; pulmonary hemorrhage also on differential as he was having bloody phlegm
Hb is 5.9 this AM ---> 1 unit PRBC given; will repeat CBC s/p transfusion and continue transfusing if needed to reach Hb >7
Continue trending H/H for now, keeping Hb>7, plt>50k
Continue to monitor on telemetry
Had previous R-sided effusion that was tapped on 06/28/2024 removing 1050cc of bloody fluid; CT chest on 07/15/2024 shows small bilateral pleural effusions
It is possible that this pleural effusion is myeloma related, which happens in more advanced cases (pleural fluid cytopathology was negative on 06/28/2024, though this could be falsely negative)
Prior CT chest on 07/06/2024 was reviewed, no parenchymal abnormalities --> large change now on most recent CT Chest on 07/15 with multifocal pneumonia with extensive GGO/consolidation
Pleural fluid exudative with some eosinophils noted. Connective tissue disease work up negative so far.
No growth on cultures, cytology negative for malignancy.
MYRNA, Anti GBM Ab negative, ANCA negative and RA factor negative.
No reported h/o trauma or chest procedures prior to thoracentesis.
Follow-up chest x-ray 07/02 showed small effusion which is unchanged on CXR 07/04. Continues to be asymptomatic. Skeletal survey images reviewed from 07/08, no effusion noted.
Exudative pleural effusion with eosinophils, primary differential diagnosis include infection, malignancy and drug-induced effusions. Asbestos exposure and Paragonimiasis are other rare etiologies.
Continue low sodium duet
Aspiration precautions
PPI not indicated
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
Renal following - recs appreciated
Bone marrow biopsy peripheral flow showed a clonal plasma cell population 15.1% with FLC kappa 8281.11, ratio 1302 --> follow up official path report
He is s/p Cytoxan + Velcade on 07/13/2024
Heme/onc continuing to follow along - recs appreciated
Continue trending sCr and UOP
May need HD if FRANCA continues to worsen --> trend [K] and treat with temporizing agents if needed
Follow up official path report of kidney Bx from 07/09/2024
For his Flu B, continue Tamiflu
Continue with broad-spectrum Abx given that there could be a bacterial superinfection; no need for vancomycin as MRSA swab was negative on 07/15; would give total of 7 days
Acyclovir for ppx purposes
ID on board --> recs appreciated
Although his urine culture was weakly positive on 07/05/2024, he is asymptomatic
Maintain BG >100 and <180
Given his agitation, not safe to add accuchecks at this time; plus his BG have been at goal without insulin
A1C 6.1 from today (07/17)
Patient is on room air, breathing comfortably. Steroids being stopped. Continue trending urine output and serum creatinine as he may be heading towards dialysis. No additional recommendations at this time. Pulmonary service will now sign off.
Thank you for allowing us to be involved in the care of this patient. Please reconsult if there are any additional questions/concerns, or if patient's respiratory status deteriorates.
Data:
CXR 07/15/24- Predominantly new marked bilateral parenchymal opacification, left greater than right comparison to study earlier in same day. Most likely differential diagnostic possibilities would be pneumonia or less likely atypical acute pulmonary
edema.
Pleural fluid cytology: Negative for malignancy. few mesothelial cells, mixed inflammation with eosinophils noted
Blood, pleural fluid cultures negative. Influenza screen negative
MYRNA, ANCA, GBM Ab, negative. Compliment level normal.
Pleural fluid LDH 981, Protein 4.7, WBC 2385 with 76% Mononuclear cells. pH 7.36.
VBG 7.36, 34
CT Chest 07/06/24- 1. Small right pleural effusion with adjacent airspace consolidation within the posterior right lower lobe, presumably atelectasis. Pneumonia is also a consideration.
2. Poor delineation of the subcutaneous and mediastinal fat suggestive of anasarca/low protein state.
CT Chest/Abdomen/Pelvis 06/27/24: 1. Moderate right pleural effusion with associated compressive atelectasis. No other significant abnormality identified in the chest, abdomen or pelvis, within the limits of unenhanced CT, as described above.
ECHO 06/2024: Normal LV size and function without regional wall motion abnormalities. LVEF is 60-65% by visual estimation. No LVH. Normal diastolic function. Normal right ventricular size and function. No significant valvular disease. Insufficient
TR for estimation of PASP. No prior study available for comparison.
Total time spent today was 39 minutes for this encounter. Time includes reviewing laboratory test/imaging results, reviewing pertinent medical records, obtaining and reviewing medical history, performing an appropriate exam, ordering medications,
tests and procedures. Time also includes documentation of this encounter, coordinating patient care and communicating with other healthcare professionals. Total time does not include separately billed tests performed on this date of service.
Subjective Data
-
Date of Service:
Date of Service: July 17, 2024
Chief Complaint: Pulmonary Follow Up
Subjective:
Patient was seen and evaluated today at bedside. Sitting in chair no acute distress. He is on room air, breathing comfortably and saturating 94%. Still refusing care at times. Hb 5.9 on morning labs today and 1 unit PRBCs being transfused. He
is no longer coughing up blood. Heart rate 76 and BP 126/78. He says he is breathing better today, no SOB reported and no chest pain, ROCHA, nausea, fevers or chills.
Review of Systems
General: Other (Negative unless mentioned above)
Objective Data
Data Reviewed
Vital Signs / I&O / Oxygen:
Vital Signs
Temp Pulse Resp BP Pulse Ox
97.9 F 85 22 126/78 94
07/17/24 07:40 07/17/24 08:00 07/17/24 08:00 07/17/24 08:00 07/17/24 08:00
Intake and Output
07/16/24 07/17/24 07/18/24
06:59 06:59 06:59
Intake Total 500 / 500 4130 / 4255 500 / 500
Output Total 2250 / 2250 2300 / 2300
Balance -1750 / -1750 1830 / 1955 500 / 500
SaO2 94
Nasal Cannula flow liters per 0
minute
Physical Exam
General: Respiratory Distress (negative), Comfortable, Chills (negative) and Sweats (negative)
HEENT: Normocephalic, Anicteric and Moist Mucous Membranes
Cardiovascular: S1-S2 and Peripheral Edema (negative)
Respiratory: Wheeze (negative), Crackles (Bibasilar (L >R)), Rhonchi (Left lower lobe to the left middle lobe) and Non-Labored Respirations
GI: Soft, Non Distended, Non Tender and Normal Bowel Sounds
Neurology: AO x 3 and Tremors (negative)
Skin: Warm, Dry and Cyanosis (negative)
Labs/Micro/Reports
Lab Data
07/17/24 04:30
07/17/24 04:30
Microbiology
07/15/24 10:04 Nose Nasal Screen MRSA (PCR) - Final
MRSA not detected - performed by PCR methodology.
07/15/24 02:26 Sputum Respiratory Culture - Final
07/15/24 02:26 Sputum Gram Stain - Final
07/15/24 10:04 Nasal Swab Influenza Types A & B (ALEK) - Final
Influenza B Positive, NAAT
[2024-07-17 08:34] LABS: Glycohemoglobin (HgbA1c) 6.1 % (4.0-5.6)
--- NOTE | 2024-07-17 08:44 | W.PN.HOSP.TC ---
Today's Communication/Plan
-
Transfuse
Transfer out of ICU
Assessment / Plan
Assessment / Plan
Gen-AAOx3, NAD
HEENT-NC, AT, anicteric, clear oral mm
Neck-supple
CV-reg, no M, +S1/S2
Lungs-Rales bilaterally
Abd-soft, NT, ND
Ext-no edema
Musculoskeletal-no cyanosis, clubbing
Skin-warm and dry
Neuro-grossly non-focal
Psych-calm, cooperative
Acute hypoxic respiratory failure -suspect mostly due to pulmonary edema. Relatively rapid improvement in clinical status and radiographic findings on chest x-ray supports pulmonary edema rather than infection. Repeat chest x-ray July 17 without
significant change compared to yesterday. Reviewed by myself.
On current empiric IV Zosyn for possible pneumonia per ID. Patient with minimal sputum production, but it is dark when he does cough up. Denies hemoptysis.
Continue Tamiflu for acute influenza B infection.
Last fever was July 15, 100.9 �F. Leukocytosis today noted.
Please stop checking procalcitonin as there is no value in checking in the setting of FRANCA.
Oxygenation significantly improved, now on room air. Stable for transfer out of ICU.
Elevated troponin
� Most likely nonischemic myocardial injury
� Echo on 06/28 with no obvious wall motion abnormality
FRANCA -suspect multifactorial etiology including NSAIDs, anorexia with decreased oral intake, multiple myeloma.
- reportedly 1.3 at [facility] 2 weeks ago.
New diagnosis multiple myeloma -oncology is following. Underwent bone marrow biopsy July 11. Pulsed dexamethasone from July 10 to . Given 1 dose of CyBorD July 13 and to continue weekly as per oncology. Acyclovir prophylaxis. Renal dose
allopurinol to prevent tumor lysis syndrome. Monitor uric acid and LDH, labs.
Pancytopenia -intermittent. WBC count recovered. Platelet count 104k today. Hemoglobin slowly trending down, monitor for now. Etiology of pancytopenia likely multifactorial including multiple myeloma and just received chemotherapy last week,
July 13.
Right Pleural Effusion - Hemorrhagic pleural effusion without plasma cells
Cough x 1 Month
-07/06 CT chest: Small right pleural effusion with adjacent airspace consolidation within the posterior right lower lobe, presumably atelectasis. Pneumonia is also a consideration.
- No noted infiltrate / pneumonia.
- IR eval for diagnostic / therapeutic thoracentesis 1050 bloody effusion, June 28. Fluid is exudative. No malignant cells noted.
Suspected acute on chronic anemia -presentation with hemoglobin of 10, down to 5.9 this morning. Transfused 1 unit of blood this morning. Suspect etiology is due to multiple myeloma and renal failure. Cannot rule out component of acute blood loss
related to hemorrhagic pleural effusion.
Hypercalcemia, resolved-probable to due MM
- Ca = 12.5-->9.2
- Suspect significant component of hypovolemia
- IVF, s/p Calcitonin
-iPTH low
Hyperphosphatemia -6.0. Phosphate binder per nephrology.
Hyperkalemia -resolved.
Opioid Use Disorder
- Stable. Last use 3 years ago per patient. Maintained on Suboxone.
- No history of IVDA.
- Unable to use NSAIDs for acute pain control due to FRANCA, etc.
- Cautious use of opioids for pain.
Full code
Anticipated Discharge: > 48 hours
Subjective/Interval History
-
Date of Service: July 17, 2024
Patient seen and examined. No complaints. Feeling better.
Objective Data
-
Labs:
Laboratory Results
07/17/24
04:30
WBC 14.3 H
Hgb 5.9 L*
Hct 16.7 L*
Plt Count 104 L
Sodium 136
Potassium 4.3
Chloride 101
Carbon Dioxide 20 L
BUN 95 H
Creatinine 6.5 H*
Glucose 166 H
Calcium 8.0 L
Total Bilirubin 0.6
AST 21
ALT 23
Alkaline Phosphatase 63
Vital Signs:
Vital Signs
Temp Pulse Resp BP Pulse Ox
97.9 F 85 22 126/78 94
07/17/24 07:40 07/17/24 08:00 07/17/24 08:00 07/17/24 08:00 07/17/24 08:00
I&O
07/16/24 07/17/24 07/18/24
06:59 06:59 06:59
Intake Total 500 / 500 4130 / 4255 500 / 500
Output Total 2250 / 2250 2300 / 2300
Balance -1750 / -1750 1830 / 1955 500 / 500
Review of Systems
-
History Source: Patient
All other systems: Reviewed and negative
--- NOTE | 2024-07-17 09:12 | W.PN.ID1 ---
Date of Service
Date of Service: July 17, 2024
Today's Communication
- c/w tamiflu - 10 day course
- will continue zosyn at this time day 3
- acyclovir prophylaxis ongoing
Assessment / Plan
Influenza B
Pneumonia
Multiple Myeloma - on inpatient chemotherapy CyBorD Cytoxan last dose 07/13
Immunosuppression
FRANCA - ongoing
Cachexia
H/o opioid use disorder in remission
- Influenza B positive
- steroids per pulmonary
- resend sputum if productive, last sample contaminated
- MRSA screen negative
- droplet precautions
- c/w tamiflu - 10 day course
- will continue zosyn at this time day 3
- acyclovir prophylaxis ongoing
Chief Complaint
-: Other (influneza B, pneumonia)
Subjective / Review of Systems
afebrile
BP stable
now off of O2
note nursing communication that its unclear if he is taking prescribed pills
has not been able to produce a sputum
Vital Signs / Physical Exam
Vital Signs
Vital Signs
Temp Pulse Resp BP Pulse Ox
97.9 F 85 22 126/78 94
07/17/24 07:40 07/17/24 08:00 07/17/24 08:00 07/17/24 08:00 07/17/24 08:00
Physical Exam
Constitutional: No Acute Distress
Cardiovascular: Regular Rate and S1/S2; Negative Murmur or Rub
Pulmonary: Clear and Symmetric; Negative Wheezes or Rales
Gastrointestinal: Soft, Non Tender, Non Distended and Normal Bowel Sounds
Skin: Warm and Dry; Negative Rash or Jaundice
Objective Data
Lab Data
Lab Results
07/17/24 04:30
07/17/24 04:30
ESR 46 mm/hour (0-20) H 04/04/25 06:03
PT 14.8 Sec (11.4-14.6) H 07/15/24 11:21
INR 1.13 07/15/24 11:21
APTT 31.7 Sec (23.4-35.0) 07/15/24 11:21
Estimated Creat Clear 14 ml/min 07/17/24 04:30
Lactic Acid 1.0 mmol/L (0.7-2.0) 07/15/24 16:34
Total Bilirubin 0.6 mg/dl (0.2-1.3) 07/17/24 04:30
AST 21 U/L (17-59) 07/17/24 04:30
ALT 23 U/L (0-50) 07/17/24 04:30
Alkaline Phosphatase 63 U/L (38-126) 07/17/24 04:30
C-Reactive Protein 6.10 mg/L (0.0-10.00) 07/06/24 06:03
Most recent labs reviewed.
Micro Results:
07/15/24 10:04 Nasal Screen MRSA (PCR) - Final
Nose MRSA not detected - performed by PCR methodology.
07/15/24 02:26 Respiratory Culture - Final
Sputum Gram Stain - Final
07/15/24 10:04 Influenza Types A & B (ALEK) - Final
Nasal Swab Influenza B Positive, NAAT
07/05/24 10:40 Blood Culture - Final
Blood/Venous No Growth - Final Report
07/05/24 09:06 Blood Culture - Final
Blood/Venous No Growth - Final Report
07/05/24 19:09 Urine Culture - Final
Urine Staphylococcus haemolyticus
06/27/24 19:31 Blood Culture - Final
Blood/Venous No Growth - Final Report
06/27/24 19:21 Blood Culture - Final
Blood/Venous No Growth - Final Report
06/28/24 11:01 Body Fluid Culture - Final
Pleural Fluid No Growth After 72 Hours
Gram Stain - Final
06/27/24 21:41 Urine Culture - Final
Urine No Significant Growth
06/27/24 23:14 Influenza Types A & B (ALEK) - Final
Nasal Swab Negative for Influenza A & B, NAAT
Negative results must be combined with clinical observations
and patient history.
Nucleic Acid Amplification test (NAAT)performed on the
[employer] platform.
--- NOTE | 2024-07-17 09:30 | W.PN.ONC ---
Today's Communication / Plan
-
await final BM bx path
s/p first weekly dose of CyBorD on 07/13; next dose due 07/20
Monitor CBC, CMP - for 1u prbcs today
wean or stop solumedrol if able
Impression
Impression
Multiple myeloma with hypercalcemia, lytic lesion, and FRANCA at presentation
-BMBx peripheral flow reported by pathology shows a clonal plasma cell population 15.1%, FLC kappa 8281.11, ratio 1302
-kidney bx with light cast nephropathy, kappa-type, severe, with acute tubular injury and mild interstitial inflammation. Tubular atrophy and interstitial fibrosis
-s/p Pulse dexamethasone 07/10-07/13
-s/p CyBorD Cytoxan 300mg/m2, Velcade 1.3 mg/m2 inpatient 07/13
-on dvt ppx
acute respiratory failure
-pleural effusion -negative for malignancy
-on IV abx
-Influenza B 07/14 -Tamiflu
-f/u VQ (renal function preclude CTA)
-on methylprednisone IV
-pulmonary following
panic attack -receiving lorazepam prn
Plan
Plan
f/u BMBx results 07/11
s/p Pulse dexamethasone 07/10-07/13
continue CyBorD Cytoxan 300mg/m2, Velcade 1.3 mg/m2 weekly, next dose due 07/20
acyclovir ppx, renal dose
on renal dose allopurinol
Monitor CMP, mag, phos, uric acid, LDH
antiemetics prn
Tamiflu
Wean or stop solumedrol if able, not needed for myeloma therapy
nephrology monitoring renal function closely
He lives near [facility], so can pursue subsequent cycles with [facility] myeloma specialists.
Subjective/Objective
Subjective/Objective
breathing comfortably, no complaints.
notes chronic insomnia
Vital Signs:
Vital Signs
Temp Pulse Resp BP Pulse Ox
97.9 F 85 22 126/78 94
07/17/24 07:40 07/17/24 08:00 07/17/24 08:00 07/17/24 08:00 07/17/24 08:00
Lab Results:
Laboratory Data
WBC 14.3 10^3/uL (4.8-10.8) H 07/17/24 04:30
Hgb 5.9 g/dL (13.0-18.0) L* 07/17/24 04:30
Plt Count 104 10^3/uL (130-400) L 07/17/24 04:30
PT 14.8 Sec (11.4-14.6) H 07/15/24 11:21
INR 1.13 07/15/24 11:21
APTT 31.7 Sec (23.4-35.0) 07/15/24 11:21
eGFR 9.76 07/17/24 04:30
--- NOTE | 2024-07-17 10:09 | W.PN.NEPH.PH ---
Today's Communication / Plan
-
Stop bicarbonate drip
Assessment/Plan
-
Impression.
Acute kidney injury. Creatinine 6.9 on admission. 1.3 two weeks ago
Pleural effusion status post thoracentesis 1 L.
Prior opiate use disorder on Suboxone.
Anemia.
Hypercalcemia.
humeral lytic lesions
CXR with new bilateral infiltrates
Plan.
follow BMP
follow phos
continue allopurinol
onc managing CyBorD
Time of
abx per primary team
Breathing improved on room air
Nonoliguric
No acute need for dialysis currently as I discussed with the patient we will continue to monitor closely repeat blood work this afternoon
Discontinue bicarbonate drip
Total Time Spent with Patient (in minutes): 31
-
-
Date of Service: July 17, 2024
CC / HPI / ROS
-
Chief Complaint:
Shortness of breath
History of Present Illness:
tolerated chemo
K 4.8
FRANCA/Cr stable at 6.1
calcium normal
BP stable
uric acid down to 9.4
acidosis 20
critically ill in ICU
Review of Systems:.
no fever, non oliguric with out paula
no cp
no n/v
SOB/anxiety overnight, improved off high flow
no back pain
Labs
-
Labs:
Sodium 136 mmol/L (135-145) 07/17/24 04:30
Potassium 4.3 mmol/L (3.5-5.1) 07/17/24 04:30
Chloride 101 mmol/L (98-107) 07/17/24 04:30
Carbon Dioxide 20 mmol/L (22-30) L 07/17/24 04:30
BUN 95 mg/dl (9-20) H 07/17/24 04:30
Creatinine 6.5 mg/dL (0.7-1.3) H* 07/17/24 04:30
eGFR 9.76 07/17/24 04:30
Glucose 166 mg/dl (70-99) H 07/17/24 04:30
Calcium 8.0 mg/dl (8.4-10.2) L 07/17/24 04:30
Phosphorus 6.0 mg/dl (2.5-4.5) H 07/17/24 04:30
Fzv-E-Coirounchii Pept 3680 pg/ml 07/15/24 04:34
Albumin 3.2 g/dl (3.5-5.0) L 07/17/24 04:30
Physical Exam
-
Vital Signs:
Vital Signs
Temp Pulse Resp BP Pulse Ox
97.9 F 80 17 126/78 94
07/17/24 07:40 07/17/24 09:00 07/17/24 09:00 07/17/24 08:00 07/17/24 09:00
Cardiovascular:: Regular rate and rhythm
Respiratory:: Bilateral: Coarse and Bilateral: Rhonchi
Lung Excursion:: Normal
Abdomen:: Nontender and Soft
Bowel Sounds:: Normal
Extremity Edema:: None: Bilateral:
[2024-07-17] MEDS: SOLU-MEDROL PF IV (11:24)
[2024-07-17 14:26] LABS: Hematocrit 19.1 % (39.0-52.0); Hemoglobin 6.8 g/dL (13.0-18.0); Mean Corp Hgb Conc. 35.6 g/dL (33.0-37.0); Mean Corpuscular Hgb 30.4 pg (27.0-31.0); Mean Corpuscular Volume 85.3 fL (80.0-94.0); Mean Platelet Volume 11.1 fL (7.4-10.4); Platelet Count 116 10^3/uL (130-400); Red Blood Cell Count 2.24 10^6/uL (4.70-6.10); Red Cell Dist. Width 15.2 % (11.5-14.5); White Blood Cell Count 16.2 10^3/uL (4.8-10.8)
--- NOTE | 2024-07-17 14:36 | PTOTSP ---
orders received, chart reviewed. pt reports being up OOB, walking in room without assistance. pt dressed, reports no deficits regarding self care. no acute OT needs identified at this time, will sign off.
--- NOTE | 2024-07-17 14:48 | W.PN.UPDATE ---
Update Note
Progress Note Update
Pt seen, sitting up in chair, partially cooperative, somewhat guarded and irritable. Pt alert, oriented, calm, became more cooperative, not agitated at present. Pt reports being on Doxepin 25 to 50 mg HS and Zoloft for anxiety. Pt c/o only
getting about 3 hours sleep here, has ongoing sleep issues. Pt refusing Seroquel 50 mg BID, states he does not want anything to make him dopey/sedated. Pt has mildly depressed affect, denies any SI, shows no signs of psychosis.
Imp: Unspecified anxiety, insomnia
Rec: will adjust Doxepin to 25 mg HS, stop Seroquel, and restart Zoloft at 25 mg for anxiety, requested by pt.
Will follow
--- NOTE | 2024-07-17 15:16 | PTCARENOTE ---
Pt continues to be disagreeable with staff. All monitoring removed and pt allowed to shower. Refusing blood transfusion until after shower.
--- NOTE | 2024-07-17 17:13 | PTCARENOTE ---
PRBC initiated. Pt c/o arm pain at IV site despite working IV. RN fired from case by patient. VSS. corporate law specialist at bedside to continue care.
--- NOTE | 2024-07-17 20:00 | PTCARENOTE ---
Received patient AAOx3, following commands, denying pain. Patient withdrawn. NS 80s, BP stable, normothermic. Removed from tele monitoring as patient is med surg level of care. 94% on room air, lung sounds diminished throughout with crackles in the
bases b/l. Voids in bathroom. PIVs patent, WNL. Call frank within reach.
[2024-07-17] MEDS: SINEQUAN 25 MG PO (20:42)
[2024-07-18 02:46] VITALS: BP 142/83
[2024-07-18] MEDS: ZOSYN 50 IV (02:50)
[2024-07-18 03:45] LABS: ALT (SGPT) 33 U/L (0-50); AST (SGOT) 30 U/L (17-59); Albumin 3.2 g/dl (3.5-5.0); Alkaline Phosphatase 63 U/L (38-126); Blood Urea Nitrogen 100 mg/dl (9-20); Calcium 8.3 mg/dl (8.4-10.2); Carbon Dioxide 22 mmol/L (22-30); Chloride 104 mmol/L (98-107); Estimated Creatinine Clearance 16 ml/min; Glucose 120 mg/dl (70-99); Phosphorus 5.9 mg/dl (2.5-4.5); Potassium 4.2 mmol/L (3.5-5.1); Sodium 139 mmol/L (135-145); Total Bilirubin 0.7 mg/dl (0.2-1.3); Total Protein 5.2 g/dl (6.3-8.2); eGFR 11.67
[2024-07-18 03:55] LABS: Hematocrit 22.3 % (39.0-52.0); Hemoglobin 7.8 g/dL (13.0-18.0); Mean Corpuscular Hgb 29.9 pg (27.0-31.0); Mean Corpuscular Volume 85.4 fL (80.0-94.0); Mean Platelet Volume 10.8 fL (7.4-10.4); Platelet Count 126 10^3/uL (130-400); Red Blood Cell Count 2.61 10^6/uL (4.70-6.10); Red Cell Dist. Width 15.1 % (11.5-14.5); White Blood Cell Count 18.3 10^3/uL (4.8-10.8)
[2024-07-18 04:32] LABS: % Basophils 0.4 % (0-2); % Immature Granulocytes 2.4 % (0-0.5); % Lymphocytes 4.7 % (20.5-51.1); % Monocytes 9.5 % (1.7-9.3); Absolute Basophils 0.1 10^3/uL (0-0.2); Absolute Immature Granulocytes 0.4 10^3/uL (0-0.05); Absolute Lymphocytes 0.9 10^3/uL (1.2-3.4); Absolute Monocytes 1.7 10^3/uL (0.1-0.6); Absolute Neutrophils 15.2 10^3/uL (1.4-6.5); Nucleated Red Blood Cells % 0.3 % (-)
[2024-07-18 05:26] VITALS: BMI 20.7
--- NOTE | 2024-07-18 08:00 | PTCARENOTE ---
Assumed care of patient. patient is AAOx3. flat affect but agreeable. 95 percent spot check oxygen saturation. Not on tele monitor, medsurg status. patient is fully dressed, limited skin assessment. Did apply lidocaine patch to right shoulder.
Changed biopsy bandaid on lower back. Will review orders.
[2024-07-18] MEDS: ZYLOPRIM 100 MG PO (08:17)
[2024-07-18] MEDS: ATARAX 10 MG PO ×2 (08:17→15:26)
[2024-07-18] MEDS: TAMIFLU 30 MG PO (08:17)
[2024-07-18] MEDS: ZOVIRAX 200 MG PO ×2 (08:17→22:26)
[2024-07-18] MEDS: ZOLOFT 25 MG PO (08:17)
[2024-07-18] MEDS: HEPARIN SC ×2 (08:18→14:49)
[2024-07-18] MEDS: LIDOCAINE 4% PATCH 1 PATCH TOPICAL (08:18)
--- NOTE | 2024-07-18 08:26 | W.PN.ONC2 ---
Today's Communication / Plan
-
Cr improving. s/p CyBorD C1 07/13; for C2 07/20
Impression
Impression
Multiple myeloma with hypercalcemia, lytic lesion, and FRANCA at presentation
-BMBx peripheral flow reported by pathology shows a clonal plasma cell population 15.1%, FLC kappa 8281.11, ratio 1302
-kidney bx with light cast nephropathy, kappa-type, severe, with acute tubular injury and mild interstitial inflammation. Tubular atrophy and interstitial fibrosis
-s/p Pulse dexamethasone 07/10-07/13
-s/p CyBorD Cytoxan 300mg/m2, Velcade 1.3 mg/m2 inpatient 07/13
-on dvt ppx
acute respiratory failure
-pleural effusion -negative for malignancy
-on IV abx
-Influenza B 07/14 -Tamiflu
-f/u VQ (renal function preclude CTA)
-on methylprednisone IV
-pulmonary following
panic attack -receiving lorazepam prn
Plan
Plan
f/u BMBx results 07/11
s/p Pulse dexamethasone 07/10-07/13
continue CyBorD Cytoxan 300mg/m2, Velcade 1.3 mg/m2 weekly, next dose due 07/20
acyclovir ppx, renal dose
on renal dose allopurinol
Monitor CMP, mag, phos, uric acid, LDH
antiemetics prn
Tamiflu
Wean or stop solumedrol if able, not needed for myeloma therapy
nephrology monitoring renal function closely. Cr improving past 2 days.
He lives near [facility], so can pursue subsequent cycles with [facility] myeloma specialists.
Subjective/Objective
Chief Complaint
ACS Heme Onc
Subjective
No complaints.
Vital Signs:
Vital Signs
Temp Pulse Resp BP Pulse Ox
97.9 F 92 14 142/83 95
07/18/24 03:04 07/17/24 20:35 07/17/24 20:35 07/18/24 02:46 07/18/24 03:03
Lab Results:
Laboratory Data
WBC 18.3 10^3/uL (4.8-10.8) H 07/18/24 02:50
Hgb 7.8 g/dL (13.0-18.0) L 07/18/24 02:50
Plt Count 126 10^3/uL (130-400) L 07/18/24 02:50
PT 14.8 Sec (11.4-14.6) H 07/15/24 11:21
INR 1.13 07/15/24 11:21
APTT 31.7 Sec (23.4-35.0) 07/15/24 11:21
eGFR 11.67 07/18/24 02:50
[2024-07-18 08:27] VITALS: BP 122/71
[2024-07-18] MEDS: TYLENOL 650 MG PO (08:42)
--- NOTE | 2024-07-18 09:13 | PTCARENOTE ---
patient stable for discharge from oncology perspective. awaiting hospitalist and coordination of care.
--- NOTE | 2024-07-18 09:50 | W.PN.ID1 ---
Date of Service
Date of Service: July 18, 2024
Today's Communication
- c/w tamiflu - 10 day course - 07/15-07/25
- start levofloxacin stop zosyn 7 day total course 07/15-07/21, levofloxacin 750 mg PO today, then levofloxacin 500 mg PO in 48 hours (IE 07/20) which will complete the course
- recommend follow up with a primary care provider early next week with reassessment of renal function, and if needed dose adjustments of tamiflu
Assessment / Plan
Influenza B
Pneumonia
Multiple Myeloma - on inpatient chemotherapy CyBorD Cytoxan last dose 07/13
Immunosuppression
FRANCA - ongoing
Cachexia
H/o opioid use disorder in remission
- Influenza B positive
- steroids per pulmonary
- unable to obtain an effective sputum
- MRSA screen negative
- droplet precautions
- c/w tamiflu - 10 day course - 07/15-07/25
- start levofloxacin stop zosyn 7 day total course 07/15-07/21, levofloxacin 750 mg PO today, then levofloxacin 500 mg PO in 48 hours (IE 07/20) which will complete the course
- acyclovir prophylaxis ongoing
- recommend follow up with either oncology or primary care provider early next week with reassessment of renal function, and if needed dose adjustments of tamiflu
Chief Complaint
-: Other (influneza B, pneumonia)
Subjective / Review of Systems
afebrile
bp stable
on room air
tolerating current therapies
Vital Signs / Physical Exam
Vital Signs
Vital Signs
Temp Pulse Resp BP Pulse Ox
98.7 F 92 14 122/71 95
07/18/24 08:35 07/17/24 20:35 07/17/24 20:35 07/18/24 08:27 07/18/24 09:18
Physical Exam
Constitutional: No Acute Distress and Chronically Ill
Cardiovascular: Regular Rate and S1/S2; Negative Murmur or Rub
Pulmonary: Clear and Symmetric; Negative Wheezes or Rales
Gastrointestinal: Soft, Non Tender, Non Distended and Normal Bowel Sounds
Skin: Warm and Dry; Negative Rash or Jaundice
Objective Data
Lab Data
Lab Results
07/18/24 02:50
07/18/24 02:50
ESR 46 mm/hour (0-20) H 07/06/24 06:03
PT 14.8 Sec (11.4-14.6) H 07/15/24 11:21
INR 1.13 07/15/24 11:21
APTT 31.7 Sec (23.4-35.0) 07/15/24 11:21
Estimated Creat Clear 16 ml/min 07/18/24 02:50
Lactic Acid 1.0 mmol/L (0.7-2.0) 07/15/24 16:34
Total Bilirubin 0.7 mg/dl (0.2-1.3) 07/18/24 02:50
AST 30 U/L (17-59) 07/18/24 02:50
ALT 33 U/L (0-50) 07/18/24 02:50
Alkaline Phosphatase 63 U/L (38-126) 07/18/24 02:50
C-Reactive Protein 6.10 mg/L (0.0-10.00) 07/06/24 06:03
Most recent labs reviewed.
Micro Results:
07/17/24 15:09 Respiratory Culture - Pending
Sputum Gram Stain - Preliminary
07/15/24 10:04 Nasal Screen MRSA (PCR) - Final
Nose MRSA not detected - performed by PCR methodology.
07/15/24 02:26 Respiratory Culture - Final
Sputum Gram Stain - Final
07/15/24 10:04 Influenza Types A & B (ALEK) - Final
Nasal Swab Influenza B Positive, NAAT
07/05/24 10:40 Blood Culture - Final
Blood/Venous No Growth - Final Report
07/05/24 09:06 Blood Culture - Final
Blood/Venous No Growth - Final Report
07/05/24 19:09 Urine Culture - Final
Urine Staphylococcus haemolyticus
06/27/24 19:31 Blood Culture - Final
Blood/Venous No Growth - Final Report
06/27/24 19:21 Blood Culture - Final
Blood/Venous No Growth - Final Report
06/28/24 11:01 Body Fluid Culture - Final
Pleural Fluid No Growth After 72 Hours
Gram Stain - Final
06/27/24 21:41 Urine Culture - Final
Urine No Significant Growth
06/27/24 23:14 Influenza Types A & B (ALEK) - Final
Nasal Swab Negative for Influenza A & B, NAAT
Negative results must be combined with clinical observations
and patient history.
Nucleic Acid Amplification test (NAAT)performed on the
[employer] platform.
Care Review
Plan reviewed with: Physician (Dr Brown and Dr Kim - follow up)
--- NOTE | 2024-07-18 10:03 | W.PN.NEPH.PH ---
Today's Communication / Plan
-
Okay for discharge with renal follow-up [facility]
Assessment/Plan
-
Impression.
Acute kidney injury. Creatinine 6.9 on admission. 1.3 two weeks ago
Pleural effusion status post thoracentesis 1 L.
Prior opiate use disorder on Suboxone.
Anemia.
Hypercalcemia.
humeral lytic lesions
CXR with new bilateral infiltrates
Plan.
follow BMP
follow phos
continue allopurinol
onc managing CyBorD
Time of
abx per primary team
Breathing improved on room air
Nonoliguric
No acute need for dialysis currently as I discussed with the patient
Will need follow-up nephrology outpatient with [facility]
From renal standpoint okay for discharge
Total Time Spent with Patient (in minutes): 31
-
-
Date of Service: July 18, 2024
CC / HPI / ROS
-
Chief Complaint:
Shortness of breath
History of Present Illness:
tolerated chemo
K 4.8
FRANCA/Cr stable at 6.1�5C
calcium normal
BP stable
Review of Systems:.
no fever, non oliguric with out paula
no cp
no n/v
Labs
-
Labs:
WBC 18.3 10^3/uL (4.8-10.8) H 07/18/24 02:50
RBC 2.61 10^6/uL (4.70-6.10) L 07/18/24 02:50
Hgb 7.8 g/dL (13.0-18.0) L 07/18/24 02:50
Hct 22.3 % (39.0-52.0) L 07/18/24 02:50
Plt Count 126 10^3/uL (130-400) L 07/18/24 02:50
Sodium 139 mmol/L (135-145) 07/18/24 02:50
Potassium 4.2 mmol/L (3.5-5.1) 07/18/24 02:50
Chloride 104 mmol/L (98-107) 07/18/24 02:50
Carbon Dioxide 22 mmol/L (22-30) 07/18/24 02:50
BUN 100 mg/dl (9-20) H 07/18/24 02:50
Creatinine 5.6 mg/dL (0.7-1.3) H* 07/18/24 02:50
eGFR 11.67 07/18/24 02:50
Glucose 120 mg/dl (70-99) H 07/18/24 02:50
Calcium 8.3 mg/dl (8.4-10.2) L 07/18/24 02:50
Phosphorus 5.9 mg/dl (2.5-4.5) H 07/18/24 02:50
Oay-R-Ekwwetdapig Pept 3680 pg/ml 07/15/24 04:34
Albumin 3.2 g/dl (3.5-5.0) L 07/18/24 02:50
Physical Exam
-
Vital Signs:
Vital Signs
Temp Pulse Resp BP Pulse Ox
98.7 F 92 14 122/71 95
07/18/24 08:35 07/17/24 20:35 07/17/24 20:35 07/18/24 08:27 07/18/24 09:18
Respiratory:: Bilateral: Coarse
Lung Excursion:: Normal
Abdomen:: Soft
Bowel Sounds:: Normal
Extremity Edema:: None: Bilateral:
--- NOTE | 2024-07-18 10:20 | W.PN.HOSP.TC ---
Today's Communication/Plan
-
Discharge planning
Assessment / Plan
Assessment / Plan
Gen-AAOx3, NAD
HEENT-NC, AT, anicteric, clear oral mm
Neck-supple
CV-reg, no M, +S1/S2
Lungs-Rales bilaterally
Abd-soft, NT, ND
Ext-no edema
Musculoskeletal-no cyanosis, clubbing
Skin-warm and dry
Neuro-grossly non-focal
Psych-calm, cooperative
Acute hypoxic respiratory failure -suspect mostly due to pulmonary edema. Relatively rapid improvement in clinical status and radiographic findings on chest x-ray supports pulmonary edema rather than infection. Repeat chest x-ray July 17 without
significant change compared to yesterday. Reviewed by myself.
On current empiric IV Zosyn for possible pneumonia per ID. Patient with minimal sputum production, but it is dark when he does cough up. Denies hemoptysis.
Continue Tamiflu for acute influenza B infection. ID recommends 10 days total.
Last fever was July 15, 100.9 �F. Leukocytosis suspected due to steroids, discontinued.
Please stop checking procalcitonin as there is no value in checking in the setting of FRANCA.
Oxygenation significantly improved, now on room air. Stable for transfer out of ICU.
Elevated troponin
� Most likely nonischemic myocardial injury
� Echo on 06/28 with no obvious wall motion abnormality
FRANCA -suspect multifactorial etiology including NSAIDs, anorexia with decreased oral intake, multiple myeloma. Creatinine trending down, 5.6 today. Will require outpatient nephrology follow-up.
- reportedly 1.3 at [facility] 2 weeks ago.
New diagnosis multiple myeloma -oncology is following. Underwent bone marrow biopsy July 11. Pulsed dexamethasone from July 10 to . Given 1 dose of CyBorD July 13 and to continue weekly as per oncology. Acyclovir prophylaxis. Renal dose
allopurinol to prevent tumor lysis syndrome. Monitor uric acid and LDH, labs.
Pancytopenia -intermittent. WBC count recovered. Platelet count 104k today. Hemoglobin slowly trending down, monitor for now. Etiology of pancytopenia likely multifactorial including multiple myeloma and just received chemotherapy last week,
July 13.
Right Pleural Effusion - Hemorrhagic pleural effusion without plasma cells
Cough x 1 Month
-07/06 CT chest: Small right pleural effusion with adjacent airspace consolidation within the posterior right lower lobe, presumably atelectasis. Pneumonia is also a consideration.
- No noted infiltrate / pneumonia.
- IR eval for diagnostic / therapeutic thoracentesis 1050 bloody effusion, June 28. Fluid is exudative. No malignant cells noted.
Suspected acute on chronic anemia -hemoglobin improved to 7.8 this morning, transfused 2 units blood yesterday. Suspect etiology is due to multiple myeloma and renal failure. Cannot rule out component of acute blood loss related to hemorrhagic
pleural effusion.
Hypercalcemia, resolved-probable to due MM
- Ca = 12.5-->9.2
- Suspect significant component of hypovolemia
- IVF, s/p Calcitonin
-iPTH low
Hyperphosphatemia -6.0. Phosphate binder per nephrology.
Hyperkalemia -resolved.
Opioid Use Disorder
- Stable. Last use 3 years ago per patient. Maintained on Suboxone.
- No history of IVDA.
- Unable to use NSAIDs for acute pain control due to FRANCA, etc.
- Cautious use of opioids for pain.
Full code
Dispo -possible discharge later today if outpatient follow-up arrangements can be made. Oncology to spearhead outpatient follow-up plans. Discussed with Dr. Thapa and RN.
Anticipated Discharge: Today
Subjective/Interval History
-
Date of Service: July 18, 2024
Patient seen and examined. No complaints.
Objective Data
-
Labs:
Laboratory Results
07/18/24
02:50
WBC 18.3 H
Hgb 7.8 L
Hct 22.3 L
Plt Count 126 L
Sodium 139
Potassium 4.2
Chloride 104
Carbon Dioxide 22
BUN 100 H
Creatinine 5.6 H*
Glucose 120 H
Calcium 8.3 L
Total Bilirubin 0.7
AST 30
ALT 33
Alkaline Phosphatase 63
Vital Signs:
Vital Signs
Temp Pulse Resp BP Pulse Ox
98.7 F 92 14 122/71 95
07/18/24 08:35 07/17/24 20:35 07/17/24 20:35 07/18/24 08:27 07/18/24 09:18
I&O
07/17/24 07/18/24 07/19/24
06:59 06:59 06:59
Intake Total 4130 / 4255 1475 / 1475 450 / 450
Output Total 2300 / 2300
Balance 1830 / 1955 1475 / 1475 450 / 450
Review of Systems
-
History Source: Patient
All other systems: Reviewed and negative
[2024-07-18] MEDS: LEVAQUIN 750 MG PO (11:31)
--- NOTE | 2024-07-18 12:20 | W.DS.TRANS ---
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
-
Discharge Instructions:
Discharge Diagnosis/Procedures Multiple myeloma, acute kidney injury,
electrolyte abnormalities
Diet 2 Gram Sodium
Activity As tolerated
Driving Restrictions As prior to admission
Bathing Restrictions None
Instructions:
Stand-Alone Forms:
Changes to Home Medications: No
Discharge Medications:
DC Medications w/original date entered in [employer]
acyclovir 200 mg capsule 200 mg PO BID #60 caps 07/18/24
allopurinol 100 mg tablet 100 mg PO DAILY #30 tabs 07/18/24
doxepin 25 mg capsule 25 mg PO HS #10 caps 07/18/24
hydroxyzine HCl 10 mg tablet 10 mg PO TIDPRN PRN itching #20 tabs 07/18/24
levofloxacin 500 mg tablet 500 mg PO Q48H #1 tab 07/18/24
lidocaine 4 % topical patch 1 patch topical DAILY #10 ea 07/18/24
oseltamivir 30 mg capsule 30 mg PO DAILY #7 caps 07/18/24
sertraline 25 mg tablet 25 mg PO DAILY #30 tabs 07/18/24
Home Medication Changes
Pending Results: No
--- NOTE | 2024-07-18 12:20 | CM ---
CM following re: discharge planning.
Reviewed pt's chart, met with pt.
Pt is aware he will be discharged today and pt expressed his agreement. Pt stated he lives with family in an apartment but he feels he will stay in a hotel for couple of days to get some rest after the hospitalization. Pt stated he does not need any
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 Pt stated his aunt might transport him at discharge and if his aunt is not able to he will have a ride.
D/C plan: home no needs.
--- NOTE | 2024-07-18 14:52 | W.PN.UPDATE ---
Update Note
Progress Note Update
reviewed chart. spoke with nursing. attempted to speak with patient but he said he did not need to see psychiatry at this point. psych will sign off.
[2024-07-18 15:25] VITALS: BP 119/66
--- NOTE | 2024-07-18 15:32 | PTCARENOTE ---
plan for patient to receive chemo tomorrow and then discharge. will receive follow up care at [facility] in [place].
[2024-07-18 18:35] VITALS: BP 162/78
[2024-07-18] MEDS: SINEQUAN 25 MG PO (22:26)
[2024-07-18 23:00] VITALS: BP 122/70
--- NOTE | 2024-07-19 00:30 | PTCARENOTE ---
Patient refusing all treatment from this RN. This RN went into patient's room to see if he had telemetry pack on and if he wanted his Heparin and Atarax at this time. Patient became angry and agitated and stated 'what did you turn on this damn light
for?' He then pulled his cord to turn it off, while simultaneously ripping the call cord out of the wall. This RN went back in the room to reattach the call cord when the patient angrily stated 'why are you bothering me on purpose?' This RN educated
the patient on the reason of their call light needing to be plugged in and the patient responded 'get out of my room. I am now refusing treatment from you specifically.' This RN left patient's room. PCT reconnected call cord.
[2024-07-19] MEDS: ATARAX PO (00:40)
[2024-07-19] MEDS: HEPARIN SC ×2 (00:40→08:47)
[2024-07-19 06:00] VITALS: BMI 20.2
[2024-07-19 07:05] VITALS: BP 141/81
[2024-07-19 08:09] LABS: Hematocrit 25.1 % (39.0-52.0); Hemoglobin 8.4 g/dL (13.0-18.0); Mean Corp Hgb Conc. 33.5 g/dL (33.0-37.0); Mean Corpuscular Hgb 29.4 pg (27.0-31.0); Mean Corpuscular Volume 87.8 fL (80.0-94.0); Mean Platelet Volume 10.8 fL (7.4-10.4); Platelet Count 152 10^3/uL (130-400); Red Blood Cell Count 2.86 10^6/uL (4.70-6.10); Red Cell Dist. Width 15.1 % (11.5-14.5); White Blood Cell Count 11.8 10^3/uL (4.8-10.8)
--- NOTE | 2024-07-19 08:16 | W.PN.ONC2 ---
Today's Communication / Plan
-
.
Impression
Impression
Multiple myeloma with hypercalcemia, lytic lesion, and FRANCA at presentation
-BMBx peripheral flow reported by pathology shows a clonal plasma cell population 15.1%, FLC kappa 8281.11, ratio 1302
-kidney bx with light cast nephropathy, kappa-type, severe, with acute tubular injury and mild interstitial inflammation. Tubular atrophy and interstitial fibrosis
-s/p Pulse dexamethasone 07/10-07/13
-s/p CyBorD Cytoxan 300mg/m2, Velcade 1.3 mg/m2 07/13
-viral ppx with acyclovir
-on dvt ppx
acute respiratory failure -resolved on room air
-pleural effusion -negative for malignancy
-on Levofloxacin
-Influenza B 07/14 -Tamiflu
-LE US negatve for DVT
-steroids complete
-pulmonary & ID following following
panic attack -resolved
Plan
Plan
f/u BMBx results 07/11
continue CyBorD Cytoxan 300mg/m2, Velcade 1.3 mg/m2 weekly, next dose due today
acyclovir ppx, renal dose
on renal dose allopurinol
Monitor CMP, mag, phos, uric acid, LDH
antiemetics prn
He lives near [facility], so can pursue subsequent cycles with [facility] myeloma specialists which has been arranged with Dr. Macias's team
Subjective/Objective
Subjective
no new complaints
feeling well and eager for discharge
Vital Signs:
Vital Signs
Temp Pulse Resp BP Pulse Ox
99.2 F 60 19 141/81 98
07/19/24 07:05 07/19/24 07:05 07/19/24 07:05 07/19/24 07:05 07/19/24 07:05
Lab Results:
Laboratory Data
WBC 11.8 10^3/uL (4.8-10.8) H 07/19/24 07:44
Hgb 8.4 g/dL (13.0-18.0) L 07/19/24 07:44
Plt Count 152 10^3/uL (130-400) D 07/19/24 07:44
PT 14.8 Sec (11.4-14.6) H 07/15/24 11:21
INR 1.13 07/15/24 11:21
APTT 31.7 Sec (23.4-35.0) 07/15/24 11:21
eGFR Cancelled 07/19/24 07:57
Physical Exam
HEENT: Moist Mucous Membranes; No Jaundice
Cardiology: Normal Sinus Rhythm
Pulmonary: Clear
GI: Soft
Extremities: Pulses Present; No Edema
Neuro: Non Focal
--- NOTE | 2024-07-19 08:19 | W.PN.HOSP.TC ---
Today's Communication/Plan
-
Discharge
Assessment / Plan
Assessment / Plan
Gen-AAOx3, NAD
HEENT-NC, AT, anicteric, clear oral mm
Neck-supple
CV-reg, no M, +S1/S2
Lungs-faint end expiratory wheezing bilaterally
Abd-soft, NT, ND
Ext-no edema
Musculoskeletal-no cyanosis, clubbing
Skin-warm and dry
Neuro-grossly non-focal
Psych-calm, cooperative
Acute hypoxic respiratory failure -suspect mostly due to pulmonary edema. Relatively rapid improvement in clinical status and radiographic findings on chest x-ray supports pulmonary edema rather than infection. Repeat chest x-ray July 17 without
significant change compared to yesterday. Reviewed by myself.
Antibiotics per ID.
Continue Tamiflu for acute influenza B infection. ID recommends 10 days total.
Last fever was July 15, 100.9 �F. Leukocytosis suspected due to steroids, improving.
Elevated troponin
� Most likely nonischemic myocardial injury
� Echo on 06/28 with no obvious wall motion abnormality
FRANCA -suspect multifactorial etiology including NSAIDs, anorexia with decreased oral intake, multiple myeloma. Creatinine trending down, 5.6 today. Will require outpatient nephrology follow-up.
- reportedly 1.3 at [facility] 2 weeks ago.
New diagnosis multiple myeloma -oncology is following. Underwent bone marrow biopsy July 11. Pulsed dexamethasone from July 10 to . Given 1 dose of CyBorD July 13 and to continue weekly as per oncology. Acyclovir prophylaxis. Renal dose
allopurinol to prevent tumor lysis syndrome. Monitor uric acid and LDH, labs.
Oncology plans on another treatment today and then discharge. Follow-up with [place] oncology.
Pancytopenia -intermittent. WBC count recovered. Platelet count 104k today. Hemoglobin slowly trending down, monitor for now. Etiology of pancytopenia likely multifactorial including multiple myeloma and just received chemotherapy last week,
July 13.
Right Pleural Effusion - Hemorrhagic pleural effusion without plasma cells
Cough x 1 Month
-07/06 CT chest: Small right pleural effusion with adjacent airspace consolidation within the posterior right lower lobe, presumably atelectasis. Pneumonia is also a consideration.
- No noted infiltrate / pneumonia.
- IR eval for diagnostic / therapeutic thoracentesis 1050 bloody effusion, June 28. Fluid is exudative. No malignant cells noted.
Suspected acute on chronic anemia -hemoglobin improved to 8.4 this morning, transfused 2 units blood this admission. Suspect etiology is due to multiple myeloma and renal failure. Cannot rule out component of acute blood loss related to
hemorrhagic pleural effusion.
Hypercalcemia, resolved-probable to due MM
- Ca = 12.5-->9.2
- Suspect significant component of hypovolemia
- IVF, s/p Calcitonin
-iPTH low
Hyperphosphatemia -6.0. Phosphate binder per nephrology.
Hyperkalemia -resolved.
Opioid Use Disorder
- Stable. Last use 3 years ago per patient. Maintained on Suboxone.
- No history of IVDA.
- Unable to use NSAIDs for acute pain control due to FRANCA, etc.
- Cautious use of opioids for pain.
Full code
Dispo -stable for discharge today after myeloma treatment. Outpatient follow-up.
Anticipated Discharge: Today
Subjective/Interval History
-
Date of Service: July 19, 2024
Patient seen and examined. Complaining of mild chest tightness.
Objective Data
-
Labs:
Laboratory Results
07/19/24 07/19/24
07:44 07:57
WBC 11.8 H
Hgb 8.4 L
Hct 25.1 L
Plt Count 152 D
Sodium Pending Cancelled
Potassium Pending Cancelled
Chloride Pending Cancelled
Carbon Dioxide Pending Cancelled
BUN Pending Cancelled
Creatinine Pending Cancelled
Glucose Pending Cancelled
Calcium Pending Cancelled
Vital Signs:
Vital Signs
Temp Pulse Resp BP Pulse Ox
99.2 F 60 19 141/81 98
07/19/24 07:05 07/19/24 07:05 07/19/24 07:05 07/19/24 07:05 07/19/24 07:05
I&O
07/18/24 07/19/24 07/20/24
06:59 06:59 06:59
Intake Total 1475 / 1475 1170 / 1170
Balance 1475 / 1475 1170 / 1170
Review of Systems
-
History Source: Patient
All other systems: Reviewed and negative
[2024-07-19] MEDS: ZYLOPRIM 100 MG PO (08:36)
[2024-07-19] MEDS: ZOVIRAX 200 MG PO (08:36)
[2024-07-19] MEDS: ATARAX 10 MG PO (08:36)
[2024-07-19] MEDS: LIDOCAINE 4% PATCH 1 PATCH TOPICAL (08:37)
[2024-07-19] MEDS: TAMIFLU 30 MG PO (08:37)
[2024-07-19] MEDS: ZOLOFT 25 MG PO (08:37)
[2024-07-19 08:40] LABS: Absolute Neutrophils -Man Diff 8.7 10^3/uL (1.4-6.5); Anisocytosis Slight; Band Neutrophils 3 % (0-3); Eosinophils 1 % (0-6); Lymphocytes 15 % (20-51); Metamyelocytes 1 % (-); Monocytes 6 % (2-9); Myelocytes 4 % (-); Normal RBC Morphology No; Platelets Checked Yes; Segmented Neutrophils 71 % (42-75)
[2024-07-19 08:41] LABS: Ovalocytes Slight; Total Cells Counted 100
[2024-07-19 08:42] LABS: Blood Urea Nitrogen 92 mg/dl (9-20); Calcium 8.5 mg/dl (8.4-10.2); Carbon Dioxide 23 mmol/L (22-30); Chloride 107 mmol/L (98-107); Estimated Creatinine Clearance 17 ml/min; Glucose 83 mg/dl (70-99); Phosphorus 5.1 mg/dl (2.5-4.5); Sodium 142 mmol/L (135-145); eGFR 11.93
[2024-07-19] MEDS: DECADRON 54 MG IV (10:45)
[2024-07-19] MEDS: ALOXI 5 MG IV (10:47)
[2024-07-19 11:07] VITALS: BP 144/78
[2024-07-19] MEDS: CYCLOPHOSPHAMIDE 253.015 MG IV (11:09)
--- NOTE | 2024-07-19 11:38 | PTCARENOTE ---
Chemo infusing, pt tolerating well and denies any adverse effect at this time. No distress to IV site.
--- NOTE | 2024-07-19 11:43 | W.PN.NEPH.PH ---
Today's Communication / Plan
-
Okay for discharge from renal standpoint
Assessment/Plan
-
Impression.
Acute kidney injury. Creatinine 6.9 on admission. 1.3 two weeks ago
Pleural effusion status post thoracentesis 1 L.
Prior opiate use disorder on Suboxone.
Anemia.
Hypercalcemia.
humeral lytic lesions
CXR with new bilateral infiltrates= influenza
Plan.
follow BMP
follow phos
continue allopurinol
onc managing CyBorD
Tamiflu
Nonoliguric
No acute need for dialysis currently as I discussed with the patient
Will need follow-up nephrology outpatient with [facility]
From renal standpoint okay for discharge
Currently receiving chemo
-
-
Date of Service: July 19, 2024
CC / HPI / ROS
-
Chief Complaint:
Shortness of breath
History of Present Illness:
tolerated chemo second treatment
K normalized
FRANCA/Cr stable at 6.1�5C
BP stable
Review of Systems:.
no fever, non oliguric with out paula
no cp
no n/v
Labs
-
Labs:
WBC 11.8 10^3/uL (4.8-10.8) H 07/19/24 07:44
RBC 2.86 10^6/uL (4.70-6.10) L 07/19/24 07:44
Hgb 8.4 g/dL (13.0-18.0) L 07/19/24 07:44
Hct 25.1 % (39.0-52.0) L 07/19/24 07:44
Plt Count 152 10^3/uL (130-400) D 07/19/24 07:44
Sodium Cancelled 07/19/24 07:57
Potassium Cancelled 07/19/24 07:57
Chloride Cancelled 07/19/24 07:57
Carbon Dioxide Cancelled 07/19/24 07:57
BUN Cancelled 07/19/24 07:57
Creatinine Cancelled 07/19/24 07:57
eGFR Cancelled 07/19/24 07:57
Glucose Cancelled 07/19/24 07:57
Calcium Cancelled 07/19/24 07:57
Phosphorus 5.1 mg/dl (2.5-4.5) H 07/19/24 07:44
Izn-V-Huxnrcevyum Pept 3680 pg/ml 07/15/24 04:34
Albumin 3.2 g/dl (3.5-5.0) L 07/18/24 02:50
Physical Exam
-
Vital Signs:
Vital Signs
Temp Pulse Resp BP Pulse Ox
99.5 F 59 16 144/78 98
07/19/24 11:07 07/19/24 11:07 07/19/24 11:07 07/19/24 11:07 07/19/24 11:07
Respiratory:: Bilateral: Coarse
Lung Excursion:: Normal
Abdomen:: Soft
Bowel Sounds:: Normal
Extremity Edema:: None: Bilateral:
--- NOTE | 2024-07-19 12:09 | CM ---
Patient chart reviewed
per note stable for dc today after treament
per nursing 2 hrs after treatment completed
Outpatient follow-up
PLAN: home
family to transport
[2024-07-19] MEDS: VELCADE 1.04 MG SC (12:25)
[2024-07-19 12:41] VITALS: BP 155/83
--- NOTE | 2024-07-19 12:43 | PTCARENOTE ---
Chemotherapy completed. Pt tolerated well. No distress noted. All needs met.
== END 2024-07-19 14:41 | disposition home or self-care (01) | DRG 840 ==
LOC: 3 WEST ACU 22:11
PROVIDERS: Hospitalist; Internal Medicine; Internal Medicine Critical Care Medicine; Internal Medicine Hematology & Oncology; Nurse Practitioner Acute Care; Nurse Practitioner Family; Physician Assistant; Radiology Vascular & Interventional Radiology; Registered Nurse; Specialist; Student in an Organized Health Care Education/Training Program; ADMITTING PHYSICIAN Hospitalist; ATTENDING PHYSICIAN Hospitalist; CONSULT PHYSICIAN Internal Medicine Cardiovascular Disease; CONSULT PHYSICIAN Internal Medicine Nephrology; EMERGENCY PHYSICIAN Emergency Medicine; OTHER PHYSICIAN Internal Medicine; OTHER PHYSICIAN Internal Medicine Hematology & Oncology; OTHER PHYSICIAN Student in an Organized Health Care Education/Training Program
PROC: 0W993ZZ Drainage of Right Pleural Cavity, Percutaneous Approach (ICD-10-PCS; 2024-06-28)
PROC: 0TB03ZX Excision of Right Kidney, Percutaneous Approach, Diagnostic (ICD-10-PCS; 2024-07-09)
PROC: 07DR3ZX Extraction of Iliac Bone Marrow, Percutaneous Approach, Diagnostic (ICD-10-PCS; 2024-07-11)
PROC: 079T3ZX Drainage of Bone Marrow, Percutaneous Approach, Diagnostic (ICD-10-PCS; 2024-07-11)
PROC: 3E03305 Introduction of Other Antineoplastic into Peripheral Vein, Percutaneous Approach (ICD-10-PCS; 2024-07-13)
PROC: 30233N1 Transfusion of Nonautologous Red Blood Cells into Peripheral Vein, Percutaneous Approach (ICD-10-PCS; 2024-07-17)
DX: C90.00 Multiple myeloma not having achieved remission (principal); D61.810 Antineoplastic chemotherapy induced pancytopenia; J96.01 Acute respiratory failure with hypoxia; J81.0 Acute pulmonary edema; N17.0 Acute kidney failure with tubular necrosis; J90 Pleural effusion, not elsewhere classified; D80.1 Nonfamilial hypogammaglobulinemia; R64 Cachexia; Z68.1 Body mass index [BMI] 19.9 or less, adult; I5A Non-ischemic myocardial injury (non-traumatic); J98.11 Atelectasis; E87.20 Acidosis, unspecified; J10.1 Influenza due to other identified influenza virus with other respiratory manifestations; E87.6 Hypokalemia; R82.71 Bacteriuria; T45.1X5A Adverse effect of antineoplastic and immunosuppressive drugs, initial encounter; E83.52 Hypercalcemia; E83.39 Other disorders of phosphorus metabolism; R63.6 Underweight; E87.5 Hyperkalemia; F11.10 Opioid abuse, uncomplicated; F41.9 Anxiety disorder, unspecified; G47.00 Insomnia, unspecified; T39.395A Adverse effect of other nonsteroidal anti-inflammatory drugs [NSAID], initial encounter; D63.0 Anemia in neoplastic disease; Z11.52 Encounter for screening for COVID-19
CPT/HCPCS: 88305; 88311; 88312; 93308; 32555; 36600; 38222; 50200; 51798; 71045; 71046; 71250; 74176; 76942; 77012; 77075; 80048; 80053; 80143; 80179; 80306; 81003; 81015; 81099; 82077; 82232; 82330; 82340; 82550; 82570; 82607; 82652; 82668; 82728; 82746; 82784; 82785; 82805; 82962; 83036; 83516; 83521; 83540; 83550; 83605; 83615; 83690; 83735; 83880; 83970; 83986; 84100; 84145; 84155; 84156; 84157; 84165; 84443; 84484; 84550; 85014; 85018; 85025; 85027; 85379; 85610; 85652; 85730; 86038; 86063; 86140; 86160; 86334; 86430; 86704; 86705; 86706; 86708; 86709; 86803; 86850; 86900; 86901; 86920; 87015; 87040; 87070; 87086; 87147; 87186; 87205; 87340; 87389; 87502; 87641; 87811; 88112; 88313; 89051; 93005; 93306; 93321; 93325; 93970; 96361; 96374; 99152; 99153; 99291; J0630; J2469; J7030; J9041; J9070; P9016